=== PATIENT | female | born 2000 | race Caucasian/White ===

== ENCOUNTER 2022-04-19 13:39 | Inpatient (IN) | payer MEDICAID ==
[~2022-04-19] VITALS: Ht 132.1 cm; Wt 35.0 kg
[~2022-04-19 13:39] MED LIST: ACHD5005 PO; ADAL80PE2 SQ; ASCO100024 PO; BACL10TA PO; BISACODYL 10 MG SUPP (DULCOLAX) PR PRN; CALCIUM CARBONATE 500 MG (TUMS) TAB.CHEW PO PRN; CHOL200074 PO; CICL6.6S22 TP; DICY10CA12 PO; DOCUSATE SODIUM 100 MG (COLACE) CAP PO PRN; FLEET ENEMA ADULT 1 EA BTL PR PRN; FLUT9.9S NS; FURO20TA4 PO; LACT1CAP40 PO; LACTULOSE SYRUP 10GM/15ML (ENULOSE) 30ML UDC PO PRN; LNZ600T PO; LOPERAMIDE 2 MG (IMODIUM) TABLET PO PRN; LORA10TA7 PO; METR-145 PO; MULT-1136 PO; ONDANSETRON 4 MG (ZOFRAN) ORAL DISSOLVE TAB PO PRN; PANT40TA52 PO; [UNRECOGNIZED DRUG - OTHER] PO; diphenhydrAMINE 25 MG TAB (BENADRYL) PO PRN; guaiFENesin/CODEINE (ROBITUSSIN AC) 10ML UDC PO PRN
[2022-04-19 14:51] VITALS: BP 91/60
--- NOTE | 2022-04-19 15:14 | Physical Therapy Evaluation ---
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 6-Nshvcutwkr-cyynusc completes the activity by him/herself with no assistance from a helper. 5-Set-up or Clean-up Assistance-helper sets up or cleans up; patient completes activity. [place] assists only prior to or following the activity. 4-Supervision or Touching Assistance-helper provides verbal cues and/or touching/steadying and/or contact guard assistance as patient completes activity. Assistance may be provided throughout the activity or intermittently. 3-Partial/Moderate Assistance-helper does LESS THAN HALF the effort. [place] lifts, holds or supports trunk or limbs, but provides less than half the effort. 2-Substantial/Maximal Assistance-helper does MORE THAN HALF the effort. [place] lifts or holds trunk or limbs and provides more than half the effort. 4-Gozhippqi-ywkcrv does ALL the effort. Patient does none of the effort to complete the activity. Or, the assistance of 2 or more helpers is required for the patient to complete the activity. If activity was not attempted, code reason: 7-Patient Refused. 9-Not Applicable-not attempted and the patient did not perform the activity before the current illness, exacerbation or injury. 10-Not Attempted due to Environmental Limitations-(lack of equipment, weather restraints, etc.). 88-Not Attempted due to Medical Conditions or Safety Concerns. Bed Mobility: 6 Transfers (B,C,W/C): 6 Gait: 6 Indoor Mobility (Ambulation): Independent Prior Devices Use: None PT Evaluation-Current Subjective Patient comes to hospital via family transport, has 1/10 abdominal pain. Will be co-treating with OT due to poor patient mobility, strength, endurance, severe debility, coordinate UE and LE during activity, safety and reduce risk of falls. Pain Section J - Health Conditions 1. Rarely or not at all 2. Occasionally 3. Frequently 4. Almost constantly 8. Unable to answer Pain Effect on Sleep: 2 Pain Interference with Therapy: 2 Pain Interference w/Day-to-Day: 2 Pt/Family Goals to be independent at home Objective Patient Orientation: Person, Place, Situation Attachments: Colostomy/Ileostomy ROM/Strength ROM Lower Extremities PROM BLE WNL Strength Lower Extremities LLE (hip flexion 2/5, knee flexion 3/5, knee extension 3+/5, dorsiflexion 3/5), RLE (hip flexion 2/5, knee flexion 3/5, knee extension 3+/5, dorsiflexion 3/5) Neuromuscular (Tone, Coordination, Reflexes) decreased muscle tone BLE Sensory Vision: Functional Hearing: Functional Sensation Right Lower Extremit: Intact Sensation Left Lower Extremity: Intact Transfers Roll Left & Right (QC): 3 Sit to Lying (QC): 3 Lying to Sitting/Side of Bed(Q: 3 Sit to Stand (QC): 4 Chair/Nsv-il-Xayvy Xfer(QC): 4 Toilet Transfer (QC): 4 Car Transfer (QC): 3 Patient performs rolling with min assist, supine to sit min assist, sit to supine mod assist, sit <-> stand and transfers CGA, car transfer min assist. Occasional cues for safety and positioning. Patient also showered and dressed. PT performed standing and positioning and safety during bathing and dressing. Gait Does the Patient Walk?: Yes Mode of Locomotion: Walk Anticipated Mode of Locomotion: Walk Walk 10 feet (QC): 4 Walk 50 ft with 2 Turns(QC): 4 Walk 150 ft (QC): 88 Walking 10ft/uneven surface-QC: 3 Distance: 75', 60' Gait Assistive Device: FWW Comments/Gait Description Patient can ambulate 75' with a rolling walker with CGA (including 50' with at least 2 turns of 90 degrees but needs min assist for 10' over an uneven surface), patient ambulates with bilateral dropfoot (has AFO's but feet are too swollen to put them on) flexed knees and hip, poor strength with step through. Wheelchair Training Wheel 50 ft with 2 turns (QC): 9 Wheel 150 ft (QC): 9 Stairs 1 Step (curb) (QC): 88 4 Steps (QC): 88 12 Steps (QC): 88 Patient's legs are too weak to attempt stairs in a safe manner at this time. Balance Sitting Static: Normal Sitting Dynamic: Normal Standing Static: Fair Standing Dynamic: Fair Picking up an Object (QC): 4 (CGA with client services coordinator) Treatment PT performed standing and positioning and safety during bathing and dressing, bed mobility and transfers, ambulation. OT performed bathing, dressing, UE positioning and safety during activity. Assessment/Needs Patient in recliner post tx with nurse call, phone, tray, all needs met. Patient has impaired mobility, strength, endurance. Has abnormal CP gait pattern. Rehab Potential: Fair PT Short Term Goals Short Term Goals Time Frame: Apr 26, 2022 Roll Left & Right: 6 Sit to lyin Lying to sitting on side of be: 4 Sit to stand: 4 (SBA) Chair/vhz-kl-yukmp transfer: 4 (SBA) Walk 10 feet: 4 (SBA) Walk 50 feet with two turns: 4 (SBA) Walk 150 feet: 4 (SBA) PT [place] Orientator Goals Shelter Goals PT Shelter Goals Time Frame: May 10, 2022 Scoring Section J - Health Conditions 1. Rarely or not at all 2. Occasionally 3. Frequently 4. Almost constantly 8. Unable to answer Roll Left to Right (QC): 6 Sit to Lying (QC): 6 Lying-Sitting on Side/Bed(QC): 6 Sit to Stand (QC): 5 Chair/Cph-to-Oqwac Xfer(QC): 5 Car Transfer (QC): 5 Does the Patient Walk: Yes Walk 10 feet (QC): 5 Walk 10ft-Uneven Surface(QC): 5 Walk 50ft with 2 Turns (QC): 5 Walk 150 ft (QC): 5 Wheel 50 feet with 2 turns (QC: 9 1 Step (curb) (QC): 3 4 Steps (QC): 88 12 Steps (QC): 88 Picking up an Object (QC): 5 Patient will also perform a toilet transfer with setup, Wc 150' QC9, PT Plan Problem List Problem List: Activity Tolerance, Functional Strength, Safety, Balance, Gait, Transfer, Bed Mobility, ROM Treatment/Plan Treatment Plan: Continue Plan of Care Treatment Plan: Bed Mobility, Education, Functional Activity Tim, Functional Strength, Group Therapy, Gait, Safety, Therapeutic Exercise, Transfers Treatment Duration: May 10, 2022 Frequency: At least 5 of 7 days/Wk (IRF) Estimated Hrs Per Day: 1.5 hours per day Patient and/or Family Agrees t: Yes Safety Risks/Education Patient Education: Gait Training, Transfer Techniques, Correct Positioning, Safety Issues Teaching Recipient: Patient Teaching Methods: Demonstration, Discussion Response to Teaching: Reinforcement Needed Discharge Recommendations Plan Patient will perform bed mobility and transfer training, balance and endurance training, functional strengthening, stair training, gait training, and education, to improve functional mobility and independence at home. Therapy Discharge Recommendati: Home & Family, Post Acute PT Time/GCodes Time In: 1425 Time Out: 1605 Total Billed Treatment Time: 90 Total Billed Treatment 1 visit EVM 10' FA 80' PT eval from [id number], OT eval from [id number], co-treat from [id number] PA ROGERS PT Apr 19, 2022 15:14
--- NOTE | 2022-04-19 15:49 | Occupational Therapy Eval ---
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 s/p exp lap with ileostomy placement. Pt transferred to ARU 04/19/22 for continued medication management and skilled therapy. Social History Home: Single Level Current Living Status: mother Entry Into Home: Stairs Without Railing Steps Into Home: 1 ADL-Prior Level of Function SCALE: Activities may be completed with or without assistive devices. 3-Qrjqqrwtzq-dmotjia completes the activity by him/herself with no assistance from a helper. 5-Set-up or Clean-up Assistance-helper sets up or cleans up; patient completes activity. [place] assists only prior to or following the activity. 4-Supervision or Touching Assistance-helper provides verbal cues and/or touching/steadying and/or contact guard assistance as patient completes activity. Assistance may be provided throughout the activity or intermittently. 3-Partial/Moderate Assistance-helper does LESS THAN HALF the effort. [place] lifts, holds or supports trunk or limbs, but provides less than half the effort. 2-Substantial/Maximal Assistance-helper does MORE THAN HALF the effort. [place] lifts or holds trunk or limbs and provides more than half the effort. 0-Ifhteukqw-oiavsr does ALL the effort. Patient does none of the effort to complete the activity. Or, the assistance of 2 or more helpers is required for the patient to complete the activity. If activity was not attempted, code reason: 7-Patient Refused. 9-Not Applicable-not attempted and the patient did not perform the activity before the current illness, exacerbation or injury. 10-Not Attempted due to Environmental Limitations-(lack of equipment, weather restraints, etc.). 88-Not Attempted due to Medical Conditions or Safety Concerns. ADL PLOF Comments Pt reports IND with ADLs and functional mobility at PLOF, bilateral AFOs. At this time, pt and mother are staying at grandmothers house until rental is ready. Pt unsure about the layout of the rental property, as she has only been there one time. She also doesn't know a time frame on when the rental will be ready for her and her mother to move into. Pt's grandmothers house has a tub/shower with RI. Self Care: Independent Functional Cognition: Independent OT Current Status Subjective Pt agreeable to OT Tx. Mental Status/Objective Patient Orientation: Person, Place, Time, Situation Acute Mental Status Change: 0 Inattention: 0 Disorganized thinkin Altered level of consciousness: 0 Current Glasses/Contacts: No Hearing Aids: No Dentures/Partials: No Hand Dominance: Right Upper Extremity ROM WFL, BUE shoulder flexion to approx 150 degrees Upper Extremity Coordination slightly decreased. Pt has difficulty with opening containers, and squeezing containers (toothpaste, soap, etc) due to weakness Upper Extremity Sensation WFL Upper Extremity Strength grossly 3+/5 ADL-Treatment Eating (QC): 5 Oral Hygiene (QC): 4 (CGA per clinical judgement) Shower/Bathe Self (QC): 3 (Mod A overall. Pt required assistance with bilateral LEs and feet.) Upper Body Dressing (QC): 5 (set up with overhead shirt.) Lower Body Dressing (QC): 2 (Max A. assist with threading BLEs into pants, and slight assist with pant hike in back.) On/Off Footwear (QC): 1 (total assist doffing/donning gripper socks.) Toileting Hygiene (QC): 3 (Min A with pant hike in back.) frequent rest breaks required and increased time with ADLs. Other Treatments OT/PT cotreat due to skill of 2 clinicians required which a rehabilitation therapy technician could not perform in order to coordinate UE/LEs, decrease fall risk, and due to pt's limitations in strength, activity tolerance, and mobility. OT focused on UE placment, cues for sequencing and safety and ADLs, PT focused on LE placement, gross overall movement and transfers/mobility. Pt completed functional mobility and transfers around ARU common area including mobility with FWW, car transfer, bed mobility, etc. Pt transferred to [place] in her room, doffed clothes, completed shower, then donned clothes. [facility], positioned to comfort with pillows, as recliner is too large for pt's size. Post tx, pt in recliner, call light in reach and all needs met. min A car transfer, min-mod A with supine to/from sit, CGA sit to stand and ambulation Education OT Patient Education: Correct positioning, Energy conservation, Modified ADL techniques, Progress toward Goal/Update tx plan, Purpose of tx/functional activities, Rehab process Teaching Recipient: Patient Teaching Methods: Discussion Response to Teaching: Verbalize Understanding OT Short Term Goals Short Term Goals Time Frame: May 02, 2022 Toileting hygiene: 4 Shower/bathe self: 4 Lower body dressin Putting on/taking off footwear: 4 OT Mcfp Goals Nail Puller Goals Time Frame: May 11, 2022 Acute change in mental status: 0 Inattention: 0 Disorganized thinkin Altered level of consciousness: 0 Eating (QC): 5 Oral Hygiene (QC): 5 Toileting Hygiene (QC): 6 Shower/Bathe Self (QC): 5 Upper Body Dressing (QC): 6 Lower Body Dressing (QC): 6 On/Off Footwear (QC): 6 Additional Goals: 1-Demonstrate ADL Tasks, 2-Verbalize Understanding, 3- ImproveStrength/Tim 1=Demonstrate adherence to instructed precautions during ADL tasks. 2=Patient will verbalize/demonstrate understanding of assistive devices/modifications for ADL. 3=Patient will improve strength/tolerance for activity to enable patient to perform ADL's. OT Education/Plan Problem List/Assessment Assessment: Decreased Activ Tolerance, Decreased UE Strength, Impaired Funct Balance, Impaired I ADL's, Impaired Self-Care Skills Discharge Recommendations Plan/Recommendations: Continue POC Treatment Plan/Plan of Care Patient would benefit from OT for education, treatment and training to promote independence in ADL's, mobility, safety and/or upper extremity function for ADL's. Plan of Care: ADL Retraining, Functional Mobility, Group Exercise/Act as Ind, UE Funct Exercise/Act Treatment Duration: May 11, 2022 Frequency: At least 5 of 7 days/Wk (IRF) Estimated Hrs Per Day: 1.5 hours per day Agreement: Yes Rehab Potential: Fair Time/GCodes Start Time: 14:35 Stop Time: 16:05 Total Time Billed (hr/min): 90 Billed Treatment Time [id number] OT eval, [id number] [place] 1, EVM (10'), FA 2 (30'), ADL 3 (50') KARL PIERRE OT Apr 19, 2022 15:49
--- NOTE | 2022-04-19 15:50 | IRF PAI BIMS ---
BIMS BIMS Temporal Orientation/Year: Correct (3) Temporal Orientation-Month: Accurate Within 5 Days (2) Temporal Orientation-Day: Incorrect or No Answer (0) Brief Interview/Mental Status: Yes IRF VERONICA BIMS: IRF VERONICA BIMS Response (Comments) Value Expression of Ideas and Wants (Verbal/Non Verbal) Without Difficulty (4) 3 Understanding Verbal Content Understands (4) 3 Repitition of Three Words Three (3) 3 Recalls Socks Yes, No Cue Required (2) 2 Recalls Blue Yes, After Cueing (Color) (1) 1 Recalls Bed Yes, No Cue Required (2) 2 Total 14 Notes: Score KARL PIERRE OT Apr 19, 2022 15:50
--- NOTE | 2022-04-19 16:11 | Consultation - Surgery ---
LORI OROZCO 04/19/22 1611: History of Present Illness History of Present Illness Patient Consulted On(bertha/time) 04/19/22 15:59 Date Seen by Provider: Apr 19, 2022 Time Seen by Provider: 15:59 History of Present Illness We were consulted by Dr. Rivera on this 21 yo F s/p bowel resection after colononic perforation on 04/14 in [facility]. She has a pmh of Chron's disease, cerebral palsy, and hiatal hernia, anxiety, and muscle spasticity. She reports current 1/10 pain in her mid abdomen that can get up to 3/10 when she moves in the wrong position. She describes the pain as sore and achy. It radiates to both sides at times. She is currently tolerating a soft diet post surgery and denies any N/V. Ileostomy is draining green liquid stool. Pt reports no changes to her drainage visually. Pt says she is here "to work on getting stronger" after her surgery. She developed swelling up to her knees a few weeks ago. Her legs are not currently painful, but there is pitting edema bl. Allergies and Home Medications Allergies Coded Allergies: vancomycin (Verified Allergy, Intermediate, Rash, 04/19/22) Patient Home Medication List Home Medication List Reviewed: Yes Adalimumab (Humira(Cf) Pen) 80 Mg/0.8 Ml Pen.ij.kit, MG SQ UD, (Reported) Entered as Reported by: GUNNER GARCIA on 04/19/22 1220 Last Action: Held Ascorbic Acid (Vitamin C) 1,000 Mg Tablet, 1,000 MG PO DAILY, (Reported) Entered as Reported by: GUNNER GARCIA on 04/19/221213 Last Action: Converted Baclofen (Baclofen) 10 Mg Tablet, 10-20 MG PO TID PRN for MUSCLE SPASTICITY, (Reported) Entered as Reported by: GUNNER GARCIA on 04/19/221213 Last Action: Continued Cholecalciferol (Vitamin D3) (Vitamin D3) 50 Mcg (2000 Unit) Capsule, 50 MCG PO DAILY, (Reported) Entered as Reported by: GUNNER GARCIA on 04/19/224 Last Action: Converted Ciclopirox (Ciclopirox) 8 % Solution, 1 APPLIC TP DAILY, (Reported) Entered as Reported by: GUNNER GARCIA on 04/19/221213 Last Action: Converted Dicyclomine HCl (Dicyclomine HCl) 10 Mg Capsule, 10 MG PO TID PRN for GI PAIN, (Reported) Entered as Reported by: GUNNER GARCIA on 04/19/221213 Last Action: Continued Fluticasone Propionate (Flonase Allergy Relief) 50 Mcg/Actuation [place].susp, 2 SPRAY NS DAILY, (Reported) Entered as Reported by: GUNNER GARCIA on 04/19/221213 Last Action: Converted Furosemide (Furosemide) 20 Mg Tablet, 20 MG PO DAILY PRN for SWELLING, (Reported) Entered as Reported by: GUNNER GARCIA on 04/19/221213 Last Action: Continued Hydrocodone/Acetaminophen (Hydrocodone-Acetamin 5-325 mg) 5 Mg-325 Mg Tablet, 1 TAB PO Q8H PRN for PAIN-MODERATE (5-7), (Reported) Entered as Reported by: GUNNER GARCIA on 04/19/221213 Last Action: Continued L. Rhamnosus GG/Inulin (Culturelle Capsule) 10 Billion Cell-200 Mg Cap.sprink, 1 EACH PO BID, (Reported) Entered as Reported by: GUNNER GARCIA on 04/19/221213 Last Action: Converted Linezolid (Linezolid) 600 Mg Tablet, 600 MG PO BID, (Reported) Entered as Reported by: GUNNER GARCIA on 04/19/221213 Last Action: Continued Loratadine (Loratadine) 10 Mg Tablet, 10 MG PO DAILY, (Reported) Entered as Reported by: GUNNER GARCIA on 04/19/221213 Last Action: Continued Metronidazole (Metronidazole) 500 Mg Tablet, 500 MG PO TID, (Reported) Entered as Reported by: GUNNER GARCIA on 04/19/221213 Last Action: Continued Multivitamin (Multivitamin) 1 Each Tablet, 1 EACH PO DAILY, (Reported) Entered as Reported by: GUNNER GARCIA on 04/19/221213 Last Action: Converted Pantoprazole Sodium (Pantoprazole Sodium) 40 Mg Tablet.dr, 40 MG PO BID, (Reported) Entered as Reported by: GUNNER GARCIA on 04/19/221213 Last Action: Continued [Vit B Comp. Sust Rel] , 1 EA PO DAILY, (Reported) Entered as Reported by: GUNNER GARCIA on 04/19/22 1214 Last Action: Converted Past [id number] Hx Patient Social History Smoking Status: Never a Smoker Alcohol Use?: No Surgeries Surgeries: Abdominal (bowel resection secondary to perforation, ileostomy), Brain Shunt ([employer] shunt), Neurological (dorsal rhizotomy for spasticity) Respiratory History of Respiratory Disorde: No Cardiovascular History of Cardiac Disorders: No (No HTN, NM, or arrythmias) Neurological History of Neurological Disord: Yes Neurological Disorders: Cerebral Palsy Genitourinary History of Genitourinary Disor: No Gastrointestinal History of Gastrointestinal Di: Yes Gastrointestinal Disorders: Crohns Disease, Hiatal Hernia Musculoskeletal History of Musculoskeletal Dis: Yes (muscle spasticity) Endocrine History of Endocrine Disorders: No (No DM) HEENT History of HEENT Disorders: No Cancer History of Cancer: No Psychosocial History of Psychiatric Problem: Yes Behavioral Health Disorders: Anxiety Family Medical History Significant Family History: Cancer (lung cancer in grandfather, breast cancer in great grandmother.), Diabetes (multiple members of the family, great grandmother, uncles), GI Disease (gallbladder disease in multiple members) Review of Systems-General Constitutional: No chills, No fever EENTM: No hearing loss, No vision loss, No hoarseness Respiratory: No cough; dyspnea on exertion, orthopnea (pt has been sleeping with head elevated); No short of breath Cardiovascular: No chest pain, No palpitations Gastrointestinal: abdominal pain (mild abdominal pain at incision); No jaundice, No nausea, No vomiting Musculoskeletal: muscle pain (pt notes mild tenderness at left scapula when auscultating the lungs), other (hx of spasm) Skin: No change in color, No dryness, No rash Psychiatric/Neurological: Anxiety; Denies Headache Physical Exam-General Problems Physical Exam Vital Signs Vital Signs - First Documented 04/19/22 14:51 Temp 36.9 Pulse 100 Resp 14 B/P (MAP) 91/60 (70) Pulse Ox 99 O2 Delivery Room Air Capillary Refill : General Appearance: WD/WN, no apparent distress, thin, other (pt has draining ileostomy) HEENT: PERRL/EOMI; No scleral icterus (R), No scleral icterus (L) Neck: non-tender, supple Respiratory: chest non-tender, lungs clear, normal breath sounds, no respiratory distress, no accessory muscle use Cardiovascular: regular rate, rhythm, no murmur Peripheral Pulses: 2+ Radial Pulses (R), 2+ Radial Pulses (L) Gastrointestinal: soft; No distended; tenderness (LLQ and around incision) Rectal: deferred Extremities: no calf tenderness, pedal edema, swelling (edema up to knees bl) Neurologic/Psychiatric: alert, normal mood/affect, oriented x 3; No facial droop Skin: normal color, warm/dry Lymphatic: no adenopathy (cervical) Assessment/Plan Assessment/Plan Assessment/Plan S/P bowel resection after colon perforation on 04/14, draining ileostomy Chrons Disease Cerebral palsy Muscle spasticity Hiatal hernia Anxiety LE swelling- undetermined etiology Plan: Pt is admitted to work on recovering strength and ADLs after surgery on 04/14. Her ileostomy seems to be draining properly at this time, continue to monitor for changes in abdominal pain, signs of infection, Chron's flare, and changes in ileostomy fluid. Pts abdominal pain is under control at the moment, pt states she has required morphine at times since surgery. Pt will need monitoring of labs regularly. Her muscle spasticity seems to be under control post dorsal rhizotomy treated with baclofen, continue to monitor. The status of her hiatal hernia is unsure at this time, consider imaging. Anxiety controlled with zoloft. Her LE edema has been constant for a few weeks, consider echo and med review. KYUNGORLINFAYE Po DO 04/19/22 1855: History of Present Illness History of Present Illness Time Seen by Provider: 17:43 History of Present Illness Surgery asked to consult regarding ileostomy. Pt had surgery on 04/14, Ileo-cecectomy with ileal-colonic anastomosis and loop ileostomy. Pt seen sitting up in bed eating dinner. States really no abdominal pain, "minimal". Pt admitted to rehab to help get stronger. Allergies and Home Medications Allergies Coded Allergies: vancomycin (Verified Allergy, Intermediate, Rash, 04/19/22) Patient Home Medication List Home Medication List Reviewed: Yes Adalimumab (Humira(Cf) Pen) 80 Mg/0.8 Ml Pen.ij.kit, MG SQ UD, (Reported) Entered as Reported by: GUNNER GARCIA on 04/19/22 1220 Last Action: Held Ascorbic Acid (Vitamin C) 1,000 Mg Tablet, 1,000 MG PO DAILY, (Reported) Entered as Reported by: GUNNER GARCIA on 04/19/221213 Last Action: Converted Baclofen (Baclofen) 10 Mg Tablet, 10-20 MG PO TID PRN for MUSCLE SPASTICITY, (Reported) Entered as Reported by: GUNNER GARCIA on 04/19/221213 Last Action: Continued Cholecalciferol (Vitamin D3) (Vitamin D3) 50 Mcg (2000 Unit) Capsule, 50 MCG PO DAILY, (Reported) Entered as Reported by: GUNNER GARCIA on 04/19/221213 Last Action: Converted Ciclopirox (Ciclopirox) 8 % Solution, 1 APPLIC TP DAILY, (Reported) Entered as Reported by: GUNNER GARCIA on 04/19/221213 Last Action: Converted Dicyclomine HCl (Dicyclomine HCl) 10 Mg Capsule, 10 MG PO TID PRN for GI PAIN, (Reported) Entered as Reported by: GUNNER GARCIA on 04/19/221213 Last Action: Continued Fluticasone Propionate (Flonase Allergy Relief) 50 Mcg/Actuation [place].susp, 2 SPRAY NS DAILY, (Reported) Entered as Reported by: GUNNER GARCIA on 04/19/221213 Last Action: Converted Furosemide (Furosemide) 20 Mg Tablet, 20 MG PO DAILY PRN for SWELLING, (Reported) Entered as Reported by: GUNNER GARCIA on 04/19/221213 Last Action: Continued Hydrocodone/Acetaminophen (Hydrocodone-Acetamin 5-325 mg) 5 Mg-325 Mg Tablet, 1 TAB PO Q8H PRN for PAIN-MODERATE (5-7), (Reported) Entered as Reported by: GUNNER GARCIA on 04/19/221213 Last Action: Continued L. Rhamnosus GG/Inulin (Culturelle Capsule) 10 Billion Cell-200 Mg Cap.sprink, 1 EACH PO BID, (Reported) Entered as Reported by: GUNNER GARCIA on 04/19/221213 Last Action: Converted Linezolid (Linezolid) 600 Mg Tablet, 600 MG PO BID, (Reported) Entered as Reported by: GUNNER GARCIA on 04/19/221213 Last Action: Continued Loratadine (Loratadine) 10 Mg Tablet, 10 MG PO DAILY, (Reported) Entered as Reported by: GUNNER GARCIA on 04/19/221213 Last Action: Continued Metronidazole (Metronidazole) 500 Mg Tablet, 500 MG PO TID, (Reported) Entered as Reported by: GUNNER GARCIA on 04/19/221213 Last Action: Continued Multivitamin (Multivitamin) 1 Each Tablet, 1 EACH PO DAILY, (Reported) Entered as Reported by: GUNNER GARCIA on 04/19/221213 Last Action: Converted Pantoprazole Sodium (Pantoprazole Sodium) 40 Mg Tablet.dr, 40 MG PO BID, (Reported) Entered as Reported by: GUNNER GARCIA on 04/19/221213 Last Action: Continued [Vit B Comp. Sust Rel] , 1 EA PO DAILY, (Reported) Entered as Reported by: GUNNER GARCIA on 04/19/221213 Last Action: Converted Past [id number]-[id number] Hx Patient Social History Smoking Status: Never a Smoker Alcohol Use?: No Surgeries History of Surgeries: Yes Surgeries: Abdominal (bowel resection secondary to perforation, ileostomy), Brain Shunt ([employer] shunt), Neurological (dorsal rhizotomy for spasticity) Respiratory History of Respiratory Disorde: No Cardiovascular History of Cardiac Disorders: No (No HTN, NM, or arrythmias) Neurological History of Neurological Disord: Yes Neurological Disorders: Cerebral Palsy Genitourinary History of Genitourinary Disor: No Gastrointestinal History of Gastrointestinal Di: Yes Gastrointestinal Disorders: Crohns Disease, Hiatal Hernia Musculoskeletal History of Musculoskeletal Dis: Yes (muscle spasticity) Endocrine History of Endocrine Disorders: No (No DM) HEENT History of HEENT Disorders: No Cancer History of Cancer: No Psychosocial History of Psychiatric Problem: Yes Behavioral Health Disorders: Anxiety Family Medical History Significant Family History: Cancer (lung cancer in grandfather, breast cancer in great grandmother.), Diabetes (multiple members of the family, great grandmother, uncles), GI Disease (gallbladder disease in multiple members) Review of Systems-General Constitutional: No chills, No fever EENTM: No hearing loss, No vision loss, No hoarseness Respiratory: No cough; dyspnea on exertion, orthopnea (pt has been sleeping wit h head elevated); No short of breath Cardiovascular: No chest pain, No palpitations Gastrointestinal: abdominal pain (mild abdominal pain at incision); No jaundice, No nausea, No vomiting Musculoskeletal: muscle pain (pt notes mild tenderness at left scapula when auscultating the lungs), other (hx of spasm) Skin: No change in color, No dryness, No rash Psychiatric/Neurological: Anxiety; Denies Headache Physical Exam-General Problems Physical Exam General Appearance: no apparent distress, thin Eyes: Right Eye Abnormal EOM; Bilateral Eye PERRL, Bilateral Eye EOMI HEENT: No scleral icterus (R), No scleral icterus (L) Neck: non-tender, supple Respiratory: lungs clear, normal breath sounds, no respiratory distress, no accessory muscle use Cardiovascular: regular rate, rhythm, no murmur Gastrointestinal: soft; No distended; tenderness (LLQ and around incision), other (incision c/d/i, ostomy pink and functioning) Extremities: no calf tenderness, pedal edema, swelling (edema up to knees bl) Neurologic/Psychiatric: alert, oriented x 3 Skin: normal color, warm/dry Lymphatic: no adenopathy (cervical) Assessment/Plan Assessment/Plan Assessment/Plan S/P bowel resection after small bowel perforation on 04/14 with diverting ileostomy Chron's Disease Cerebral palsy Muscle spasticity Hiatal hernia Anxiety LE swelling- undetermined etiology Plan: Pt is admitted to work on recovering strength and ADLs after surgery on 04/14. Her ileostomy seems to be draining properly at this time, continue to monitor for changes in abdominal pain, signs of infection, Chron's flare, and changes in ileostomy fluid. Pts abdominal pain is under control at the moment, pt states she has required morphine at times since surgery. Pt will need monitoring of labs regularly. Her muscle spasticity seems to be under control post dorsal rhizotomy treated with baclofen, continue to monitor. The status of her hiatal hernia is unsure at this time, consider imaging. Anxiety controlled with zoloft. Supervisory-Addendum Brief Verification & Attestation Participated in pt care: history, MDM, physical Personally performed: exam, history, MDM, supervision of care Care discussed with: Medical Student Procedures: n/a Verification and Attestation of Medical Student E/M Service A medical student performed and documented this service. I then reviewed and verified all information documented by the medical student and made modifications to such information, when appropriate. I personally performed a physical exam, medical decision making and then discussed any differences between the notes and made revisions as necessary to create one note. Faye Chou 04/19/22 , 19:09 LORI OROZCO Apr 19, 2022 16:11 FAYE CHOU DO Apr 19, 2022 18:55
--- NOTE | 2022-04-19 16:19 | Progress Note ---
LEROY OLIVA 04/19/22 1619: Progress Note Anay Bills is a 21 y/o F with PMH of Cerebral palsy, Crohn's, W[employer] shunt, hiatal hernia, and anxiety who is admitted to acute rehab on 04/19/22 s/p ex lap, small bowel resection, and ileostomy s/p SBO and perforation on 04/14/22. CC: Generalized weakness s/p hospitalization for SBO and perforation, now s/p ex lap, small bowel resection, and ileostomy. HPI: Anay started to have abdominal pain with decreased appetite about 3 weeks ago. She eventually was able to go into [facility] for an EGD. Upon presenting for the EGD, she was found to be anemic to 7.0 and transfused with 2U of blood. She left with the understanding that she would eventually need some sort of surgical procedure to be completed but thought it would be at a later date. On the night of the 04/13, she started to have excruciating pain. She was later taken back to the hospital and found to have a small bowel obstruction wi th perforation. She had an ex lap with ileostomy on 04/14/2022. Since then, her pain has been well controlled. She did have an episode of nausea 2 days after her procedure but has not had any since. She states the drainage of her ileostomy has been consistently green and has not noticed any changes. She states she will occasionally have soreness along her midepigastric region with o ccasional radiation bilaterally in a band like pattern. She states this pain is well controlled when she takes her pain medications. Otherwise she has noticed an increase in swelling in her lower extremities over the last few weeks. At a hospital follow up visit after her first hospitalization on 04/06, she was started on a diuretic (Lasix 20mg) and has been taking that daily since that time, but notes a minor improvement in the swelling. She does state that she feels like she needs to sleep with her upper body propped up with pillows. She denies any shortness of breath at night or waking up feeling like she needs to catch her breath. She notes that she has felt more short of breath with exertion recently. Her grandmother notes that she used to be able to walk around the grocery store without issues, but more recently she has been feeling short of breath just from walking from the car to the front of the store, and is using a wheelchair in the store. She denies any cardiac history or ever having an ECHO. ROS: Pertinent positives: hiccups, burping, abdominal pain, lower extremity swelling, orthopnea Pertinent negatives: headache, dizziness, n/v, chest pain, shortness of breath, urinary changes, or other joint pains Otherwise negative unless stated in the HPI. PMH: Cerebral palsy, Crohn's, WAX MOLDER Shunt, hiatial hernia, and anxiety FHx: Diabetes, Gallbladder issues, breast cancer (maternal great grandmother), and lung cancer (maternal grandfather) Surg: WAX MOLDER shunt revisions, Selective dorsal rhizotomy Meds: Humira, Baclofen 10mg TID, Lasix 20mg PO QD, Zoloft (pt unsure of dosage) Allergies: Vancomycin and [employer] detergent Social history: Lives at home with her mother and grandmother. Denies alcohol use, tobacco use, or other recreational drug use. Objectively: Vitals: T 36.9 HR 100 BP: 91/60 RR 14 SpO2: 99% PE: General: Alert, cooperative, normocephalic, not in apparent distress HEENT: Right eye strabismus, EOMI CV: Tachycardic, normal S1, S2, no murmur or gallops noted Pulm: CTAB Abd: right sided ileostomy with pink mucosa and greenish output, normoactive bowel sounds, mild tenderness to palpation in the LLQ. Extremities: 4+ pitting edema bilateral lower extremities with extension to uppe r legs with 2+ pitting edema. Psych: Mood and affect normal Neuro: A&O x4, no gross focal motor deficits Labs: CBC and CMP pending Assessment: Anay Bills is a 21 y/o F with PMH of Cerebral palsy, Crohn's, WAX MOLDER shunt, hiatal hernia, and anxiety who is admitted to acute rehab s/p small bowel resection and ileostomy s/p SBO and perforation. Plan: 1. POD# 5 for a small bowel resection and ileostomy s/p SBO and perforation - Surgery following - Cont pain management with Percocet 5/325 PRN - PT/OT following 2. Crohn's Pt follows with Dr. Campbell at [facility] - Cont Humira 3. Bilaterally lower extremity swelling Pt reports orthopnea and SOB with exertion - Consider ECHO - Consider BNP - Cont Lasix 20mg PO daily, consider increasing to 40mg daily once able to establish baseline BNP - Elevate feet and consider compression socks. Dispo: Continue inpatient rehab to increase strength and stamina. Leroy Oliva MS4 KIMI SIDDIQI DO 04/19/222125: Supervisory-Addendum Brief Verification & Attestation Participated in pt care: history, MDM, physical Personally performed: exam, history, MDM, supervision of care Care discussed with: Medical Student Procedures: n/a Results interpretation: Verified all documentation Verification and Attestation of Medical Student E/M Service A medical student performed and documented this service in my presence. I reviewed and verified all information documented by the medical student and made modifications to such information, when appropriate. I personally performed the physical exam and medical decision making. Kimi Siddiqi, Apr 19, 2022,21:26 LEROY OLIVA Apr 19, 2022 16:19 KIMI SIDDIQI DO Apr 19, 2022 21:26
--- NOTE | 2022-04-19 16:24 | PM&R Post Admission Assessment ---
PM&R HP Date of Visit: Apr 19, 2022 Time of Visit: 16:30 History of Present Illness CC: Debility following intestinal surgery HPI: This is a 21yoWF clinic patient of Mya Aquino MD who has a h/o CP and Crohn's who presents to ARU following extensive abdominal surgery due to perforation with SBP. Currently her grandmother is at bedside and patient is eating a snack and tolerating diet well. PLOF was evaluated and it appears she needs strengthening in order to return back to current living status. Anay Bills is a 21 y/o F with PMH of Cerebral palsy, Crohn's, HOP WEIGHER shunt, hiatal hernia, and anxiety who is admitted to acute rehab on 04/19/22 s/p ex lap, small bowel resection, and ileostomy s/p SBO and perforation on 04/14/22. CC: Generalized weakness s/p hospitalization for SBO and perforation, now s/p ex lap, small bowel resection, and ileostomy. HPI: Anay started to have abdominal pain with decreased appetite about 3 weeks ago. She eventually was able to go into [facility] for an EGD. Upon presenting for the EGD, she was found to be anemic to 7.0 and transfused with 2U of blood. She left with the understanding that she would eventually need some sort of surgical procedure to be completed but thought it would be at a later date. On the night of the 04/13, she started to have excruciating pain. She was later taken back to the hospital and found to have a small bowel obstruction with perforation. She had an ex lap with ileostomy on 04/14/2022. Since then, her pain has been well controlled. She did have an episode of nausea 2 days after her procedure but has not had any since. She states the drainage of her ileostomy has been consistently green and has not noticed any changes. She states she will occasionally have soreness along her midepigastric region with occasional radiation bilaterally in a band like pattern. She states this pain is well controlled when she takes her pain medications. Otherwise she has noticed an increase in swelling in her lower extremities over the last few weeks. At a hospital follow up visit after her first hospitalization on 04/06, she was started on a diuretic (Lasix 20mg) and has been taking that daily since that time, but notes a minor improvement in the swelling. She does state that she feels like she needs to sleep with her upper body propped up with pillows. She denies any shortness of breath at night or waking up feeling like she needs to catch her breath. She notes that she has felt more short of breath with exertion recently. Her grandmother notes that she used to be able to walk around the grocery store without issues, but more recently she has been feeling short of breath just from walking from the car to the front of the store, and is using a wheelchair in the store. She denies any cardiac history or ever having an ECHO. ROS: Pertinent positives: hiccups, burping, abdominal pain, lower extremity swelling, orthopnea Pertinent negatives: headache, dizziness, n/v, chest pain, shortness of breath, urinary changes, or other joint pains Otherwise negative unless stated in the HPI. PMH: Cerebral palsy, Crohn's, HOP WEIGHER Shunt, hiatial hernia, and anxiety FHx: Diabetes, Gallbladder issues, breast cancer (maternal great grandmother), and lung cancer (maternal grandfather) Surg: HOP WEIGHER shunt revisions, Selective dorsal rhizotomy Meds: Humira, Baclofen 10mg TID, Lasix 20mg PO QD, Zoloft (pt unsure of dosage) Allergies: Vancomycin and Arm&Hammer detergent Social history: Lives at home with her mother and grandmother. Denies alcohol use, tobacco use, or other recreational drug use. Objectively: Vitals: T 36.9 HR 100 BP: 91/60 RR 14 SpO2: 99% PE: General: Alert, cooperative, normocephalic, not in apparent distress HEENT: Right eye strabismus, EOMI CV: Tachycardic, normal S1, S2, no murmur or gallops noted Pulm: CTAB Abd: right sided ileostomy with pink mucosa and greenish output, normoactive bowel sounds, mild tenderness to palpation in the LLQ. Extremities: 4+ pitting edema bilateral lower extremities with extension to upper legs with 2+ pitting edema. Psych: Mood and affect normal Neuro: A&O x4, no gross focal motor deficits Labs: CBC and CMP pending Assessment: Anay Bills is a 21 y/o F with PMH of Cerebral palsy, Crohn's, HOP WEIGHER shunt, hiatal hernia, and anxiety who is admitted to acute rehab s/p small bowel resection and ileostomy s/p SBO and perforation. Plan: 1. POD# 5 for a small bowel resection and ileostomy s/p SBO and perforation - Surgery following - Cont pain management with Percocet 5/325 PRN - PT/OT following 2. Crohn's Pt follows with Dr. Campbell at [facility] - Cont [facility] 3. Bilaterally lower extremity swelling Pt reports orthopnea and SOB with exertion - Consider ECHO - Consider BNP - Cont Lasix 20mg PO daily, consider increasing to 40mg daily once able to establish baseline BNP - Elevate feet and consider compression socks. Dispo: Continue inpatient rehab to increase strength and stamina. Darwin Grier MS4 Past Qdmxakc-Kqxvae-Aegdoz Hx Past Med/Social Hx: Reviewed Nursing Past Med/Soc Hx, Reviewed and Corrections made Patient Social History Marrital Status: single Employed/Student: unemployed Alcohol Use: Denies Use Smoking Status: Never a Smoker Past Medical History Surgeries: Abdominal Neurological: Cerebral Palsy Gastrointestinal: Abdominal Hernia, Crohns Disease Prior Level of Function Bed Mobility: 6 Transfers: 6 Gait: 6 Indoor Mobility (Ambulation): Independent Prior Devices Use: None Self Care: Independent Functional Cognition: Independent Current Level of Fuctioning Roll Left to Right: 3 Sit to Lyin Lying to Sitting/Side of Bed: 3 Sit to Stand: 4 Chair/Xwl-nn-Ickng Xfer: 4 Car Transfer: 3 Does the Patient Walk: Yes Mode of Locomotion: Walk Anticipated Mode of Locomotion: Walk Walk 10 feet: 4 Walk 50 ft with 2 Turns: 4 Walk 150 ft: 88 Walking 10ft on uneven surface: 3 Gait Assistive Device: FWW Wheel 50 ft with 2 turns: 9 Wheel 150 ft: 9 1 Step (curb): 88 4 Steps: 88 12 Steps: 88 Picking up an Object: 4 (CGA with oracle fusion developer) Eatin Oral Hygiene: 4 (CGA per clinical judgement) Shower/Bathe Self: 3 (Mod A overall. Pt required assistance with bilateral LEs and feet.) Upper Body Dressin (set up with overhead shirt.) Lower Body Dressin (Max A. assist with threading BLEs into pants, and slight assist with pant hike in back.) On/Off Footwear: 1 (total assist doffing/donning gripper socks.) Toileting Hygiene: 3 (Min A with pant hike in back.) PM&R Allergy/Meds/Data Review Allergies Coded Allergies: vancomycin (Verified Allergy, Intermediate, Rash, 04/19/22) Home Medications Scheduled Adalimumab (Humira(Cf) Pen), MG SQ UD, (Reported) Ascorbic Acid (Vitamin C), 1,000 MG PO DAILY, (Reported) Cholecalciferol (Vitamin D3) (Vitamin D3), 50 MCG PO DAILY, (Reported) Ciclopirox (Ciclopirox), 1 APPLIC TP DAILY, (Reported) Fluticasone Propionate (Flonase Allergy Relief), 2 SPRAY NS DAILY, (Reported) L. Rhamnosus GG/Inulin (Culturelle Capsule), 1 EACH PO BID, (Reported) Linezolid (Linezolid), 600 MG PO BID, (Reported) Loratadine (Loratadine), 10 MG PO DAILY, (Reported) Metronidazole (Metronidazole), 500 MG PO TID, (Reported) Multivitamin (Multivitamin), 1 EACH PO DAILY, (Reported) Pantoprazole Sodium (Pantoprazole Sodium), 40 MG PO BID, (Reported) [Vit B Comp. Sust Rel], 1 EA PO DAILY, (Reported) Scheduled PRN Baclofen (Baclofen), 10-20 MG PO TID PRN for MUSCLE SPASTICITY, (Reported) Dicyclomine HCl (Dicyclomine HCl), 10 MG PO TID PRN for GI PAIN, (Reported) Furosemide (Furosemide), 20 MG PO DAILY PRN for SWELLING, (Reported) Hydrocodone/Acetaminophen (Hydrocodone-Acetamin 5-325 mg), 1 TAB PO Q8H PRN for PAIN-MODERATE (5-7), (Reported) Current Medications Current Medications Reviewed Review of Systems Constitutional: see HPI, malaise, weakness EENTM: no symptoms reported Respiratory: no symptoms reported Cardiovascular: no symptoms reported Gastrointestinal: abdominal pain, loss of appetite Genitourinary: no symptoms reported Musculoskeletal: no symptoms reported Skin: no symptoms reported Psychiatric/Neurological: Depressed All Other Systems Reviewed Negative Unless Noted: Yes Physical Exam Physical Exam Vital Signs Vital Signs - First Documented 04/19/22 14:51 Temp 36.9 Pulse 100 Resp 14 B/P (MAP) 91/60 (70) Pulse Ox 99 O2 Delivery Room Air Capillary Refill : Height, Weight, BMI Height: '" Weight: lbs. oz. kg; BMI Method: General Appearance: No Apparent Distress, WD/WN, Anxious, Chronically ill, Thin Eyes: Bilateral Eye Normal Inspection, Bilateral Eye PERRL HEENT: PERRL/EOMI, Normal ENT Inspection, Pharynx Normal Neck: Full Range of Motion, Normal Inspection, Non Tender, Supple, Carotid Bruit Respiratory: Chest Non Tender, Lungs Clear, Normal Breath Sounds, No Accessory Muscle Use, No Respiratory Distress Cardiovascular: Regular Rate, Rhythm, No Gallop, No JVD, No Murmur, Normal Peripheral Pulses Gastrointestinal: Normal Bowel Sounds, No Organomegaly, No Pulsatile Mass, Non Tender, Soft Back: Normal Inspection, No CVA Tenderness, No Vertebral Tenderness Extremity: Normal Capillary Refill, Normal Inspection, Normal Range of Motion, Non Tender, No Calf Tenderness, Pedal Edema Neurologic/Psychiatric: Alert, Oriented x3, Normal Mood/Affect, maintenance of way supervisor II-XII Norm as Tested, Motor Weakness (chronic CP deficits, limited ROM lower extremities) Skin: Normal Color, Warm/Dry Lymphatic: No Adenopathy PM&R Medical Assessment & Plan REHAB/MEDICAL ASSESSMENT AND PLAN: REHAB IMPAIRMENT GROUP: Debility ETIOLOGIC DIAGNOSIS: Debility with CP The comorbidities that impact the patients function and/or functional outcome by: chronic deficits with CP, recent intestinal surgery, Crohn's REHAB PLAN: The patient is being admitted to our comprehensive inpatient rehabilitation facility and can tolerate the intensity of service consisting of at least: 180 minutes of therapy a day, 5 out of 7 days a week Rehab treatment will consist of: PT OT will evaluate her baseline function and try to increase extremity ROM with use of AD and help increase independence with ADL's The patient/family has a good understanding of our discharge process and will benefit from an interdisciplinary inpatient rehabilitation program. The patient has potential to make improvement and is in need of at least two of the following multidisciplinary therapies including but not limited to physical, occupational, speech, and prosthetics and orthotics. Additionally the patient will need services from respiratory, nutritional services, wound care, psychology, etc. (Customize this to each patient). Given the patients complex condition and risk of further medical complications, rehabilitation services cannot be safely or effectively provided at a lower level of care such as a nursing home facility. BARRIERS TO DISCHARGE: CP ESTIMATED LOS: 10 days DISPOSITION: Home with family RELEVANT CHANGES SINCE PREADMISSION SCREENING: I have compared the patients medical and functional status at the time of the preadmission screening and there are: no changes PROGNOSIS: Fair REHABILITATION GOALS: 1. PT OT will evaluate her baseline function and try to increase extremity ROM with use of AD and help increase independence with ADL's All the above goals were reviewed with the patient and he/she is in agreement. By signing this document, I acknowledge that I have personally performed a full physical examination on this patient within 24 hours of admission to this inpatient rehabilitation facility and have determined the patient to be able to tolerate the above course of treatment at an intensive level for a reasonable period of time. I will be completing a detailed individualized Plan of Care for this patient by day #4 of the patients stay based upon the Preadmission Screen, the Post-Admission Evaluation, and the therapy evaluations. Admission Dx/Comorbidities: (1) Cerebral palsy ICD Codes: G80.9 - Cerebral palsy, unspecified Assessment/Plan Assessment and Plan Assess & Plan/Chief Complaint Assessment: Debility with chronic cerebral palsy deficits Intestinal surgery following SBO and perforation Edema Anemia Plan: Home meds Monitor labs Surgery consult PT OT NKECHI SIDDIQI DO Apr 19, 2022 16:24
[2022-04-19] MEDS ORDERED: DICYCLOMINE 10 MG (BENTYL) CAP PO PRN (17:15)
[2022-04-19] MEDS ORDERED: FUROSEMIDE 20 MG (LASIX) TAB PO PRN (17:15)
[2022-04-19 20:00] VITALS: BP 102/55
[2022-04-19] MEDS ORDERED: INULIN PO SCH (21:00)
[2022-04-19] MEDS ORDERED: RHAMNOSUS GG PO SCH (21:00)
[2022-04-19] MEDS: DOCUSATE SODIUM 100 MG (COLACE) CAP PO SCH ×3 (21:00→22:00)
[2022-04-19] MEDS: SENNA W/DOCUSATE (SENOKOT S) TABLET PO SCH ×3 (21:00→22:00)
[2022-04-19] MEDS: HYDROcodone/APAP 5 MG/325 MG (LORTAB) TAB PO PRN (21:01)
[2022-04-19] MEDS: PANTOPRAZOLE 40 MG (PROTONIX) TAB PO SCH (21:01)
[2022-04-19] MEDS: LINEZOLID (ZYVOX) 600 MG TAB PO SCH (21:01)
[2022-04-19] MEDS: metroNIDAZOLE 500 MG (FLAGYL) TAB PO SCH (21:01)
[2022-04-19] MEDS: LACTOBACILLUS ACIDOPHILUS (PROBIOTIC) CAPSULE PO SCH (21:02)
[2022-04-19] MEDS: polyethylene glycoL POWDER 17 GM (MIRALAX) PACK PO SCH ×3 (21:04→22:00)
[2022-04-20 05:35] LABS: BASOPHILS % (AUTO) 0 % (0-10); EOSINOPHILS % (AUTO) 0 % (0-10); HEMATOCRIT 23 % (35-52); HEMOGLOBIN 7.3 g/dL (11.5-16.0); LYMPHOCYTES # (AUTO) 2.5 10^3/uL (1.0-4.0); LYMPHOCYTES % (AUTO) 28 % (12-44); MEAN CORPUSCULAR HEMOGLOBIN 31 pg (25-34); MEAN CORPUSCULAR HGB CONC 32 g/dL (32-36); MEAN CORPUSCULAR VOLUME 97 fL (80-99); MEAN PLATELET VOLUME 8.4 fL (9.0-12.2); MONOCYTES # (AUTO) 0.6 10^3/uL (0.0-1.0); MONOCYTES % (AUTO) 6 % (0-12); NEUTROPHILS # (AUTO) 5.8 10^3/uL (1.8-7.8); NEUTROPHILS % (AUTO) 65 % (42-75); PLATELET COUNT 352 10^3/uL (130-400)
--- NOTE | 2022-04-20 05:42 | Individualized Plan of Care ---
Individualized Plan of Care Rehab Nursing IPOC Order Admission Date Apr 19, 2022 at 14:25 Current Orders Orders Admission Order(Inpt,Obs,Sdc) (04/18/22 15:44) Vital Signs: Per Unit Policy ( 08,16,00 (04/18/22 15:44) Geovani Landis , (04/18/22 15:44) Sequential Compression Device (04/18/22 15:44) Community Development Specialist-Inpt Rehab Con (04/18/22 15:44) Rehab Nursing Orders-Ipoc (04/18/22 15:44) Physical Therapy Rehab Orders (04/18/22 15:44) Occupational Therapy Rehab Ord (04/18/22 15:44) Speech Therapy Rehab Orders (04/18/22 15:44) Cbc With Automated Diff (04/20/22 06:00) Comprehensive Metabolic Panel (04/20/22 06:00) Precautions (Aru) (04/18/22 15:44) Weekly Weight WEEK (04/18/22 15:44) Rehab-Intensity Of Therapy (04/18/22 15:44) Initiate Admission Nursing Pro .admission (04/18/22 15:44) Alprazolam Tablet (Xanax Tablet) (04/18/22 15:45) Calcium Carbonate Chew Tablet (Antacid C (04/18/22 15:45) Diphenhydramine Tablet (Benadryl Tablet) (04/18/22 15:45) Docusate Sodium Capsule (Colace Capsule) (04/18/22 21:00) Docusate Sodium Capsule (Colace Capsule) (04/18/22 15:45) Bisacodyl Suppository (Dulcolax Supposit (04/18/22 15:45) Lactulose Oral Solution (Enulose Oral So (04/18/22 15:45) Na Phos/Na Biphos Enema (Fleet Enema Grabiel (04/18/22 15:45) Guaifenesin/Codeine Syrup (Robitussin Ac (04/18/22 15:45) Loperamide Tablet (Imodium Tablet) (04/18/22 15:45) Melatonin Tablet (Melatonin Tablet) (04/18/22 15:45) Polyethylene Glycol Powder Pkt (Miralax (10/5/22 21:00) Ondansetron Oral Dissolve Tab (Zofran (04/18/22 15:45) Senna S Tablet (Senokot S Tablet) (04/18/22 21:00) Acetaminophen Tablet/Caplet (Tylenol T (04/18/22 15:45) Code/Resuscitation (04/18/22 15:44) Initiate Admission Nursing Pro .admission (04/18/22 15:44) Admission Arrival Bed Request (04/19/22 14:32) General/Regular (04/19/22 Lunch) Baclofen Tablet (Lioresal Tablet) (04/19/22 17:15) Dicyclomine Capsule (Bentyl Capsule) (04/19/22 17:15) Furosemide Tablet (Lasix Tablet) (04/19/22 17:15) Hydrocodone/Apap 5/325 Tablet (Lortab 5 (04/19/22 17:15) Linezolid Tablet (Zyvox Tablet) (04/19/22 21:00) Loratadine Tablet (Claritin Tablet) (04/20/22 09:00) Metronidazole Tablet (Flagyl Tablet) (04/19/22 21:00) Pantoprazole Tablet (Protonix Tablet) (04/19/22 21:00) (Nf) Ascorbic Acid (Vitamin C) (04/20/22 09:00) (Nf) Cholecalciferol (Vitamin D3) (Vitam (04/20/22 09:00) (Nf) Ciclopirox (04/20/22 09:00) (Nf) Fluticasone Propionate (Flonase All (04/20/22 09:00) (Nf) L. Rhamnosus Gg/Inulin (Culturelle (04/19/22 21:00) (Nf) Multivitamin (04/20/22 09:00) (Nf) [Vit B Comp. Sust Rel] (04/20/22 09:00) Lactobacillus Acidophilus Cap (Acidophil (04/19/22 21:00) Therapeutic Multivitamin Tab (Vitamins, (04/20/22 07:00) Ascorbic Acid Tablet (Vitamin C Tablet) (04/20/22 08:00) Cholecalciferol Capsule/Tablet (Vitamin (04/20/22 09:00) Fluticasone Nasal [place] (Flonase Nasal S (04/20/22 09:00) Potassium Chloride (Tablet) (Klor Con Ta (04/20/22 08:00) Magnesium Oxide Tablet (Mag Ox Tablet) (04/20/22 08:00) Magnesium (04/20/22 06:09) Iron Tibc %Sat & Ferritin (04/20/22 06:09) Vitamin B 12 (04/20/22 06:09) Folic Acid (04/20/22 06:09) Patient Visit (04/20/22 ) Speech Sound Lang Comp (04/20/22 ) Treat. Speech/Lang/Voice (04/20/22 ) Patient Visit (04/19/22 ) Pt Eval Moderate Complexity (04/19/22 ) Functional Activities, Ea 15 (04/19/22 ) Patient Visit (04/20/22 ) Gait Training, Ea 15 Min (04/20/22 ) Functional Activities, Ea 15 (04/20/22 ) Exercise Therap, Ea 15 Min (04/20/22 ) Ensure Plus Variety BID (04/20/22 14:54) Nursing Communication (Order) (04/20/22 17:22) Benzocaine 20% Oral Gel (Orajel 20% Max (04/20/22 17:30) Rehab Nursing Orders: Ongoing Assess. of Function Status, Bladder Management, Bladder Scan, Bladder Training, Bowel Management, Bowel Training, Disease Management & Educaiton, DVT Prophylaxis, Fall Prevention, Fluid/Electrolyte/Nutrition Mgmt, Infection Prevention, Medication Management & Education, Management of Risks & Complications, Nutrition Management, Pain M anagement, Patient/Family Support, Safety Management Intensity of Therapy to be met Patient to be seen: Min.3h per day/5 of 7d PT IPOC Problem List: Activity Tolerance, Functional Strength, Safety, Balance, Gait, Transfer, Bed Mobility, ROM Treatment Plan: Continue Plan of Care Bed Mobility, Education, Functional Activity Tim, Functional Strength, Group Therapy, Gait, Safety, Therapeutic Exercise, Transfers Treatment Duration: May 10, 2022 Frequency: At least 5 of 7 days/Wk (IRF) Estimated Hrs Per Day: 1.5 hours per day OT IPOC Problems: Decreased Activ Tolerance, Decreased UE Strength, Impaired Funct Balance, Impaired I ADL's, Impaired Self-Care Skills OT Treatment, Training and Edu: Yes Plan of Care: ADL Retraining, Functional Mobility, Group Exercise/Act as Ind, UE Funct Exercise/Act Treatment Duration: May 11, 2022 Frequency: At least 5 of 7 days/Wk (IRF) Estimated Hrs Per Day: 1.[address] IPOC Speech Therapy Treatment Plan: Discontinue ST Treatment Duration: Apr 20, 2022 Frequency: Modified Program (IRF) Estimated Hrs Per Day: Other Community Development Specialist/Case Mgmt Community Development Specialist/Case Managemen: Discharge Planning Dietitian/Heavy Forger Helper Dietitian/Heavy Forger Helper to monitor nutritional status and make changes and/or recommendations as needed and work with speech pathology on dietary upgrades as the occur. Physician IPOC Medical Issues being managed closely and that require the 24 hour availability of a physician: Recent bowel surgery with ileostomy and h/o Crohn's and third-spacing leg edema with anemia w/u will require close monitoring along with baseline deficits of CP at high risk for decompensation Medical Issues: Bowel/Bladder Function, DVT Prophylaxis, Falls Precautions, Fluid/Electrolyte/Nutrition Balance, Infection Protection, Pain Management, Wound Care Brief Synthesis of Preadmission Screen, Post-Admission Evaluation, and Therapy Evaluations: PT OT will focus on regaining function with AD and help build stamina and increase independence in order to return home to independent living Medical Prognosis: Good Anticipated Length of Stay: 7 days NKECHI SIDDIQI DO Apr 20, 2022 05:42
--- NOTE | 2022-04-20 05:42 | PM&R Progress Note ---
Subjective HPI/CC On Admission Date Seen by Provider: Apr 20, 2022 Time Seen by Provider: 17:30 Subjective/Events-last exam 04/20/2022: Doing well today Mother at the bedside Eating better Anemia w/u in process Ileostomy education going well Wrapping legs with ARLETTE wraps over NAJMA's to help edema Third-spacing with ARLETTE wraps Review of Systems General: Fatigue, Malaise Cardiovascular: Edema Objective Exam Vital Signs Vital Signs Date Time Temp Pulse Resp B/P (MAP) Pulse Ox O2 Delivery O2 Flow Rate FiO2 04/20/22 20:42 37.3 109 24 95/64 (74) 94 Room Air Capillary Refill : General Appearance: No Apparent Distress, WD/WN, Anxious, Chronically ill, Thin HEENT: PERRL/EOMI, Normal ENT Inspection, Pharynx Normal Neck: Full Range of Motion, Normal Inspection, Non Tender, Supple, Carotid Bruit Respiratory: Chest Non Tender, Lungs Clear, Normal Breath Sounds, No Accessory Muscle Use, No Respiratory Distress Cardiovascular: Regular Rate, Rhythm, No Gallop, No JVD, No Murmur, Normal Peripheral Pulses Gastrointestinal: Normal Bowel Sounds, No Organomegaly, No Pulsatile Mass, Non Tender, Soft Back: Normal Inspection, No CVA Tenderness, No Vertebral Tenderness Extremity: Normal Capillary Refill, Normal Inspection, Normal Range of Motion, Non Tender, No Calf Tenderness, Pedal Edema Neurologic/Psychiatric: Alert, Oriented x3, Normal Mood/Affect, electric knife operator II-XII Norm as Tested, Motor Weakness (chronic CP deficits, limited ROM lower extremities) Skin: Normal Color, Warm/Dry Lymphatic: No Adenopathy Results/Procedures Lab Laboratory Tests 04/20/22 05:24 Patient resulted labs reviewed. FIM Transfers Therapy Code Descriptions/Definitions Functional [place] Measure: 0=Not Assessed/NA 4=Minimal Assistance 1=Total Assistance 5=Supervision or Setup 2=Maximal Assistance 6=Modified [place] 3=Moderate Assistance 7=Complete IndependenceSCALE: Activities may be completed with or without assistive devices. 2-Otwiqdctxk-qmooxdz completes the activity by him/herself with no assistance from a helper. 5-Set-up or Clean-up Assistance-helper sets up or cleans up; patient completes activity. [place] assists only prior to or following the activity. 4-Supervision or Touching Assistance-helper provides verbal cues and/or touching/steadying and/or contact guard assistance as patient completes activity. Assistance may be provided throughout the activity or intermittently. 3-Partial/Moderate Assistance-helper does LESS THAN HALF the effort. [place] lifts, holds or supports trunk or limbs, but provides less than half the effort. 2-Substantial/Maximal Assistance-helper does MORE THAN HALF the effort. [place] lifts or holds trunk or limbs and provides more than half the effort. 3-Nqmeqncym-obzrvn does ALL the effort. Patient does none of the effort to complete the activity. Or, the assistance of 2 or more helpers is required for the patient to complete the activity. If activity was not attempted, code reason: 7-Patient Refused. 9-Not Applicable-not attempted and the patient did not perform the activity before the current illness, exacerbation or injury. 10-Not Attempted due to Environmental Limitations-(lack of equipment, weather restraints, etc.). 88-Not Attempted due to Medical Conditions or Safety Concerns. Roll Left to Right (QC): 3 Sit to Lying (QC): 3 Sit to Stand (QC): 4 Chair/Bay-gn-Krfdc Xfer(QC): 4 Car Transfer (QC): 3 Gait Training Does the Patient Walk?: Yes Walk 10 feet (QC): 4 Walk 50 ft with 2 Turns(QC): 4 Walk 150 ft (QC): 88 Walking 10ft/uneven surface-QC: 3 Gait Assistive Device: FWW Wheelchair Training Wheel 50 ft with 2 turns (QC): 9 Wheel 150 ft (QC): 9 Stair Training 1 Step (curb) (QC): 88 4 Steps (QC): 88 12 Steps (QC): 88 Balance Picking up an Object (QC): 4 (CGA with brick machine operator) ADL-Treatment Eating (QC): 5 Oral Hygiene (QC): 4 (CGA per clinical judgement) Shower/Bathe Self (QC): 3 (Mod A overall. Pt required assistance with bilateral LEs and feet.) Upper Body Dressing (QC): 5 (set up with overhead shirt.) Lower Body Dressing (QC): 2 (Max A. assist with threading BLEs into pants, and slight assist with pant hike in back.) On/Off Footwear (QC): 1 (total assist doffing/donning gripper socks.) Toileting Hygiene (QC): 3 (Min A with pant hike in back.) Assessment/Plan Assessment and Plan Assess & Plan/Chief Complaint Assessment: Debility with chronic cerebral palsy deficits Intestinal surgery following SBO and perforation Edema Anemia Plan: Home meds Monitor labs Surgery consult PT OT 04/20/2022: Anemia w/u Edema legs management (1) Cerebral palsy NKECHI SIDDIQI DO Apr 20, 2022 05:42
[2022-04-20 05:50] LABS: CHLORIDE 101 MMOL/L (98-107); POTASSIUM 2.8 MMOL/L (3.6-5.0); SODIUM 136 MMOL/L (135-145)
[2022-04-20 05:51] LABS: CALCIUM 7.5 MG/DL (8.5-10.1)
[2022-04-20 05:52] LABS: GLUCOSE 85 MG/DL (70-105); TOTAL PROTEIN 4.3 GM/DL (6.4-8.2)
[2022-04-20 05:53] LABS: CARBON DIOXIDE 27 MMOL/L (21-32)
[2022-04-20 05:54] LABS: BILIRUBIN,TOTAL 0.3 MG/DL (0.1-1.0)
[2022-04-20 05:55] LABS: ALKALINE PHOSPHATASE 135 U/L (40-136)
[2022-04-20 05:56] LABS: CREATININE SERUM 0.41 MG/DL (0.60-1.30); GFR ESTIMATED 143
[2022-04-20 05:57] LABS: BUN/CREATININE RATIO 5
[2022-04-20 05:59] LABS: ALANINE AMINOTRANSFERASE 18 U/L (0-55)
[2022-04-20] MEDS: MULTIVIT W/MINERALS TAB (THERAGRAN M) PO SCH (06:37)
[2022-04-20 07:28] VITALS: BP 101/58
[2022-04-20] MEDS: metroNIDAZOLE 500 MG (FLAGYL) TAB PO SCH ×3 (08:24→20:37)
[2022-04-20] MEDS: KCL 10 MEQ TAB (MICRO K) PO SCH ×3 (08:24→18:03)
[2022-04-20] MEDS: VITAMIN D3 25 MCG (1,000 UNITS) TABLET PO SCH (08:24)
[2022-04-20] MEDS: LORATADINE (CLARITIN) 10 MG TAB PO SCH (08:24)
[2022-04-20] MEDS: ASCORBIC ACID (VIT C) 500 MG TABLET PO SCH (08:24)
[2022-04-20] MEDS: LINEZOLID (ZYVOX) 600 MG TAB PO SCH ×2 (08:24→20:37)
[2022-04-20] MEDS: PANTOPRAZOLE 40 MG (PROTONIX) TAB PO SCH ×2 (08:24→20:38)
[2022-04-20] MEDS: MAGNESIUM OXIDE (MAG-OX)400 MG TAB PO SCH (08:24)
[2022-04-20] MEDS: LACTOBACILLUS ACIDOPHILUS (PROBIOTIC) CAPSULE PO SCH ×2 (08:24→20:37)
[2022-04-20] MEDS: DOCUSATE SODIUM 100 MG (COLACE) CAP PO SCH ×2 (08:25→20:39)
[2022-04-20] MEDS: polyethylene glycoL POWDER 17 GM (MIRALAX) PACK PO SCH ×2 (08:26→20:38)
[2022-04-20] MEDS: SENNA W/DOCUSATE (SENOKOT S) TABLET PO SCH ×2 (08:26→20:37)
[2022-04-20] MEDS: HYDROcodone/APAP 5 MG/325 MG (LORTAB) TAB PO PRN ×2 (08:32→20:36)
--- NOTE | 2022-04-20 08:59 | ST Cognitive Linguistic Eval ---
Speech Evaluation-General Medical Diagnosis SBO s/p Exp Lap, Ileostomy Onset Date: Apr 14, 2022 Therapy Diagnosis Therapy Diagnosis: Intact Cognition Precautions Precautions: Fall, Pressure Ulcer Precautions/Isolations: Fall Prevention, Contact/Enteric Isolation, Pressure Ulcer Referral Referring Physician: Dr. 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 Reviewed History: Yes Social History Current Living Status: mother Speech PLF-Current Status Prior Level of Function The patient denied prior challenges with her speech, language, or cognition. Subjective The patient was seated upright in her bed, awake and alert upon entrance to her room by the clinician. The patient greeted the clinician appropriately and was agreeable to participation in the cognitive linguistic assessment. Language Eval: Auditory Comprehends Simple Yes/No Ques: Functional Indent/Objects Multiple [place]: Functional Ident/Pics in Multiple Flores: Functional Follows 1-Step Commands: Functional Follows Complex Directions: Functional Follows General Conversations: Functional Language Eval: Verbal Language Completes Spontaneous Greeting: Functional Produces Auto, Serial Info: Functional Imitates Simple Words/Phrases: Functional Word Finding: Functional Requests Basic Needs: Functional States Basic Personal Info: Functional Expresses Complex Ideas: Functional Language Evaluation: Reading Follows Simple Written Direct: Functional Language Evaluation: Writing Writes to Simple Dictation: Functional Cognitive Patient Orientation The patient was independently oriented to self, location, month, day of the week, date, and year. Objective Cognitive Domain Attention: WNL Memory: WNL Problem Solving: Functional Executive Functions: WNL Visuospatial Skills: WNL Composite Severity Rating: WNL Clock Drawing Severity Rating: WNL Objective Formal/Standardized Tests [facility] Mental Status Exam (UMS) Results The patient demonstrated a result o f +28/30 on the UMS correlating to score of cognitive linguistic skills within normal limits. Oral Motor/Speech Production The patient does not demonstrate dysarthria or apraxia of speech. The patient is 100% intelligible in known and unknown contexts. Impression The patient demonstrated cognitive linguistic skills within normal limits. Speech Patient Assess Expression of Ideas/Wants: Expression (4) Understanding Verbal Content: Understands (4) Brief Interview-Mental Status: Yes Repetition of Three Words: Three (3) Temporal Orientation: Year: Correct (3) Temporal Orientation: Month: Accurate within 5 days(2) Temporal Orientation: Day: Correct (1) Recall : Wear to say "Sock": Yes, no cue required (2) Recall : Color: Yes, no cue required (2) Recall : Bed: Yes, no cue required (2) Memory/Recall Ability: Current season, Location of own room, Staff names and faces, That he or she is in a hsp/hsp unit Speech-Plan Treatment Plan Speech Therapy Treatment Plan: Discontinue ST Treatment Duration: Apr 20, 2022 Frequency: 1 time per week Estimated Hrs Per Day: .5 hour per day Rehab Potential: Good Pt/Family Agrees to Plan: Yes Safety Risks/Education Teaching Recipient: Patient Teaching Methods: Discussion Response to Teaching: Verbalize Understanding Education Topics Provided: Results, Recommendations, Plan of Care Time Speech Therapy Time In: 08:30 Speech Therapy Time Out: 09:00 Total Billed Time: 30 Billed Treatment Time 1, NATY KELLER ELIZABETH ST Apr 20, 2022 08:59
[2022-04-20] MEDS ORDERED: [UNRECOGNIZED DRUG - OTHER] PO SCH (09:00)
[2022-04-20] MEDS ORDERED: NON-FORMULARY MEDICATION 1 EA EA (Cholecalciferol (Vitamin D3) (Vitamin D3) 50 MCG) PO SCH (09:00)
[2022-04-20] MEDS ORDERED: NON-FORMULARY MEDICATION 1 EA EA (Multivitamin 1 EACH) PO SCH (09:00)
[2022-04-20] MEDS ORDERED: NON-FORMULARY MEDICATION 1 EA EA (Ascorbic Acid (Vitamin C) 1,000 MG) PO SCH (09:00)
[2022-04-20] MEDS ORDERED: NON-FORMULARY MEDICATION 1 EA EA (Fluticasone Propionate (Flonase Allergy Relief) 2 SPRAY) NS SCH (09:00)
[2022-04-20] MEDS ORDERED: CICLOPIROX TP SCH (09:00)
[2022-04-20] MEDS: FLUTICASONE NASAL SPRAY (FLONASE) 16 GM BTL NS SCH (09:18)
[2022-04-20] MEDS: BACLOFEN 10 MG (LIORESAL) TAB PO PRN ×2 (09:18→15:00)
--- NOTE | 2022-04-20 11:03 | Occupational Ther Daily Note ---
OT Current Status-Daily Note Subjective Pt alert in bed. Pt agrees to therapy. Pt states pain 6/10. Nrsg notified, meds given. Mental Status/Objective Patient Orientation: Person, Place, Time, Situation Attachments: Colostomy/Ileostomy Acute change in mental status: 0 Inattention: 0 Disorganized thinkin Altered level of consciousness: 0 ADL-Treatment 1st session: ([id number]) Pt supine to EOB min A to assist with legs. Pt donned/doffed UB clothing by self after set up. Pt min A, to thread feet into pants then hiked over hips, CGA. Pt dependent in footwear due to swelling of LE. Pt ambulated with FWW to sink, CGA. After set up pt completed oral care/ personal hygiene in sitting by self. Pt ambulated from bathroom to therapy gym with FWW, CGA. Pt completed fine/gross motor task in standing to increase stamina for daily functional tasks. Frequent sitting breaks during task due to pain. Pt ambulated with FWW to room, CGA. Pt left in recliner call light/phone in reach. All needs met. 2nd session: ([id number]) Pt completed fine/gross motor task by manipulating red theraputty to increased finger/hand dexterity and strength. Pt required skill instruction and verbal cues. Pt left in recliner call light/phone in reach. All needs met in room. Therapy Code Descriptions/Definitions Functional [place] Measure: 0=Not Assessed/NA 4=Minimal Assistance 1=Total Assistance 5=Supervision or Setup 2=Maximal Assistance 6=Modified [place] 3=Moderate Assistance 7=Complete IndependenceSCALE: Activities may be completed with or without assistive devices. 1-Ayvdduzxif-snggazl completes the activity by him/herself with no assistance from a helper. 5-Set-up or Clean-up Assistance-helper sets up or cleans up; patient completes activity. [place] assists only prior to or following the activity. 4-Supervision or Touching Assistance-helper provides verbal cues and/or touching/steadying and/or contact guard assistance as patient completes activity. Assistance may be provided throughout the activity or intermittently. 3-Partial/Moderate Assistance-helper does LESS THAN HALF the effort. [place] lifts, holds or supports trunk or limbs, but provides less than half the effort. 2-Substantial/Maximal Assistance-helper does MORE THAN HALF the effort. [place] lifts or holds trunk or limbs and provides more than half the effort. 6-Hxyvjftfu-iptsjb does ALL the effort. Patient does none of the effort to complete the activity. Or, the assistance of 2 or more helpers is required for the patient to complete the activity. If activity was not attempted, code reason: 7-Patient Refused. 9-Not Applicable-not attempted and the patient did not perform the activity before the current illness, exacerbation or injury. 10-Not Attempted due to Environmental Limitations-(lack of equipment, weather restraints, etc.). 88-Not Attempted due to Medical Conditions or Safety Concerns. Oral Hygiene (QC): 5 Upper Body Dressing (QC): 5 Lower Body Dressing (QC): 3 (min A) On/Off Footwear: 1 OT Short Term Goals Short Term Goals Time Frame: May 02, 2022 Toileting hygiene: 4 Shower/bathe self: 4 Lower body dressin Putting on/taking off footwear: 4 OT Incident Analyst Goals Incident Analyst Goals Time Frame: May 11, 2022 Acute change in mental status: 0 Inattention: 0 Disorganized thinkin Altered level of consciousness: 0 Eating (QC): 5 Oral Hygiene (QC): 5 Toileting Hygiene (QC): 6 Shower/Bathe Self (QC): 5 Upper Body Dressing (QC): 6 Lower Body Dressing (QC): 6 On/Off Footwear (QC): 6 Additional Goals: 1-Demonstrate ADL Tasks, 2-Verbalize Understanding, 3- ImproveStrength/Tim 1=Demonstrate adherence to instructed precautions during ADL tasks. 2=Patient will verbalize/demonstrate understanding of assistive devices/modifications for ADL. 3=Patient will improve strength/tolerance for activity to enable patient to perform ADL's. OT Education/Plan Problem List/Assessment Assessment: Decreased Activ Tolerance, Decreased UE Strength, Impaired Bed Mobility, Impaired Coordination, Impaired Funct Balance, Impaired Self-Care Skills Discharge Recommendations Plan/Recommendations: Continue POC Treatment Plan/Plan of Care Patient would benefit from OT for education, treatment and training to promote independence in ADL's, mobility, safety and/or upper extremity function for ADL's. Plan of Care: ADL Retraining, Functional Mobility, Group Exercise/Act as Ind, UE Funct Exercise/Act Treatment Duration: May 11, 2022 Frequency: At least 5 of 7 days/Wk (IRF) Estimated Hrs Per Day: 1.5 hours per day Agreement: Yes Rehab Potential: Good Time/GCodes Start Time: 09:00 (1300) Stop Time: 10:00 (1315) Total Time Billed (hr/min): 75 Billed Treatment Time 1st session [id number]: 1 visit ADL 1 (20 min) EX 3 (40 min) 2nd session [id number]: 1 visit Ex 1 (15min) VALENTINA CASTRO Apr 20, 2022 11:03
--- NOTE | 2022-04-20 13:09 | Physical Therapy Daily Note ---
PT Daily Note-Current Subjective Pt is sitting in recliner upon arrival. Pt agrees to PT. Pain Location: No Pain Reported Section J - Health Conditions 1. Rarely or not at all 2. Occasionally 3. Frequently 4. Almost constantly 8. Unable to answer Pain Effect on Sleep: 2 Pain Interference with Therapy: 2 Pain Interference w/Day-to-Day: 2 Mental Status Patient Orientation: Person, Place, Time, Situation Transfers SCALE: Activities may be completed with or without assistive devices. 3-Umfiwxxoae-xwdsuyc completes the activity by him/herself with no assistance from a helper. 5-Set-up or Clean-up Assistance-helper sets up or cleans up; patient completes activity. [place] assists only prior to or following the activity. 4-Supervision or Touching Assistance-helper provides verbal cues and/or touchin g/steadying and/or contact guard assistance as patient completes activity. Assistance may be provided throughout the activity or intermittently. 3-Partial/Moderate Assistance-helper does LESS THAN HALF the effort. [place] lifts, holds or supports trunk or limbs, but provides less than half the effort. 2-Substantial/Maximal Assistance-helper does MORE THAN HALF the effort. [place] lifts or holds trunk or limbs and provides more than half the effort. 0-Vbghqhcjm-avqrgc does ALL the effort. Patient does none of the effort to complete the activity. Or, the assistance of 2 or more helpers is required for the patient to complete the activity. If activity was not attempted, code reason: 7-Patient Refused. 9-Not Applicable-not attempted and the patient did not perform the activity before the current illness, exacerbation or injury. 10-Not Attempted due to Environmental Limitations-(lack of equipment, weather restraints, etc.). 88-Not Attempted due to Medical Conditions or Safety Concerns. Sit to Stand (QC): 4 Weight Bearing Full Weight Bearing Full Weight Bearing Gait Training Does the Patient Walk?: Yes Distance: 125' x2 Walk 10 feet (QC): 5 Walk 50 ft with 2 Turns(QC): 5 Walk 150 ft (QC): 4 Gait Assistive Device: FWW Stair Training Stair Training: Handrails/: uses walker #of Steps: 1 1 Step (curb) (QC): 4 Balance Picking up an Object (QC): 3 Special Test Comments Pt cannot complete w/o payable processor but can w/payable processor. Exercises Seated Therapy Exercises: Ankle pumps, Long arc quads, Hip flexion, Glut set Seated Reps: 15 NuStep Minutes: 15 NuStep Workload: 3 Treatments TF to standing, declines need for BR. Pt amb. in hallway then uses NuStep. Pt completes Seated Ex. Pt able to complete 1 step using FWW and attempts picking up object from floor. This cannot be done w/o payable processor. Pt amb. in hallway then return to room to rest in recliner for lunch. All needs met, call light in hand. Assessment Current Status: Good Progress Pt takes RB as needed. PT Short Term Goals Short Term Goals Time Frame: Apr 26, 2022 Roll Left & Right: 6 Sit to lyin Lying to sitting on side of be: 4 Sit to stand: 4 (SBA) Chair/lga-ck-vldhi transfer: 4 (SBA) Walk 10 feet: 4 (SBA) Walk 50 feet with two turns: 4 (SBA) Walk 150 feet: 4 (SBA) PT Correction Goals Correction Goals PT Stripper And Taper Goals Time Frame: May 10, 2022 Roll Left & Right (QC): 6 Sit to Lying (QC): 6 Lying-Sitting on Side/Bed(QC): 6 Sit to Stand (QC): 5 Chair/Yxm-hs-Cmsqy Xfer(QC): 5 Toilet Transfer (QC): 5 Car Transfer (QC): 5 Does the Patient Walk: Yes Walk 10 feet (QC): 5 Walk 50ft with 2 Turns (QC): 5 Walk 150 ft (QC): 5 Walking 10ft on Uneven Surface: 5 1 Step (curb) (QC): 3 4 Steps (QC): 88 12 Steps (QC): 88 Picking up an Object (QC): 5 Wheel 50 feet with 2 turns (QC: 9 Wheel 150 feet: 9 PT Plan Problem List Problem List: Activity Tolerance, Balance Treatment/Plan Treatment Plan: Continue Plan of Care Treatment Plan: Bed Mobility, Education, Functional Activity Tim, Functional Strength, Group Therapy, Gait, Safety, Therapeutic Exercise, Transfers Treatment Duration: May 10, 2022 Frequency: At least 5 of 7 days/Wk (IRF) Estimated Hrs Per Day: 1.5 hours per day Patient and/or Family Agrees t: Yes Safety Risks/Education Patient Education: Gait Training, Transfer Techniques, Steps, Correct Positioning, Safety Issues Teaching Recipient: Patient Teaching Methods: Discussion Response to Teaching: Verbalize Understanding Time/GCodes Time In: 1100 Time Out: 1215 Total Billed Treatment Time: 75 Total Billed Treatment 1, GT x2 (25m), FA (20m) & EX x2 (30m) GISELLE BYRD SNACK FOODS MIXER OPERATOR Apr 20, 2022 13:08
[2022-04-20] MEDS ORDERED: BENZOCAINE 20% ORAL GEL (ORALJEL MAX ST) MM PRN (17:30)
[2022-04-20 20:42] VITALS: BP 95/64
--- NOTE | 2022-04-21 06:21 | PM&R Progress Note ---
Subjective HPI/CC On Admission Date Seen by Provider: Apr 21, 2022 Time Seen by Provider: 10:30 Subjective/Events-last exam 04/21/2022: No major issues Venofer will start after midline placed Vit B12 ordered and folic acid supplements ARLETTE wraps on legs 04/20/2022: Doing well today Mother at the bedside Eating better Anemia w/u in process Ileostomy education going well Wrapping legs with ARLETTE wraps over NAJMA's to help edema Third-spacing with ARLETTE wraps Review of Systems General: Fatigue, Malaise Objective Exam Vital Signs Vital Signs Date Time Temp Pulse Resp B/P (MAP) Pulse Ox O2 Delivery O2 Flow Rate FiO2 04/21/22 10:45 37.4 104 18 95/66 (76) 98 Room Air Capillary Refill : General Appearance: No Apparent Distress, WD/WN, Anxious, Chronically ill, Thin HEENT: PERRL/EOMI, Normal ENT Inspection, Pharynx Normal Neck: Full Range of Motion, Normal Inspection, Non Tender, Supple, Carotid Bruit Respiratory: Chest Non Tender, Lungs Clear, Normal Breath Sounds, No Accessory Muscle Use, No Respiratory Distress Cardiovascular: Regular Rate, Rhythm, No Gallop, No JVD, No Murmur, Normal Peripheral Pulses Gastrointestinal: Normal Bowel Sounds, No Organomegaly, No Pulsatile Mass, Non Tender, Soft Back: Normal Inspection, No CVA Tenderness, No Vertebral Tenderness Extremity: Normal Capillary Refill, Normal Inspection, Normal Range of Motion, Non Tender, No Calf Tenderness, Pedal Edema Neurologic/Psychiatric: Alert, Oriented x3, Normal Mood/Affect, help desk intern II-XII Norm as Tested, Motor Weakness (chronic CP deficits, limited ROM lower extremities) Skin: Normal Color, Warm/Dry Lymphatic: No Adenopathy Results/Procedures Lab Patient resulted labs reviewed. FIM Transfers Therapy Code Descriptions/Definitions Functional [place] Measure: 0=Not Assessed/NA 4=Minimal Assistance 1=Total Assistance 5=Supervision or Setup 2=Maximal Assistance 6=Modified [place] 3=Moderate Assistance 7=Complete IndependenceSCALE: Activities may be completed with or without assistive devices. 5-Fahgftqzld-pkqvset completes the activity by him/herself with no assistance from a helper. 5-Set-up or Clean-up Assistance-helper sets up or cleans up; patient completes activity. [place] assists only prior to or following the activity. 4-Supervision or Touching Assistance-helper provides verbal cues and/or touching/steadying and/or contact guard assistance as patient completes activity. Assistance may be provided throughout the activity or intermittently. 3-Partial/Moderate Assistance-helper does LESS THAN HALF the effort. [place] lifts, holds or supports trunk or limbs, but provides less than half the effort. 2-Substantial/Maximal Assistance-helper does MORE THAN HALF the effort. [place] lifts or holds trunk or limbs and provides more than half the effort. 1-Rhtwbadhy-vgvugj does ALL the effort. Patient does none of the effort to complete the activity. Or, the assistance of 2 or more helpers is required for the patient to complete the activity. If activity was not attempted, code reason: 7-Patient Refused. 9-Not Applicable-not attempted and the patient did not perform the activity before the current illness, exacerbation or injury. 10-Not Attempted due to Environmental Limitations-(lack of equipment, weather restraints, etc.). 88-Not Attempted due to Medical Conditions or Safety Concerns. Roll Left to Right (QC): 3 Sit to Lying (QC): 3 Sit to Stand (QC): 4 Chair/Piz-hz-Hlouw Xfer(QC): 4 Car Transfer (QC): 3 Gait Training Does the Patient Walk?: Yes Distance: 125' x2 Walk 10 feet (QC): 5 Walk 50 ft with 2 Turns(QC): 5 Walk 150 ft (QC): 4 Walking 10ft/uneven surface-QC: 3 Gait Assistive Device: FWW Wheelchair Training Wheel 50 ft with 2 turns (QC): 9 Wheel 150 ft (QC): 9 Stair Training Stair Training: Handrails/: uses walker #of Steps: 1 1 Step (curb) (QC): 4 4 Steps (QC): 88 12 Steps (QC): 88 Balance Picking up an Object (QC): 3 ADL-Treatment Eating (QC): 5 Oral Hygiene (QC): 5 Shower/Bathe Self (QC): 3 (Mod A overall. Pt required assistance with bilateral LEs and feet.) Upper Body Dressing (QC): 5 Lower Body Dressing (QC): 3 (min A) On/Off Footwear (QC): 1 Toileting Hygiene (QC): 3 (Min A with pant hike in back.) Assessment/Plan Assessment and Plan Assess & Plan/Chief Complaint Assessment: Debility with chronic cerebral palsy deficits Intestinal surgery following SBO and perforation Edema from third-spacing poor albumin Poor nutrition Anemia iron def B12 def Folic acid def Plan: Home meds Monitor labs Surgery consult PT OT 04/20/2022: Anemia w/u Edema legs management 04/21/2022: Venofer B12 and folate (1) Cerebral palsy NKECHI SIDDIQI DO Apr 21, 2022 06:21
[2022-04-21] MEDS: MULTIVIT W/MINERALS TAB (THERAGRAN M) PO SCH (06:29)
[2022-04-21] MEDS ORDERED: CYANOCOBALAMIN INJ 1000 MCG/ML IM ONE (06:30)
[2022-04-21 07:00] VITALS: BP 100/68
[2022-04-21] MEDS: LACTOBACILLUS ACIDOPHILUS (PROBIOTIC) CAPSULE PO SCH ×2 (08:11→22:24)
[2022-04-21] MEDS: KCL 10 MEQ TAB (MICRO K) PO SCH ×3 (08:11→17:24)
[2022-04-21] MEDS: ASCORBIC ACID (VIT C) 500 MG TABLET PO SCH (08:11)
[2022-04-21] MEDS: MAGNESIUM OXIDE (MAG-OX)400 MG TAB PO SCH (08:12)
[2022-04-21] MEDS: HYDROcodone/APAP 5 MG/325 MG (LORTAB) TAB PO PRN (08:13)
[2022-04-21 09:00] VITALS: BP 99/65
[2022-04-21] MEDS ORDERED: IRON SUCROSE 200 MG/10 ML (VENOFER) VIAL IV SCH (09:00)
[2022-04-21] MEDS: VITAMIN D3 25 MCG (1,000 UNITS) TABLET PO SCH (09:25)
[2022-04-21] MEDS: LINEZOLID (ZYVOX) 600 MG TAB PO SCH ×2 (09:25→22:23)
[2022-04-21] MEDS: metroNIDAZOLE 500 MG (FLAGYL) TAB PO SCH ×3 (09:25→22:24)
[2022-04-21] MEDS: FLUTICASONE NASAL SPRAY (FLONASE) 16 GM BTL NS SCH (09:25)
[2022-04-21] MEDS: PANTOPRAZOLE 40 MG (PROTONIX) TAB PO SCH ×2 (09:25→22:24)
[2022-04-21] MEDS: FOLIC ACID 1 MG TAB PO SCH (09:25)
[2022-04-21] MEDS: polyethylene glycoL POWDER 17 GM (MIRALAX) PACK PO SCH ×2 (09:27→21:00)
[2022-04-21] MEDS: SENNA W/DOCUSATE (SENOKOT S) TABLET PO SCH ×2 (09:28→22:24)
[2022-04-21] MEDS: DOCUSATE SODIUM 100 MG (COLACE) CAP PO SCH ×2 (09:29→22:23)
[2022-04-21] MEDS ORDERED: CYANOCOBALAMIN INJ 1000 MCG/ML IM NR (09:30)
[2022-04-21] MEDS: LORATADINE (CLARITIN) 10 MG TAB PO SCH (09:30)
[2022-04-21 10:45] VITALS: BP 95/66
--- NOTE | 2022-04-21 11:08 | Physical Therapy Daily Note ---
PT Daily Note-Current Subjective Pt up in chair, agreeable. Reports she is eager to continue to improve. Pain Numeric Pain Scale: 0-No Pain Section J - Health Conditions 1. Rarely or not at all 2. Occasionally 3. Frequently 4. Almost constantly 8. Unable to answer Pain Effect on Sleep: 2 Pain Interference with Therapy: 2 Pain Interference w/Day-to-Day: 2 Mental Status Patient Orientation: Person, Place, Time, Situation Attachments: Colostomy/Ileostomy Transfers SCALE: Activities may be completed with or without assistive devices. 1-Zjkcgrvbir-pwglund completes the activity by him/herself with no assistance from a helper. 5-Set-up or Clean-up Assistance-helper sets up or cleans up; patient completes activity. [place] assists only prior to or following the activity. 4-Supervision or Touching Assistance-helper provides verbal cues and/or touching/steadying and/or contact guard assistance as patient completes activity. Assistance may be provided throughout the activity or intermittently. 3-Partial/Moderate Assistance-helper does LESS THAN HALF the effort. [place] lifts, holds or supports trunk or limbs, but provides less than half the effort. 2-Substantial/Maximal Assistance-helper does MORE THAN HALF the effort. [place] lifts or holds trunk or limbs and provides more than half the effort. 9-Nadmreaqe-gxreky does ALL the effort. Patient does none of the effort to complete the activity. Or, the assistance of 2 or more helpers is required for the patient to complete the activity. If activity was not attempted, code reason: 7-Patient Refused. 9-Not Applicable-not attempted and the patient did not perform the activity before the current illness, exacerbation or injury. 10-Not Attempted due to Environmental Limitations-(lack of equipment, weather restraints, etc.). 88-Not Attempted due to Medical Conditions or Safety Concerns. Sit to Lying (QC): 3 Sit to Stand (QC): 4 Weight Bearing Right Lower Extremity: Right Full Weight Bearing Left Lower Extremity: Left Full Weight Bearing Gait Training Does the Patient Walk?: Yes Distance: 125 Walk 10 feet (QC): 4 Walk 50 ft with 2 Turns(QC): 4 Walk 150 ft (QC): 4 Gait Persons Needed: 1 Gait Assistive Device: FWW Pt ambulated 125' x 4 with FWW, CGA Exercises NuStep Minutes: 18 NuStep Workload: 3 Treatments Gait with FWW, NuStep for general functional activity tolerance. Returned to bed with needs met, nursing present to start IV. Assessment Current Status: Good Progress Pt tolerated well. PT Short Term Goals Short Term Goals Time Frame: Apr 26, 2022 Roll Left & Right: 6 Sit to lyin Lying to sitting on side of be: 4 Sit to stand: 4 (SBA) Chair/sdo-ki-cghfx transfer: 4 (SBA) Walk 10 feet: 4 (SBA) Walk 50 feet with two turns: 4 (SBA) Walk 150 feet: 4 (SBA) PT Fpc Goals Warp Knitting Machine Operator Goals PT Warp Knitting Machine Operator Goals Time Frame: May 10, 2022 Roll Left & Right (QC): 6 Sit to Lying (QC): 6 Lying-Sitting on Side/Bed(QC): 6 Sit to Stand (QC): 5 Chair/Sho-ls-Vpddw Xfer(QC): 5 Toilet Transfer (QC): 5 Car Transfer (QC): 5 Does the Patient Walk: Yes Walk 10 feet (QC): 5 Walk 50ft with 2 Turns (QC): 5 Walk 150 ft (QC): 5 Walking 10ft on Uneven Surface: 5 1 Step (curb) (QC): 3 4 Steps (QC): 88 12 Steps (QC): 88 Picking up an Object (QC): 5 Wheel 50 feet with 2 turns (QC: 9 Wheel 150 feet: 9 PT Plan Problem List Problem List: Activity Tolerance, Functional Strength, Safety, Balance, Gait, Transfer, Bed Mobility Treatment/Plan Treatment Plan: Continue Plan of Care Treatment Plan: Bed Mobility, Education, Functional Activity Tim, Functional Strength, Group Therapy, Gait, Safety, Therapeutic Exercise, Transfers Treatment Duration: May 10, 2022 Frequency: At least 5 of 7 days/Wk (IRF) Estimated Hrs Per Day: 1.5 hours per day Patient and/or Family Agrees t: Yes Time/GCodes Time In: 0951 Time Out: 1039 Total Billed Treatment Time: 48 Total Billed Treatment 1, FA x 30', Ex x 18' PETTY BRADEN DPT Apr 21, 2022 11:08
[2022-04-21] MEDS ORDERED: PATIENT MAY USE OWN MED,SINGLE MED PO SCH (15:00)
[2022-04-21 19:56] VITALS: BP 105/72
[2022-04-22] MEDS: HYDROcodone/APAP 5 MG/325 MG (LORTAB) TAB PO PRN ×3 (00:48→22:52)
[2022-04-22] MEDS: MULTIVIT W/MINERALS TAB (THERAGRAN M) PO SCH (06:48)
[2022-04-22] MEDS: CYANOCOBALAMIN 1,000 MCG (VITAMIN B-12) TABLET PO SCH (06:48)
[2022-04-22] MEDS: VITAMIN D3 25 MCG (1,000 UNITS) TABLET PO SCH (07:50)
[2022-04-22] MEDS: LACTOBACILLUS ACIDOPHILUS (PROBIOTIC) CAPSULE PO SCH ×2 (07:50→20:37)
[2022-04-22] MEDS: FOLIC ACID 1 MG TAB PO SCH (07:51)
[2022-04-22] MEDS: metroNIDAZOLE 500 MG (FLAGYL) TAB PO SCH ×2 (07:51→12:42)
[2022-04-22] MEDS: KCL 10 MEQ TAB (MICRO K) PO SCH ×3 (07:52→17:06)
[2022-04-22] MEDS: LORATADINE (CLARITIN) 10 MG TAB PO SCH (07:52)
[2022-04-22] MEDS: ASCORBIC ACID (VIT C) 500 MG TABLET PO SCH (07:52)
[2022-04-22] MEDS: PANTOPRAZOLE 40 MG (PROTONIX) TAB PO SCH ×2 (07:52→20:37)
[2022-04-22] MEDS: DOCUSATE SODIUM 100 MG (COLACE) CAP PO SCH ×2 (07:52→20:37)
[2022-04-22] MEDS: LINEZOLID (ZYVOX) 600 MG TAB PO SCH ×2 (07:52→20:37)
[2022-04-22] MEDS: MAGNESIUM OXIDE (MAG-OX)400 MG TAB PO SCH (07:52)
[2022-04-22] MEDS: SENNA W/DOCUSATE (SENOKOT S) TABLET PO SCH ×2 (07:53→21:00)
[2022-04-22] MEDS: polyethylene glycoL POWDER 17 GM (MIRALAX) PACK PO SCH ×2 (07:53→20:42)
[2022-04-22] MEDS: CICLOPIROX EXT SCH (07:54)
[2022-04-22] MEDS: FLUTICASONE NASAL SPRAY (FLONASE) 16 GM BTL NS SCH (07:54)
[2022-04-22 08:00] VITALS: BP 94/52
--- NOTE | 2022-04-22 15:31 | PM&R Progress Note ---
Subjective HPI/CC On Admission Date Seen by Provider: Apr 22, 2022 Time Seen by Provider: 15:00 Subjective/Events-last exam 04/22/2022: Patient doing well Good output from ileostomy Pain is controlled Midline cannot be placed IV Flagyl will replace the p.o. form because of nausea 04/21/2022: No major issues Venofer will start after midline placed Vit B12 ordered and folic acid supplements ARLETTE wraps on legs 04/20/2022: Doing well today Mother at the bedside Eating better Anemia w/u in process Ileostomy education going well Wrapping legs with ARLETTE wraps over NAJMA's to help edema Third-spacing with ARLETTE wraps Review of Systems General: Fatigue, Malaise Objective Exam Vital Signs Vital Signs Date Time Temp Pulse Resp B/P (MAP) Pulse Ox O2 Delivery O2 Flow Rate FiO2 04/22/22 20:39 100 Room Air 04/22/22 20:30 37.1 102 20 94/59 (71) Capillary Refill : General Appearance: No Apparent Distress, WD/WN, Anxious, Chronically ill, Thin HEENT: PERRL/EOMI, Normal ENT Inspection, Pharynx Normal Neck: Full Range of Motion, Normal Inspection, Non Tender, Supple, Carotid Bruit Respiratory: Chest Non Tender, Lungs Clear, Normal Breath Sounds, No Accessory Muscle Use, No Respiratory Distress Cardiovascular: Regular Rate, Rhythm, No Gallop, No JVD, No Murmur, Normal Peripheral Pulses Gastrointestinal: Normal Bowel Sounds, No Organomegaly, No Pulsatile Mass, Non Tender, Soft Back: Normal Inspection, No CVA Tenderness, No Vertebral Tenderness Extremity: Normal Capillary Refill, Normal Inspection, Normal Range of Motion, Non Tender, No Calf Tenderness, Pedal Edema Neurologic/Psychiatric: Alert, Oriented x3, Normal Mood/Affect, line out worker II-XII Norm as Tested, Motor Weakness (chronic CP deficits, limited ROM lower extremities) Skin: Normal Color, Warm/Dry Lymphatic: No Adenopathy Results/Procedures Lab Patient resulted labs reviewed. FIM Transfers Therapy Code Descriptions/Definitions Functional [place] Measure: 0=Not Assessed/NA 4=Minimal Assistance 1=Total Assistance 5=Supervision or Setup 2=Maximal Assistance 6=Modified [place] 3=Moderate Assistance 7=Complete IndependenceSCALE: Activities may be completed with or without assistive devices. 4-Psmiabmrxj-fpqehsl completes the activity by him/herself with no assistance from a helper. 5-Set-up or Clean-up Assistance-helper sets up or cleans up; patient completes activity. [place] assists only prior to or following the activity. 4-Supervision or Touching Assistance-helper provides verbal cues and/or touching/steadying and/or contact guard assistance as patient completes activity. Assistance may be provided throughout the activity or intermittently. 3-Partial/Moderate Assistance-helper does LESS THAN HALF the effort. [place] lifts, holds or supports trunk or limbs, but provides less than half the effort. 2-Substantial/Maximal Assistance-helper does MORE THAN HALF the effort. [place] lifts or holds trunk or limbs and provides more than half the effort. 8-Dcjpdslut-xnnzsf does ALL the effort. Patient does none of the effort to complete the activity. Or, the assistance of 2 or more helpers is required for the patient to complete the activity. If activity was not attempted, code reason: 7-Patient Refused. 9-Not Applicable-not attempted and the patient did not perform the activity before the current illness, exacerbation or injury. 10-Not Attempted due to Environmental Limitations-(lack of equipment, weather restraints, etc.). 88-Not Attempted due to Medical Conditions or Safety Concerns. Roll Left to Right (QC): 3 Sit to Lying (QC): 3 Sit to Stand (QC): 4 Chair/Vbw-jw-Ifqnq Xfer(QC): 4 Car Transfer (QC): 3 Gait Training Does the Patient Walk?: Yes Distance: 125 Walk 10 feet (QC): 4 Walk 50 ft with 2 Turns(QC): 4 Walk 150 ft (QC): 4 Walking 10ft/uneven surface-QC: 3 Gait Persons Needed: 1 Gait Assistive Device: FWW Wheelchair Training Wheel 50 ft with 2 turns (QC): 9 Wheel 150 ft (QC): 9 Stair Training Stair Training: Handrails/: uses walker #of Steps: 1 1 Step (curb) (QC): 4 4 Steps (QC): 88 12 Steps (QC): 88 Balance Picking up an Object (QC): 3 ADL-Treatment Eating (QC): 5 Oral Hygiene (QC): 5 Shower/Bathe Self (QC): 3 (Mod A overall. Pt required assistance with bilateral LEs and feet.) Upper Body Dressing (QC): 5 Lower Body Dressing (QC): 3 (min A) On/Off Footwear (QC): 1 Toileting Hygiene (QC): 3 (Min A with pant hike in back.) Assessment/Plan Assessment and Plan Assess & Plan/Chief Complaint Assessment: Debility with chronic cerebral palsy deficits Intestinal surgery following SBO and perforation Edema from third-spacing poor albumin Poor nutrition Anemia iron def B12 def Folic acid def Plan: Home meds Monitor labs Surgery consult PT OT 04/20/2022: Anemia w/u Edema legs management 04/21/2022: Venofer B12 and folate 04/22/2022: Supportive care (1) Cerebral palsy NKECHI SIDDIQI DO Apr 22, 2022 15:30
[2022-04-22 20:30] VITALS: BP 94/59
[2022-04-22] MEDS: metroNIDAZOLE 500MG/100ML IVPB 100 ML IV SCH (22:00)
[2022-04-23] MEDS: metroNIDAZOLE 500MG/100ML IVPB 100 ML IV SCH ×3 (05:26→21:20)
--- NOTE | 2022-04-23 06:04 | PM&R Progress Note ---
Subjective HPI/CC On Admission Date Seen by Provider: Apr 23, 2022 Time Seen by Provider: 08:30 Subjective/Events-last exam 04/23/2022: Patient doing well PICC/Midline will be placed today Venofer and Flagyl are both IV No issues 04/22/2022: Patient doing well Good output from ileostomy Pain is controlled Midline cannot be placed IV Flagyl will replace the p.o. form because of nausea 04/21/2022: No major issues Venofer will start after midline placed Vit B12 ordered and folic acid supplements ARLETTE wraps on legs 04/20/2022: Doing well today Mother at the bedside Eating better Anemia w/u in process Ileostomy education going well Wrapping legs with ARLETTE wraps over NAJMA's to help edema Third-spacing with ARLETTE wraps Review of Systems General: Fatigue, Malaise Neurological: Weakness, Incoordination Objective Exam Vital Signs Vital Signs Date Time Temp Pulse Resp B/P (MAP) Pulse Ox O2 Delivery O2 Flow Rate FiO2 04/23/22 20:43 Room Air 04/23/22 19:25 37.3 96 24 89/57 (68) 99 Capillary Refill : General Appearance: No Apparent Distress, WD/WN, Anxious, Chronically ill, Thin HEENT: PERRL/EOMI, Normal ENT Inspection, Pharynx Normal Neck: Full Range of Motion, Normal Inspection, Non Tender, Supple, Carotid Bruit Respiratory: Chest Non Tender, Lungs Clear, Normal Breath Sounds, No Accessory Muscle Use, No Respiratory Distress Cardiovascular: Regular Rate, Rhythm, No Gallop, No JVD, No Murmur, Normal Peripheral Pulses Gastrointestinal: Normal Bowel Sounds, No Organomegaly, No Pulsatile Mass, Non Tender, Soft Back: Normal Inspection, No CVA Tenderness, No Vertebral Tenderness Extremity: Normal Capillary Refill, Normal Inspection, Normal Range of Motion, Non Tender, No Calf Tenderness, Pedal Edema Neurologic/Psychiatric: Alert, Oriented x3, Normal Mood/Affect, steel 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 FIM Transfers Therapy Code Descriptions/Definitions Functional [place] Measure: 0=Not Assessed/NA 4=Minimal Assistance 1=Total Assistance 5=Supervision or Setup 2=Maximal Assistance 6=Modified [place] 3=Moderate Assistance 7=Complete IndependenceSCALE: Activities may be completed with or without assistive devices. 8-Uenlyppwod-ywgmgtf completes the activity by him/herself with no assistance from a helper. 5-Set-up or Clean-up Assistance-helper sets up or cleans up; patient completes activity. [place] assists only prior to or following the activity. 4-Supervision or Touching Assistance-helper provides verbal cues and/or touching/steadying and/or contact guard assistance as patient completes activity. Assistance may be provided throughout the activity or intermittently. 3-Partial/Moderate Assistance-helper does LESS THAN HALF the effort. [place] lifts, holds or supports trunk or limbs, but provides less than half the effort. 2-Substantial/Maximal Assistance-helper does MORE THAN HALF the effort. [place] lifts or holds trunk or limbs and provides more than half the effort. 8-Uryubmwkc-dcgmje does ALL the effort. Patient does none of the effort to complete the activity. Or, the assistance of 2 or more helpers is required for the patient to complete the activity. If activity was not attempted, code reason: 7-Patient Refused. 9-Not Applicable-not attempted and the patient did not perform the activity before the current illness, exacerbation or injury. 10-Not Attempted due to Environmental Limitations-(lack of equipment, weather restraints, etc.). 88-Not Attempted due to Medical Conditions or Safety Concerns. Roll Left to Right (QC): 3 Sit to Lying (QC): 3 Sit to Stand (QC): 4 Chair/Aoh-sd-Rcyof Xfer(QC): 4 Car Transfer (QC): 3 Gait Training Does the Patient Walk?: Yes Distance: 125 Walk 10 feet (QC): 4 Walk 50 ft with 2 Turns(QC): 4 Walk 150 ft (QC): 4 Walking 10ft/uneven surface-QC: 3 Gait Persons Needed: 1 Gait Assistive Device: FWW Wheelchair Training Wheel 50 ft with 2 turns (QC): 9 Wheel 150 ft (QC): 9 Stair Training Stair Training: Handrails/: uses walker #of Steps: 1 1 Step (curb) (QC): 4 4 Steps (QC): 88 12 Steps (QC): 88 Balance Picking up an Object (QC): 3 ADL-Treatment Eating (QC): 5 Oral Hygiene (QC): 5 Shower/Bathe Self (QC): 3 (Mod A overall. Pt required assistance with bilateral LEs and feet.) Upper Body Dressing (QC): 5 Lower Body Dressing (QC): 3 (min A) On/Off Footwear (QC): 1 Toileting Hygiene (QC): 3 (Min A with pant hike in back.) Assessment/Plan Assessment and Plan Assess & Plan/Chief Complaint Assessment: Debility with chronic cerebral palsy deficits Intestinal surgery following SBO and perforation Edema from third-spacing poor albumin Poor nutrition Anemia iron def B12 def Folic acid def Plan: Home meds Monitor labs Surgery consult PT OT 04/20/2022: Anemia w/u Edema legs management 04/21/2022: Venofer B12 and folate 04/22/2022: Supportive care 04/23/2022: PICC (1) Cerebral palsy NKECHI SIDDIQI DO Apr 23, 2022 06:04
[2022-04-23] MEDS: MULTIVIT W/MINERALS TAB (THERAGRAN M) PO SCH (06:13)
[2022-04-23] MEDS: CYANOCOBALAMIN 1,000 MCG (VITAMIN B-12) TABLET PO SCH (06:13)
[2022-04-23 06:41] LABS: BASOPHILS % (AUTO) 0 % (0-10); EOSINOPHILS # (AUTO) 0.1 10^3/uL (0.0-0.3); EOSINOPHILS % (AUTO) 1 % (0-10); HEMATOCRIT 25 % (35-52); HEMOGLOBIN 7.8 g/dL (11.5-16.0); LYMPHOCYTES # (AUTO) 2.5 10^3/uL (1.0-4.0); LYMPHOCYTES % (AUTO) 30 % (12-44); MEAN CORPUSCULAR HEMOGLOBIN 31 pg (25-34); MEAN CORPUSCULAR HGB CONC 31 g/dL (32-36); MEAN CORPUSCULAR VOLUME 100 fL (80-99); MEAN PLATELET VOLUME 8.8 fL (9.0-12.2); MONOCYTES # (AUTO) 0.6 10^3/uL (0.0-1.0); MONOCYTES % (AUTO) 7 % (0-12); NEUTROPHILS % (AUTO) 60 % (42-75); PLATELET COUNT 514 10^3/uL (130-400); WHITE BLOOD COUNT 8.3 10^3/uL (4.3-11.0)
[2022-04-23 07:06] LABS: ALBUMIN 2.2 GM/DL (3.2-4.5)
[2022-04-23 07:08] LABS: CALCIUM 7.8 MG/DL (8.5-10.1)
[2022-04-23 07:09] LABS: TOTAL PROTEIN 4.7 GM/DL (6.4-8.2)
[2022-04-23 07:11] LABS: BILIRUBIN,TOTAL 0.2 MG/DL (0.1-1.0)
[2022-04-23 07:13] LABS: CREATININE SERUM 0.41 MG/DL (0.60-1.30)
[2022-04-23] MEDS: polyethylene glycoL POWDER 17 GM (MIRALAX) PACK PO SCH ×2 (07:56→19:28)
[2022-04-23 08:00] VITALS: BP 99/61
[2022-04-23] MEDS: SENNA W/DOCUSATE (SENOKOT S) TABLET PO SCH ×2 (08:07→20:30)
[2022-04-23] MEDS: DOCUSATE SODIUM 100 MG (COLACE) CAP PO SCH ×2 (08:08→20:39)
[2022-04-23] MEDS: FOLIC ACID 1 MG TAB PO SCH (08:12)
[2022-04-23] MEDS: VITAMIN D3 25 MCG (1,000 UNITS) TABLET PO SCH (08:12)
[2022-04-23] MEDS: KCL 10 MEQ TAB (MICRO K) PO SCH ×3 (08:13→17:14)
[2022-04-23] MEDS: LACTOBACILLUS ACIDOPHILUS (PROBIOTIC) CAPSULE PO SCH ×2 (08:13→20:30)
[2022-04-23] MEDS: LORATADINE (CLARITIN) 10 MG TAB PO SCH (08:13)
[2022-04-23] MEDS: PANTOPRAZOLE 40 MG (PROTONIX) TAB PO SCH ×2 (08:13→20:30)
[2022-04-23] MEDS: LINEZOLID (ZYVOX) 600 MG TAB PO SCH ×2 (08:13→20:30)
[2022-04-23] MEDS: MAGNESIUM OXIDE (MAG-OX)400 MG TAB PO SCH (08:13)
[2022-04-23] MEDS: ASCORBIC ACID (VIT C) 500 MG TABLET PO SCH (08:13)
[2022-04-23] MEDS: FLUTICASONE NASAL SPRAY (FLONASE) 16 GM BTL NS SCH (08:14)
[2022-04-23] MEDS: CICLOPIROX EXT SCH (08:30)
[2022-04-23] MEDS ORDERED: IRON SUCROSE 200 MG/10 ML (VENOFER) VIAL IV SCH (09:00)
--- NOTE | 2022-04-23 09:08 | Physical Therapy Daily Note ---
PT Daily Note-Current Subjective Pt laying Supine in bed upon arrival. Pt agrees to PT but reports feeling a little stiff/sore. Pain Numeric Pain Scale: 3 Location Body Site: Abdomen Pain Description: Ache, Dull Section J - Health Conditions 1. Rarely or not at all 2. Occasionally 3. Frequently 4. Almost constantly 8. Unable to answer Pain Effect on Sleep: 2 Pain Interference with Therapy: 2 Pain Interference w/Day-to-Day: 2 Mental Status Patient Orientation: Person, Place, Time, Situation Attachments: Colostomy/Ileostomy Transfers SCALE: Activities may be completed with or without assistive devices. 1-Fwxpbxpehu-wfygxvb completes the activity by him/herself with no assistance from a helper. 5-Set-up or Clean-up Assistance-helper sets up or cleans up; patient completes activity. [place] assists only prior to or following the activity. 4-Supervision or Touching Assistance-helper provides verbal cues and/or touching/steadying and/or contact guard assistance as patient completes activity. Assistance may be provided throughout the activity or intermittently. 3-Partial/Moderate Assistance-helper does LESS THAN HALF the effort. [place] lifts, holds or supports trunk or limbs, but provides less than half the effort. 2-Substantial/Maximal Assistance-helper does MORE THAN HALF the effort. [place] lifts or holds trunk or limbs and provides more than half the effort. 3-Vqbnnxeez-iwkuse does ALL the effort. Patient does none of the effort to complete the activity. Or, the assistance of 2 or more helpers is required for the patient to complete the activity. If activity was not attempted, code reason: 7-Patient Refused. 9-Not Applicable-not attempted and the patient did not perform the activity before the current illness, exacerbation or injury. 10-Not Attempted due to Environmental Limitations-(lack of equipment, weather restraints, etc.). 88-Not Attempted due to Medical Conditions or Safety Concerns. Sit to Lying (QC): 5 Sit to Stand (QC): 5 Weight Bearing Right Lower Extremity: Right Full Weight Bearing Left Lower Extremity: Left Full Weight Bearing Exercises Supine Ex: Ankle pumps, Heel Slides Supine Reps: 20 Seated Therapy Exercises: Sit to stand (10), Long arc quads, Hip flexion, Glut set Seated Reps: 20 Treatments Pt receives morning meds at beginning of tx and it takes extended times. Pt completes Supine & Seated EX with RB as needed. Pt focused on strengthening and mobility. Ostomy bag needed dumped and Nurse completed at end of tx. Pt TF to recliner and resting with all needs met at end of tx. Assessment Current Status: Good Progress Pt at times needs additional time to complete task but has been able to complete tasks with decreased assistance needed. PT Short Term Goals Short Term Goals Time Frame: Apr 26, 2022 Roll Left & Right: 6 Sit to lyin Lying to sitting on side of be: 4 Sit to stand: 4 (SBA) Chair/fpe-jy-uninp transfer: 4 (SBA) Walk 10 feet: 4 (SBA) Walk 50 feet with two turns: 4 (SBA) Walk 150 feet: 4 (SBA) PT Prison Goals Edi Coordinator Goals PT Prison Goals Time Frame: May 10, 2022 Roll Left & Right (QC): 6 Sit to Lying (QC): 6 Lying-Sitting on Side/Bed(QC): 6 Sit to Stand (QC): 5 Chair/Ddp-or-Lpqla Xfer(QC): 5 Toilet Transfer (QC): 5 Car Transfer (QC): 5 Does the Patient Walk: Yes Walk 10 feet (QC): 5 Walk 50ft with 2 Turns (QC): 5 Walk 150 ft (QC): 5 Walking 10ft on Uneven Surface: 5 1 Step (curb) (QC): 3 4 Steps (QC): 88 12 Steps (QC): 88 Picking up an Object (QC): 5 Wheel 50 feet with 2 turns (QC: 9 Wheel 150 feet: 9 PT Plan Problem List Problem List: Activity Tolerance, Functional Strength Treatment/Plan Treatment Plan: Continue Plan of Care Treatment Plan: Bed Mobility, Education, Functional Activity Tim, Functional Strength, Group Therapy, Gait, Safety, Therapeutic Exercise, Transfers Treatment Duration: May 10, 2022 Frequency: At least 5 of 7 days/Wk (IRF) Estimated Hrs Per Day: 1.5 hours per day Patient and/or Family Agrees t: Yes Safety Risks/Education Patient Education: Transfer Techniques, Correct Positioning, Safety Issues Teaching Recipient: Patient Teaching Methods: Discussion Response to Teaching: Verbalize Understanding Time/GCodes Time In: 800 Time Out: 900 Total Billed Treatment Time: 60 Total Billed Treatment 1, EX x2 (30m) & FA x2 (30m) GISELLE BYRD SENIOR QUALITY CONTROL INSPECTOR Apr 23, 2022 09:08
[2022-04-23] MEDS: HYDROcodone/APAP 5 MG/325 MG (LORTAB) TAB PO PRN ×2 (09:33→17:14)
--- NOTE | 2022-04-23 10:25 | Occupational Ther Daily Note ---
OT Current Status-Daily Note Subjective Pt alert, sitting in recliner. Pt c/o pain, nrsg brought pain meds. Pt c/o fatigue and required min encouragement to participate in OT session. Mental Status/Objective Patient Orientation: Person, Place, Time, Situation Attachments: Colostomy/Ileostomy Acute change in mental status: 0 Inattention: 0 Disorganized thinkin Altered level of consciousness: 0 ADL-Treatment Pt agrees to shower. Pt requires assist to complete ileostomy care, able to complete hygiene after voiding and clothing manipulation by self. Sitting on SC, pt able to complete upper body, rylee area/ buttocks by self then assist for lower legs. Set up assist due to not being able to reach hand held shower head and adjusting water temp. Set up for upper body dressing. Assist to thread pants over feet then is able to hike over hips. Assist to don/doff compression stockings. Attempted to educate pt on use of AE for lower body dressing. Pt stated she liked her mother to assist with dressing then other times she states that she completes most of it herself. Will continue to work on AE for dressing. After therapy, pt lying in bed with call light/phone in reach. All needs met in room. Therapy Code Descriptions/Definitions Functional [place] Measure: 0=Not Assessed/NA 4=Minimal Assistance 1=Total Assistance 5=Supervision or Setup 2=Maximal Assistance 6=Modified [place] 3=Moderate Assistance 7=Complete IndependenceSCALE: Activities may be completed with or without assistive devices. 5-Kwwlsvsohe-rksfebd completes the activity by him/herself with no assistance from a helper. 5-Set-up or Clean-up Assistance-helper sets up or cleans up; patient completes activity. [place] assists only prior to or following the activity. 4-Supervision or Touching Assistance-helper provides verbal cues and/or touching/steadying and/or contact guard assistance as patient completes activity. Assistance may be provided throughout the activity or intermittently. 3-Partial/Moderate Assistance-helper does LESS THAN HALF the effort. [place] lifts, holds or supports trunk or limbs, but provides less than half the effort. 2-Substantial/Maximal Assistance-helper does MORE THAN HALF the effort. [place] lifts or holds trunk or limbs and provides more than half the effort. 1-Xfzptfgjd-mdetfz does ALL the effort. Patient does none of the effort to complete the activity. Or, the assistance of 2 or more helpers is required for the patient to complete the activity. If activity was not attempted, code reason: 7-Patient Refused. 9-Not Applicable-not attempted and the patient did not perform the activity before the current illness, exacerbation or injury. 10-Not Attempted due to Environmental Limitations-(lack of equipment, weather restraints, etc.). 88-Not Attempted due to Medical Conditions or Safety Concerns. Shower/Bathe Self (QC): 3 (min A) Upper Body Dressing (QC): 5 Lower Body Dressing (QC): 3 (mod A) On/Off Footwear: 2 OT Short Term Goals Short Term Goals Time Frame: May 02, 2022 Toileting hygiene: 4 Shower/bathe self: 4 Lower body dressin Putting on/taking off footwear: 4 OT Retirement Goals Manager Online Goals Time Frame: May 11, 2022 Acute change in mental status: 0 Inattention: 0 Disorganized thinkin Altered level of consciousness: 0 Eating (QC): 5 Oral Hygiene (QC): 5 Toileting Hygiene (QC): 6 Shower/Bathe Self (QC): 5 Upper Body Dressing (QC): 6 Lower Body Dressing (QC): 6 On/Off Footwear (QC): 6 Additional Goals: 1-Demonstrate ADL Tasks, 2-Verbalize Understanding, 3- ImproveStrength/Tim 1=Demonstrate adherence to instructed precautions during ADL tasks. 2=Patient will verbalize/demonstrate understanding of assistive devices/modifications for ADL. 3=Patient will improve strength/tolerance for activity to enable patient to perform ADL's. OT Education/Plan Problem List/Assessment Assessment: Decreased Activ Tolerance, Decreased UE Strength Discharge Recommendations Plan/Recommendations: Continue POC Treatment Plan/Plan of Care Patient would benefit from OT for education, treatment and training to promote independence in ADL's, mobility, safety and/or upper extremity function for ADL's. Plan of Care: ADL Retraining, Functional Mobility, Group Exercise/Act as Ind, UE Funct Exercise/Act Treatment Duration: May 11, 2022 Frequency: At least 5 of 7 days/Wk (IRF) Estimated Hrs Per Day: 1.5 hours per day Agreement: Yes Rehab Potential: Good Time/GCodes Start Time: 09:00 Stop Time: 10:30 Total Time Billed (hr/min): 90 Billed Treatment Time 1 visit-ADL 6 (90 min) VALENTINA CASTRO Apr 23, 2022 10:25
--- NOTE | 2022-04-23 14:39 | Physical Therapy Daily Note ---
PT Daily Note-Current Subjective Pt sitting in chair in room visiting with Mom after finishing lunch. Pt agrees to PT. Pain Location: No Pain Reported Section J - Health Conditions 1. Rarely or not at all 2. Occasionally 3. Frequently 4. Almost constantly 8. Unable to answer Pain Effect on Sleep: 2 Pain Interference with Therapy: 2 Pain Interference w/Day-to-Day: 2 Mental Status Patient Orientation: Person, Place, Time, Situation Attachments: Colostomy/Ileostomy Transfers SCALE: Activities may be completed with or without assistive devices. 3-Ebywylpicc-vrfoxau completes the activity by him/herself with no assistance from a helper. 5-Set-up or Clean-up Assistance-helper sets up or cleans up; patient completes activity. [place] assists only prior to or following the activity. 4-Supervision or Touching Assistance-helper provides verbal cues and/or touching/steadying and/or contact guard assistance as patient completes activity. Assistance may be provided throughout the activity or intermittently. 3-Partial/Moderate Assistance-helper does LESS THAN HALF the effort. [place] lifts, holds or supports trunk or limbs, but provides less than half the effort. 2-Substantial/Maximal Assistance-helper does MORE THAN HALF the effort. [place] lifts or holds trunk or limbs and provides more than half the effort. 3-Xibjpmecy-nmsjhn does ALL the effort. Patient does none of the effort to complete the activity. Or, the assistance of 2 or more helpers is required for the patient to complete the activity. If activity was not attempted, code reason: 7-Patient Refused. 9-Not Applicable-not attempted and the patient did not perform the activity before the current illness, exacerbation or injury. 10-Not Attempted due to Environmental Limitations-(lack of equipment, weather restraints, etc.). 88-Not Attempted due to Medical Conditions or Safety Concerns. Sit to Lying (QC): 3 Sit to Stand (QC): 5 Weight Bearing Right Lower Extremity: Right Full Weight Bearing Left Lower Extremity: Left Full Weight Bearing Gait Training Does the Patient Walk?: Yes Distance: 150' x2 Walk 10 feet (QC): 5 Walk 50 ft with 2 Turns(QC): 5 Walk 150 ft (QC): 5 Gait Assistive Device: FWW Wheelchair Training Does the Pt Use a Wheelchair?: No Exercises NuStep Minutes: 15 (12m at WL 4 & 3m at WL 5) NuStep Workload: 4 Treatments TF to standing and amb. in hallway. Pt uses NuStep then takes RB. LOT ATTENDANT issues written HEP for Supine & Seated EX and reviews them. Pt amb. back to room and asks to return to bed as pt is fatigued. LOT ATTENDANT assists w/lifting B LE into bed. All needs met, call light in hand. Assessment Current Status: Good Progress Pt is fatigued by end of tx and needs assistance to lift B LE into bed to rest. RB taken during tx for fatigue. PT Short Term Goals Short Term Goals Time Frame: Apr 26, 2022 Roll Left & Right: 6 Sit to lyin Lying to sitting on side of be: 4 Sit to stand: 4 (SBA) Chair/pup-rk-czair transfer: 4 (SBA) Walk 10 feet: 4 (SBA) Walk 50 feet with two turns: 4 (SBA) Walk 150 feet: 4 (SBA) PT Mcc Goals Mcc Goals PT Mcc Goals Time Frame: May 10, 2022 Roll Left & Right (QC): 6 Sit to Lying (QC): 6 Lying-Sitting on Side/Bed(QC): 6 Sit to Stand (QC): 5 Chair/Xeb-cm-[place] Xfer(QC): 5 Toilet Transfer (QC): 5 Car Transfer (QC): 5 Does the Patient Walk: Yes Walk 10 feet (QC): 5 Walk 50ft with 2 Turns (QC): 5 Walk 150 ft (QC): 5 Walking 10ft on Uneven Surface: 5 1 Step (curb) (QC): 3 4 Steps (QC): 88 12 Steps (QC): 88 Picking up an Object (QC): 5 Wheel 50 feet with 2 turns (QC: 9 Wheel 150 feet: 9 PT Plan Problem List Problem List: Activity Tolerance, Functional Strength Treatment/Plan Treatment Plan: Continue Plan of Care Treatment Plan: Bed Mobility, Education, Functional Activity Tim, Functional Strength, Group Therapy, Gait, Safety, Therapeutic Exercise, Transfers Treatment Duration: May 10, 2022 Frequency: At least 5 of 7 days/Wk (IRF) Estimated Hrs Per Day: 1.5 hours per day Patient and/or Family Agrees t: Yes Safety Risks/Education Patient Education: Transfer Techniques, Correct Positioning Teaching Recipient: Patient Teaching Methods: Discussion Response to Teaching: Verbalize Understanding Time/GCodes Time In: 1340 Time Out: 1410 Total Billed Treatment Time: 30 Total Billed Treatment 1, GT (15m) & EX (15m) GISELLE BYRD LOT ATTENDANT Apr 23, 2022 14:39
[2022-04-23] MEDS: ACETAMINOPHEN 325 MG TABLET PO PRN (15:43)
[2022-04-23] MEDS: ALPRAZolam 0.25 MG (XANAX) TAB PO PRN (18:08)
[2022-04-23 19:25] VITALS: BP 89/57
[2022-04-23] MEDS: BACLOFEN 10 MG (LIORESAL) TAB PO PRN (20:30)
[2022-04-23] MEDS: MELATONIN 3 MG TABLET PO PRN (21:20)
[2022-04-24] MEDS: HYDROcodone/APAP 5 MG/325 MG (LORTAB) TAB PO PRN ×5 (01:07→21:14)
[2022-04-24] MEDS: metroNIDAZOLE 500MG/100ML IVPB 100 ML IV SCH ×2 (05:26→13:24)
--- NOTE | 2022-04-24 06:02 | PM&R Progress Note ---
Subjective HPI/CC On Admission Date Seen by Provider: Apr 24, 2022 Time Seen by Provider: 08:30 Subjective/Events-last exam 04/24/2022: Left rib pain issues Having a lot of difficulty Left rib xrays ordered but appears to be muscle strain Eating well 04/23/2022: Patient doing well PICC/Midline will be placed today Venofer and Flagyl are both IV No issues 04/22/2022: Patient doing well Good output from ileostomy Pain is controlled Midline cannot be placed IV Flagyl will replace the p.o. form because of nausea 04/21/2022: No major issues Venofer will start after midline placed Vit B12 ordered and folic acid supplements ARLETTE wraps on legs 04/20/2022: Doing well today Mother at the bedside Eating better Anemia w/u in process Ileostomy education going well Wrapping legs with ARLETTE wraps over NAJMA's to help edema Third-spacing with ARLETTE wraps Review of Systems General: Fatigue, Malaise Neurological: Weakness Objective Exam Vital Signs Vital Signs Date Time Temp Pulse Resp B/P (MAP) Pulse Ox O2 Delivery O2 Flow Rate FiO2 04/24/22 20:20 Room Air 04/24/22 19:53 36.8 100 20 90/56 (67) 99 Capillary Refill : General Appearance: No Apparent Distress, WD/WN, Anxious, Chronically ill, Thin HEENT: PERRL/EOMI, Normal ENT Inspection, Pharynx Normal Neck: Full Range of Motion, Normal Inspection, Non Tender, Supple, Carotid Bruit Respiratory: Chest Non Tender, Lungs Clear, Normal Breath Sounds, No Accessory Muscle Use, No Respiratory Distress Cardiovascular: Regular Rate, Rhythm, No Gallop, No JVD, No Murmur, Normal Peripheral Pulses Gastrointestinal: Normal Bowel Sounds, No Organomegaly, No Pulsatile Mass, Non Tender, Soft Back: Normal Inspection, No CVA Tenderness, No Vertebral Tenderness Extremity: Normal Capillary Refill, Normal Inspection, Normal Range of Motion, Non Tender, No Calf Tenderness, Pedal Edema Neurologic/Psychiatric: Alert, Oriented x3, Normal Mood/Affect, sports equipment repairer II-XII Norm as Tested, Motor Weakness (chronic CP deficits, limited ROM lower extremities) Skin: Normal Color, Warm/Dry Lymphatic: No Adenopathy Results/Procedures Lab Patient resulted labs reviewed. FIM Transfers Therapy Code Descriptions/Definitions Functional [place] Measure: 0=Not Assessed/NA 4=Minimal Assistance 1=Total Assistance 5=Supervision or Setup 2=Maximal Assistance 6=Modified [place] 3=Moderate Assistance 7=Complete IndependenceSCALE: Activities may be completed with or without assistive devices. 9-Wfhbiovspy-vcqfciz completes the activity by him/herself with no assistance from a helper. 5-Set-up or Clean-up Assistance-helper sets up or cleans up; patient completes activity. [place] assists only prior to or following the activity. 4-Supervision or Touching Assistance-helper provides verbal cues and/or touching/steadying and/or contact guard assistance as patient completes activity. Assistance may be provided throughout the activity or intermittently. 3-Partial/Moderate Assistance-helper does LESS THAN HALF the effort. [place] lifts, holds or supports trunk or limbs, but provides less than half the effort. 2-Substantial/Maximal Assistance-helper does MORE THAN HALF the effort. [place] lifts or holds trunk or limbs and provides more than half the effort. 5-Xgjaqweyr-dcjkfq does ALL the effort. Patient does none of the effort to complete the activity. Or, the assistance of 2 or more helpers is required for the patient to complete the activity. If activity was not attempted, code reason: 7-Patient Refused. 9-Not Applicable-not attempted and the patient did not perform the activity before the current illness, exacerbation or injury. 10-Not Attempted due to Environmental Limitations-(lack of equipment, weather restraints, etc.). 88-Not Attempted due to Medical Conditions or Safety Concerns. Roll Left to Right (QC): 3 Sit to Lying (QC): 3 Sit to Stand (QC): 5 Chair/Wug-ex-Auoxz Xfer(QC): 4 Car Transfer (QC): 3 Gait Training Does the Patient Walk?: Yes Distance: 150' x2 Walk 10 feet (QC): 5 Walk 50 ft with 2 Turns(QC): 5 Walk 150 ft (QC): 5 Walking 10ft/uneven surface-QC: 3 Gait Persons Needed: 1 Gait Assistive Device: FWW Wheelchair Training Does the Pt Use a Wheelchair?: No Wheel 50 ft with 2 turns (QC): 9 Wheel 150 ft (QC): 9 Stair Training Stair Training: Handrails/: uses walker #of Steps: 1 1 Step (curb) (QC): 4 4 Steps (QC): 88 12 Steps (QC): 88 Balance Picking up an Object (QC): 3 ADL-Treatment Eating (QC): 5 Oral Hygiene (QC): 5 Shower/Bathe Self (QC): 3 (min A) Upper Body Dressing (QC): 5 Lower Body Dressing (QC): 3 (mod A) On/Off Footwear (QC): 2 Toileting Hygiene (QC): 3 (Min A with pant hike in back.) Assessment/Plan Assessment and Plan Assess & Plan/Chief Complaint Assessment: Debility with chronic cerebral palsy deficits Intestinal surgery following SBO and perforation Edema from third-spacing poor albumin Poor nutrition Anemia iron def B12 def Folic acid def Plan: Home meds Monitor labs Surgery consult PT OT 04/20/2022: Anemia w/u Edema legs management 04/21/2022: Venofer B12 and folate 04/22/2022: Supportive care 04/23/2022: PICC 04/24/2022: Rib xray Lidocaine patch (1) Cerebral palsy NKECHI SIDDIQI DO Apr 24, 2022 06:02
[2022-04-24] MEDS: CYANOCOBALAMIN 1,000 MCG (VITAMIN B-12) TABLET PO SCH (06:04)
[2022-04-24] MEDS: MULTIVIT W/MINERALS TAB (THERAGRAN M) PO SCH (06:04)
[2022-04-24 08:00] VITALS: BP 93/56
[2022-04-24 08:30] VITALS: BP 102/59
[2022-04-24] MEDS: ASCORBIC ACID (VIT C) 500 MG TABLET PO SCH (08:37)
[2022-04-24] MEDS: MAGNESIUM OXIDE (MAG-OX)400 MG TAB PO SCH (08:37)
[2022-04-24] MEDS: KCL 10 MEQ TAB (MICRO K) PO SCH ×3 (08:37→17:40)
[2022-04-24] MEDS: BACLOFEN 10 MG (LIORESAL) TAB PO PRN ×3 (08:37→19:49)
[2022-04-24] MEDS: PANTOPRAZOLE 40 MG (PROTONIX) TAB PO SCH ×2 (09:00→19:48)
[2022-04-24] MEDS: LORATADINE (CLARITIN) 10 MG TAB PO SCH (09:00)
[2022-04-24] MEDS: DOCUSATE SODIUM 100 MG (COLACE) CAP PO SCH ×2 (09:00→19:48)
[2022-04-24] MEDS: VITAMIN D3 25 MCG (1,000 UNITS) TABLET PO SCH (09:00)
[2022-04-24] MEDS: FOLIC ACID 1 MG TAB PO SCH (09:00)
[2022-04-24] MEDS: polyethylene glycoL POWDER 17 GM (MIRALAX) PACK PO SCH ×2 (09:00→19:35)
[2022-04-24] MEDS: CICLOPIROX EXT SCH (09:00)
[2022-04-24] MEDS: LACTOBACILLUS ACIDOPHILUS (PROBIOTIC) CAPSULE PO SCH ×2 (09:00→19:49)
--- NOTE | 2022-04-24 10:02 | Occupational Ther Daily Note ---
OT Current Status-Daily Note Subjective Pt alert, sitting in chair with B LE's elevated. Pt making crying noises when BANGURA entered room. Pt stated that she feel like she has strained muscle in L side and that she is in too much pain to work with therapy. Max encouragement to participate in OT session. BANGURA placed warm compress to area, pt states that it does decrease pain though is just too tired to continue with therapy. BANGURA continued to encourage pt to participate in OT session. Pt reluctantly agrees to attempt to participate. Therapy supervisor microwave and nrsg made aware of pt's reluctance to participate in skilled therapy due to pain and fatigue. Pt requested a melatonin to allow her to rest, reported this to nrsg. Mental Status/Objective Patient Orientation: Person, Place, Time, Situation Attachments: Colostomy/Ileostomy, IV ADL-Treatment Therapy Code Descriptions/Definitions Functional [place] Measure: 0=Not Assessed/NA 4=Minimal Assistance 1=Total Assistance 5=Supervision or Setup 2=Maximal Assistance 6=Modified [place] 3=Moderate Assistance 7=Complete IndependenceSCALE: Activities may be completed with or without assistive devices. 8-Oxowhgyzwi-cepincu completes the activity by him/herself with no assistance from a helper. 5-Set-up or Clean-up Assistance-helper sets up or cleans up; patient completes activity. [place] assists only prior to or following the activity. 4-Supervision or Touching Assistance-helper provides verbal cues and/or touching/steadying and/or contact guard assistance as patient completes activity. Assistance may be provided throughout the activity or intermittently. 3-Partial/Moderate Assistance-helper does LESS THAN HALF the effort. [place] lifts, holds or supports trunk or limbs, but provides less than half the effort. 2-Substantial/Maximal Assistance-helper does MORE THAN HALF the effort. [place] lifts or holds trunk or limbs and provides more than half the effort. 6-Dagsbnmvs-zwdyxi does ALL the effort. Patient does none of the effort to complete the activity. Or, the assistance of 2 or more helpers is required for the patient to complete the activity. If activity was not attempted, code reason: 7-Patient Refused. 9-Not Applicable-not attempted and the patient did not perform the activity before the current illness, exacerbation or injury. 10-Not Attempted due to Environmental Limitations-(lack of equipment, weather restraints, etc.). 88-Not Attempted due to Medical Conditions or Safety Concerns. Toileting Hygiene (QC): 3 (mod A for urination) Other Treatment Limited participation during fine motor session. Pt did demonstrate good strength and dexterity during fine motor task. Pt then requested to use BSC to void. Pt stated that her legs felt like rubber. Increased assistance given for safety with SPT. Pt requested assistance to manipulate clothing due to being to tired and B LE's too weak. Pt cleansed self after voiding while in sitting. Pt then ambulated to bed and required mod A to lift feet in bed and scoot self up in bed. Pt made comfortable to in bed with call light/phone in reach. All needs met. OT Short Term Goals Short Term Goals Time Frame: May 02, 2022 Toileting hygiene: 4 Shower/bathe self: 4 Lower body dressin Putting on/taking off footwear: 4 OT Ultrasonic Cleaner Goals Ultrasonic Cleaner Goals Time Frame: May 11, 2022 Acute change in mental status: 0 Inattention: 0 Disorganized thinkin Altered level of consciousness: 0 Eating (QC): 5 Oral Hygiene (QC): 5 Toileting Hygiene (QC): 6 Shower/Bathe Self (QC): 5 Upper Body Dressing (QC): 6 Lower Body Dressing (QC): 6 On/Off Footwear (QC): 6 Additional Goals: 1-Demonstrate ADL Tasks, 2-Verbalize Understanding, 3- ImproveStrength/Tim 1=Demonstrate adherence to instructed precautions during ADL tasks. 2=Patient will verbalize/demonstrate understanding of assistive devices/modifications for ADL. 3=Patient will improve strength/tolerance for activity to enable patient to perform ADL's. OT Education/Plan Problem List/Assessment Assessment: Decreased Activ Tolerance, Decreased UE Strength, Impaired Bed Mobility, Impaired Self-Care Skills Discharge Recommendations Plan/Recommendations: Continue POC Treatment Plan/Plan of Care Patient would benefit from OT for education, treatment and training to promote independence in ADL's, mobility, safety and/or upper extremity function for ADL's. Plan of Care: ADL Retraining, Functional Mobility, Group Exercise/Act as Ind, UE Funct Exercise/Act Treatment Duration: May 11, 2022 Frequency: At least 5 of 7 days/Wk (IRF) Estimated Hrs Per Day: 1.5 hours per day Agreement: Yes Rehab Potential: Good Time/GCodes Start Time: 09:00 Stop Time: 10:00 Total Time Billed (hr/min): 60 Billed Treatment Time 1 visit-FA 3 (50 min) ADL 1 (10 min) VALENTINA CASTRO Apr 24, 2022 10:02
--- NOTE | 2022-04-24 10:03 | Physical Therapy Daily Note ---
PT Daily Note-Current Subjective Pt R sidelying in bed upon arrival. Pt is weepy upon arrival and reports feeling L Upper Quadrant muscle pain since waking up from nap yesterday afternoon. This affected pt's sleep last night. Pain Numeric Pain Scale: 5-Moderate Pain Location: Left Location Body Site: Abdomen Pain Description: Ache, Dull Section J - Health Conditions 1. Rarely or not at all 2. Occasionally 3. Frequently 4. Almost constantly 8. Unable to answer Pain Effect on Sleep: 2 Pain Interference with Therapy: 2 Pain Interference w/Day-to-Day: 2 Mental Status Patient Orientation: Person, Place, Time, Situation Transfers SCALE: Activities may be completed with or without assistive devices. 0-Mraqfiapbf-yofcasz completes the activity by him/herself with no assistance from a helper. 5-Set-up or Clean-up Assistance-helper sets up or cleans up; patient completes activity. [place] assists only prior to or following the activity. 4-Supervision or Touching Assistance-helper provides verbal cues and/or touching/steadying and/or contact guard assistance as patient completes activity. Assistance may be provided throughout the activity or intermittently. 3-Partial/Moderate Assistance-helper does LESS THAN HALF the effort. [place] lifts, holds or supports trunk or limbs, but provides less than half the effort. 2-Substantial/Maximal Assistance-helper does MORE THAN HALF the effort. [place] lifts or holds trunk or limbs and provides more than half the effort. 1-Euccevknq-wtmgok does ALL the effort. Patient does none of the effort to complete the activity. Or, the assistance of 2 or more helpers is required for the patient to complete the activity. If activity was not attempted, code reason: 7-Patient Refused. 9-Not Applicable-not attempted and the patient did not perform the activity before the current illness, exacerbation or injury. 10-Not Attempted due to Environmental Limitations-(lack of equipment, weather restraints, etc.). 88-Not Attempted due to Medical Conditions or Safety Concerns. Lying to Sitting/Side of Bed(Q: 5 Sit to Stand (QC): 5 Chair/Dru-go-Qkjch Xfer(QC): 5 Weight Bearing Right Lower Extremity: Right Full Weight Bearing Left Lower Extremity: Left Full Weight Bearing Exercises Supine Ex: Ankle pumps, Quad Set, Hip abd/add Supine Reps: 20 Seated Therapy Exercises: Long arc quads, Hip flexion, Glut set Seated Reps: 15 Treatments 800-900: Pt receives morning meds and Nurse advised of pain in L Upper Quadrant and that pt is asking for pain med & muscle relaxer. DIRECTOR COUNCIL ON AGING encourages pt to try sitting up or standing to change position to see if positional change helps. Pt able to TF to EOB and complete Seated Ex then Standing which is reported as improved position although pt cannot stand long due to fatigue. Pt finally agrees to sitting up in arm chair w/feet propped up in pillow. All needs met, call light in hand. [id number]: Pt declines afternoon tx and after increased encouragement, pt finally agrees to ambulate in hallway. TF to EOB with reported increase in pain. Pt stands and slowly amb. in hallway, taking RB before amb. back to room. Pt L sidelying repositioned to comfort. All needs met, call light in hand. Assessment Current Status: Poor Progress Pt was told by Nurse that it was too early for Loratab but could have it in a bit. Pt only willing to complete minimal EX due to pain at this time. PT Short Term Goals Short Term Goals Time Frame: Apr 26, 2022 Roll Left & Right: 6 Sit to lyin Lying to sitting on side of be: 4 Sit to stand: 4 (SBA) Chair/anp-xr-jamlb transfer: 4 (SBA) Walk 10 feet: 4 (SBA) Walk 50 feet with two turns: 4 (SBA) Walk 150 feet: 4 (SBA) PT Librarian Goals Librarian Goals PT Residential Goals Time Frame: May 10, 2022 Roll Left & Right (QC): 6 Sit to Lying (QC): 6 Lying-Sitting on Side/Bed(QC): 6 Sit to Stand (QC): 5 Chair/Boo-pz-Gormd Xfer(QC): 5 Toilet Transfer (QC): 5 Car Transfer (QC): 5 Does the Patient Walk: Yes Walk 10 feet (QC): 5 Walk 50ft with 2 Turns (QC): 5 Walk 150 ft (QC): 5 Walking 10ft on Uneven Surface: 5 1 Step (curb) (QC): 3 4 Steps (QC): 88 12 Steps (QC): 88 Picking up an Object (QC): 5 Wheel 50 feet with 2 turns (QC: 9 Wheel 150 feet: 9 PT Plan Problem List Problem List: Activity Tolerance, Functional Strength Treatment/Plan Treatment Plan: Continue Plan of Care Treatment Plan: Bed Mobility, Education, Functional Activity Tim, Functional Strength, Group Therapy, Gait, Safety, Therapeutic Exercise, Transfers Treatment Duration: May 10, 2022 Frequency: At least 5 of 7 days/Wk (IRF) Estimated Hrs Per Day: 1.5 hours per day Patient and/or Family Agrees t: Yes Safety Risks/Education Patient Education: Gait Training, Correct Positioning, Safety Issues Teaching Recipient: Patient Teaching Methods: Discussion Response to Teaching: Verbalize Understanding Time/GCodes Time In: 800 Time Out: 900 Total Billed Treatment Time: 60 Total Billed Treatment 800-900: 1, EX (20m) & FA x3 (40m) [id number]: 1, FA (15m) & GT (15m) GISELLE BYRD DIRECTOR COUNCIL ON [employer]ING Apr 24, 2022 10:03
[2022-04-24] MEDS ORDERED: LIDOCAINE 4% (SALONPAS) PATCH TOP SCH (10:30)
[2022-04-24] MEDS: SENNA W/DOCUSATE (SENOKOT S) TABLET PO SCH ×2 (11:10→20:00)
[2022-04-24] MEDS: FLUTICASONE NASAL SPRAY (FLONASE) 16 GM BTL NS SCH (11:11)
--- NOTE | 2022-04-24 12:43 | Occupational Ther Daily Note ---
OT Current Status-Daily Note Subjective Pt alert, lying in bed. Mother present in room. Wound care nrsg in room. Pt continues to be weepy and c/o tiredness, side and back pain. Nrsg aware of all complaints. Pt states that she just wants to be snuggled by her mother and sleep. Mental Status/Objective Patient Orientation: Person, Place, Time, Situation Attachments: Colostomy/Ileostomy, IV ADL-Treatment Therapy Code Descriptions/Definitions Functional [place] Measure: 0=Not Assessed/NA 4=Minimal Assistance 1=Total Assistance 5=Supervision or Setup 2=Maximal Assistance 6=Modified [place] 3=Moderate Assistance 7=Complete IndependenceSCALE: Activities may be completed with or without assistive devices. 9-Slmnnauqtx-heymjrn completes the activity by him/herself with no assistance from a helper. 5-Set-up or Clean-up Assistance-helper sets up or cleans up; patient completes activity. [place] assists only prior to or following the activity. 4-Supervision or Touching Assistance-helper provides verbal cues and/or touching/steadying and/or contact guard assistance as patient completes activity. Assistance may be provided throughout the activity or intermittently. 3-Partial/Moderate Assistance-helper does LESS THAN HALF the effort. [place] lifts, holds or supports trunk or limbs, but provides less than half the effort. 2-Substantial/Maximal Assistance-helper does MORE THAN HALF the effort. [place] lifts or holds trunk or limbs and provides more than half the effort. 7-Erwdlhrxx-kaqkfs does ALL the effort. Patient does none of the effort to complete the activity. Or, the assistance of 2 or more helpers is required for the patient to complete the activity. If activity was not attempted, code reason: 7-Patient Refused. 9-Not Applicable-not attempted and the patient did not perform the activity before the current illness, exacerbation or injury. 10-Not Attempted due to Environmental Limitations-(lack of equipment, weather restraints, etc.). 88-Not Attempted due to Medical Conditions or Safety Concerns. Other Treatment Due to c/o increased pain and fatigue, pt is requiring more assistance to complete bed mobility. Pt is able to go from supine to sitting up in bed without support. BANGURA assisting with all bed mobility while nrsg completes ileostomy care. After session, pt lying in bed with her mother. Call light/phone in reach. All needs met in room. OT Short Term Goals Short Term Goals Time Frame: May 02, 2022 Toileting hygiene: 4 Shower/bathe self: 4 Lower body dressin Putting on/taking off footwear: 4 OT Retirement Goals Retirement Goals Time Frame: May 11, 2022 Acute change in mental status: 0 Inattention: 0 Disorganized thinkin Altered level of consciousness: 0 Eating (QC): 5 Oral Hygiene (QC): 5 Toileting Hygiene (QC): 6 Shower/Bathe Self (QC): 5 Upper Body Dressing (QC): 6 Lower Body Dressing (QC): 6 On/Off Footwear (QC): 6 Additional Goals: 1-Demonstrate ADL Tasks, 2-Verbalize Understanding, 3- ImproveStrength/Tim 1=Demonstrate adherence to instructed precautions during ADL tasks. 2=Patient will verbalize/demonstrate understanding of assistive devices/modifications for ADL. 3=Patient will improve strength/tolerance for activity to enable patient to perform ADL's. OT Education/Plan Problem List/Assessment Assessment: Decreased Activ Tolerance, Impaired Bed Mobility, Impaired Self- Care Skills Discharge Recommendations Plan/Recommendations: Continue POC Treatment Plan/Plan of Care Patient would benefit from OT for education, treatment and training to promote independence in ADL's, mobility, safety and/or upper extremity function for ADL's. Plan of Care: ADL Retraining, Functional Mobility, Group Exercise/Act as Ind, UE Funct Exercise/Act Treatment Duration: May 11, 2022 Frequency: At least 5 of 7 days/Wk (IRF) Estimated Hrs Per Day: 1.5 hours per day Agreement: Yes Rehab Potential: Good Time/GCodes Start Time: 11:30 Stop Time: 12:00 Total Time Billed (hr/min): 30 Billed Treatment Time 1 visit-FA 2 (30 min) VALENTINA CASTRO Apr 24, 2022 12:43
[2022-04-24] MEDS: LINEZOLID (ZYVOX) 600 MG TAB PO SCH ×2 (12:56→19:49)
--- NOTE | 2022-04-24 13:58 | Diagnostic Imaging Report ---
INDICATION: Rib pain. COMPARISON: None available. TECHNIQUE: Two radiographs of the left-sided ribs dated 04/24/2022. FINDINGS: Catheter tubing is noted overlying the right neck extending into the chest and abdomen, which extends inferior to the xmedx-im-ognp. An additional catheter is seen overlying the right chest, possibly related to a right-sided PICC line. If this is a PICC line, the distal tip likely overlies the right atrium. Surgical clips are seen overlying the upper abdomen as well as chain suture. No large-volume pleural effusion or pneumothorax. No displaced or healing left-sided rib fracture. IMPRESSION: No displaced or healing left-sided rib fracture. No large volume pleural effusion or pneumothorax. Possible right-sided PICC line. If this is a PICC line, this is slightly low lying overlying the right atrium, and retraction could be performed by approximately 2 cm. Dictated by: Dictated on workstation # [id number]
[2022-04-24] MEDS: ALPRAZolam 0.25 MG (XANAX) TAB PO PRN (15:07)
[2022-04-24] MEDS: ACETAMINOPHEN 325 MG TABLET PO PRN (19:48)
[2022-04-24 19:53] VITALS: BP 90/56
[2022-04-24] MEDS ORDERED: LIDOCAINE PATCH REMOVAL TP SCH (21:00)
[2022-04-24] MEDS: MELATONIN 3 MG TABLET PO PRN (21:14)
[2022-04-25] MEDS: ALPRAZolam 0.25 MG (XANAX) TAB PO PRN (01:06)
[2022-04-25] MEDS: BACLOFEN 10 MG (LIORESAL) TAB PO PRN (02:00)
--- NOTE | 2022-04-25 05:45 | PM&R Progress Note ---
Subjective HPI/CC On Admission Date Seen by Provider: Apr 25, 2022 Time Seen by Provider: 08:00 Subjective/Events-last exam 04/25/2022: Called by nurse at 0600 regarding an abrupt onset of change of clinical status Moaning and could not converse Sepsis w/u initiated and dx with severe sepsis and moved to ICU for PNA 04/24/2022: Left rib pain issues Having a lot of difficulty Left rib xrays ordered but appears to be muscle strain Eating well 04/23/2022: Patient doing well PICC/Midline will be placed today Venofer and Flagyl are both IV No issues 04/22/2022: Patient doing well Good output from ileostomy Pain is controlled Midline cannot be placed IV Flagyl will replace the p.o. form because of nausea 04/21/2022: No major issues Venofer will start after midline placed Vit B12 ordered and folic acid supplements ARLETTE wraps on legs 04/20/2022: Doing well today Mother at the bedside Eating better Anemia w/u in process Ileostomy education going well Wrapping legs with ARLETTE wraps over NAJMA's to help edema Third-spacing with ARLETTE wraps Review of Systems General: Fatigue, Malaise Cardiovascular: Edema Focused Exam Lactate Level 04/25/22 06:49: Lactic Acid Level 5.84*H 04/25/22 08:50: Lactic Acid Level 6.87*H 04/25/22 11:10: Lactic Acid Level 0.61 Objective Exam Vital Signs Vital Signs Date Time Temp Pulse Resp B/P (MAP) Pulse Ox O2 Delivery O2 Flow Rate FiO2 04/25/22 08:00 35.0 113/64 (80) Room Air 04/25/22 08:00 136 04/24/22 19:53 20 99 Capillary Refill : General Appearance: WD/WN, Chronically ill, Severe Distress, Thin HEENT: PERRL/EOMI, Normal ENT Inspection, Pharynx Normal Neck: Full Range of Motion, Normal Inspection, Non Tender, Supple, Carotid Bruit Respiratory: Chest Non Tender, Lungs Clear, Normal Breath Sounds, No Accessory Muscle Use, No Respiratory Distress Cardiovascular: Regular Rate, Rhythm, No Gallop, No JVD, No Murmur, Normal Peripheral Pulses Gastrointestinal: Normal Bowel Sounds, No Organomegaly, No Pulsatile Mass, Non Tender, Soft Back: Normal Inspection, No CVA Tenderness, No Vertebral Tenderness Extremity: Normal Capillary Refill, Normal Inspection, Normal Range of Motion, Non Tender, No Calf Tenderness, Pedal Edema Neurologic/Psychiatric: Normal Mood/Affect, lap hand tool II-XII Norm as Tested, Disoriented, Motor Weakness (chronic CP deficits, limited ROM lower extremities) Skin: Normal Color, Warm/Dry Lymphatic: No Adenopathy Results/Procedures Lab Laboratory Tests 04/25/22 06:49 Patient resulted labs reviewed. FIM Transfers Therapy Code Descriptions/Definitions Functional [place] Measure: 0=Not Assessed/NA 4=Minimal Assistance 1=Total Assistance 5=Supervision or Setup 2=Maximal Assistance 6=Modified [place] 3=Moderate Assistance 7=Complete IndependenceSCALE: Activities may be completed with or without assistive devices. 7-Pswewuuxgr-nnazhun completes the activity by him/herself with no assistance from a helper. 5-Set-up or Clean-up Assistance-helper sets up or cleans up; patient completes activity. [place] assists only prior to or following the activity. 4-Supervision or Touching Assistance-helper provides verbal cues and/or touching/steadying and/or contact guard assistance as patient completes activity. Assistance may be provided throughout the activity or intermittently. 3-Partial/Moderate Assistance-helper does LESS THAN HALF the effort. [place] lifts, holds or supports trunk or limbs, but provides less than half the effort. 2-Substantial/Maximal Assistance-helper does MORE THAN HALF the effort. [place] lifts or holds trunk or limbs and provides more than half the effort. 1-Gxwsryyft-hbtkbr does ALL the effort. Patient does none of the effort to complete the activity. Or, the assistance of 2 or more helpers is required for the patient to complete the activity. If activity was not attempted, code reason: 7-Patient Refused. 9-Not Applicable-not attempted and the patient did not perform the activity before the current illness, exacerbation or injury. 10-Not Attempted due to Environmental Limitations-(lack of equipment, weather restraints, etc.). 88-Not Attempted due to Medical Conditions or Safety Concerns. Roll Left to Right (QC): 3 Sit to Lying (QC): 3 Sit to Stand (QC): 5 Chair/Myk-ng-Zhoke Xfer(QC): 5 Car Transfer (QC): 3 Gait Training Does the Patient Walk?: Yes Distance: 150' x2 Walk 10 feet (QC): 5 Walk 50 ft with 2 Turns(QC): 5 Walk 150 ft (QC): 5 Walking 10ft/uneven surface-QC: 3 Gait Persons Needed: 1 Gait Assistive Device: FWW Wheelchair Training Does the Pt Use a Wheelchair?: No Wheel 50 ft with 2 turns (QC): 9 Wheel 150 ft (QC): 9 Stair Training Stair Training: Handrails/: uses walker #of Steps: 1 1 Step (curb) (QC): 4 4 Steps (QC): 88 12 Steps (QC): 88 Balance Picking up an Object (QC): 3 ADL-Treatment Eating (QC): 5 Oral Hygiene (QC): 5 Shower/Bathe Self (QC): 3 (min A) Upper Body Dressing (QC): 5 Lower Body Dressing (QC): 3 (mod A) On/Off Footwear (QC): 2 Toileting Hygiene (QC): 3 (mod A for urination) Assessment/Plan Assessment and Plan Assess & Plan/Chief Complaint Assessment: Acute onset of AMS with severe sepsis dx from PNA 04/25/22 Debility with chronic cerebral palsy deficits Intestinal surgery following SBO and perforation Edema from third-spacing poor albumin Poor nutrition Anemia iron def B12 def Folic acid def Plan: Home meds Monitor labs Surgery consult PT OT 04/20/2022: Anemia w/u Edema legs management 04/21/2022: Venofer B12 and folate 04/22/2022: Supportive care 04/23/2022: PICC 04/24/2022: Rib xray Lidocaine patch 04/25/2022: Move to ICU (1) Cerebral palsy NKECHI SIDDIQI DO Apr 25, 2022 05:45
[2022-04-25] MEDS ORDERED: NS IV 1000 ML 1,000 ML IV SCH (06:30)
[2022-04-25 06:54] LABS: BASOPHILS # (AUTO) 0.1 10^3/uL (0.0-0.1); BASOPHILS % (AUTO) 0 % (0-10); EOSINOPHILS % (AUTO) 0 % (0-10); HEMATOCRIT 30 % (35-52); HEMOGLOBIN 9.2 g/dL (11.5-16.0); LYMPHOCYTES # (AUTO) 3.8 10^3/uL (1.0-4.0); LYMPHOCYTES % (AUTO) 32 % (12-44); MEAN CORPUSCULAR HEMOGLOBIN 30 pg (25-34); MEAN CORPUSCULAR HGB CONC 31 g/dL (32-36); MEAN CORPUSCULAR VOLUME 97 fL (80-99); MEAN PLATELET VOLUME 8.2 fL (9.0-12.2); MONOCYTES # (AUTO) 0.7 10^3/uL (0.0-1.0); MONOCYTES % (AUTO) 6 % (0-12); NEUTROPHILS # (AUTO) 7.1 10^3/uL (1.8-7.8); NEUTROPHILS % (AUTO) 60 % (42-75); PLATELET COUNT 681 10^3/uL (130-400); WHITE BLOOD COUNT 11.8 10^3/uL (4.3-11.0)
[2022-04-25] MEDS: CYANOCOBALAMIN 1,000 MCG (VITAMIN B-12) TABLET PO SCH (07:05)
[2022-04-25] MEDS: MULTIVIT W/MINERALS TAB (THERAGRAN M) PO SCH (07:05)
[2022-04-25 07:17] LABS: BILIRUBIN,URINE NEGATIVE (NEGATIVE); CLARITY,URINE CLEAR; COLOR,URINE YELLOW; GLUCOSE, URINE (UA) NEGATIVE (NEGATIVE); KETONES,URINE 1+ (NEGATIVE); LEUKOCYTE ESTERASE ,URINE NEGATIVE (NEGATIVE); NITRITE,URINE NEGATIVE (NEGATIVE); PROTEIN,URINE NEGATIVE (NEGATIVE)
--- NOTE | 2022-04-25 07:23 | Diagnostic Imaging Report ---
INDICATION: Chest pain. FINDINGS: Portable chest show mild increased density along the lateral right lung base. The lungs are well-aerated. The heart is not enlarged. PICC line on the right tip extends into the right atrium. CLERK GUIDE shunt appears intact. Heart is not enlarged. No pneumothorax or pleural effusion. IMPRESSION: Concern of developing pneumonia laterally right lung base. Dictated by: Dictated on workstation # [id number]
[2022-04-25 07:27] LABS: ALBUMIN 2.5 GM/DL (3.2-4.5); BILIRUBIN,TOTAL 0.4 MG/DL (0.1-1.0); CALCIUM 8.5 MG/DL (8.5-10.1); CREATININE SERUM 0.53 MG/DL (0.60-1.30); POTASSIUM 3.6 MMOL/L (3.6-5.0); TOTAL PROTEIN 5.6 GM/DL (6.4-8.2)
[2022-04-25 07:33] LABS: AMORPHOUS SEDIMENT,UR FEW AMOR URATES /LPF; BACTERIA,URINE NEGATIVE /HPF; SQUAMOUS EPITHELIAL CELL,UR 0-2 /HPF; WBC,URINE 0-2 /HPF
[2022-04-25 07:34] LABS: HYALINE CASTS, URINE 0-2 /LPF; RENAL EPITHELIAL CELLS,URINE 0-2 /HPF
[2022-04-25] MEDS ORDERED: LORazepam INJ 2 MG/ML (ATIVAN) VIAL IVP STA (07:40)
[2022-04-25 08:00] VITALS: BP 113/64
--- NOTE | 2022-04-25 08:21 | Diagnostic Imaging Report ---
Indication: Abdominal pain Abdominal film obtained at 0648 a.m. Presumed shunt catheter seen over the right side of the abdomen with tip over the right hemipelvis. Relatively gasless abdomen with no definitive obstruction or ileus. Postop changes in right lower quadrant with ostomy. Surgical carmenza in right lower quadrant. IMPRESSION: Unremarkable bowel gas pattern with generalized paucity of bowel gas. Postop changes as above. Dictated by: Dictated on workstation # [id number]
--- NOTE | 2022-04-25 08:48 | Occ Therapy Progress Note ---
Therapy Progress Note Due to medical issues pt on hold. Pt transferred to ICU then will be expected to return within 3 day to ARU. Will resume treatments at that time. VALENTINA CASTRO Apr 25, 2022 08:48
--- NOTE | 2022-04-25 14:38 | Progress Note - Surgery ---
MARY VO Salud 04/25/22 1438: Subjective Date Seen by a Provider: Apr 25, 2022 Time Seen by a Provider: 14:20 Subjective/Events-last exam 21 yo female with hx of cerebral palsy, Crohn's, hiatal hernia admitted to ICU on 04/25/22, for sepsis and tachycardia. She is unable to provide hx, history o btained from records. Admitted 04/19 to rehab floor for rehabilitation s/p ileostomy and small bowel resection on 04/14. Pt became less responsive and lucid this morning with no remarkable change in responsiveness. Her ileostomy continues to have good output. Seems to be draining properly at this time, continue to monitor for changes in abdominal pain, signs of infection, Crohns flare, and changes in ileostomy fluid. Urine output this morning was 450ml and Lactic acid has decreased from 6.87 to .61. 1012 -CT abd/pelvis unremarkable. Mild pelvic free fluid may be related to recent surgery or physiologic in nature. No organized fluid collection is seen to indicate abscess 04/25- CT chest - Right basilar infilatrate may be due to pneumonia. 04/25 -CT of head - No acute intracranial abnormality is seen 04/25 - Venous Doppler Study- no evidence of venous thrombosis 04/25 - CT of head - No acute intracranial abnormality is seen Focused Exam Sepsis Stage: Sepsis Lactate Level 04/25/22 06:49: Lactic Acid Level 5.84*H 04/25/22 08:50: Lactic Acid Level 6.87*H 04/25/22 11:10: Lactic Acid Level 0.61 Lactic Acid Level Laboratory Tests Test 04/25/22 11:10 Lactic Acid Level 0.61 MMOL/L (0.50-2.00) Objective Exam Vital Signs Date Time Temp Pulse Resp B/P (MAP) Pulse Ox O2 Delivery O2 Flow Rate FiO2 04/25/22 08:00 35.0 113/64 (80) Room Air 04/25/22 08:00 136 04/24/22 20:20 Room Air 04/24/22 19:53 36.8 100 20 90/56 (67) 99 Room Air I & O 04/25/22 07:00 Intake Total 340 ml Output Total 125 ml Balance 215 ml Capillary Refill : General Appearance: No Apparent Distress, WD/WN, Anxious, Chronically ill, Thin HEENT: PERRL/EOMI, Normal ENT Inspection, Pharynx Normal Neck: Full Range of Motion, Normal Inspection, Non Tender, Supple, Carotid Bruit Respiratory: Chest Non Tender, Lungs Clear, Normal Breath Sounds, No Accessory Muscle Use, No Respiratory Distress Cardiovascular: Regular Rate, Rhythm, No Gallop, No JVD, No Murmur, Normal Peripheral Pulses Peripheral Pulses: 2+ Radial Pulses (R), 2+ Radial Pulses (L) Gastrointestinal: soft; No distended; tenderness (LLQ and around incision), other (incision c/d/i, ostomy pink and functioning) Extremity: Normal Capillary Refill, Normal Inspection, Normal Range of Motion, Non Tender, No Calf Tenderness, Pedal Edema Neurologic/Psychiatric: Alert, Oriented x3, Normal Mood/Affect, 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 Norm as Tested, Motor Weakness (chronic CP deficits, limited ROM lower extremities) Skin: Normal Color, Warm/Dry Lymphatic: No Adenopathy Results Lab Laboratory Tests 04/25/22 06:49: White Blood Count 11.8H, Red Blood Count 3.04L, Hemoglobin 9.2L, Hematocrit 30L, Mean Corpuscular Volume 97, Mean Corpuscular Hemoglobin 30, Mean Corpuscular Hemoglobin Concent 31L, Red Cell Distribution Width 18.5H, Platelet Count 681H, Mean Platelet Volume 8.2L, Immature Granulocyte % (Auto) 1, Neutrophils (%) (Auto) 60, Lymphocytes (%) (Auto) 32, Monocytes (%) (Auto) 6, Eosinophils (%) (Auto) 0, Basophils (%) (Auto) 0, Neutrophils # (Auto) 7.1, Lymphocytes # (Auto) 3.8, Monocytes # (Auto) 0.7, Eosinophils # (Auto) 0.0, Basophils # (Auto) 0.1, Immature Granulocyte # (Auto) 0.1, D-Dimer 6.34H, Sodium Level 142, Potassium Level 3.6, Chloride Level 107, Carbon Dioxide Level 16L, Anion Gap 19H, Blood Urea Nitrogen 3L, Creatinine 0.53L, Estimat Glomerular Filtration Rate 135, B UN/Creatinine Ratio 6, Glucose Level 101, Lactic Acid Level 5.84*H, Calcium Level 8.5, Corrected Calcium 9.7, Total Bilirubin 0.4, Aspartate Amino Transf (AST/SGOT) 23, Alanine Aminotransferase (ALT/SGPT) 19, Alkaline Phosphatase 196H , Total Protein 5.6L, Albumin 2.5L, Procalcitonin 30.47H 04/25/22 07:00: Urine Color YELLOW, Urine Clarity CLEAR, Urine pH 6.0, Urine Specific [place] 1.015L, Urine Protein NEGATIVE, Urine Glucose (UA) NEGATIVE, Urine Ketones 1+H, Urine Nitrite NEGATIVE, Urine Bilirubin NEGATIVE, Urine Urobilinogen 0.2, Urine Leukocyte Esterase NEGATIVE, Urine RBC (Auto) NEGATIVE, Urine RBC NONE, Urine WBC 0-2, Urine Squamous Epithelial Cells 0-2, Urine Renal Epithelial Cells 0-2, Urine Crystals PRESENTH, Urine Amorphous Sediment FEW JERRY URATESH, Urine Bacteria NEGATIVE, Urine Casts PRESENT, Urine Hyaline Casts 0-2H, Urine Mucus SMALLH, Urine Culture Indicated NO 04/25/22 08:50: Lactic Acid Level 6.87*H 04/25/22 11:10: Lactic Acid Level 0.61 Assessment/Plan Assessment/Plan Assessment/Plan S/P bowel resection after small bowel perforation on 04/14 with diverting ileostomy Chron's Disease Cerebral palsy Muscle spasticity Hiatal hernia Anxiety LE swelling- undetermined etiology Plan: Pt is admitted to work on recovering strength and ADLs after surgery on 04/14. Her ileostomy seems to be draining properly at this time, continue to monitor for changes in abdominal pain, signs of infection, Chron's flare, and changes in ileostomy fluid. Pts abdominal pain is under control at the moment, pt states she has required morphine at times since surgery. Pt will need monitoring of labs regularly. Her muscle spasticity seems to be under control post dorsal rhizotomy treated with baclofen, continue to monitor. The status of her hiatal hernia is unsure at this time, consider imaging. Anxiety controlled with zoloft. FAYE CHOU DO 04/26/22 1032: Supervisory-Addendum Brief Verification & Attestation Participated in pt care: other (Pt not seen yesterday, seen today.) Personally performed: other (Pt not seen yesterday, seen today.) Care discussed with: Medical Student Procedures: n/a Pt not seen yesterday, seen today. I did review the CT myself and spoke with nurse. MARY VO Apr 25, 2022 14:38 FAYE CHOU DO Apr 26, 2022 10:32
--- NOTE | 2022-04-27 06:12 | Discharge Summary ---
Diagnosis/Chief Complaint Date of Admission Apr 19, 2022 at 14:25 Date of Discharge Discharge Diagnosis Assessment: Acute onset of AMS with severe sepsis dx from PNA 04/25/22 Debility with chronic cerebral palsy deficits Intestinal surgery following SBO and perforation Edema from third-spacing poor albumin Poor nutrition Anemia iron def B12 def Folic acid def Plan: Home meds Monitor labs Surgery consult PT OT 04/20/2022: Anemia w/u Edema legs management 04/21/2022: Venofer B12 and folate 04/22/2022: Supportive care 04/23/2022: PICC 04/24/2022: Rib xray Lidocaine patch 04/25/2022: Move to ICU (1) Cerebral palsy Discharge Summary Discharge Physical Examination Allergies: Coded Allergies: vancomycin (Verified Allergy, Intermediate, Rash, 04/19/22) Vitals & I&Os Vital Signs Date Time Temp Pulse Resp B/P (MAP) Pulse Ox O2 Delivery O2 Flow Rate FiO2 04/25/22 08:00 35.0 113/64 (80) Room Air 04/25/22 08:00 136 04/24/22 19:53 20 99 Psych/Mental Status: Mental Status NL Hospital Course Was the Problem List Reviewed?: Yes Uneventful course after she was admitted following a critical illness and depletion of reserve with chronic debility due to cerebral palsy at baseline. Patient was participating with therapy and did very well until she abruptly had a change of status and was diagnosed with PNA and severe sepsis and required moving to ICU for treatment. Labs (last 24 hrs) Laboratory Tests 04/20/22 05:24: White Blood Count 9.0, Red Blood Count 2.38L, Hemoglobin 7.3L, Hematocrit 23L, Mean Corpuscular Volume 97, Mean Corpuscular Hemoglobin 31, Mean Corpuscular Hemoglobin Concent 32, Red Cell Distribution Width 18.0H, Platelet Count 352, Mean Platelet Volume 8.4L, Immature Granulocyte % (Auto) 1, Neutrophils (%) (Auto) 65, Lymphocytes (%) (Auto) 28, Monocytes (%) (Auto) 6, Eosinophils (%) (Auto) 0, Basophils (%) (Auto) 0, Neutrophils # (Auto) 5.8, Lymphocytes # (Auto) 2.5, Monocytes # (Auto) 0.6, Eosinophils # (Auto) 0.0, Basophils # (Auto) 0.0, Immature Granulocyte # (Auto) 0.1, Sodium Level 136, Potassium Level 2.8L, Chloride Level 101, Carbon Dioxide Level 27, Anion Gap 8, Blood Urea Nitrogen < 2L, Creatinine 0.41L, Estimat Glomerular Filtration Rate 143, BUN/Creatinine Ratio 5, Glucose Level 85, Calcium Level 7.5L, Corrected Calcium 9.1, Magnesium Level 1.8, Iron Level 11L, Total Iron Binding Capacity 67L, Unsaturated Iron Binding Capacity 56, Transferrin % Saturation 16L, Ferritin 431.2H, Total Bilirubin 0.3, Aspartate Amino Transf (AST/SGOT) 10, Alanine Aminotransferase (ALT/SGPT) 18, Alkaline Phosphatase 135, Total Protein 4.3L, Albumin 2.0L, Vitamin B12 Level 543, Folate 7.3 04/23/22 06:17: White Blood Count 8.3, Red Blood Count 2.52L, Hemoglobin 7.8L, Hematocrit 25L, Mean Corpuscular Volume 100H, Mean Corpuscular Hemoglobin 31, Mean Corpuscular Hemoglobin Concent 31L, Red Cell Distribution Width 18.0H, Platelet Count 514H, Mean Platelet Volume 8.8L, Immature Granulocyte % (Auto) 2, Neutrophils (%) (Auto) 60, Lymphocytes (%) (Auto) 30, Monocytes (%) (Auto) 7, Eosinophils (%) (Auto) 1, Basophils (%) (Auto) 0, Neutrophils # (Auto) 5.0, Lymphocytes # (Auto) 2.5, Monocytes # (Auto) 0.6, Eosinophils # (Auto) 0.1, Basophils # (Auto) 0.0, Immature Granulocyte # (Auto) 0.2H, Sodium Level 136, Potassium Level 4.0, Chloride Level 106, Carbon Dioxide Level 22, Anion Gap 8, Blood Urea Nitrogen 5L , Creatinine 0.41L, Estimat Glomerular Filtration Rate 143, BUN/Creatinine Ratio 12, Glucose Level 72, Calcium Level 7.8L, Corrected Calcium 9.2, Total Bilirubin 0.2, Aspartate Amino Transf (AST/SGOT) 20, Alanine Aminotransferase (ALT/SGPT) 12, Alkaline Phosphatase 141H, Total Protein 4.7L, Albumin 2.2L 04/25/22 06:49: White Blood Count 11.8H, Red Blood Count 3.04L, Hemoglobin 9.2L, Hematocrit 30L, Mean Corpuscular Volume 97, Mean Corpuscular Hemoglobin 30, Mean Corpuscular Hemoglobin Concent 31L, Red Cell Distribution Width 18.5H, Platelet Count 681H, Mean Platelet Volume 8.2L, Immature Granulocyte % (Auto) 1, Neutrophils (%) (Auto) 60, Lymphocytes (%) (Auto) 32, Monocytes (%) (Auto) 6, Eosinophils (%) (Auto) 0, Basophils (%) (Auto) 0, Neutrophils # (Auto) 7.1, Lymphocytes # (Auto) 3.8, Monocytes # (Auto) 0.7, Eosinophils # (Auto) 0.0, Basophils # (Auto) 0.1, Immature Granulocyte # (Auto) 0.1, Sodium Level 142, Potassium Level 3.6, Chloride Level 107, Carbon Dioxide Level 16L, Anion Gap 19H, Blood Urea Nitrogen 3L, Creatinine 0.53L, Estimat Glomerular Filtration Rate 135, BUN/Creatinine Ratio 6, Glucose Level 101, Calcium Level 8.5, Corrected Calcium 9.7, Total Bilirubin 0.4, Aspartate Amino Transf (AST/SGOT) 23, Alanine Aminotransferase (ALT/SGPT) 19, Alkaline Phosphatase 196H, Total Protein 5.6L, Albumin 2.5L, D- Dimer 6.34H, Lactic Acid Level 5.84*H, Procalcitonin 30.47H 04/25/22 07:00: Urine Color YELLOW, Urine Clarity CLEAR, Urine pH 6.0, Urine Specific [place] 1.015L, Urine Protein NEGATIVE, Urine Glucose (UA) NEGATIVE, Urine Ketones 1+H, Urine Nitrite NEGATIVE, Urine Bilirubin NEGATIVE, Urine Urobilinogen 0.2, Urine Leukocyte Esterase NEGATIVE, Urine RBC (Auto) NEGATIVE, Urine RBC NONE, Urine WBC 0-2, Urine Squamous Epithelial Cells 0-2, Urine Renal Epithelial Cells 0-2, Urine Crystals PRESENTH, Urine Amorphous Sediment FEW JERRY URATESH, Urine Bacteria NEGATIVE, Urine Casts PRESENT, Urine Hyaline Casts 0-2H, Urine Mucus SMALLH, Urine Culture Indicated NO 04/25/22 08:50: Lactic Acid Level 6.87*H 04/25/22 11:10: Lactic Acid Level 0.61 Microbiology 04/25/22 Blood Culture - Preliminary, Resulted No growth Pending Labs Microbiology Date/Time Source Procedure Growth Status 04/25/22 06:49 [place] Blood Culture - Preliminary No growth Resulted 04/25/22 06:19 [place] Blood Culture - Preliminary No growth Resulted Laboratory Tests 04/20/22 05:24: White Blood Count 9.0, Red Blood Count 2.38, Hemoglobin 7.3, Hematocrit 23, Mean Corpuscular Volume 97, Mean Corpuscular Hemoglobin 31, Mean Corpuscular Hemoglobin Concent 32, Red Cell Distribution Width 18.0, Platelet Count 352, Mean Platelet Volume 8.4, Immature Granulocyte % (Auto) 1, Neutrophils (%) (Auto) 65, Lymphocytes (%) (Auto) 28, Monocytes (%) (Auto) 6, Eosinophils (%) (Auto) 0, Basophils (%) (Auto) 0, Neutrophils # (Auto) 5.8, Lymphocytes # (Auto) 2.5, Monocytes # (Auto) 0.6, Eosinophils # (Auto) 0.0, Basophils # (Auto) 0.0, Immature Granulocyte # (Auto) 0.1, Sodium Level 136, Potassium Level 2.8, Chloride Level 101, Carbon Dioxide Level 27, Anion Gap 8, Blood Urea Nitrogen < 2, Creatinine 0.41, Estimat Glomerular Filtration Rate 143, BUN/Creatinine Ratio 5, Glucose Level 85, Calcium Level 7.5, Corrected Calcium 9.1, Magnesium Level 1.8, Iron Level 11, Total Iron Binding Capacity 67, Unsaturated Iron Binding Capacity 56, Transferrin % Saturation 16, Ferritin 431.2, Total Bilirubin 0.3, Aspartate Amino Transf (AST/SGOT) 10, Alanine Aminotransferase (ALT/SGPT) 18, Alkaline Phosphatase 135, Total Protein 4.3, Albumin 2.0, Vitamin B12 Level 543, Folate 7.3 04/23/22 06:17: White Blood Count 8.3, Red Blood Count 2.52, Hemoglobin 7.8, Hematocrit 25, Mean Corpuscular Volume 100, Mean Corpuscular Hemoglobin 31, Mean Corpuscular Hemoglobin Concent 31, Red Cell Distribution Width 18.0, Platelet Count 514, Mean Platelet Volume 8.8, Immature Granulocyte % (Auto) 2, Neutrophils (%) (A uto) 60, Lymphocytes (%) (Auto) 30, Monocytes (%) (Auto) 7, Eosinophils (%) (Auto) 1, Basophils (%) (Auto) 0, Neutrophils # (Auto) 5.0, Lymphocytes # (Auto) 2.5, Monocytes # (Auto) 0.6, Eosinophils # (Auto) 0.1, Basophils # (Auto) 0.0, Immature Granulocyte # (Auto) 0.2, Sodium Level 136, Potassium Level 4.0, Chloride Level 106, Carbon Dioxide Level 22, Anion Gap 8, Blood Urea Nitrogen 5, Creatinine 0.41, Estimat Glomerular Filtration Rate 143, BUN/Creatinine Ratio 12, Glucose Level 72, Calcium Level 7.8, Corrected Calcium 9.2, Total Bilirubin 0.2, Aspartate Amino Transf (AST/SGOT) 20, Alanine Aminotransferase (ALT/SGPT) 12, Alkaline Phosphatase 141, Total Protein 4.7, Albumin 2.2 04/25/22 06:49: White Blood Count 11.8, Red Blood Count 3.04, Hemoglobin 9.2, Hematocrit 30, Mean Corpuscular Volume 97, Mean Corpuscular Hemoglobin 30, Mean Corpuscular Hemoglobin Concent 31, Red Cell Distribution Width 18.5, Platelet Count 681, Mean Platelet Volume 8.2, Immature Granulocyte % (Auto) 1, Neutrophils (%) (Auto) 60, Lymphocytes (%) (Auto) 32, Monocytes (%) (Auto) 6, Eosinophils (%) (Auto) 0, Basophils (%) (Auto) 0, Neutrophils # (Auto) 7.1, Lymphocytes # (Auto) 3.8, Monocytes # (Auto) 0.7, Eosinophils # (Auto) 0.0, Basophils # (Auto) 0.1, Immature Granulocyte # (Auto) 0.1, Sodium Level 142, Potassium Level 3.6, Chloride Level 107, Carbon Dioxide Level 16, Anion Gap 19, Blood Urea Nitrogen 3, Creatinine 0.53, Estimat Glomerular Filtration Rate 135, BUN/Creatinine Ratio 6, Glucose Level 101, Calcium Level 8.5, Corrected Calcium 9.7, Total Bilirubin 0.4, Aspartate Amino Transf (AST/SGOT) 23, Alanine Aminotransferase (ALT/SGPT) 19, Alkaline Phosphatase 196, Total Protein 5.6, Albumin 2.5, D-Dimer 6.34, Lactic Acid Level 5.84, Procalcitonin 30.47 04/25/22 07:00: Urine Color YELLOW, Urine Clarity CLEAR, Urine pH 6.0, Urine Specific [place] 1.015, Urine Protein NEGATIVE, Urine Glucose (UA) NEGATIVE, Urine Ketones 1+, Urine Nitrite NEGATIVE, Urine Bilirubin NEGATIVE, Urine Urobilinogen 0.2, Urine Leukocyte Esterase NEGATIVE, Urine RBC (Auto) NEGATIVE, Urine RBC NONE, Urine WBC 0-2, Urine Squamous Epithelial Cells 0-2, Urine Renal Epithelial Cells 0-2, Urine Crystals PRESENT, Urine Amorphous Sediment FEW JERRY URATES, Urine Bacteria NEGATIVE, Urine Casts PRESENT, Urine Hyaline Casts 0-2, Urine Mucus SMALL, Urine Culture Indicated NO 04/25/22 08:50: Lactic Acid Level 6.87 04/25/22 11:10: Lactic Acid Level 0.61 Discharge Home Medications: Active Scripts Active Reported Humira(Cf) Pen (Adalimumab) 80 Mg/0.8 Ml Pen.ij.kit Mg SQ UD INJECT 160MG ON DAY 1 AND THEN 80MG ON DAY 15- THIS MED NEEDS A [facility] IN [place] ([phone] SPOKE WITH [facility]) IS WORKING ON THE PA Vitamin D3 (Cholecalciferol (Vitamin D3)) 50 Mcg (2000 Unit) Capsule 50 Mcg PO DAILY [Vit B Comp. Sust Rel] 1 Ea PO DAILY Pantoprazole Sodium 40 Mg Tablet.dr 40 Mg PO BID Multivitamin 1 Each Tablet 1 Each PO DAILY Loratadine 10 Mg Tablet 10 Mg PO DAILY Furosemide 20 Mg Tablet 20 Mg PO DAILY PRN Flonase Allergy Relief (Fluticasone Propionate) 50 Mcg/Actuation [place].susp 2 [place] NS DAILY Dicyclomine HCl 10 Mg Capsule 10 Mg PO TID PRN Ciclopirox 8 % Solution 1 Applic TP DAILY APPLICATION AREA NOT LISTED ON DISCHARGE ORDERS Vitamin C (Ascorbic Acid) 1,000 Mg Tablet 1,000 Mg PO DAILY Baclofen 10 Mg Tablet 10-20 Mg PO TID PRN Metronidazole 500 Mg Tablet 500 Mg PO TID TAKE FOR 7 DAYS Linezolid 600 Mg Tablet 600 Mg PO BID 14 Days TAKE FOR 14 DAYS Culturelle Capsule (L. Rhamnosus GG/Inulin) 10 Billion Cell-200 Mg Cap.sprink 1 Each PO BID 14 Days TAKE FOR 14 DAYS Hydrocodone-Acetamin 5-325 mg (Hydrocodone/Acetaminophen) 5 Mg-325 Mg Tablet 1 Tab PO Q8H PRN Instructions to patient/family Please see electronic discharge instructions given to patient. Diagnosis/Problems Diagnosis/Problems (1) Cerebral palsy NKECHI SIDDIQI DO Apr 27, 2022 06:12
--- NOTE | 2022-04-27 14:12 | Therapy Team Discharge Summary ---
Therapy Discharge Summary Discharge Recommendations Date of Discharge Physical Therapy Roll Left to Right (QC): 3 Sit to Lying (QC): 3 Lying to Sitting/Side of Bed(Q: 5 Sit to Stand (QC): 5 Chair/Ian-rp-Palny Xfer(QC): 5 Toilet Transfer (QC): 3 Car Transfer (QC): 3 Does the Patient Walk: Yes Mode of Locomotion: Walk Anticipated Mode of Locomotion: Walk Walk 10 feet (QC): 5 Walk 50 ft with 2 Turns(QC): 5 Walk 150 ft (QC): 5 Walking 10ft on uneven surface: 3 Distance: 75', 60' Gait Assistive Device: FWW Does the Pt Use a Wheelchair: No Wheel 50 ft with 2 turns (QC): 9 Wheel 150 ft (QC): 9 #of Steps: 1 1 Step (curb) (QC): 4 4 Steps (QC): 88 12 Steps (QC): 88 Balance Sitting Static: Normal Balance Sitting Dynamic: Normal Balance-Standing Static: Fair Picking up an Object (QC): 3 Occupational Therapy Pt admitted to ARU with SBO s/p Exp Lap & ileostomy. At OF, pt was independent with ADLs and functional mobility with AFOs, no AD. Upon initial evaluation, pt required set up with eating, CGA oral carem ,mod A showering, max A LE dressing, total assist footwear and min A toileting. OT tx focused on increasing BUE strength and activity tolerance, and increasing independence with ADLs and functional mobility. Pt made some functional progress towards goals, but progress complicated by shorter stay, and pt transferred to ICU for higher level of care due to sepsis and pneumonia. Pt discharged from ARU due to increased medical complexity, d/c from OT. Decreased Activ Tolerance, Impaired Bed Mobility, Impaired Self-Care Skills Eating (QC): 5 Oral Hygiene (QC): 5 Shower/Bathe Self (QC): 3 (min A) Upper Body Dressing (QC): 5 Lower Body Dressing (QC): 3 (mod A) On/Off Footwear (QC): 2 Toileting Hygiene (QC): 3 (mod A for urination) PT Rehab Technician Goals Senior Living Goals PT Rehab Technician Goals Time Frame: May 10, 2022 Scoring Section J - Health Conditions 1. Rarely or not at all 2. Occasionally 3. Frequently 4. Almost constantly 8. Unable to answer Roll Left to Right (QC): 6 Sit to Lying (QC): 6 Lying-Sitting on Side/Bed(QC): 6 Sit to Stand (QC): 5 Chair/Raw-io-Fbodj Xfer(QC): 5 Car Transfer (QC): 5 Does the Patient Walk: Yes Walk 10 feet (QC): 5 Walk 10ft-Uneven Surface(QC): 5 Walk 50ft with 2 Turns (QC): 5 Walk 150 ft (QC): 5 Wheel 50 feet with 2 turns (QC: 9 1 Step (curb) (QC): 3 4 Steps (QC): 88 12 Steps (QC): 88 Picking up an Object (QC): 5 OT Senior Living Goals Senior Living Goals Time Frame: May 11, 2022 Acute change in mental status: 0 Inattention: 0 Disorganized thinkin Altered level of consciousness: 0 Eating (QC): 5 (met) Oral Hygiene (QC): 5 (met) Toileting Hygiene (QC): 6 (not met) Shower/Bathe Self (QC): 5 (not met) Upper Body Dressing (QC): 6 (not met) Lower Body Dressing (QC): 6 (not met) On/Off Footwear (QC): 6 (not met) Additional Goals: 1-Demonstrate ADL Tasks, 2-Verbalize Understanding, 3- ImproveStrength/Tim 1=Demonstrate adherence to instructed precautions during ADL tasks. 2=Patient will verbalize/demonstrate understanding of assistive devices/modifications for ADL. 3=Patient will improve strength/tolerance for activity to enable patient to perform ADL's. KARL PIERRE OT Apr 27, 2022 14:12
== END 2022-04-25 08:07 | disposition short-term general hospital (02) | DRG 949 ==
PROVIDERS: ADMIT Internal Medicine; ATTEND Internal Medicine
DX: Z48.815 Encounter for surgical aftercare following surgery on the digestive system (principal); A41.9 Sepsis, unspecified organism; R65.20 Severe sepsis without septic shock; K50.90 Crohn's disease, unspecified, without complications; G80.9 Cerebral palsy, unspecified; S29.011A Strain of muscle and tendon of front wall of thorax, initial encounter; M62.838 Other muscle spasm; K44.9 Diaphragmatic hernia without obstruction or gangrene; F41.9 Anxiety disorder, unspecified; M79.89 Other specified soft tissue disorders; F32.A Depression, unspecified; E53.8 Deficiency of other specified B group vitamins; D50.9 Iron deficiency anemia, unspecified; Z93.2 Ileostomy status; Z88.1 Allergy status to other antibiotic agents; Z98.2 Presence of cerebrospinal fluid drainage device
CPT/HCPCS: 36415; 36569; 71045; 71100; 74018; 76937; 80053; 81000; 82607; 82728; 82746; 83540; 83550; 83605; 83735; 84145; 85025; 85379; 87040; 93005

== ENCOUNTER 2022-04-25 07:46 | Inpatient (IN) | payer MEDICAID ==
[~2022-04-25] VITALS: Ht 132.1 cm; Wt 29.5 kg
[~2022-04-25 07:46] MED LIST changes: -BISACODYL 10 MG SUPP (DULCOLAX) PR PRN; -CALCIUM CARBONATE 500 MG (TUMS) TAB.CHEW PO PRN; -DOCUSATE SODIUM 100 MG (COLACE) CAP PO PRN; -FLEET ENEMA ADULT 1 EA BTL PR PRN; -LACTULOSE SYRUP 10GM/15ML (ENULOSE) 30ML UDC PO PRN; -LOPERAMIDE 2 MG (IMODIUM) TABLET PO PRN; -ONDANSETRON 4 MG (ZOFRAN) ORAL DISSOLVE TAB PO PRN; -diphenhydrAMINE 25 MG TAB (BENADRYL) PO PRN; -guaiFENesin/CODEINE (ROBITUSSIN AC) 10ML UDC PO PRN
[2022-04-25] MEDS ORDERED: NS IV 1000 ML 1,000 ML ONE (08:11)
[2022-04-25] MEDS ORDERED: MELATONIN 3 MG TABLET PO PRN (08:15)
[2022-04-25] MEDS ORDERED: ONDANSETRON 4 MG (ZOFRAN) ORAL DISSOLVE TAB PO PRN (08:15)
[2022-04-25] MEDS ORDERED: BISACODYL 10 MG SUPP (DULCOLAX) PR PRN (08:15)
[2022-04-25] MEDS ORDERED: polyethylene glycoL POWDER 17 GM (MIRALAX) PACK PO PRN (08:15)
[2022-04-25] MEDS ORDERED: ZIPRASIDONE 20 MG INJ (GEODON) VIAL IM PRN (08:15)
[2022-04-25] MEDS ORDERED: NS IV 500 ML 500 ML IV PRN (08:15)
[2022-04-25] MEDS ORDERED: NS IV 1000 ML 1,000 ML IV SCH (08:15)
[2022-04-25] MEDS ORDERED: ANTACID SUSP 30 ML UDC (MYLANTA) PO PRN (08:15)
[2022-04-25] MEDS ORDERED: MILK OF MAGNESIA 400 MG/5 ML 30 ML UDC PO PRN (08:15)
[2022-04-25] MEDS ORDERED: ENOXAPARIN 40 MG/0.4 ML (LOVENOX) SYR SC SCH (08:15)
[2022-04-25] MEDS ORDERED: LORazepam INJ 2 MG/ML (ATIVAN) VIAL IVP PRN (08:15)
[2022-04-25] MEDS ORDERED: LACTULOSE SYRUP 10GM/15ML (ENULOSE) 30ML UDC PO PRN (08:15)
[2022-04-25] MEDS ORDERED: ACETAMINOPHEN 325 MG TABLET PO PRN (08:15)
[2022-04-25] MEDS ORDERED: WATER (STERILE) FOR INJ 10 ML BTL INJ SCH (08:15)
[2022-04-25] MEDS ORDERED: ONDANSETRON 4 MG/2 ML (SDV) Z0FRAN IV PRN (08:15)
[2022-04-25] MEDS ORDERED: CALCIUM CARBONATE 500 MG (TUMS) TAB.CHEW PO PRN (08:15)
[2022-04-25] MEDS ORDERED: diphenhydrAMINE 25 MG TAB (BENADRYL) PO PRN (08:15)
[2022-04-25] MEDS ORDERED: diphenhydrAMINE 50 MG/ML INJ (BENADRYL) IVP PRN (08:15)
[2022-04-25] MEDS ORDERED: PIPERACILLIN SODIUM/TAZOBACTAM 4.5 GM in NS (IVPB) 100 ML IV NR (08:30)
[2022-04-25 09:18] VITALS: BP 108/74
[2022-04-25] MEDS ORDERED: RT-ALBUTEROL SULF 2.5 MG/3 ML PRE-MIX VIAL INH PRN (09:45)
[2022-04-25] MEDS: NS IV 1000 ML 1,000 ML IV SCH ×3 (10:09→22:41)
[2022-04-25] MEDS: LINEZOLID IVPB 300 ML IV SCH ×2 (10:11→20:22)
[2022-04-25] MEDS: SENNOSIDES 8.6 MG (SENOKOT) TAB PO SCH ×2 (10:12→20:26)
[2022-04-25] MEDS: DOCUSATE SODIUM 100 MG (COLACE) CAP PO SCH ×2 (10:12→20:26)
--- NOTE | 2022-04-25 10:49 | History & Physical ---
MARYHIRAM 04/25/22 1049: History of Present Illness History of Present Illness Reason for visit/HPI CC: Severe Sepsis 21yo F with h/o s/p ex lap with small bowel resection and ileostomy, cerebral palsy, JEWEL HOLE ROUGH OPENER shunt, Crohn's disease, and hiatal hernia was admitted to the ICU for severe sepsis from inpatient rehab today. Pt was admitted to inpatient rehab on 04/19 following an ex lap with small bowel resection and ileostomy on 04/14. Since being admitted to inpatient rehab, pt has been tolerating diet and PT well, having ileostomy output, and had no complaints. On 04/24, pt started to c/o L sided rib pain that occurred following PT. Initially, pt stated that the pain was localized to the 7th rib and was dull and mild but got progressively worse throughout day. Imaging was ordered and XRAY of ribs found no fractures but CXR found possible developing pneumonia in the R lung base. Pt was started on Linezolid but became progressively less responsive to questions, moaning and c/o pain only. This morning, workup was remarkable for elevated WBC, thrombocytosis, elevated Lactic acid of 5.84, and elevated procalcitonin. Pt exhibited notable pallor w/mild guerrero hue and was thrashing in the bed moaning. Pt was transferred to the ICU where she became more agitated and was given 10mg of Geodon and 0.5mg of Ativan. Pt had a repeat lactic acid that was elevated to 6.87 and an elevated D-Dimer in the ICU. IV Zosyn and Lovenox were ordered and given. Pt is now sleeping in bed following sedation. Pt is afebrile, sating 100% on RA, pulse is 112, and BP is 109/76. Pt still has noticeable pallor. Per nurse, pt experienced an episode of VTACH but self-resolved. Pt had 400ml of urine output in the ICU. Family is present at bedside. PMH: Cerebral palsy, Crohn's, JEWEL HOLE ROUGH OPENER Shunt, hiatial hernia, and anxiety FHx: Diabetes, Gallbladder issues, breast cancer (maternal great grandmother), and lung cancer (maternal grandfather) Surg: JEWEL HOLE ROUGH OPENER shunt revisions, Selective dorsal rhizotomy Meds: Humira, Baclofen 10mg TID, Lasix 20mg PO QD, Zoloft (pt unsure of dosage) Allergies: Vancomycin and [employer] detergent Social history: Lives at home with her mother and grandmother. Denies alcohol use, tobacco use, or other recreational drug use. Date of Admission Apr 25, 2022 at 07:46 Date Seen by a Provider: Apr 25, 2022 Time Seen by a Provider: 10:54 I consulted on this patient on 04/25/22 10:44 Attending Physician Mya Aquino MD Admitting Physician Admitting Physician: Kimi Siddqii DO Attending Physician: Kimi Siddiqi DO Consult Allergies and Home Medications Allergies Coded Allergies: vancomycin (Verified Allergy, Intermediate, Rash, 04/19/22) Patient Home Medication List Home Medication List Reviewed: Yes Adalimumab (Humira(Cf) Pen) 80 Mg/0.8 Ml Pen.ij.kit, MG SQ UD, (Reported) Entered as Reported by: GUNNER GARCIA on 04/19/22 1220 Ascorbic Acid (Vitamin C) 1,000 Mg Tablet, 1,000 MG PO DAILY, (Reported) Entered as Reported by: GUNNER GARCIA on 04/19/22 1214 Baclofen (Baclofen) 10 Mg Tablet, 10-20 MG PO TID PRN for MUSCLE SPASTICITY, (Reported) Entered as Reported by: GUNNER GARCIA on 04/19/22 1214 Cholecalciferol (Vitamin D3) (Vitamin D3) 50 Mcg (2000 Unit) Capsule, 50 MCG PO DAILY, (Reported) Entered as Reported by: GUNNER GARCIA on 04/19/22 1214 Ciclopirox (Ciclopirox) 8 % Solution, 1 APPLIC TP DAILY, (Reported) Entered as Reported by: GUNNER GARCIA on 04/19/22 1214 Dicyclomine HCl (Dicyclomine HCl) 10 Mg Capsule, 10 MG PO TID PRN for GI PAIN, (Reported) Entered as Reported by: GUNNER GARCIA on 04/19/22 1214 Fluticasone Propionate (Flonase Allergy Relief) 50 Mcg/Actuation [place].susp, 2 SPRAY NS DAILY, (Reported) Entered as Reported by: GUNNER GARCIA on 04/19/22 1214 Furosemide (Furosemide) 20 Mg Tablet, 20 MG PO DAILY PRN for SWELLING, (Reported) Entered as Reported by: GUNNER GARCIA on 04/19/22 1214 Hydrocodone/Acetaminophen (Hydrocodone-Acetamin 5-325 mg) 5 Mg-325 Mg Tablet, 1 TAB PO Q8H PRN for PAIN-MODERATE (5-7), (Reported) Entered as Reported by: GUNNER GARCIA on 04/19/221213 L. Rhamnosus GG/Inulin (Culturelle Capsule) 10 Billion Cell-200 Mg Cap.sprink, 1 EACH PO BID, (Reported) Entered as Reported by: GUNNER GRACIA on 04/19/221213 Linezolid (Linezolid) 600 Mg Tablet, 600 MG PO BID, (Reported) Entered as Reported by: GUNNER AGRCIA on 04/19/221213 Loratadine (Loratadine) 10 Mg Tablet, 10 MG PO DAILY, (Reported) Entered as Reported by: GUNNER GARCIA on 04/19/221213 Metronidazole (Metronidazole) 500 Mg Tablet, 500 MG PO TID, (Reported) Entered as Reported by: GUNNER GARCIA on 04/19/221213 Multivitamin (Multivitamin) 1 Each Tablet, 1 EACH PO DAILY, (Reported) Entered as Reported by: GUNNER GARCIA on 04/19/221213 Pantoprazole Sodium (Pantoprazole Sodium) 40 Mg Tablet.dr, 40 MG PO BID, (Reported) Entered as Reported by: GUNNER GARCIA on 04/19/221213 [Vit B Comp. Sust Rel] , 1 EA PO DAILY, (Reported) Entered as Reported by: GUNNER GARCIA on 04/19/221213 Past Tcwfhya-Efzmvf-Fxgetb Hx Immunizations Up To Date Tetanus Booster (TDap): Unknown Current Status Primary Language: Frisian Past Medical History Surgeries: Abdominal (exp lap with small bowel resection and ileostomy ), Neurological (JEWEL HOLE ROUGH OPENER shunt) Cerebral Palsy Abdominal Hernia (hiatal), Crohns Disease Spasms Anxiety Family Medical History Cancer, Diabetes, GI Disease Review of Systems ROS-Unable to Obtain: d/t patient condition Physical Exam Vital Signs Vital Signs - First Documented 04/25/22 04/25/22 04/25/22 08:15 08:45 09:18 Pulse 149 Resp 43 B/P (MAP) 132/111 (118) Pulse Ox 100 O2 Delivery Room Air FiO2 21 Capillary Refill : Height, Weight, BMI Height: '" Weight: lbs. oz. kg; 20.91 BMI Method: General Appearance: Chronically ill, Moderate Distress, Thin Respiratory: Lungs Clear Cardiovascular: No Edema, No Gallop, No Murmur, Tachycardia Gastrointestinal: Other (ileostomy output noted) Neurologic/Psychiatric: Disoriented Skin: Cool, Pallor Lymphatic: No Adenopathy Comments PE limited due to patient condition Assessment/Plan Assessment and Plan 1. Severe Sepsis vs Septic shock -Started on 200mls IV Zosyn and IV Linezolid 300mg Q12H -Given 1L NS bolus and IV 125ml/hr NS -Continue to monitor blood pressure and urine output -Blood cultures ordered -Consider repeat procalcitonin levels tomorrow 2. Hospital acquired pneumonia -CXR 04/25 showed possible RLL pneumonia -IV Linezolid 300mg Q12H and 200mls IV Zosyn added to cover possible aspiration -monitor O2 sats, manage as needed 3. Encephalopathy -Mentation change from baseline, most recently more confused per EICU note -multiple attempts to acquire ABGs unsuccessful -CT head ordered 4. Metabolic acidosis - AG of 16 today -continue to monitor lactic acidosis, last lab was 6.87 5. Leukocytosis -WBC elevated to 11.8, continue to monitor 4. Thrombocytosis -Plt count elevated to 681, continue to monitor 6. Lactic acidosis -See above 7. Elevated D-dimer -D-dimer of 6.34 -B/L LE Venous Doppler unremarkable -Lovenox started 8. Protein malnutrition - Albumin = 2.5 -currently NPO, will consider nutrition supplementation when appropriate 9. S/p exp lap with bowel resection and ileostomy -continues to have good output, continue to monitor -EICU will order imaging of abd/pelvis d/t recent abd surgery and h/o Crohn's disease 10. Cerebral palsy -Muscle spasticity- takes 10mg TID of Baclofen- currently discontinued -H/o JEWEL HOLE ROUGH OPENER shunt with revision 11. Crohn's Disease -followed by Dr. Campbell in [place] -takes Humira at home - discontinued in hospital Admission Diagnosis Severe Sepsis Admission Status: Inpatient Order (span 2 midnights) Reason for Inpatient Admission: Sepsis KIMI SIDDIQI DO 04/25/22 2015: History of Present Illness History of Present Illness Reason for visit/HPI CC: Acute clinical decompensation HPI: This is a 21yoWF ARU patient who had been doing well until this morning and had an abrupt onset of clinical decompensation requiring septic w/u and subsequent transfer to ICU for severe sepsis and PNA treatment with Zosyn and Zyvox. IVF initiated with good resolution of lactic acidosis and sepsis signs. Grna at bedside and updated. Allergies and Home Medications Allergies Coded Allergies: vancomycin (Verified Allergy, Intermediate, Rash, 04/19/22) Patient Home Medication List Adalimumab (Humira(Cf) Pen) 80 Mg/0.8 Ml Pen.ij.kit, MG SQ UD, (Reported) Entered as Reported by: GUNNER GARCIA on 04/19/22 1220 Ascorbic Acid (Vitamin C) 1,000 Mg Tablet, 1,000 MG PO DAILY, (Reported) Entered as Reported by: GUNNER GARCIA on 04/19/22 121 Baclofen (Baclofen) 10 Mg Tablet, 10-20 MG PO TID PRN for MUSCLE SPASTICITY, (Reported) Entered as Reported by: GUNNER GARCIA on 04/19/22 121 Cholecalciferol (Vitamin D3) (Vitamin D3) 50 Mcg (2000 Unit) Capsule, 50 MCG PO DAILY, (Reported) Entered as Reported by: GUNNER GARCIA on 04/19/22 1214 Ciclopirox (Ciclopirox) 8 % Solution, 1 APPLIC TP DAILY, (Reported) Entered as Reported by: GUNNER GARCIA on 04/19/22 1214 Dicyclomine HCl (Dicyclomine HCl) 10 Mg Capsule, 10 MG PO TID PRN for GI PAIN, (Reported) Entered as Reported by: GUNNER GARCIA on 04/19/22 121 Fluticasone Propionate (Flonase Allergy Relief) 50 Mcg/Actuation [place].susp, 2 SPRAY NS DAILY, (Reported) Entered as Reported by: GUNNER GARCIA on 04/19/22 1214 Furosemide (Furosemide) 20 Mg Tablet, 20 MG PO DAILY PRN for SWELLING, (Reported) Entered as Reported by: GUNNER GARCIA on 04/19/22 1214 Hydrocodone/Acetaminophen (Hydrocodone-Acetamin 5-325 mg) 5 Mg-325 Mg Tablet, 1 TAB PO Q8H PRN for PAIN-MODERATE (5-7), (Reported) Entered as Reported by: GUNNER GARCIA on 04/19/22 121 L. Rhamnosus GG/Inulin (Culturelle Capsule) 10 Billion Cell-200 Mg Cap.sprink, 1 EACH PO BID, (Reported) Entered as Reported by: GUNNER GARCIA on 04/19/221213 Linezolid (Linezolid) 600 Mg Tablet, 600 MG PO BID, (Reported) Entered as Reported by: GUNNER GARCIA on 04/19/221213 Loratadine (Loratadine) 10 Mg Tablet, 10 MG PO DAILY, (Reported) Entered as Reported by: GUNNER GARCIA on 04/19/221213 Metronidazole (Metronidazole) 500 Mg Tablet, 500 MG PO TID, (Reported) Entered as Reported by: GUNNER GARCIA on 04/19/221213 Multivitamin (Multivitamin) 1 Each Tablet, 1 EACH PO DAILY, (Reported) Entered as Reported by: GUNNER GARCIA on 04/19/221213 Pantoprazole Sodium (Pantoprazole Sodium) 40 Mg Tablet.dr, 40 MG PO BID, (Reported) Entered as Reported by: GUNNER GARCIA on 04/19/221213 [Vit B Comp. Sust Rel] , 1 EA PO DAILY, (Reported) Entered as Reported by: GUNNER GARCIA on 04/19/221213 Past [place]-Cnbwbd-Gbetho Hx Patient Social History Marrital Status: single Employed/Student: unemployed Review of Systems Constitutional: see HPI Physical Exam General Appearance: Chronically ill, Mild Distress, Thin Respiratory: Lungs Clear, Normal Breath Sounds Cardiovascular: Tachycardia Neurologic/Psychiatric: Disoriented Assessment/Plan Admission Diagnosis Admission Status: Inpatient Order (span 2 midnights) Reason for Inpatient Admission: sepsis Supervisory-Addendum Brief Verification & Attestation Participated in pt care: history, MDM, physical Personally performed: exam, history, MDM, supervision of care Care discussed with: Medical Student Procedures: n/a Results interpretation: Verified all documentation Verification and Attestation of Medical Student E/M Service A medical student performed and documented this service in my presence. I reviewed and verified all information documented by the medical student and made modifications to such information, when appropriate. I personally performed the physical exam and medical decision making. Kimi Siddiqi Apr 25, 2022,20:14 HIRAM HERNANDEZ Apr 25, 2022 10:49 KIMI SIDDIQI DO Apr 25, 2022 20:15
--- NOTE | 2022-04-25 11:29 | Diagnostic Imaging Report ---
PROCEDURE: US Venous Lower Ext [place]. TECHNIQUE: Multiple real-time grayscale images were obtained over the lower extremities in various projections, bilaterally. Additional duplex Doppler and color Doppler images were also obtained. INDICATION: Lower extremity edema. Elevated d-dimer. FINDINGS: Color Doppler imaging shows normal compression and augmentation of flow throughout the lower extremity venous system bilaterally. IMPRESSION: No evidence of venous thrombosis. Dictated by: Dictated on workstation # [id number]
[2022-04-25] MEDS: ENOXAPARIN INJECTION 30 MG/0.3 ML SYR SC SCH (11:36)
[2022-04-25] MEDS ORDERED: IOHEXOL 350 MG/ML 100 ML (OMNIPAQUE 350) VIAL IV ONE (12:15)
[2022-04-25] MEDS ORDERED: NS 100 ML (IVPB) BAG IV ONE (12:15)
[2022-04-25] MEDS ORDERED: CATHETER FLUSH 10 ML SYR IV PRN (12:15)
[2022-04-25] MEDS ORDERED: HOLD METFORMIN - RECEIVED CONTRAST 20 ML VIAL IV SCH (12:15)
--- NOTE | 2022-04-25 12:25 | Tele-ICU Consult ---
History of Present Illness History of Present Illness Date Seen by Provider: Apr 25, 2022 Time Seen by Provider: 12:22 Date of Admission (Tele-ICU Physician , consultation) Available chart/ vitals / labs / Images reviewed H&P is from ER notes Patient's information available about PMH, Shx, Fhx allergy reviewed inEMR. ROS as per chart and RN report Now in ICU, hemodynamically stable Video assessment done using teleICU camera, rest of exam as per RN Discussed with RN. Consultants: Hospital course: (04/19) 21F Cerebral Palsy: admitted to rehab floor for decrease appetite. s/p SBO/perforation--EX LAP with ileostomy on 04/14. Crohn's diesease. BLE swelling. (04/23) PICC/midline placed. (04/24) Left rib pain/muscle strain, Lidocaine patch (04/25) TX to ICU for rapid HR, yelling/screaming/diaphoretic. Concern for developing PNA RLL. Room air. A/P Severe pain, confusion , elevated lactate -given recent abd sx and Cron's dz will scan abd/pelvis -cx PICC and peripheral -CXR is not very impressive for PNA -reported shunt in place - will scan CT head --abx initiated ( zosyn and linezolid Intestinal surgery following SBO and perforation - recent , in other facility - [employer] shunt Encephalopathy - as per records stated less responsive to questions, moaning 04/24, and upon transfer to ICU 04/25 agitated and was given 10mg of Geodon and 0.5mg of Ativan - protecting airways - abg attempts failed ( multiple - CT head 04/25 - ordered GREG edema -US LE bilat 04/25 - no dvt cerebral palsy - muscle spasticity - Baclofen 10mg TID -h/o [employer] shunt with revision Chron's disease - was on Humira as per records - off now Lines : PICC 04/23 , (Central Line Necessity Reviewed) Carrero: + OG: Nutrition: npo Analgesia: Anxiety/ delirium VTE Prophylaxis: lovenox Stress Ulcer Prophylaxis: Plans in collaboration with bedside consultants and IM MDs. Discussed with RN to reach out if any questions or concerns A total of45 minutes of critical care time was devoted to this patient today, required to treat and/or prevent further deterioration of critical care condition ( as above ) . Allergies and Home Medications Allergies Coded Allergies: vancomycin (Verified Allergy, Intermediate, Rash, 04/19/22) Home Medications Adalimumab 80 Mg/0.8 Ml Pen.ij.kit, MG SQ UD, (Reported) INJECT 160MG ON DAY 1 AND THEN 80MG ON DAY 15- THIS MED NEEDS A PA, [facility] PENDING SALE TO [facility] IN [place] ([phone] SPOKE WITH CHANDLER) IS WORKING ON THE PA Ascorbic Acid 1,000 Mg Tablet, 1,000 MG PO DAILY, (Reported) Baclofen 10 Mg Tablet, 10-20 MG PO TID PRN for MUSCLE SPASTICITY, (Reported) Cholecalciferol (Vitamin D3) 50 Mcg (2000 Unit) Capsule, 50 MCG PO DAILY, (Reported) Ciclopirox 8 % Solution, 1 APPLIC TP DAILY, (Reported) APPLICATION AREA NOT LISTED ON DISCHARGE ORDERS Dicyclomine HCl 10 Mg Capsule, 10 MG PO TID PRN for GI PAIN, (Reported) Fluticasone Propionate 50 Mcg/Actuation [place].susp, 2 SPRAY NS DAILY, (Reported) Furosemide 20 Mg Tablet, 20 MG PO DAILY PRN for SWELLING, (Reported) Hydrocodone/Acetaminophen 5 Mg-325 Mg Tablet, 1 TAB PO Q8H PRN for PAIN-MODERATE (5-7), (Reported) L. Rhamnosus GG/Inulin 10 Billion Cell-200 Mg Cap.sprink, 1 EACH PO BID, (Reported) TAKE FOR 14 DAYS Linezolid 600 Mg Tablet, 600 MG PO BID, (Reported) TAKE FOR 14 DAYS Loratadine 10 Mg Tablet, 10 MG PO DAILY, (Reported) Metronidazole 500 Mg Tablet, 500 MG PO TID, (Reported) TAKE FOR 7 DAYS Multivitamin 1 Each Tablet, 1 EACH PO DAILY, (Reported) Pantoprazole Sodium 40 Mg Tablet.dr, 40 MG PO BID, (Reported) [Vit B Comp. Sust Rel] , 1 EA PO DAILY, (Reported) Past Medical/Social/Family Hx Immunizations Up To Date Tetanus Booster (TDap): Unknown Current Status Primary Language: Guatemalan Review of Systems Constitutional: see HPI Focused Exam Sepsis Stage: Severe Sepsis Possible Source: Unknown Height, Weight, BMI Height: '" Weight: lbs. oz. kg; 20.91 BMI Method: Respiratory: Lungs Clear Cardiovascular: Regular Rate, Rhythm Peripheral Pulses: 2+ Dorsalis Pedis (R) Skin: diaphoresis Within 3hrs of presentation: Admin fluids, Admin ABX, Blood cultures prior to ABX's, Focus exam, Lactate level Exam Exam Patient acknowledged, consented, and participated in this virtual visit which was conducted using real time audio/video Vital Signs Date Time Temp Pulse Resp B/P (MAP) Pulse Ox O2 Delivery O2 Flow Rate FiO2 04/25/22 09:22 100 Room Air 04/25/22 09:18 116 100 21 04/25/22 09:15 135 10 108/74 (85) 100 Room Air 04/25/22 09:00 130 16 97/69 (78) 100 Room Air 04/25/22 08:45 135 31 91/76 (81) 100 Room Air 04/25/22 08:30 149 20 104/80 (88) Room Air 04/25/22 08:21 152 04/25/22 08:15 149 43 132/111 (118) Room Air Height & Weight Height: '" Weight: lbs. oz. kg; 20.91 BMI Method: General Appearance: Other Assessment/Plan Assessment/Plan 1 BRIAN HINSON MD Apr 25, 2022 12:25
--- NOTE | 2022-04-25 13:00 | Diagnostic Imaging Report ---
PROCEDURE: CT head without contrast. TECHNIQUE: Multiple contiguous axial images were obtained through the brain without the use of intravenous contrast. Auto Exposure Controls were utilized during the CT exam to meet ALARA standards for radiation dose reduction. INDICATION: Severe abdominal pain and sepsis. COMPARISON: There is no previous study for comparison. FINDINGS: The ventricles and sulci are diffusely prominent. There is absence of the corpus callosum. There is a right ventriculoperitoneal shunt tube coursing through a right frontal karen hole which appears to pass through the right lateral ventricle. No hemorrhage is identified. There is no evidence of unexpected axial or extra-axial fluid collection. 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 No acute intracranial abnormality is seen. Dictated by: Dictated on workstation # [id number]
--- NOTE | 2022-04-25 13:09 | Diagnostic Imaging Report ---
PROCEDURE: CT abdomen and pelvis with contrast. TECHNIQUE: Multiple contiguous axial images were obtained through the abdomen and pelvis after administration of intravenous contrast. Auto Exposure Controls were utilized during the CT exam to meet ALARA standards for radiation dose reduction. All CT scans use one or more of the following dose optimizing techniques: Automated exposure control, MA and/or KvP adjustment based on patient size and exam type or iterative reconstruction. INDICATION: Sepsis with severe abdominal pain. FINDINGS: CT imaging of the abdomen and pelvis was performed after intravenous administration of iodinated contrast. Note is made of airspace disease throughout the visualized right lower lobe with mild right pleural fluid. Below the diaphragm, note is made of low density in the liver indicating steatosis. The gallbladder is distended without evidence of wall thickening or pericholecystic inflammation. No definite pancreatic or splenic lesion is identified. No adrenal gland abnormality is identified. Kidneys are also unremarkable. There is operative residue with anterior abdominal incision and right lower quadrant ostomy site. Surgical suture is seen along the region of ascending colon. No significant free fluid is seen within the abdomen. The urinary bladder is partially decompressed around a Carrero catheter balloon. There is mild pelvic free fluid. No organized fluid collection is seen to indicate an abscess. IMPRESSION: Postoperative findings in the abdomen with right lower quadrant anterior abdominal wall ostomy. Mild pelvic free fluid may be related to recent surgery or physiologic in nature. No organized fluid collection is seen to indicate abscess. Right basilar infiltrate may be due to pneumonia. This could be on the basis of aspiration with possible parapneumonic pleural fluid. Dictated by: Dictated on workstation # [id number]
--- NOTE | 2022-04-25 13:55 | Consultation-Cardiology ---
HPI-Cardiology Cardiology Consultation Date of Consultation 04/25/22 Date of Admission Time Seen by Provider: 13:48 Indication: Tachycardia HPI 21-year-old lady admitted to ICU for sepsis and tachycardia. She is unable to provide any history, history was obtained by reviewing her record. She was admitted post ex lap with small bowel resection and ileostomy, has history of cerebral sulci and [employer] shunt, Crohn's disease, hiatal hernia. She was initially in rehab on 04 19 after exploratory laparotomy with small bowel resection and ileostomy on April 14, 2022. During rehab patient was showing slow improvement, she had questionable p neumonia and started on linezolid light. Patient become less responsive moaning in pain, this morning she was transferred to ICU with lactic acidosis and tachycardia. Home Medications & Allergies Allergies: Coded Allergies: vancomycin (Verified Allergy, Intermediate, Rash, 04/19/22) Home Medication List Reviewed: Yes PCY-Chnlrr-Bozbqi Hx Patient Social History Marital Status: single Employed/Student: unemployed Past Medical History Discussed below Family Medical History Significant Family History: Cancer, Diabetes, GI Disease Family Medical Hx Noncontributory Review of Systems-General Review of Systems Constitutional: see HPI EENTM: see HPI, no symptoms reported Respiratory: see HPI Cardiovascular: see HPI Gastrointestinal: see HPI Genitourinary: no symptoms reported, see HPI Musculoskeletal: see HPI Skin: no symptoms reported, see HPI Psychiatric/Neurological: No Symptoms Reported, See HPI Physical Exam Physical Exam Vital Signs Vital Signs - First Documented 04/25/22 04/25/22 04/25/22 08:15 08:45 09:18 Pulse 149 Resp 43 B/P (MAP) 132/111 (118) Pulse Ox 100 O2 Delivery Room Air FiO2 21 Capillary Refill : Height, Weight, BMI Height: '" Weight: lbs. oz. kg; 20.91 BMI Method: General Appearance: Chronically ill, Moderate Distress, Thin Respiratory: Lungs Clear Cardiovascular: No Edema, No Gallop, No Murmur, Tachycardia Gastrointestinal: Other (ileostomy output noted) Neurologic/Psychiatric: Disoriented Skin: Cool, Pallor Lymphatic: No Adenopathy A/P-Cardiology Admission Diagnosis Sepsis Lactic acidosis Wide-complex tachycardia Pneumonia Assessment/Plan Severe sepsis, hospital-acquired pneumonia Admitted to ICU and started on antibiotic. Receiving IV fluid, managed by medical team Encephalopathy, acute change in mental status. Patient is currently unrespon sive. Laying down in bed, sedated. Continue to monitor Wide-complex tachycardia, irregular, most probably paroxysmal atrial tachycardia with aberrant conduction. Total of 5 beats. No previous history of ventricular tachycardia. I will evaluate 2D echo and continue to monitor on telemetry Metabolic acidosis secondary to lactic acidosis. Being corrected. Status post exploratory laparoscopy with small bowel resection and ileostomy done on April 14, 2022 Continue to monitor History of Crohn's disease. History of cerebral palsy, muscle spasticity, history of [employer] shunt with revision Protein malnutrition, managed by medical team. DIEGO PARIKH MD Apr 25, 2022 13:55
[2022-04-25 15:31] LABS: POTASSIUM 2.8 MMOL/L (3.6-5.0)
[2022-04-25 15:38] LABS: MAGNESIUM 1.6 MG/DL (1.6-2.4)
[2022-04-25] MEDS ORDERED: POTASSIUM CL 10MEQ/50ML IVPB 250 ML IV ONE (16:28)
[2022-04-25] MEDS ORDERED: MAGNESIUM 1 GM/100 ML IVPB 200 ML IV ONE (16:28)
[2022-04-25] MEDS ORDERED: ACETAMINOPHEN 650 MG SUPP (TYLENOL) PR PRN (17:15)
[2022-04-25] MEDS: POTASSIUM CL 10MEQ/50ML IVPB 50 ML IV SCH ×3 (17:27→19:57)
[2022-04-25] MEDS: MAGNESIUM 1 GM/100 ML IVPB 100 ML IV SCH ×2 (17:27→19:46)
[2022-04-25] MEDS: HYDROmorphone 2 MG/ML VIAL (DILAUDID) IV PRN (20:22)
[2022-04-25] MEDS: PIPERACILLIN SODIUM/TAZOBACTAM 4.5 GM in NS (IVPB) 100 ML IV SCH (22:40)
[2022-04-26] MEDS: POTASSIUM CL 10MEQ/50ML IVPB 50 ML IV SCH ×4 (00:07→05:59)
[2022-04-26] MEDS: HYDROmorphone 2 MG/ML VIAL (DILAUDID) IV PRN ×5 (00:07→20:42)
[2022-04-26] MEDS: NS IV 1000 ML 1,000 ML IV SCH ×3 (04:55→15:20)
[2022-04-26 05:19] LABS: BASOPHILS # (AUTO) 0.1 10^3/uL (0.0-0.1); BASOPHILS % (AUTO) 0 % (0-10); EOSINOPHILS % (AUTO) 0 % (0-10); HEMATOCRIT 25 % (35-52); HEMOGLOBIN 7.6 g/dL (11.5-16.0); LYMPHOCYTES # (AUTO) 2.9 10^3/uL (1.0-4.0); LYMPHOCYTES % (AUTO) 15 % (12-44); MEAN CORPUSCULAR HEMOGLOBIN 30 pg (25-34); MEAN CORPUSCULAR HGB CONC 30 g/dL (32-36); MEAN CORPUSCULAR VOLUME 98 fL (80-99); MONOCYTES # (AUTO) 0.8 10^3/uL (0.0-1.0); MONOCYTES % (AUTO) 4 % (0-12); NEUTROPHILS # (AUTO) 14.8 10^3/uL (1.8-7.8); NEUTROPHILS % (AUTO) 79 % (42-75); PLATELET COUNT 527 10^3/uL (130-400); WHITE BLOOD COUNT 18.8 10^3/uL (4.3-11.0)
[2022-04-26 05:29] LABS: CHLORIDE 110 MMOL/L (98-107); POTASSIUM 3.4 MMOL/L (3.6-5.0); SODIUM 139 MMOL/L (135-145)
[2022-04-26 05:30] LABS: CALCIUM 7.1 MG/DL (8.5-10.1)
[2022-04-26 05:32] LABS: GLUCOSE 86 MG/DL (70-105); TOTAL PROTEIN 4.4 GM/DL (6.4-8.2)
[2022-04-26 05:33] LABS: CARBON DIOXIDE 22 MMOL/L (21-32)
[2022-04-26 05:34] LABS: BILIRUBIN,TOTAL 0.3 MG/DL (0.1-1.0)
[2022-04-26 05:35] LABS: ALKALINE PHOSPHATASE 153 U/L (40-136); CREATININE SERUM 0.38 MG/DL (0.60-1.30); GFR ESTIMATED 146; PHOSPHORUS 2.4 MG/DL (2.3-4.7)
[2022-04-26 05:36] LABS: BUN/CREATININE RATIO 5
[2022-04-26 05:38] LABS: ALANINE AMINOTRANSFERASE 19 U/L (0-55)
[2022-04-26] MEDS ORDERED: POTASSIUM CL 10MEQ/50ML IVPB 50 ML IV SCH (06:00)
[2022-04-26] MEDS ORDERED: MAGNESIUM 1 GM/100 ML IVPB 100 ML IV SCH (06:00)
[2022-04-26] MEDS ORDERED: KCL 20 MEQ TAB (K-DUR) PO SCH (06:00)
[2022-04-26 06:04] LABS: ANISOCYTOSIS SLIGHT; BAND NEUTROPHILS 2 %; BASOPHILS % (MANUAL) 0 %; EOSINOPHILS % (MANUAL) 0 %; HYPOCHROMASIA MODERATE; LYMPHOCYTES % (MANUAL) 7 %; MONOCYTES % (MANUAL) 6 %; NEUTROPHILS % (MANUAL) 83 %; POLYCHROMASIA SLIGHT; REACTIVE LYMPHOCYTES 2 %; TEAR DROP CELLS SLIGHT
--- NOTE | 2022-04-26 06:05 | Diagnostic Imaging Report ---
INDICATION: Dyspnea. Comparison is made with prior examination from 04/25/2022 FINDINGS: The heart size is normal. There is a patchy right basilar infiltrate. No pleural effusion or pneumothorax. Mediastinum is unremarkable. There is a right upper extremity PICC line as well as a right internal jugular central venous catheter both of which have the tip in the right atrium. IMPRESSION: Patchy right basilar infiltrate suspect for early pneumonia. Dictated by: Dictated on workstation # [id number]
--- NOTE | 2022-04-26 07:26 | Progress Note - Surgery ---
LORI OROZCO 04/26/22 0726: Subjective Date Seen by a Provider: Apr 26, 2022 Time Seen by a Provider: 07:00 Subjective/Events-last exam Pt is lying in bed comfortably. She is alert and responsive to all my questions. She reports some soreness on the sides of her thorax from "sleeping hard", rates it 1/10 and describes it as soreness. Pt does not remember much of anything that brought her from the rehab floor to the ICU. It appears from previous documentation that she developed severe sepsis. She has a right sided patchy basilar infiltrate suspicious for PNA. Her white count was 11 yesterday and is 18.8 this AM. Pt had elevated lactic acid at 6.87. She also complains of 3/10 pain in her abdomen, she reports this is soreness that has been present since surgery 04/14. She is draining dark green fluid from her ileostomy. Pt is draining clear yellow urine from catheter. Pt reports no N/V and has been keeping down food and liquids on the rehab floor, she does not recall eating yesterday. Pt requests to get up and walk today because her legs are sore. Review of Systems General: No Chills, No Night Sweats HEENT: No Head Aches Pulmonary: No Dyspnea, No Cough Cardiovascular: Chest Pain (1/10 ache over left mid ribs); No: Palpitations Gastrointestinal: Abdominal Pain (3/10 soreness after surgery 04/14); No: Nausea, Vomiting Genitourinary: No Dysuria, No Hematuria; Other (draining yellow urine from catheter) Musculoskeletal: other (pain over left ribs) Neurological: Other (pt was sedated yesterday, she seems to be slowly improving in cognition and energy level, does not remember her transfer to ICU); No: Change in speech Objective Exam Vital Signs Date Time Temp Pulse Resp B/P (MAP) Pulse Ox O2 Delivery O2 Flow Rate FiO2 04/26/22 06:00 142 14 114/80 (91) 100 Room Air 04/26/22 05:00 97 17 135/90 (105) 100 Room Air 04/26/22 04:30 37.0 105 18 127/91 (103) 97 Room Air 04/26/22 04:30 97 Room Air 04/26/22 04:00 111 17 128/84 (99) 100 Room Air 04/26/22 03:00 110 16 133/86 (102) 97 Room Air 04/26/22 02:00 135 21 122/97 (105) 99 Room Air 04/26/22 01:00 122 18 113/73 (86) 97 Room Air 04/26/22 00:01 105 04/26/22 00:00 123 19 116/66 (83) 98 Room Air 04/25/22 23:25 98 Room Air 04/25/22 23:25 37.4 140 24 131/86 (101) 98 Room Air 04/25/22 23:00 103 19 122/80 (94) 98 Room Air 04/25/22 22:00 37.6 04/25/22 22:00 112 17 132/89 (103) 98 Room Air 04/25/22 21:00 106 20 115/94 (101) 100 Room Air 04/25/22 20:00 116 16 112/70 (84) 100 Room Air 04/25/22 20:00 37.9 120 24 130/81 (97) 100 Room Air 04/25/22 20:00 100 Room Air 04/25/22 19:07 38.0 04/25/22 19:03 108 04/25/22 19:00 112 18 121/79 (93) 100 Room Air 04/25/22 18:00 125 18 107/66 (80) 99 Room Air 04/25/22 17:56 38.0 04/25/22 17:26 38.3 04/25/22 17:23 38.3 04/25/22 17:00 125 36 115/77 (90) 100 Room Air 04/25/22 16:00 101 25 113/68 (83) 100 Room Air 04/25/22 16:00 100 Room Air 04/25/22 15:15 121 25 103/67 (79) 100 Room Air 04/25/22 15:00 123 26 100 Room Air 04/25/22 14:00 112 26 113/69 (84) 100 Room Air 04/25/22 13:00 115 26 120/80 (93) 100 Room Air 04/25/22 13:00 37.1 04/25/22 12:22 114 04/25/22 12:00 36.5 04/25/22 12:00 126 10 102/71 (81) 100 Room Air 04/25/22 12:00 100 Room Air 04/25/22 11:00 85 21 115/77 (90) 100 Room Air 04/25/22 10:00 121 42 109/76 (87) 100 Room Air 04/25/22 09:22 100 Room Air 04/25/22 09:18 116 100 21 04/25/22 09:15 135 10 108/74 (85) 100 Room Air 04/25/22 09:00 130 16 97/69 (78) 100 Room Air 04/25/22 09:00 100 Room Air 04/25/22 08:45 135 31 91/76 (81) 100 Room Air 04/25/22 08:30 149 20 104/80 (88) Room Air 04/25/22 08:21 152 04/25/22 08:15 149 43 132/111 (118) Room Air I & O 04/26/22 07:00 Intake Total 5550 ml Output Total 3675 ml Balance 1875 ml Capillary Refill : Less Than 3 Seconds General Appearance: Chronically ill, Mild Distress, Thin HEENT: PERRL/EOMI; No Scleral Icterus (L), No Scleral Icterus (R) Neck: Non Tender, Supple Respiratory: Lungs Clear, No Accessory Muscle Use, Decreased Breath Sounds (at base of right lung, normal sounds everywhere else), Other (tenderness of left ribs.) Cardiovascular: No Murmur, Normal Peripheral Pulses, Tachycardia Peripheral Pulses: 2+ Radial Pulses (R), 2+ Radial Pulses (L) Gastrointestinal: soft, tenderness (tenderness around incision) Extremity: Non Tender, No Calf Tenderness, No Pedal Edema (pedal and tibial edema have improved) Neurologic/Psychiatric: Alert, Normal Mood/Affect, Other (Pt does not remember transfer to ICU) Skin: Cool, Pallor Lymphatic: No Adenopathy Results Lab Laboratory Tests 04/25/22 15:07: Hemoglobin 8.9L, Potassium Level 2.8L, Magnesium Level 1.6 04/25/22 23:25: Potassium Level 3.2L 04/26/22 04:43: Hemoglobin 7.6L, Potassium Level 3.4L, Magnesium Level 2.0, White Blood Count 18.8H, Red Blood Count 2.55L, Hematocrit 25L, Mean Corpuscular Volume 98, Mean Corpuscular Hemoglobin 30, Mean Corpuscular Hemoglobin Concent 30L, Red Cell Distribution Width 18.6H, Platelet Count 527H, Mean Platelet Volume 8.0L, Immature Granulocyte % (Auto) 1, Neutrophils (%) (Auto) 79H, Lymphocytes (%) (Auto) 15, Monocytes (%) (Auto) 4, Eosinophils (%) (Auto) 0, Basophils (%) (Auto) 0, Neutrophils # (Auto) 14.8H, Lymphocytes # (Auto) 2.9, Monocytes # (Auto) 0.8, Eosinophils # (Auto) 0.0, Basophils # (Auto) 0.1, Immature Granulocyte # (Auto) 0.2H, Neutrophils % (Manual) 83, Lymphocytes % (Manual) 7, Monocytes % (Manual) 6, Eosinophils % (Manual) 0, Basophils % (Manual) 0, Band Neutrophils 2, Reactive Lymphocytes 2, Polychromasia SLIGHT, Hypochromasia MODERATE, Anisocytosis SLIGHT, Tear Drop Cells SLIGHT, Sodium Level 139, Chloride Level 110H, Carbon Dioxide Level 22, Anion Gap 7, Blood Urea Nitrogen < 2L, Creatinine 0.38L, Estimat Glomerular Filtration Rate 146, BUN/Creatinine Ratio 5, Glucose Level 86, Calcium Level 7.1L, Corrected Calcium 8.7, Phosphorus Level 2.4, Total Bilirubin 0.3, Aspartate Amino Transf (AST/SGOT) 28, Alanine Aminotransferase (ALT/SGPT) 19, Alkaline Phosphatase 153H, Total Protein 4.4L, Albumin 2.0L, Procalcitonin 23.24H Radiology NAME: AUBREY SCHWARTZ [facility] REC#: [id number] PT STATUS: ADM IN : 2000 PHYSICIAN: NKECHI SIDDIQI DO ADMIT DATE: 04/25/22/ICU Draft Date of Exam:04/26/22 CHEST 1 VIEW, AP/PA ONLY INDICATION: Dyspnea. Comparison is made with prior examination from 04/25/2022 FINDINGS: The heart size is normal. There is a patchy right basilar infiltrate. No pleural effusion or pneumothorax. Mediastinum is unremarkable. There is a right upper extremity PICC line as well as a right internal jugular central venous catheter both of which have the tip in the right atrium. IMPRESSION: Patchy right basilar infiltrate suspect for early pneumonia. Dictated on workstation # [id number] Dict: 04/26/22601 Trans: 04/26/22 06 [id number] Interpreted by: PHILL SNYDER MD Electronically signed by: Pt also had negative Head CT, Abdomen and pelvis CT, and venous doppler study on 04/25 Assessment/Plan Assessment/Plan Assessment/Plan Severe sepsis WBC 18.8, 11.8 yesterday, elevated lactic acid. CXR revealed right lower lobe infiltrate. Hospital aquired PNA Thrombocytosis Lactic acidosis S/P small bowel resection with ileostomy on 04/14 Incisions are tender, but clean dry and intact Cerebral palsy Chron's Disease Anxiety Pt should be continued on IV fluids and abx, monitor vitals and white count. Her confusion and disorientation have improved today. Pt will likely not need surg ical intervention, continue to monitor ileostomy for signs of infection or changes in fluid drainage. Pt should ambulate today as tolerated. Tolerating normal diet. FAYE CHOU DO 04/26/22 1030: Subjective Time Seen by a Provider: 10:16 Subjective/Events-last exam Pt seen and examined, comfortable in NAD. Pt denies any new abdominal pain, tolerating diet and otherwise no complaints. Review of Systems General: No Chills, No Night Sweats; Fatigue Pulmonary: No Dyspnea, No Cough Cardiovascular: Chest Pain (1/10 ache over left mid ribs); No: Palpitations Gastrointestinal: Abdominal Pain (3/10 soreness after surgery 04/14); No: Nausea, Vomiting Genitourinary: No Dysuria, No Hematuria; Other (draining yellow urine from catheter) Musculoskeletal: other (pain over left ribs) Neurological: Other (pt was sedated yesterday, she seems to be slowly improving in cognition and energy level, does not remember her transfer to ICU) Objective Exam General Appearance: No Apparent Distress, Chronically ill, Thin HEENT: PERRL/EOMI; No Scleral Icterus (L), No Scleral Icterus (R); Other (left eye deviates laterally) Respiratory: Lungs Clear, No Accessory Muscle Use, Decreased Breath Sounds (at base of right lung, normal sounds everywhere else) Cardiovascular: No Murmur, Tachycardia Gastrointestinal: soft, tenderness (tenderness around incision), other (incision is c/d/i, ostomy pink and functioning) Extremity: No Calf Tenderness, No Pedal Edema (pedal and tibial edema have improved) Neurologic/Psychiatric: Alert, Normal Mood/Affect, Other (Pt does not remember transfer to ICU) Assessment/Plan Assessment/Plan Assessment/Plan Pt met Sepsis criteria - unknown source of infection WBC 18.8, 11.8 yesterday, elevated lactic acid. CXR revealed right lower lobe infiltrate. Thrombocytosis Lactic acidosis S/P small bowel resection with ileostomy on 04/14 Incisions are tender, but clean dry and intact Cerebral palsy Chron's Disease Anxiety I was called last night regarding pt and had my student go assess. I reviewed the CT last night and did not see an abdominal source for sepsis. She did have pneumonia seen on CT. Pt should be continued on IV fluids and abx, monitor vitals and white count. Her confusion and disorientation have improved today; she does have remote hx of seizures when she was appx 4yo, but nothing since. Pt will not need surgical intervention. Pt should ambulate today as tolerated. Tolerating normal diet. Will sign off and resee if needed. Supervisory-Addendum Brief Verification & Attestation Participated in pt care: history, MDM, physical Personally performed: exam, history, MDM, supervision of care Care discussed with: Medical Student Procedures: n/a Verification and Attestation of Medical Student E/M Service A medical student performed and documented this service. I then reviewed and verified all information documented by the medical student and made modifications to such information, when appropriate. I personally performed a physical exam, medical decision making and then discussed any differences between the notes and made revisions as necessary to create one note. Faye Chou , 04/26/22 , 10:31 LORI OROZCO Apr 26, 2022 07:26 FAYE CHOU DO Apr 26, 2022 10:30
[2022-04-26] MEDS: DOCUSATE SODIUM 100 MG (COLACE) CAP PO SCH ×2 (07:49→20:42)
[2022-04-26] MEDS: SENNOSIDES 8.6 MG (SENOKOT) TAB PO SCH ×2 (07:49→20:43)
[2022-04-26] MEDS: LINEZOLID IVPB 300 ML IV SCH (08:04)
--- NOTE | 2022-04-26 08:40 | Cardiology Progress Note ---
Subjective Date Seen by Provider: Apr 26, 2022 Time Seen by Provider: 08:35 Subjective/Events-last exam Patient was seen at bedside, laying down comfortably, tachycardic. Review of Systems General: No Chills, No Night Sweats, No Fatigue, No Malaise, No Appetite, No Other HEENT: No Head Aches, No Visual Changes, No Eye Pain, No Ear Pain, No Dysphasia, No Sinus Congestion, No Post Nasal Drip, No Sore Throat, No Other Pulmonary: No Dyspnea, No Cough, No Pleuritic Chest Pain, No Other Cardiovascular: Palpitations; No: Chest Pain, Orthopnea, Paroxysmal Noc. Dyspnea, Edema, Lt Headedness, Other Objective-Cardiology Exam Last Set of Vital Signs Vital Signs 04/25/22 04/26/22 04/26/22 04/26/22 09:18 06:00 07:00 07:44 Temp 37.0 Pulse 153 Resp 14 B/P (MAP) 114/80 (91) Pulse Ox 100 O2 Delivery Room Air FiO2 21 I&O Intake and Output 04/25/22 23:59 Intake Total 3150 ml Output Total 2275 ml Balance 875 ml Intake Oral 0 ml IV Total 3150 ml Output Urine Total 2275 ml Daily Weight Change Unsure General: Alert, Oriented X3, Cooperative HEENT: Atraumatic, PERRLA Neck: Supple, No JVD, No Thyromegaly Lungs: Clear to Auscultation, Normal Air Movement Heart: Normal S1, Normal S2, No Murmurs Abdomen: Normal Bowel Sounds, Soft, No Tenderness, No Hepatosplenomegaly, No Masses Extremities: No Clubbing, No Cyanosis, No Edema, Normal Pulses, No Tenderness/Swelling Skin: No Rashes, No Breakdown, No Significant Lesion Neuro: Normal Gait, Normal Speech, Strength at 5/5 X4 Ext, Normal Tone, Sensation Intact Psych/Mental Status: Mental Status NL, Mood NL Results Lab Laboratory Tests 04/25/22 15:07 04/25/22 23:25 04/26/22 04:43 A/P-Cardiology Admission Diagnosis Sepsis Lactic acidosis Wide-complex tachycardia Pneumonia Assessment/Plan Severe sepsis, hospital-acquired pneumonia Admitted to ICU and started on antibiotic. Receiving IV fluid, managed by medical team Encephalopathy, acute change in mental status. Improved, awake and talkative today Continue to monitor Wide-complex tachycardia, irregular, most probably paroxysmal atrial tachycardia with aberrant conduction. Total of 5 beats. No previous history of ventricular tachycardia. Currently in sinus tachycardia. I will start low-dose beta-blockers and evaluate tolerance and response Metabolic acidosis secondary to lactic acidosis. Being corrected. Status post exploratory laparoscopy with small bowel resection and ileostomy done on April 14, 2022 Continue to monitor History of Crohn's disease. 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 DIEGO PARIKH MD Apr 26, 2022 08:40
--- NOTE | 2022-04-26 09:03 | Tele-ICU Progress Note ---
Subjective Date Seen by a Provider: Apr 26, 2022 Time Seen by a Provider: 09:02 Subjective/Events-last exam . (Tele-ICU Physician , Progress Note ) Available chart/ vitals / labs / Images reviewed Video assessment done using teleICU camera, rest of exam as per RN Discussed with RN Events overnight : FEBRILE hemodynamically stable Respiratory - ra I/O = +++ Drips: ns 125 Pressors- no Consultants: Sx Hospital course: (04/19) 21F Cerebral Palsy: admitted to rehab floor for decrease appetite. s/p SBO/perforation--EX LAP with ileostomy on 04/14. Crohn's diesease. BLE swelling. (04/23) PICC/midline placed. (04/24) Left rib pain/muscle strain, Lidocaine patch (04/25) TX to ICU for rapid HR, yelling/screaming/diaphoretic. CTH - WNL CT abd/pelvis 04/25- no free air , no abscess. 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 pain related - records fronm rehab - HR around 100 04/19-04/24 - beta blockers started - WILL DECREASE FLUID < WILL STOP IF CAN TAKE PO Intestinal surgery following SBO and perforation - recent , in other facility- ileostomy in place , Sx follow Encephalopathy - RESOLVED - vth wnl GREG edema -US LE bilat 04/25 - no dvt cerebral palsy - muscle spasticity - Baclofen 10mg TID -h/o MACHINE VENEER REPAIRER shunt with revision Chron's disease - was on Humira as per records - off now Lines : PICC 04/23 , (Central Line Necessity Reviewed) Carrero: + OG: Nutrition: npo Analgesia: Anxiety/ delirium VTE Prophylaxis: lovenox Stress Ulcer Prophylaxis: na Plans in collaboration with bedside consultants and IM MDs. Discussed with RN to reach out if any questions or concerns A total of 31 minutes of critical care time was devoted to this patient today, required to treat and/or prevent further deterioration of critical care condition ( as above ) . Sepsis Event Evaluation Height, Weight, BMI Height: '" Weight: lbs. oz. kg; 18.62 BMI Method: Exam Exam Patient acknowledged, consented, and participated in this virtual visit which was conducted using real time audio/video Vital Signs Date Time Temp Pulse Resp B/P (MAP) Pulse Ox O2 Delivery O2 Flow Rate FiO2 04/26/22 07:44 37.0 04/26/22 07:00 153 04/26/22 06:00 142 14 114/80 (91) 100 Room Air 04/26/22 05:00 97 17 135/90 (105) 100 Room Air 04/26/22 04:30 37.0 105 18 127/91 (103) 97 Room Air 04/26/22 04:30 97 Room Air 04/26/22 04:00 111 17 128/84 (99) 100 Room Air 04/26/22 03:00 110 16 133/86 (102) 97 Room Air 04/26/22 02:00 135 21 122/97 (105) 99 Room Air 04/26/22 01:00 122 18 113/73 (86) 97 Room Air 04/26/22 00:01 105 04/26/22 00:00 123 19 116/66 (83) 98 Room Air 04/25/22 23:25 98 Room Air 04/25/22 23:25 37.4 140 24 131/86 (101) 98 Room Air 04/25/22 23:00 103 19 122/80 (94) 98 Room Air 04/25/22 22:00 37.6 04/25/22 22:00 112 17 132/89 (103) 98 Room Air 04/25/22 21:00 106 20 115/94 (101) 100 Room Air 04/25/22 20:00 116 16 112/70 (84) 100 Room Air 04/25/22 20:00 37.9 120 24 130/81 (97) 100 Room Air 04/25/22 20:00 100 Room Air 04/25/22 19:07 38.0 04/25/22 19:03 108 04/25/22 19:00 112 18 121/79 (93) 100 Room Air 04/25/22 18:00 125 18 107/66 (80) 99 Room Air 04/25/22 17:56 38.0 04/25/22 17:26 38.3 04/25/22 17:23 38.3 04/25/22 17:00 125 36 115/77 (90) 100 Room Air 04/25/22 16:00 101 25 113/68 (83) 100 Room Air 04/25/22 16:00 100 Room Air 04/25/22 15:15 121 25 103/67 (79) 100 Room Air 04/25/22 15:00 123 26 100 Room Air 04/25/22 14:00 112 26 113/69 (84) 100 Room Air 04/25/22 13:00 115 26 120/80 (93) 100 Room Air 04/25/22 13:00 37.1 04/25/22 12:22 114 04/25/22 12:00 36.5 04/25/22 12:00 126 10 102/71 (81) 100 Room Air 04/25/22 12:00 100 Room Air 04/25/22 11:00 85 21 115/77 (90) 100 Room Air 04/25/22 10:00 121 42 109/76 (87) 100 Room Air 04/25/22 09:22 100 Room Air 04/25/22 09:18 116 100 21 04/25/22 09:15 135 10 108/74 (85) 100 Room Air I & O 04/26/22 07:00 Intake Total 5550 ml Output Total 3675 ml Balance 1875 ml Height & Weight Height: '" Weight: lbs. oz. kg; 18.62 BMI Method: General Appearance: Chronically ill, Mild Distress, Thin HEENT: PERRL/EOMI; No Scleral Icterus (L), No Scleral Icterus (R) Neck: Non Tender, Supple Respiratory: Lungs Clear, No Accessory Muscle Use, Decreased Breath Sounds (at base of right lung, normal sounds everywhere else), Other (tenderness of left ribs.) Cardiovascular: No Murmur, Normal Peripheral Pulses, Tachycardia Capillary Refill: Less Than 3 Seconds Peripheral Pulses: 2+ Radial Pulses (R), 2+ Radial Pulses (L) Gastrointestinal: soft, tenderness (tenderness around incision) Extremity: Non Tender, No Calf Tenderness, No Pedal Edema (pedal and tibial edema have improved) Neurologic/Psychiatric: Alert, Normal Mood/Affect, Other (Pt does not remember transfer to ICU) Skin: Cool, Pallor Lymphatic: No Adenopathy Results Lab Laboratory Tests 04/25/22 15:07 04/25/22 23:25 04/26/22 04:43 Assessment/Plan Assessment/Plan ` BRIAN HINSON MD Apr 26, 2022 09:03
[2022-04-26] MEDS: meTOprolol TARTRATE 25 MG (LOPRESSOR) TABLET PO SCH ×3 (09:22→20:42)
[2022-04-26] MEDS: ACETAMINOPHEN 500 MG TAB (TYLENOL) PO PRN ×2 (09:24→18:52)
[2022-04-26] MEDS: PIPERACILLIN SODIUM/TAZOBACTAM 4.5 GM in NS (IVPB) 100 ML IV SCH (10:10)
--- NOTE | 2022-04-26 11:36 | Physical Therapy Evaluation ---
PT Evaluation-General Medical Diagnosis Admission Date Apr 25, 2022 at 07:46 Medical Diagnosis: pneumonia/sepsis Onset Date: Apr 25, 2022 Therapy Diagnosis Therapy Diagnosis: generalized weakness/debility Precautions Precautions/Isolations: Fall Prevention, Standard Precautions Referral Physician: Miguel Reason for Referral: Evaluation/Treatment Medical History Additional Medical History CP/s/p bowel resection Current History transfer from ARU to ICU due to sepsis/pneumonia Reviewed History: Yes Social History Current Living Status: Other Family Prior Prior Level of Function SCALE: Activities may be completed with or without assistive devices. 6-Ubsgrcvgnx-nvxjvbu completes the activity by him/herself with no assistance from a helper. 5-Set-up or Clean-up Assistance-helper sets up or cleans up; patient completes activity. Brantley assists only prior to or following the activity. 4-Supervision or Touching Assistance-helper provides verbal cues and/or touching/steadying and/or contact guard assistance as patient completes activity. Assistance may be provided throughout the activity or intermittently. 3-Partial/Moderate Assistance-helper does LESS THAN HALF the effort. Brantley lifts, holds or supports trunk or limbs, but provides less than half the effort. 2-Substantial/Maximal Assistance-helper does MORE THAN HALF the effort. Brantley lifts or holds trunk or limbs and provides more than half the effort. 2-Xabtbrzoo-jzeksi does ALL the effort. Patient does none of the effort to complete the activity. Or, the assistance of 2 or more helpers is required for the patient to complete the activity. If activity was not attempted, code reason: 7-Patient Refused. 9-Not Applicable-not attempted and the patient did not perform the activity before the current illness, exacerbation or injury. 10-Not Attempted due to Environmental Limitations-(lack of equipment, weather restraints, etc.). 88-Not Attempted due to Medical Conditions or Safety Concerns. Bed Mobility: 3 Transfers (B,C,W/C): 3 Gait: 3 Indoor Mobility (Ambulation): Needed Some Help Prior Devices Use: Walker from ARU PT Evaluation-Current Subjective Patient is very agreeable to participate with PT. Objective Patient Orientation: Normal For Age Attachments: Carrero Catheter, IV ROM/Strength ROM Lower Extremities CP mild contractures Strength Lower Extremities 3-/5 grossly bilateral LE Integumentary/Posture Bladder Incontinence: Carrero Cath Posture WFL Neuromuscular (Tone, Coordination, Reflexes) grossly intact with CP gait Sensory Vision: Functional Hearing: Functional Transfers Lying to Sitting/Side of Bed(Q: 4 Sit to Stand (QC): 4 Chair/Buh-jb-Rkrvh Xfer(QC): 4 Gait Mode of Locomotion: Walk Anticipated Mode of Locomotion: Walk Walk 10 feet (QC): 4 Walk 50 ft with 2 Turns(QC): 4 Distance: 100' Gait Assistive Device: FWW Comments/Gait Description CP gait sequence with noted fatigue due to weakness Balance Sitting Static: Normal Sitting Dynamic: Normal Standing Static: Fair Standing Dynamic: Fair Assessment/Needs Patient fatigues with minimal activity, however, ambulated 100' CGA with FWW. Patient will benefit from skilled PT to address functional strength and mobility to improve current LOF. Rehab Potential: Fair PT Bone Density Technician Goals Intermediate Goals PT Intermediate Goals Time Frame: May 05, 2022 Roll Left & Right (QC): 6 Sit to Lying (QC): 6 Lying-Sitting on Side/Bed(QC): 6 Sit to Stand (QC): 5 Chair/Iey-ni-Sojmn Xfer(QC): 5 Toilet Transfer (QC): 5 Walk 10 feet (QC): 5 Walk 50ft with 2 Turns (QC): 5 Walk 150 ft (QC): 5 PT Plan Problem List Problem List: Activity Tolerance, Functional Strength, Safety, Balance, Gait, Transfer, Bed Mobility, ROM Treatment/Plan Treatment Plan: Continue Plan of Care Treatment Plan: Bed Mobility, Education, Functional Activity Tim, Functional Strength, Gait, Safety, Therapeutic Exercise, Transfers Treatment Duration: May 05, 2022 Frequency: 6 times per week Estimated Hrs Per Day: .25 hour per day Time/GCodes Time In: 1055 Time Out: 1116 Total Billed Treatment Time: 15 Total Billed Treatment 1 visit EVModC 21 min ZINA HERNÁNDEZ PT Apr 26, 2022 11:36
--- NOTE | 2022-04-26 11:57 | Occupational Therapy Eval ---
OT Evaluation-General/PLF Medical Diagnosis Admission Date Apr 25, 2022 at 07:46 Medical Diagnosis: pneumonia/sepsis Onset Date: Apr 25, 2022 Therapy Diagnosis Therapy Diagnosis: decreased ADL status Precautions Precautions/Isolations: Fall Prevention, Standard Precautions Referral Physician: Miguel Medical History Additional Medical History CP with MEDICAL AND SCIENTIFIC ILLUSTRATOR shunt, Crohn's, SBO Current History transfer from ARU to ICU with sepsis and pneumonia Social History Current Living Status: Other Family ADL-Prior Level of Function SCALE: Activities may be completed with or without assistive devices. 5-Vefzgzqcrz-cpnwtwy completes the activity by him/herself with no assistance from a helper. 5-Set-up or Clean-up Assistance-helper sets up or cleans up; patient completes activity. [place] assists only prior to or following the activity. 4-Supervision or Touching Assistance-helper provides verbal cues and/or touching/steadying and/or contact guard assistance as patient completes activity. Assistance may be provided throughout the activity or intermittently. 3-Partial/Moderate Assistance-helper does LESS THAN HALF the effort. [place] lifts, holds or supports trunk or limbs, but provides less than half the effort. 2-Substantial/Maximal Assistance-helper does MORE THAN HALF the effort. [place] lifts or holds trunk or limbs and provides more than half the effort. 3-Bwxwyjlud-fphgkr does ALL the effort. Patient does none of the effort to complete the activity. Or, the assistance of 2 or more helpers is required for the patient to complete the activity. If activity was not attempted, code reason: 7-Patient Refused. 9-Not Applicable-not attempted and the patient did not perform the activity before the current illness, exacerbation or injury. 10-Not Attempted due to Environmental Limitations-(lack of equipment, weather restraints, etc.). 88-Not Attempted due to Medical Conditions or Safety Concerns. ADL PLOF Comments Pt reports IND with ADLs and functional mobility at PLOF, bilateral AFOs. At this time, pt and mother are staying at grandmothers house until rental is ready. Pt unsure about the layout of the rental property, as she has only been there one time. She also doesn't know a time frame on when the rental will be ready for her and her mother to move into. Pt's grandmothers house has a tub/shower with SC. Self Care: Independent Functional Cognition: Independent OT Current Status Subjective Pt in recliner, mother present. Pt agreeable to OT Tx. Pt states plan is to return to ARU tomorrow. Mental Status/Objective Patient Orientation: Person, Place, Time, Situation Attachments: Colostomy/Ileostomy, Carrero Catheter, IV, Telemetry Current Upper Extremity ROM WFL Upper Extremity Strength grossly 3/5 ADL-Treatment Oral Hygiene (QC): 5 (set up at recliner) Toileting Hygiene (QC): 88 (Catheter and ostomy) Other Treatments Pt in recliner, agreeable to OT Tx. Pt completed oral care and grooming tasks at recliner with set up, increased time required with tasks. Pt declined other tasks at this time. Post tx, pt in recliner, call light in reach and all needs met. Cell phone and lunch menu in her hands in order to order lunch. OT Back Hoe Operator Goals Halfway Goals Time Frame: May 04, 2022 Eating (QC): 5 Toileting Hygiene (QC): 88 Shower/Bathe Self (QC): 4 Upper Body Dressing (QC): 5 Lower Body Dressing (QC): 4 On/Off Footwear (QC): 4 Additional Goals: 1-Demonstrate ADL Tasks, 2-Verbalize Understanding, 3- ImproveStrength/Tim 1=Demonstrate adherence to instructed precautions during ADL tasks. 2=Patient will verbalize/demonstrate understanding of assistive devices/modifications for ADL. 3=Patient will improve strength/tolerance for activity to enable patient to perform ADL's. OT Education/Plan Problem List/Assessment Assessment: Decreased Activ Tolerance, Decreased UE Strength, Impaired Funct Balance, Impaired I ADL's, Impaired Self-Care Skills Discharge Recommendations Plan/Recommendations: Continue POC Treatment Plan/Plan of Care Patient would benefit from OT for education, treatment and training to promote independence in ADL's, mobility, safety and/or upper extremity function for ADL's. Plan of Care: ADL Retraining, Functional Mobility, UE Funct Exercise/Act Treatment Duration: May 04, 2022 Frequency: 3 times per week (3-5 times per week) Estimated Hrs Per Day: .25 hour per day Agreement: Yes Rehab Potential: Fair Time/GCodes Start Time: 11:35 Stop Time: 11:50 Total Time Billed (hr/min): 15 Billed Treatment Time 1, KARL CARR OT Apr 26, 2022 11:57
[2022-04-26] MEDS: ENOXAPARIN INJECTION 30 MG/0.3 ML SYR SC SCH (12:21)
--- NOTE | 2022-04-26 13:12 | Progress Note ---
MARYHIRAM 04/26/22 1312: Subjective Date Seen by a Provider: Apr 26, 2022 Time Seen by a Provider: 13:15 Subjective/Events-last exam Pt is resting comfortably in bed. Pt's mentation is significantly improved from yesterday and is A0X4. Pt states that she is feeling a lot better today but does note some soreness over the right lower ribs. Pt has been able to tolerate eating without issues. Pt has ileostomy output today that was dark and primarily liquid. Pt continues to void and urine output was 3.21 ml/hr/kg over 8hrs. Pt states improvement of weakness and would like to start ambulating or doing exercises soon d/t stiffness in her legs. Denies CP, nausea, vomiting, new onset abd pain, or SOA. Review of Systems General: No Chills, No Night Sweats HEENT: No Head Aches, No Visual Changes Pulmonary: No Dyspnea, No Cough Cardiovascular: No: Chest Pain, Palpitations Gastrointestinal: No: Nausea, Vomiting, Abdominal Pain Genitourinary: No Dysuria, No Frequency Musculoskeletal: No: neck pain, shoulder pain Neurological: No: Weakness, Numbness Objective Exam Last Set of Vital Signs Vital Signs Date Time Temp Pulse Resp B/P (MAP) Pulse Ox O2 Delivery O2 Flow Rate FiO2 04/26/22 12:00 100 Room Air 04/26/22 11:54 37.4 04/26/22 10:00 118 29 131/79 (96) 04/25/22 09:18 21 Capillary Refill : Less Than 3 Seconds I&O Intake and Output 04/26/22 00:00 Intake Total 3150 ml Output Total 2275 ml Balance 875 ml Intake Oral 0 ml IV Total 3150 ml Output Urine Total 2275 ml Daily Weight Change Unsure General: Alert, Oriented X3, No Acute Distress HEENT: PERRLA, Mucous Memb Moist/[place] Neck: Supple, No LAD Lungs: Clear to Auscultation, Normal Air Movement Heart: No Murmurs, Rubs, Other (tachycardia) Abdomen: Soft, No Masses, Other (ileostomy bag on right side, continues to have post surgical soreness diffusely over abd) Extremities: No Cyanosis, No Edema Skin: No Rashes, No Significant Lesion Neuro: Normal Speech, Strength at 5/5 X4 Ext Psych/Mental Status: Mental Status NL, Mood NL Results Lab Laboratory Tests 04/25/22 15:07: Hemoglobin 8.9L, Potassium Level 2.8L, Magnesium Level 1.6 04/25/22 23:25: Potassium Level 3.2L 04/26/22 04:43: Hemoglobin 7.6L, Potassium Level 3.4L, Magnesium Level 2.0, White Blood Count 18.8H, Red Blood Count 2.55L, Hematocrit 25L, Mean Corpuscular Volume 98, Mean Corpuscular Hemoglobin 30, Mean Corpuscular Hemoglobin Concent 30L, Red Cell Distribution Width 18.6H, Platelet Count 527H, Mean Platelet Volume 8.0L, Immature Granulocyte % (Auto) 1, Neutrophils (%) (Auto) 79H, Lymphocytes (%) (Auto) 15, Monocytes (%) (Auto) 4, Eosinophils (%) (Auto) 0, Basophils (%) (Auto) 0, Neutrophils # (Auto) 14.8H, Lymphocytes # (Auto) 2.9, Monocytes # (Auto) 0.8, Eosinophils # (Auto) 0.0, Basophils # (Auto) 0.1, Immature Granulocyte # (Auto) 0.2H, Neutrophils % (Manual) 83, Lymphocytes % (Manual) 7, Monocytes % (Manual) 6, Eosinophils % (Manual) 0, Basophils % (Manual) 0, Band Neutrophils 2, Reactive Lymphocytes 2, Polychromasia SLIGHT, Hypochromasia MODERATE, Anisocytosis SLIGHT, Tear Drop Cells SLIGHT, Sodium Level 139, Chloride Level 110H, Carbon Dioxide Level 22, Anion Gap 7, Blood Urea Nitrogen < 2L, Creatinine 0.38L, Estimat Glomerular Filtration Rate 146, BUN/Creatinine Ratio 5, Glucose Level 86, Calcium Level 7.1L, Corrected Calcium 8.7, Phosphorus Level 2.4, Total Bilirubin 0.3, Aspartate Amino Transf (AST/SGOT) 28, Alanine Aminotransferase (ALT/SGPT) 19, Alkaline Phosphatase 153H, Total Protein 4.4L, Albumin 2.0L, Procalcitonin 23.24H Assessment/Plan Assessment/Plan Assess & Plan/Chief Complaint 1. Severe Sepsis vs Septic shock -Started on 200mls IV Zosyn and IV Linezolid 300mg Q12H (DC 04/26) -Given 1L NS bolus and IV 125ml/hr NS -Continue to monitor blood pressure and urine output -Blood cultures ordered -Repeat procalcitonin on 04/26 improved 2. Hospital acquired pneumonia -CXR 04/25 showed possible RLL pneumonia -IV Linezolid 300mg Q12H (DC 04/26) and 200mls IV Zosyn added to cover poss ible aspiration -monitor O2 sats, manage as needed 3. Encephalopathy -resolved -CT head unremarkable 4. Metabolic acidosis - AG back within normal range -lactic acid back to normal range 5. Leukocytosis -WBC continues to be elevated, continue to monitor 4. Thrombocytosis -improved 6. Lactic acidosis -See above 7. Elevated D-dimer -D-dimer of 6.34 on 04/25 -B/L LE Venous Doppler unremarkable -Lovenox started 8. Protein malnutrition - Albumin = 2.5 9. S/p exp lap with bowel resection and ileostomy -continues to have good output, continue to monitor -EICU ordered imaging of abd/pelvis d/t recent abd surgery and h/o Crohn's disease - all unremarkable 10. Cerebral palsy -Muscle spasticity- takes 10mg TID of Baclofen- currently discontinued -H/o SCALEMAN shunt with revision 11. Crohn's Disease -followed by Dr. Campbell in [place] -takes Humira at home - discontinued in hospital Plan: Transfer to 4th floor Advance diet DC Linezolid d/t suspicion of it worsening pt's lactic acidosis Telemetry Clinical Quality Measures Admission Status Admission Dx 1. Severe Sepsis vs Septic shock -Started on 200mls IV Zosyn and IV Linezolid 300mg Q12H -Given 1L NS bolus and IV 125ml/hr NS -Continue to monitor blood pressure and urine output -Blood cultures ordered -Consider repeat procalcitonin levels tomorrow 2. Hospital acquired pneumonia -CXR 04/25 showed possible RLL pneumonia -IV Linezolid 300mg Q12H and 200mls IV Zosyn added to cover possible aspiration -monitor O2 sats, manage as needed 3. Encephalopathy -Mentation change from baseline, most recently more confused per EICU note -multiple attempts to acquire ABGs unsuccessful -CT head ordered 4. Metabolic acidosis - AG of 16 today -continue to monitor lactic acidosis, last lab was 6.87 5. Leukocytosis -WBC elevated to 11.8, continue to monitor 4. Thrombocytosis -Plt count elevated to 681, continue to monitor 6. Lactic acidosis -See above 7. Elevated D-dimer -D-dimer of 6.34 -B/L LE Venous Doppler unremarkable -Lovenox started 8. Protein malnutrition - Albumin = 2.5 -currently NPO, will consider nutrition supplementation when appropriate 9. S/p exp lap with bowel resection and ileostomy -continues to have good output, continue to monitor -EICU will order imaging of abd/pelvis d/t recent abd surgery and h/o Crohn's disease 10. Cerebral palsy -Muscle spasticity- takes 10mg TID of Baclofen- currently discontinued -H/o SCALEMAN shunt with revision 11. Crohn's Disease -followed by Dr. Campbell in [place] -takes Humira at home - discontinued in hospital KIMI SIDDIQI DO 04/27/22 0546: Assessment/Plan Assessment/Plan Assess & Plan/Chief Complaint Transfer to 4th PT OT tomorrow Supervisory-Addendum Brief Verification & Attestation Participated in pt care: history, MDM, physical Personally performed: exam, history, MDM, supervision of care Care discussed with: Medical Student Procedures: n/a Results interpretation: Verified all documentation Verification and Attestation of Medical Student E/M Service A medical student performed and documented this service in my presence. I reviewed and verified all information documented by the medical student and made modifications to such information, when appropriate. I personally performed the physical exam and medical decision making. Kimi Siddiqi, Apr 27, 2022,05:45 HIRAM HERNANDEZ Apr 26, 2022 13:12 KIMI SIDDIQI DO Apr 27, 2022 05:46
[2022-04-26 15:30] VITALS: BP 96/57
[2022-04-26] MEDS: PIPERACILLIN SODIUM/TAZOBACTAM 3.375 GM in NS (IVPB) 100 ML IV SCH (17:11)
[2022-04-26 19:42] VITALS: BP 104/55
[2022-04-26 23:33] VITALS: BP 113/52
[2022-04-27] VITALS (7 sets, daily range): BP systolic 96–111; BP diastolic 54–63
[2022-04-27] MEDS: ACETAMINOPHEN 500 MG TAB (TYLENOL) PO PRN ×2 (04:54→19:54)
[2022-04-27 05:04] LABS: BASOPHILS # (AUTO) 0.1 10^3/uL (0.0-0.1); BASOPHILS % (AUTO) 0 % (0-10); EOSINOPHILS % (AUTO) 0 % (0-10); HEMATOCRIT 24 % (35-52); HEMOGLOBIN 7.4 g/dL (11.5-16.0); LYMPHOCYTES # (AUTO) 2.7 10^3/uL (1.0-4.0); LYMPHOCYTES % (AUTO) 14 % (12-44); MEAN CORPUSCULAR HEMOGLOBIN 31 pg (25-34); MEAN CORPUSCULAR HGB CONC 31 g/dL (32-36); MEAN CORPUSCULAR VOLUME 99 fL (80-99); MEAN PLATELET VOLUME 8.2 fL (9.0-12.2); MONOCYTES # (AUTO) 0.7 10^3/uL (0.0-1.0); MONOCYTES % (AUTO) 4 % (0-12); NEUTROPHILS # (AUTO) 15.2 10^3/uL (1.8-7.8); NEUTROPHILS % (AUTO) 81 % (42-75); PLATELET COUNT 447 10^3/uL (130-400); WHITE BLOOD COUNT 18.8 10^3/uL (4.3-11.0)
[2022-04-27 05:14] LABS: ALBUMIN 1.8 GM/DL (3.2-4.5)
[2022-04-27 05:15] LABS: CHLORIDE 108 MMOL/L (98-107); SODIUM 137 MMOL/L (135-145)
[2022-04-27 05:17] LABS: GLUCOSE 70 MG/DL (70-105); TOTAL PROTEIN 4.1 GM/DL (6.4-8.2)
[2022-04-27 05:18] LABS: CARBON DIOXIDE 19 MMOL/L (21-32)
[2022-04-27 05:19] LABS: BILIRUBIN,TOTAL 0.3 MG/DL (0.1-1.0)
[2022-04-27 05:20] LABS: ALKALINE PHOSPHATASE 161 U/L (40-136)
[2022-04-27 05:21] LABS: CREATININE SERUM 0.39 MG/DL (0.60-1.30); GFR ESTIMATED 145
[2022-04-27 05:22] LABS: BUN/CREATININE RATIO 5
[2022-04-27 05:23] LABS: MAGNESIUM 1.8 MG/DL (1.6-2.4)
[2022-04-27 05:24] LABS: ALANINE AMINOTRANSFERASE 19 U/L (0-55)
[2022-04-27] MEDS: PIPERACILLIN SODIUM/TAZOBACTAM 3.375 GM in NS (IVPB) 100 ML IV SCH ×3 (05:25→17:00)
[2022-04-27] MEDS: NS IV 1000 ML 1,000 ML IV SCH ×2 (05:28→12:11)
[2022-04-27] MEDS: POTASSIUM CL 10MEQ/50ML IVPB 50 ML IV SCH ×3 (06:19→07:43)
[2022-04-27] MEDS: SENNOSIDES 8.6 MG (SENOKOT) TAB PO SCH ×2 (07:32→19:52)
[2022-04-27] MEDS: DOCUSATE SODIUM 100 MG (COLACE) CAP PO SCH ×2 (07:32→19:52)
[2022-04-27] MEDS: meTOprolol TARTRATE 25 MG (LOPRESSOR) TABLET PO SCH ×3 (08:15→20:52)
--- NOTE | 2022-04-27 11:47 | Cardiology Progress Note ---
Subjective Date Seen by Provider: Apr 27, 2022 Time Seen by Provider: 11:46 Subjective/Events-last exam Patient was seen at bedside, laying down comfortably, feeling better Review of Systems General: No Chills, No Night Sweats, No Fatigue, No Malaise, No Appetite, No Other HEENT: No Head Aches, No Visual Changes, No Eye Pain, No Ear Pain, No Dysphasia, No Sinus Congestion, No Post Nasal Drip, No Sore Throat, No Other Pulmonary: No Dyspnea, No Cough, No Pleuritic Chest Pain, No Other Cardiovascular: No: Chest Pain, Palpitations, Orthopnea, Paroxysmal Noc. Dyspnea, Edema, Lt Headedness, Other Objective-Cardiology Exam Last Set of Vital Signs Vital Signs 04/25/22 04/27/22 09:18 11:28 Temp 36.9 Pulse 102 Resp 16 B/P (MAP) 97/59 (72) Pulse Ox 100 O2 Delivery Room Air FiO2 21 I&O Intake and Output 04/27/22 00:00 Intake Total 5200 ml Output Total 2875 ml Balance 2325 ml Intake Oral 2300 ml IV Total 2900 ml Output Urine Total 2675 ml Stool Total 200 ml General: Alert, Oriented X3, No Acute Distress HEENT: PERRLA, Mucous Memb Moist/[place] Neck: Supple, No LAD Lungs: Clear to Auscultation, Normal Air Movement Heart: Normal S1, Normal S2, No Murmurs, Other (tachycardia) Abdomen: Soft, No Masses, Other (ileostomy bag on right side, continues to have post surgical soreness diffusely over abd) Extremities: No Cyanosis, No Edema Skin: No Rashes, No Significant Lesion Neuro: Normal Speech, Strength at 5/5 X4 Ext Psych/Mental Status: Mental Status NL, Mood NL Results Lab Laboratory Tests 04/27/22 04:45 A/P-Cardiology Admission Diagnosis Sepsis Lactic acidosis Wide-complex tachycardia Pneumonia Assessment/Plan Severe sepsis, hospital-acquired pneumonia Improved, responded to antibiotic Currently doing better. Encephalopathy, acute change in mental status. Improved, awake and talkative today Back to baseline, managed by medical team. Wide-complex tachycardia, irregular, most probably paroxysmal atrial tachycardia with aberrant conduction. Total of 5 beats. No previous history of ventricular tachycardia. Currently in sinus tachycardia. Started on low-dose beta-blockers, tolerating medication well. Continue to monitor Metabolic acidosis secondary to lactic acidosis. Being corrected. Status post exploratory laparoscopy with small bowel resection and ileostomy done on April 14, 2022 Continue to monitor History of Crohn's disease. 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 DIEGO PARIKH MD Apr 27, 2022 11:47
[2022-04-27] MEDS: ENOXAPARIN INJECTION 30 MG/0.3 ML SYR SC SCH (12:11)
--- NOTE | 2022-04-27 12:29 | Progress Note ---
MARYHIRAM 04/27/22 1229: Subjective Date Seen by a Provider: Apr 27, 2022 Time Seen by a Provider: 12:13 Subjective/Events-last exam Pt is sitting in bed comfortably drawing. Pt states that she feels much better today and only c/o some soreness over her ileostomy following a bag change as well as some tightening CP with laying flat. Pt has been tolerating her diet well and has been able to ambulate without issue. Pt has been using her spirometer and was advised to use it ~10x an hour. Pt notes that she has been experiencing an intermittent cough producing sputum and scant clear mucus per pt. Pt continues to void and have output from her ileostomy. Pt denies nausea, vomiting, SOA, fever, and chills. 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 Pt was admitted to inpatient rehab on 04/19 following an ex lap with small bowel resection and ileostomy on 04/14. Since being admitted to inpatient rehab, pt had been tolerating diet and PT well, having ileostomy output, and had no complaints. On 04/24, pt started to c/o L sided rib pain that occurred following PT. Initially, pt stated that the pain was localized to the 7th rib and was dull and mild but got progressively worse throughout day. Imaging was ordered and XRAY of ribs found no fractures but CXR found possible developing pneumonia in the R lung base. Pt was started on Linezolid but became progressively less responsive to questions, moaning and c/o pain only. Workup was remarkable for elevated WBC, thrombocytosis, elevated lac tic acid of 5.84, and elevated procalcitonin. Pt exhibited notable pallor w/mild guerrero hue and was thrashing in the bed moaning. Pt was transferred to the ICU where she became more agitated and was given 10mg of Geodon and 0.5mg of Ativan. Pt had a repeat lactic acid that was elevated to 6.87 and an elevated D-Dimer in the ICU. IV Zosyn and Lovenox were ordered and given. Per nurse, pt experienced an episode of VTACH after transfer but self-resolved. Pt continued to improve over the next few hours and was transferred to fourth floor on 04/26. Today, pt states that she is feeling much better. Workup shows improvement of her thrombocytosis, WBC, and procalcitonin levels. Pt continues to void and have output from her ileostomy. Pt is tolerating her diet well and has been able to ambulate without issue. Due to pt's insurance, her inpatient rehab visit was closed so pt will need to be re-evaluated by inpatient rehab prior to transfer. Review of Systems General: No Chills, No Night Sweats HEENT: No Visual Changes, No Eye Pain Pulmonary: No Dyspnea Cardiovascular: Chest Pain (tightening with laying flat); No: Palpitations, Edema Gastrointestinal: Abdominal Pain (soreness from ileostomy bag change); No: Nausea, Vomiting Genitourinary: No Dysuria, No Frequency Musculoskeletal: No: neck pain, shoulder pain Neurological: No: Weakness, Numbness Objective Exam Last Set of Vital Signs Vital Signs Date Time Temp Pulse Resp B/P (MAP) Pulse Ox O2 Delivery O2 Flow Rate FiO2 04/27/22 11:28 36.9 102 16 97/59 (72) 100 Room Air 04/25/22 09:18 21 Capillary Refill : Less Than 3 Seconds I&O Intake and Output 04/27/22 00:00 Intake Total 5200 ml Output Total 2875 ml Balance 2325 ml Intake Oral 2300 ml IV Total 2900 ml Output Urine Total 2675 ml Stool Total 200 ml General: Alert, Oriented X3 HEENT: PERRLA, Mucous Memb Moist/[place] Neck: Supple, No Thyromegaly, No LAD Lungs: Clear to Auscultation, Normal Air Movement Heart: No Murmurs, Gallops, Rubs Abdomen: Soft, No Tenderness, No Masses, Other (ileostomy on R abd ) Extremities: No Clubbing, No Cyanosis, No Edema Skin: No Rashes, No Significant Lesion Neuro: Normal Speech, Sensation Intact Psych/Mental Status: Mental Status NL, Mood NL Results Lab Laboratory Tests 04/27/22 04:45: White Blood Count 18.8H, Red Blood Count 2.41L, Hemoglobin 7.4L, Hematocrit 24L, Mean Corpuscular Volume 99, Mean Corpuscular Hemoglobin 31, Mean Corpuscular Hemoglobin Concent 31L, Red Cell Distribution Width 18.6H, Platelet Count 447H, Mean Platelet Volume 8.2L, Immature Granulocyte % (Auto) 1, Neutrophils (%) (Auto) 81H, Lymphocytes (%) (Auto) 14, Monocytes (%) (Auto) 4, Eosinophils (%) (Auto) 0, Basophils (%) (Auto) 0, Neutrophils # (Auto) 15.2H, Lymphocytes # (Auto) 2.7, Monocytes # (Auto) 0.7, Eosinophils # (Auto) 0.0, Basophils # (Auto) 0.1, Immature Granulocyte # (Auto) 0.1, Sodium Level 137, Potassium Level 3.0L, Chloride Level 108H, Carbon Dioxide Level 19L, Anion Gap 10, Blood Urea Nitrogen < 2L, Creatinine 0.39L, Estimat Glomerular Filtration Rate 145, BUN/Creatinine Ratio 5, Glucose Level 70, Calcium Level 7.0L, Corrected Calcium 8.8, Magnesium Level 1.8, Total Bilirubin 0.3, Aspartate Amino Transf (AST/SGOT) 22, Alanine A minotransferase (ALT/SGPT) 19, Alkaline Phosphatase 161H, Total Protein 4.1L, Albumin 1.8L 04/27/22 04:50: Procalcitonin 36.70H Microbiology 04/25/22 Blood Culture - Preliminary, Resulted No growth Radiology NAME: AUBREY SCHWARTZ [facility] REC#: [id number] PT STATUS: ADM IN : 2000 PHYSICIAN: KIMI SIDDIQI DO ADMIT DATE: 04/19/22/[facility] Signed Date of Exam:04/24/22 RIBS, LEFT 2-3 VIEWS INDICATION: Rib pain. COMPARISON: None available. TECHNIQUE: Two radiographs of the left-sided ribs dated 04/24/2022. FINDINGS: Catheter tubing is noted overlying the right neck extending into the chest and abdomen, which extends inferior to the [id number]. An additional catheter is seen overlying the right chest, possibly related to a right-sided PICC line. If this is a PICC line, the distal tip likely overlies the right atrium. Surgical clips are seen overlying the upper abdomen as well as chain suture. No large-volume pleural effusion or pneumothorax. No displaced or healing left-sided rib fracture. IMPRESSION: No displaced or healing left-sided rib fracture. No large volume pleural effusion or pneumothorax. Possible right-sided PICC line. If this is a PICC line, this is slightly low lying overlying the right atrium, and retraction could be performed by approximately 2 cm. Dictated by: Dictated on workstation # [id number] Dict: 04/24/22 1347 Trans: 04/24/22 1627 [id number] Interpreted by: NANCY MORGAN MD Electronically signed by: NANCY MORGAN MD 04/24/22 1627 NAME: AUBREY SCHWARTZ [facility] REC#: [id number] PT STATUS: ADM IN : 2000 PHYSICIAN: KIMI SIDDIQI DO ADMIT DATE: 04/19/22/[facility] Signed Date of Exam:04/25/22 CHEST 1 VIEW, AP/PA ONLY INDICATION: Chest pain. FINDINGS: Portable chest show mild increased density along the lateral right lung base. The lungs are well-aerated. The heart is not enlarged. PICC line on the right tip extends into the right atrium. RADIOISOTOPE TECHNICIAN shunt appears intact. Heart is not enlarged. No pneumothorax or pleural effusion. IMPRESSION: Concern of developing pneumonia laterally right lung base. Dictated by: Dictated on workstation # [id number] Dict: 04/25/22 0705 Trans: 04/25/22 1134 [facility] [id number] Interpreted by: FAYE BONILLA MD Electronically signed by: AFYE BONILLA MD 04/25/22 1134 NAME: AUBREY SCHWARTZ [facility] REC#: [id number] PT STATUS: ADM IN : 2000 PHYSICIAN: KIMI SIDDIQI DO ADMIT DATE: 04/25/22/ICU Signed Date of Exam:04/25/22 US VENOUS LOWER EXT YARIEL PROCEDURE: US Venous Lower Ext Yariel. TECHNIQUE: Multiple real-time grayscale images were obtained over the lower extremities in various projections, bilaterally. Additional duplex Doppler and color Doppler images were also obtained. INDICATION: Lower extremity edema. Elevated d-dimer. FINDINGS: Color Doppler imaging shows normal compression and augmentation of flow throughout the lower extremity venous system bilaterally. IMPRESSION: No evidence of venous thrombosis. Dictated by: Dictated on workstation # [id number] Dict: 04/25/22 1119 Trans: 04/25/22 1134 [facility] [id number] Interpreted by: FYAE BONILLA MD Electronically signed by: FAYE BONILLA MD 04/25/22 1134 NAME: AUBREY SCHWARTZ [facility] REC#: [id number] PT STATUS: ADM IN : 2000 PHYSICIAN: BRIAN HINSON MD ADMIT DATE: 04/25/22/ICU Signed Date of Exam:04/25/22 CT ABDOMEN/PELVIS W PROCEDURE: CT abdomen and pelvis with contrast. TECHNIQUE: Multiple contiguous axial images were obtained through the abdomen and pelvis after administration of intravenous contrast. Auto Exposure Controls were utilized during the CT exam to meet ALARA standards for radiation dose reduction. All CT scans use one or more of the following dose optimizing techniques: Automated exposure control, MA and/or KvP adjustment based on patient size and exam type or iterative reconstruction. INDICATION: Sepsis with severe abdominal pain. FINDINGS: CT imaging of the abdomen and pelvis was performed after intravenous administration of iodinated contrast. Note is made of airspace disease throughout the visualized right lower lobe with mild right pleural fluid. Below the diaphragm, note is made of low density in the liver indicating steatosis. The gallbladder is distended without evidence of wall thickening or pericholecystic inflammation. No definite pancreatic or splenic lesion is identified. No adrenal gland abnormality is identified. Kidneys are also unremarkable. There is operative residue with anterior abdominal incision and right lower quadrant ostomy site. Surgical suture is seen along the region of ascending colon. No significant free fluid is seen within the abdomen. The urinary bladder is partially decompressed around a Carrero catheter balloon. There is mild pelvic free fluid. No organized fluid collection is seen to indicate an abscess. IMPRESSION: Postoperative findings in the abdomen with right lower quadrant anterior abdominal wall ostomy. Mild pelvic free fluid may be related to recent surgery or physiologic in nature. No organized fluid collection is seen to indicate abscess. Right basilar infiltrate may be due to pneumonia. This could be on the basis of aspiration with possible parapneumonic pleural fluid. Dictated by: Dictated on workstation # [id number] Dict: 04/25/22 1302 Trans: 04/25/22 1317 [id number] Interpreted by: LINDSEY GONZALEZ MD Electronically signed by: LINDSEY GONZALEZ MD 04/25/22 1317 NAME: AUBREY SCHWARTZ [facility] REC#: [id number] PT STATUS: ADM IN : 2000 PHYSICIAN: BRIAN HINSON MD ADMIT DATE: 04/25/22/ICU Signed Date of Exam:04/25/22 CT HEAD WO PROCEDURE: CT head without contrast. TECHNIQUE: Multiple contiguous axial images were obtained through the brain without the use of intravenous contrast. Auto Exposure Controls were utilized during the CT exam to meet ALARA standards for radiation dose reduction. INDICATION: Severe abdominal pain and sepsis. COMPARISON: There is no previous study for comparison. FINDINGS: The ventricles and sulci are diffusely prominent. There is absence of the corpus callosum. There is a right ventriculoperitoneal shunt tube coursing through a right frontal karen hole which appears to pass through the right lateral ventricle. No hemorrhage is identified. There is no evidence of unexpected axial or extra-axial fluid collection. 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 No acute intracranial abnormality is seen. Dictated by: Dictated on workstation # [id number] Dict: 04/25/22 1256 Trans: 04/25/22 1317 [id number] Interpreted by: LINDSEY GONZALEZ MD Electronically signed by: LINDSEY GONZALEZ MD 04/25/22 1317 NAME: AUBREY SCHWARTZ [facility] REC#: [id number] PT STATUS: ADM IN : 2000 PHYSICIAN: KIMI SIDDIQI DO ADMIT DATE: 04/25/22/ICU Signed Date of Exam:04/26/22 CHEST 1 VIEW, AP/PA ONLY INDICATION: Dyspnea. Comparison is made with prior examination from 04/25/2022 FINDINGS: The heart size is normal. There is a patchy right basilar infiltrate. No pleural effusion or pneumothorax. Mediastinum is unremarkable. There is a right upper extremity PICC line as well as a right internal jugular central venous catheter both of which have the tip in the right atrium. IMPRESSION: Patchy right basilar infiltrate suspect for early pneumonia. Dictated by: Dictated on workstation # [id number] Dict: 04/26/2202 Trans: 04/26/22 0840 [id number] Interpreted by: PHILL SNYDER MD Electronically signed by: PHILL SNYDER MD 04/26/2240 Assessment/Plan Assessment/Plan Assess & Plan/Chief Complaint 1. Severe Sepsis vs Septic shock -Started on 200mls IV Zosyn and IV Linezolid 300mg Q12H (DC 04/26) -Given 1L NS bolus and IV 125ml/hr NS -Blood cultures were unremarkable -Procalcitonin on intake was 30.47, improved to 23.24 on 04/26 04/27: -Procalcitonin is mildly elevated from yesterday at 36.70 2. Hospital acquired pneumonia -CXR 04/25 showed possible RLL pneumonia -IV Linezolid 300mg Q12H (DC 04/26) and 200mls IV Zosyn added to cover possible aspiration 3. Encephalopathy -resolved -CT head unremarkable 4. Metabolic acidosis - AG back within normal range -lactic acid back to normal range 5. Leukocytosis -WBC 11.8 on 04/25, elevated to 18.8 on 04/26 04/27: -WBC still elevated but unchanged from yesterday 4. Thrombocytosis -improved 6. Lactic acidosis -See above 7. Elevated D-dimer -D-dimer of 6.34 on 04/25 -B/L LE Venous Doppler unremarkable -Lovenox started 8. Protein malnutrition - Albumin = 2.5 9. S/p exp lap with bowel resection and ileostomy -continues to have good output, continue to monitor -EICU ordered imaging of abd/pelvis d/t recent abd surgery and h/o Crohn's d isease - all unremarkable 10. Cerebral palsy -Muscle spasticity- takes 10mg TID of Baclofen- currently discontinued -H/o RADIOISOTOPE TECHNICIAN shunt with revision 11. Crohn's Disease -followed by Dr. Campbell in [place] -takes Humira at home - discontinued in hospital 12. Hypokalemia -04/27: decreased to 3.0 from 3.4 Plan: 40 mEq KCl IV Move to rehab pending inpatient rehab evaluation Continue IV abx and IV NS fluids PT DC Telemetry Clinical Quality Measures Admission Status Admission Dx 1. Severe Sepsis vs Septic shock -Started on 200mls IV Zosyn and IV Linezolid 300mg Q12H -Given 1L NS bolus and IV 125ml/hr NS -Continue to monitor blood pressure and urine output -Blood cultures ordered -Consider repeat procalcitonin levels tomorrow 2. Hospital acquired pneumonia -CXR 04/25 showed possible RLL pneumonia -IV Linezolid 300mg Q12H and 200mls IV Zosyn added to cover possible aspiration -monitor O2 sats, manage as needed 3. Encephalopathy -Mentation change from baseline, most recently more confused per EICU note -multiple attempts to acquire ABGs unsuccessful -CT head ordered 4. Metabolic acidosis - AG of 16 today -continue to monitor lactic acidosis, last lab was 6.87 5. Leukocytosis -WBC elevated to 11.8, continue to monitor 4. Thrombocytosis -Plt count elevated to 681, continue to monitor 6. Lactic acidosis -See above 7. Elevated D-dimer -D-dimer of 6.34 -B/L LE Venous Doppler unremarkable -Lovenox started 8. Protein malnutrition - Albumin = 2.5 -currently NPO, will consider nutrition supplementation when appropriate 9. S/p exp lap with bowel resection and ileostomy -continues to have good output, continue to monitor -EICU will order imaging of abd/pelvis d/t recent abd surgery and h/o Crohn's disease 10. Cerebral palsy -Muscle spasticity- takes 10mg TID of Baclofen- currently discontinued -H/o RADIOISOTOPE TECHNICIAN shunt with revision 11. Crohn's Disease -followed by Dr. Campbell in [place] -takes Humira at home - discontinued in hospital KIMI SIDDIQI 04/27/224: Subjective Subjective/Events-last exam Doing much better No dyspnea No confusion No pain Ileostomy output good Review of Systems General: Fatigue, Malaise Objective Exam General: Alert, Oriented X3, Cooperative, No Acute Distress Lungs: Clear to Auscultation, Normal Air Movement Heart: Regular Rate, Normal S1, Normal S2, No Murmurs Psych/Mental Status: Mental Status NL, Mood NL Assessment/Plan Assessment/Plan Assess & Plan/Chief Complaint Replace potassium ARU when recovered Supervisory-Addendum Brief Verification & Attestation Participated in pt care: history, MDM, physical Personally performed: exam, history, MDM, supervision of care Care discussed with: Medical Student Procedures: n/a Results interpretation: Verified all documentation Verification and Attestation of Medical Student E/M Service A medical student performed and documented this service in my presence. I reviewed and verified all information documented by the medical student and made modifications to such information, when appropriate. I personally performed the physical exam and medical decision making. Kimi Siddiqi, Apr 27, 2022,21:04 HIRAM HERNANDEZ Apr 27, 2022 12:29 KIMI SIDDIQI DO Apr 27, 2022 21:04
--- NOTE | 2022-04-27 13:33 | Occupational Ther Daily Note ---
OT Current Status-Daily Note Subjective Pt alert, lying in bed. Pt agrees to therapy. No c/o pain. Mental Status/Objective Patient Orientation: Person, Place, Time, Situation Attachments: Carrero Catheter, IV ADL-Treatment Therapy Code Descriptions/Definitions Functional [place] Measure: 0=Not Assessed/NA 4=Minimal Assistance 1=Total Assistance 5=Supervision or Setup 2=Maximal Assistance 6=Modified [place] 3=Moderate Assistance 7=Complete IndependenceSCALE: Activities may be completed with or without assistive devices. 1-Kjzyrioyta-gptbdeu completes the activity by him/herself with no assistance from a helper. 5-Set-up or Clean-up Assistance-helper sets up or cleans up; patient completes activity. [place] assists only prior to or following the activity. 4-Supervision or Touching Assistance-helper provides verbal cues and/or touching/steadying and/or contact guard assistance as patient completes activity. Assistance may be provided throughout the activity or intermittently. 3-Partial/Moderate Assistance-helper does LESS THAN HALF the effort. [place] lifts, holds or supports trunk or limbs, but provides less than half the effort. 2-Substantial/Maximal Assistance-helper does MORE THAN HALF the effort. [place] lifts or holds trunk or limbs and provides more than half the effort. 5-Affonwygb-dsnyck does ALL the effort. Patient does none of the effort to complete the activity. Or, the assistance of 2 or more helpers is required for the patient to complete the activity. If activity was not attempted, code reason: 7-Patient Refused. 9-Not Applicable-not attempted and the patient did not perform the activity before the current illness, exacerbation or injury. 10-Not Attempted due to Environmental Limitations-(lack of equipment, weather restraints, etc.). 88-Not Attempted due to Medical Conditions or Safety Concerns. Other Treatment Pt moves slow and requires time to complete bed mobility or ADL task. E ncouragement needed to complete tasks on own. Min A for B LE for supine <--> EOB. Pt ambulated 10' using FWW with CGA. Pt stated that her arms were tired after the ambulation and bed mobility. Pt encouraged to arrange items on tray to pt's liking to work on strengthening and increasing stamina of B UE's. Pt educated on use of spirometer. After session, pt lying in bed with call light/phone in reach. All needs met in room. OT Snf Goals Snf Goals Time Frame: May 04, 2022 Eating (QC): 5 Toileting Hygiene (QC): 88 Shower/Bathe Self (QC): 4 Upper Body Dressing (QC): 5 Lower Body Dressing (QC): 4 On/Off Footwear (QC): 4 Additional Goals: 1-Demonstrate ADL Tasks, 2-Verbalize Understanding, 3- ImproveStrength/Tim 1=Demonstrate adherence to instructed precautions during ADL tasks. 2=Patient will verbalize/demonstrate understanding of assistive devices/modifications for ADL. 3=Patient will improve strength/tolerance for activity to enable patient to perform ADL's. OT Education/Plan Problem List/Assessment Assessment: Decreased Activ Tolerance, Decreased UE Strength, Impaired Bed Mobility, Impaired Self-Care Skills Discharge Recommendations Plan/Recommendations: Continue POC Treatment Plan/Plan of Care Patient would benefit from OT for education, treatment and training to promote independence in ADL's, mobility, safety and/or upper extremity function for ADL's. Plan of Care: ADL Retraining, Functional Mobility, UE Funct Exercise/Act Treatment Duration: May 04, 2022 Frequency: 3 times per week (3-5 times per week) Estimated Hrs Per Day: .25 hour per day Agreement: Yes Rehab Potential: Fair Time/GCodes Start Time: 13:00 Stop Time: 13:23 Total Time Billed (hr/min): 23 Billed Treatment Time 1 visit-FA 2 (23 min) VALENTINA CASTRO Apr 27, 2022 13:33
--- NOTE | 2022-04-27 14:01 | Therapy Team Discharge Summary ---
Therapy Discharge Summary Discharge Recommendations Date of Discharge Physical Therapy Patient came to rehab with SBO s/p Exp lap, ileostomy. Upon evaluation patient performs rolling with min assist, supine to sit min assist, sit to supine mod assist, sit <-> stand and transfers CGA, car transfer min assist, ambulate 75' with a rolling walker with CGA (including 50' with at least 2 turns of 90 degrees but needs min assist for 10' over an uneven surface), and picked up an object from the floor using a band cutter with CGA. Patient has been performing bed mobility and transfer training, balance and endurance training, functional strengthening, stair training, gait training, and education. Patient had made some progress but had to leave due to medical complications. Patient's last QC measurements were not able to be obtained. Patient will be discharged from PT at this time. 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 Rarely or not at all 2. Occasionally 3. Frequently 4. Almost constantly 8. Unable to answer Roll Left to Right (QC): 6 Sit to Lying (QC): 6 Lying-Sitting on Side/Bed(QC): 6 Sit to Stand (QC): 5 Chair/Xsq-rh-Fmlmg Xfer(QC): 5 Walk 10 feet (QC): 5 Walk 50ft with 2 Turns (QC): 5 Walk 150 ft (QC): 5 OT Prison Goals Prison Goals Time Frame: May 04, 2022 Eating (QC): 5 Toileting Hygiene (QC): 88 Shower/Bathe Self (QC): 4 Upper Body Dressing (QC): 5 Lower Body Dressing (QC): 4 On/Off Footwear (QC): 4 Additional Goals: 1-Demonstrate ADL Tasks, 2-Verbalize Understanding, 3- ImproveStrength/Tim 1=Demonstrate adherence to instructed precautions during ADL tasks. 2=Patient will verbalize/demonstrate understanding of assistive devices/modifications for ADL. 3=Patient will improve strength/tolerance for activity to enable patient to perform ADL's. PA ROGERS PT Apr 27, 2022 14:01
--- NOTE | 2022-04-27 14:46 | Physical Therapy Daily Note ---
PT Daily Note-Current Subjective Patient in bed pre tx, agrees to PT, has 2/10 pain in abdomen Pain Section J - Health Conditions 1. Rarely or not at all 2. Occasionally 3. Frequently 4. Almost constantly 8. Unable to answer Pain Effect on Sleep: 2 Pain Interference with Therapy: 2 Pain Interference w/Day-to-Day: 2 Appearance Patient in recliner post tx with nurse call, phone, tray, all needs met. Mental Status Patient Orientation: Person, Place, Situation Attachments: Carrero Catheter, IV Transfers SCALE: Activities may be completed with or without assistive devices. 6-Ztukmnkqtf-pygtbmj completes the activity by him/herself with no assistance from a helper. 5-Set-up or Clean-up Assistance-helper sets up or cleans up; patient completes activity. [place] assists only prior to or following the activity. 4-Supervision or Touching Assistance-helper provides verbal cues and/or touching/steadying and/or contact guard assistance as patient completes activity. Assistance may be provided throughout the activity or intermittently. 3-Partial/Moderate Assistance-helper does LESS THAN HALF the effort. [place] lifts, holds or supports trunk or limbs, but provides less than half the effort. 2-Substantial/Maximal Assistance-helper does MORE THAN HALF the effort. [place] lifts or holds trunk or limbs and provides more than half the effort. 9-Tpmupzprd-cakvzs does ALL the effort. Patient does none of the effort to co mplete the activity. Or, the assistance of 2 or more helpers is required for the patient to complete the activity. If activity was not attempted, code reason: 7-Patient Refused. 9-Not Applicable-not attempted and the patient did not perform the activity before the current illness, exacerbation or injury. 10-Not Attempted due to Environmental Limitations-(lack of equipment, weather restraints, etc.). 88-Not Attempted due to Medical Conditions or Safety Concerns. Roll Left & Right (QC): 4 Lying to Sitting/Side of Bed(Q: 3 Sit to Stand (QC): 4 Chair/Rri-lo-Ntwbu Xfer(QC): 4 min assist for supine to sit, CGA for sit to stand Gait Training Distance: 20' Walk 10 feet (QC): 4 Gait Persons Needed: 1 Gait Assistive Device: FWW CGA, slow ambulation, needs assist guiding walker Exercises Seated Therapy Exercises: Long arc quads Seated Reps: 20 Treatments bed mobility and transfers, ambulation Assessment Current Status: Fair Progress patient lora well PT Manager Business Banking Goals Jail Goals PT Jail Goals Time Frame: May 05, 2022 Roll Left & Right (QC): 6 Sit to Lying (QC): 6 Lying-Sitting on Side/Bed(QC): 6 Sit to Stand (QC): 5 Chair/Dcs-mp-Fkgat Xfer(QC): 5 Toilet Transfer (QC): 5 Walk 10 feet (QC): 5 Walk 50ft with 2 Turns (QC): 5 Walk 150 ft (QC): 5 PT Plan Problem List Problem List: Activity Tolerance, Functional Strength, Safety, Balance, Gait, Transfer, Bed Mobility, ROM Treatment/Plan Treatment Plan: Continue Plan of Care Treatment Plan: Bed Mobility, Education, Functional Activity Tim, Functional Strength, Gait, Safety, Therapeutic Exercise, Transfers Treatment Duration: May 05, 2022 Frequency: 6 times per week Estimated Hrs Per Day: .25 hour per day Safety Risks/Education Patient Education: Gait Training, Transfer Techniques, Correct Positioning, Safety Issues Teaching Recipient: Patient Teaching Methods: Demonstration, Discussion Response to Teaching: Reinforcement Needed Time/GCodes Time In: 1420 Time Out: 1437 Total Billed Treatment Time: 17 Total Billed Treatment 1 visit FA PA MASTERSON PT Apr 27, 2022 14:46
[2022-04-28] VITALS (9 sets, daily range): BP systolic 92–108; BP diastolic 52–70
[2022-04-28] MEDS: PIPERACILLIN SODIUM/TAZOBACTAM 3.375 GM in NS (IVPB) 100 ML IV SCH ×3 (02:20→17:58)
--- NOTE | 2022-04-28 05:32 | Progress Note ---
Subjective Date Seen by a Provider: Apr 28, 2022 Time Seen by a Provider: 08:00 Subjective/Events-last exam Patient doing well Improvement overall DC IVF wbc is stable and normal No falls No pain Ostomy functioning Review of Systems General: Fatigue, Malaise Objective Exam Last Set of Vital Signs Vital Signs Date Time Temp Pulse Resp B/P (MAP) Pulse Ox O2 Delivery O2 Flow Rate FiO2 04/28/22 03:42 37.1 97 16 100/59 (73) 100 Room Air 04/25/22 09:18 21 Capillary Refill : Less Than 3 Seconds I&O Intake and Output 04/28/22 00:00 Intake Total 2860 ml Output Total 2850 ml Balance 10 ml Intake Oral 1660 ml IV Total 1200 ml Output Urine Total 1300 ml Stool Total 1550 ml General: Alert, Oriented X3, Cooperative, No Acute Distress Lungs: Clear to Auscultation, Normal Air Movement Heart: Regular Rate, Normal S1, Normal S2, No Murmurs Psych/Mental Status: Mental Status NL, Mood NL Results Lab Microbiology 04/25/22 Blood Culture - Preliminary, Resulted No growth Assessment/Plan Assessment/Plan Assess & Plan/Chief Complaint 1. Severe Sepsis vs Septic shock 2. Hospital acquired pneumonia 3. Encephalopathy 4. Metabolic acidosis 5. Leukocytosis 4. Thrombocytosis 6. Lactic acidosis -See above 7. Elevated D-dimer 8. Protein malnutrition - Albumin = 2.5 9. S/p exp lap with bowel resection and ileostomy 10. Cerebral palsy 11. Crohn's Disease Plan: Continue Zosyn Monitor labs HLIVF Clinical Quality Measures Admission Status Admission Dx NEERUNKECHI SAMPSON Apr 28, 2022 05:32
[2022-04-28 05:52] LABS: BASOPHILS % (AUTO) 0 % (0-10); EOSINOPHILS # (AUTO) 0.1 10^3/uL (0.0-0.3); EOSINOPHILS % (AUTO) 1 % (0-10); HEMATOCRIT 23 % (35-52); LYMPHOCYTES # (AUTO) 2.7 10^3/uL (1.0-4.0); LYMPHOCYTES % (AUTO) 28 % (12-44); MEAN CORPUSCULAR HEMOGLOBIN 30 pg (25-34); MEAN CORPUSCULAR HGB CONC 31 g/dL (32-36); MEAN CORPUSCULAR VOLUME 98 fL (80-99); MEAN PLATELET VOLUME 8.2 fL (9.0-12.2); MONOCYTES # (AUTO) 0.5 10^3/uL (0.0-1.0); MONOCYTES % (AUTO) 5 % (0-12); NEUTROPHILS # (AUTO) 6.3 10^3/uL (1.8-7.8); NEUTROPHILS % (AUTO) 65 % (42-75); PLATELET COUNT 363 10^3/uL (130-400); WHITE BLOOD COUNT 9.7 10^3/uL (4.3-11.0)
[2022-04-28 05:56] LABS: HEMOGLOBIN 6.9 g/dL (11.5-16.0)
[2022-04-28 06:13] LABS: ALBUMIN 1.8 GM/DL (3.2-4.5); POTASSIUM 3.3 MMOL/L (3.6-5.0)
[2022-04-28 06:14] LABS: CALCIUM 7.1 MG/DL (8.5-10.1)
[2022-04-28 06:15] LABS: TOTAL PROTEIN 4.2 GM/DL (6.4-8.2)
[2022-04-28 06:17] LABS: BILIRUBIN,TOTAL 0.3 MG/DL (0.1-1.0)
[2022-04-28 06:19] LABS: CREATININE SERUM 0.42 MG/DL (0.60-1.30)
[2022-04-28 06:22] LABS: MAGNESIUM 1.8 MG/DL (1.6-2.4)
[2022-04-28] MEDS: SENNOSIDES 8.6 MG (SENOKOT) TAB PO SCH ×2 (08:23→20:00)
[2022-04-28] MEDS: DOCUSATE SODIUM 100 MG (COLACE) CAP PO SCH ×2 (08:23→20:00)
[2022-04-28] MEDS: meTOprolol TARTRATE 25 MG (LOPRESSOR) TABLET PO SCH ×3 (08:23→19:56)
[2022-04-28] MEDS ORDERED: NS IV 500 ML 500 ML IV SCH (09:00)
[2022-04-28] MEDS: POTASSIUM CL 10MEQ/50ML IVPB 50 ML IV SCH ×8 (09:38→22:13)
[2022-04-28] MEDS: ENOXAPARIN INJECTION 30 MG/0.3 ML SYR SC SCH (10:46)
--- NOTE | 2022-04-28 10:56 | Physical Therapy Daily Note ---
PT Daily Note-Current Subjective Pt. in bed and readily agrees to therapy. She has no c/o pain. Pain Section J - Health Conditions 1. Rarely or not at all 2. Occasionally 3. Frequently 4. Almost constantly 8. Unable to answer Pain Effect on Sleep: 2 Pain Interference with Therapy: 2 Pain Interference w/Day-to-Day: 2 Mental Status Patient Orientation: Person, Place, Time, Situation Attachments: Carrero Catheter Transfers SCALE: Activities may be completed with or without assistive devices. 8-Quslimxebw-ndzwaqy completes the activity by him/herself with no assistance from a helper. 5-Set-up or Clean-up Assistance-helper sets up or cleans up; patient completes activity. [place] assists only prior to or following the activity. 4-Supervision or Touching Assistance-helper provides verbal cues and/or touc piero/steadying and/or contact guard assistance as patient completes activity. Assistance may be provided throughout the activity or intermittently. 3-Partial/Moderate Assistance-helper does LESS THAN HALF the effort. [place] lifts, holds or supports trunk or limbs, but provides less than half the effort. 2-Substantial/Maximal Assistance-helper does MORE THAN HALF the effort. [place] lifts or holds trunk or limbs and provides more than half the effort. 0-Uzbhlqjdg-gxsjkx does ALL the effort. Patient does none of the effort to complete the activity. Or, the assistance of 2 or more helpers is required for the patient to complete the activity. If activity was not attempted, code reason: 7-Patient Refused. 9-Not Applicable-not attempted and the patient did not perform the activity before the current illness, exacerbation or injury. 10-Not Attempted due to Environmental Limitations-(lack of equipment, weather restraints, etc.). 88-Not Attempted due to Medical Conditions or Safety Concerns. Lying to Sitting/Side of Bed(Q: 4 Sit to Stand (QC): 4 Gait Training Does the Patient Walk?: Yes Distance: 15 ft Walk 10 feet (QC): 4 Gait Persons Needed: 1 Gait Assistive Device: FWW therapist assist to maneuver walker for turns Assessment Current Status: Good Progress Pt. was steady when on her feet and ambulating. She did need min a with LE's to supine to sit. Pt. up in bedside chair post session with breakfast set up and all needs met. PT House Coordinator Goals House Coordinator Goals PT [facility] Goals Time Frame: May 05, 2022 Roll Left & Right (QC): 6 Sit to Lying (QC): 6 Lying-Sitting on Side/Bed(QC): 6 Sit to Stand (QC): 5 Chair/Lyc-dn-Kqlmm Xfer(QC): 5 Toilet Transfer (QC): 5 Walk 10 feet (QC): 5 Walk 50ft with 2 Turns (QC): 5 Walk 150 ft (QC): 5 PT Plan Treatment/Plan Treatment Plan: Continue Plan of Care Treatment Plan: Bed Mobility, Education, Functional Activity Tim, Functional Strength, Gait, Safety, Therapeutic Exercise, Transfers Treatment Duration: May 05, 2022 Frequency: 6 times per week Estimated Hrs Per Day: .25 hour per day Time/GCodes Time In: 0820 Time Out: 0840 Total Billed Treatment Time: 20 Total Billed Treatment 1, GT 15', (FA 5') KATHLEEN CARDOSO PT Apr 28, 2022 10:56
--- NOTE | 2022-04-28 12:11 | Cardiology Progress Note ---
Subjective Date Seen by Provider: Apr 28, 2022 Time Seen by Provider: 12:09 Subjective/Events-last exam Patient was seen at bedside, has been doing well. Denied any chest pain Review of Systems General: No Chills, No Night Sweats; Fatigue; No Malaise, No Appetite, No Other HEENT: No Head Aches, No Visual Changes, No Eye Pain, No Ear Pain, No Dysphasia, No Sinus Congestion, No Post Nasal Drip, No Sore Throat, No Other Pulmonary: No Dyspnea, No Cough, No Pleuritic Chest Pain, No Other Cardiovascular: No: Chest Pain, Palpitations, Orthopnea, Paroxysmal Noc. Dyspnea, Edema, Lt Headedness, Other Objective-Cardiology Exam Last Set of Vital Signs Vital Signs 04/25/22 04/28/22 09:18 11:22 Temp 36.4 Pulse 105 Resp 18 B/P (MAP) 95/59 (71) Pulse Ox 100 O2 Delivery Room Air FiO2 21 I&O Intake and Output 04/28/22 00:00 Intake Total 2860 ml Output Total 2850 ml Balance 10 ml Intake Oral 1660 ml IV Total 1200 ml Output Urine Total 1300 ml Stool Total 1550 ml General: Alert, Oriented X3, Cooperative, No Acute Distress HEENT: PERRLA, Mucous Memb Moist/[place] Neck: Supple, No Thyromegaly, No LAD Lungs: Clear to Auscultation, Normal Air Movement Heart: Regular Rate, Normal S1, Normal S2, No Murmurs, Other (Tachycardia) Abdomen: Soft, No Tenderness, No Masses, Other (ileostomy on R abd ) Extremities: No Clubbing, No Cyanosis, No Edema Skin: No Rashes, No Significant Lesion Neuro: Normal Speech, Sensation Intact Psych/Mental Status: Mental Status NL, Mood NL Results Lab Laboratory Tests 04/28/22 05:38 A/P-Cardiology Admission Diagnosis Sepsis Lactic acidosis Wide-complex tachycardia Pneumonia Assessment/Plan Status post severe sepsis, hospital-acquired pneumonia Improved, responded to antibiotic Currently doing better. Anemia, drop in H&H. Awaiting blood transfusion Continue to monitor Sinus tachycardia, probably secondary to above. Started on low-dose beta-blockers Continue to monitor heart rate Status post encephalopathy, acute change in mental status. Improved, awake and talkative today Back to baseline, managed by medical team. Wide-complex tachycardia, irregular, most probably paroxysmal atrial tachycardia with aberrant conduction. Total of 5 beats. No previous history of ventricular tachycardia. Currently in sinus tachycardia. Started on low-dose beta-blockers, tolerating medication well. Continue to monitor Metabolic acidosis secondary to lactic acidosis. Being corrected. Status post exploratory laparoscopy with small bowel resection and ileostomy done on April 14, 2022 Continue to monitor History of Crohn's disease. 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 DIEGO PARIKH MD Apr 28, 2022 12:11
[2022-04-28] MEDS ORDERED: POTASSIUM CL 10MEQ/50ML IVPB 50 ML IV ONE (21:59)
[2022-04-29] VITALS (7 sets, daily range): BP systolic 97–111; BP diastolic 64–78
[2022-04-29] MEDS: PIPERACILLIN SODIUM/TAZOBACTAM 3.375 GM in NS (IVPB) 100 ML IV SCH ×2 (02:05→09:49)
[2022-04-29 06:03] LABS: BASOPHILS % (AUTO) 1 % (0-10); EOSINOPHILS # (AUTO) 0.1 10^3/uL (0.0-0.3); EOSINOPHILS % (AUTO) 1 % (0-10); HEMATOCRIT 28 % (35-52); HEMOGLOBIN 9.5 g/dL (11.5-16.0); LYMPHOCYTES % (AUTO) 35 % (12-44); MEAN CORPUSCULAR HEMOGLOBIN 30 pg (25-34); MEAN CORPUSCULAR HGB CONC 34 g/dL (32-36); MEAN CORPUSCULAR VOLUME 90 fL (80-99); MEAN PLATELET VOLUME 8.3 fL (9.0-12.2); MONOCYTES # (AUTO) 0.7 10^3/uL (0.0-1.0); MONOCYTES % (AUTO) 9 % (0-12); NEUTROPHILS # (AUTO) 4.6 10^3/uL (1.8-7.8); NEUTROPHILS % (AUTO) 54 % (42-75); PLATELET COUNT 301 10^3/uL (130-400); WHITE BLOOD COUNT 8.5 10^3/uL (4.3-11.0)
[2022-04-29 06:19] LABS: POTASSIUM 3.9 MMOL/L (3.6-5.0)
[2022-04-29 06:20] LABS: CALCIUM 7.6 MG/DL (8.5-10.1)
[2022-04-29 06:21] LABS: TOTAL PROTEIN 4.6 GM/DL (6.4-8.2)
[2022-04-29 06:23] LABS: BILIRUBIN,TOTAL 0.5 MG/DL (0.1-1.0)
[2022-04-29 06:25] LABS: CREATININE SERUM 0.44 MG/DL (0.60-1.30)
[2022-04-29 06:27] LABS: MAGNESIUM 1.7 MG/DL (1.6-2.4)
--- NOTE | 2022-04-29 07:42 | Progress Note ---
Subjective Date Seen by a Provider: Apr 29, 2022 Time Seen by a Provider: 10:30 Subjective/Events-last exam Much improved status No cough No pain BM's good No falls Review of Systems General: Fatigue, Malaise Objective Exam Last Set of Vital Signs Vital Signs Date Time Temp Pulse Resp B/P (MAP) Pulse Ox O2 Delivery O2 Flow Rate FiO2 04/29/22 03:22 36.9 101 18 103/72 (82) 98 Room Air 04/25/22 09:18 21 Capillary Refill : Less Than 3 Seconds I&O Intake and Output 04/28/22 23:59 Intake Total 2660 ml Output Total 2275 ml Balance 385 ml Intake Oral 1360 ml IV Total 1300 ml Output Urine Total 450 ml Stool Total 1825 ml General: Alert, Oriented X3, Cooperative, No Acute Distress Lungs: Clear to Auscultation, Normal Air Movement Heart: Regular Rate, Normal S1, Normal S2, No Murmurs Psych/Mental Status: Mental Status NL, Mood NL Results Lab Laboratory Tests 04/29/22 05:54: White Blood Count 8.5, Red Blood Count 3.15L, Hemoglobin 9.5#L, Hematocrit 28L, Mean Corpuscular Volume 90, Mean Corpuscular Hemoglobin 30, Mean Corpuscular Hemoglobin Concent 34, Red Cell Distribution Width 19.2H, Platelet Count 301, Mean Platelet Volume 8.3L, Immature Granulocyte % (Auto) 1, Neutrophils (%) (Auto) 54, Lymphocytes (%) (Auto) 35, Monocytes (%) (Auto) 9, Eosinophils (%) (Auto) 1, Basophils (%) (Auto) 1, Neutrophils # (Auto) 4.6, Lymphocytes # (Auto) 3.0, Monocytes # (Auto) 0.7, Eosinophils # (Auto) 0.1, Basophils # (Auto) 0.0, Immature Granulocyte # (Auto) 0.1, Sodium Level 136, Potassium Level 3.9, Chloride Level 107, Carbon Dioxide Level 21, Anion Gap 8, Blood Urea Nitrogen 4L , Creatinine 0.44L, Estimat Glomerular Filtration Rate 141, BUN/Creatinine Ratio 9, Glucose Level 84, Calcium Level 7.6L, Corrected Calcium 9.2, Magnesium Level 1.7, Total Bilirubin 0.5, Aspartate Amino Transf (AST/SGOT) 18, Alanine Aminotransferase (ALT/SGPT) 16, Alkaline Phosphatase 157H, Total Protein 4.6L, Albumin 2.0L Microbiology 04/25/22 Blood Culture - Preliminary, Resulted No growth Assessment/Plan Assessment/Plan Assess & Plan/Chief Complaint 1. Severe Sepsis vs Septic shock 2. Hospital acquired pneumonia 3. Encephalopathy 4. Metabolic acidosis 5. Leukocytosis 4. Thrombocytosis 6. Lactic acidosis -See above 7. Elevated D-dimer 8. Protein malnutrition - Albumin = 2.5 9. S/p exp lap with bowel resection and ileostomy 10. Cerebral palsy 11. Crohn's Disease Plan: DC Zosyn and start Augmentin Monitor labs HLIVF Clinical Quality Measures Admission Status Admission Dx NKECHI SIDDIQI DO Apr 29, 2022 07:42
[2022-04-29] MEDS: DOCUSATE SODIUM 100 MG (COLACE) CAP PO SCH ×2 (09:44→20:31)
[2022-04-29] MEDS: SENNOSIDES 8.6 MG (SENOKOT) TAB PO SCH ×2 (09:44→20:31)
[2022-04-29] MEDS: meTOprolol TARTRATE 25 MG (LOPRESSOR) TABLET PO SCH ×3 (09:45→20:30)
[2022-04-29] MEDS ORDERED: DICYCLOMINE 10 MG (BENTYL) CAP PO PRN (11:30)
[2022-04-29] MEDS ORDERED: BACLOFEN 10 MG (LIORESAL) TAB PO PRN (11:30)
[2022-04-29] MEDS ORDERED: HYDROcodone/APAP 5 MG/325 MG (LORTAB) TAB PO PRN (11:30)
--- NOTE | 2022-04-29 11:51 | Cardiology Progress Note ---
Subjective Date Seen by Provider: Apr 29, 2022 Time Seen by Provider: 11:50 Subjective/Events-last exam Patient was seen at bedside, sitting comfortably, feeling well today. No new complaint. Review of Systems General: No Chills, No Night Sweats, No Fatigue, No Malaise, No Appetite, No Ot her HEENT: No Head Aches, No Visual Changes, No Eye Pain, No Ear Pain, No Dysp hasia, No Sinus Congestion, No Post Nasal Drip, No Sore Throat, No Other Pulmonary: No Dyspnea, No Cough, No Pleuritic Chest Pain, No Other Cardiovascular: No: Chest Pain, Palpitations, Orthopnea, Paroxysmal Noc. Dyspnea, Edema, Lt Headedness, Other Objective-Cardiology Exam Last Set of Vital Signs Vital Signs 04/25/22 04/29/22 09:18 11:19 Temp 37.2 Pulse 89 Resp 18 B/P (MAP) 100/65 (77) Pulse Ox 98 O2 Delivery Room Air FiO2 21 I&O Intake and Output 04/29/22 00:00 Intake Total 2660 ml Output Total 2275 ml Balance 385 ml Intake Oral 1360 ml IV Total 1300 ml Output Urine Total 450 ml Stool Total 1825 ml General: Alert, Oriented X3, Cooperative, No Acute Distress HEENT: PERRLA, Mucous Memb Moist/[place] Neck: Supple, No Thyromegaly, No LAD Lungs: Clear to Auscultation, Normal Air Movement Heart: Regular Rate, Normal S1, Normal S2, No Murmurs Abdomen: Soft, No Tenderness, No Masses, Other (ileostomy on R abd ) Extremities: No Clubbing, No Cyanosis, No Edema Skin: No Rashes, No Significant Lesion Neuro: Normal Speech, Sensation Intact Psych/Mental Status: Mental Status NL, Mood NL Results Lab Laboratory Tests 04/29/22 05:54 A/P-Cardiology Admission Diagnosis Sepsis Lactic acidosis Wide-complex tachycardia Pneumonia Assessment/Plan Status post severe sepsis, hospital-acquired pneumonia Improved, responded to antibiotic Currently doing better. Anemia, drop in H&H. Status post blood transfusion, H&H are better Managed by medical team. Sinus tachycardia, probably secondary to above. Heart rate is better, tolerating low-dose metoprolol. Continue to monitor Status post encephalopathy, acute change in mental status. Improved, awake and talkative today Back to baseline, managed by medical team. Wide-complex tachycardia, irregular, most probably paroxysmal atrial tachycardia with aberrant conduction. Total of 5 beats. No previous history of ventricular tachycardia. Currently in sinus tachycardia. Started on low-dose beta-blockers, tolerating medication well. Continue to monitor Metabolic acidosis secondary to lactic acidosis. Being corrected. Status post exploratory laparoscopy with small bowel resection and ileostomy done on April 14, 2022 Continue to monitor History of Crohn's disease. 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 DIEGO PARIKH MD Apr 29, 2022 11:51
[2022-04-29] MEDS: LACTOBACILLUS ACIDOPHILUS (PROBIOTIC) CAPSULE PO SCH ×2 (13:05→17:08)
[2022-04-29] MEDS: ENOXAPARIN INJECTION 30 MG/0.3 ML SYR SC SCH (13:11)
[2022-04-29] MEDS: AUGMENTIN 875 MG TAB (AMOXICILLIN/CLAVULANATE) PO SCH (17:08)
[2022-04-29] MEDS: PANTOPRAZOLE 40 MG (PROTONIX) TAB PO SCH (20:30)
[2022-04-30] VITALS (7 sets, daily range): BP systolic 100–109; BP diastolic 64–79
[2022-04-30 05:57] LABS: BASOPHILS % (AUTO) 0 % (0-10); EOSINOPHILS # (AUTO) 0.1 10^3/uL (0.0-0.3); EOSINOPHILS % (AUTO) 2 % (0-10); HEMATOCRIT 32 % (35-52); HEMOGLOBIN 10.2 g/dL (11.5-16.0); LYMPHOCYTES % (AUTO) 41 % (12-44); MEAN CORPUSCULAR HEMOGLOBIN 29 pg (25-34); MEAN CORPUSCULAR HGB CONC 32 g/dL (32-36); MEAN CORPUSCULAR VOLUME 91 fL (80-99); MEAN PLATELET VOLUME 8.2 fL (9.0-12.2); MONOCYTES # (AUTO) 0.7 10^3/uL (0.0-1.0); MONOCYTES % (AUTO) 9 % (0-12); NEUTROPHILS # (AUTO) 3.5 10^3/uL (1.8-7.8); NEUTROPHILS % (AUTO) 48 % (42-75); PLATELET COUNT 329 10^3/uL (130-400); WHITE BLOOD COUNT 7.4 10^3/uL (4.3-11.0)
[2022-04-30 06:20] LABS: ALBUMIN 2.1 GM/DL (3.2-4.5); BILIRUBIN,TOTAL 0.4 MG/DL (0.1-1.0); CALCIUM 8.3 MG/DL (8.5-10.1); CREATININE SERUM 0.42 MG/DL (0.60-1.30); MAGNESIUM 1.7 MG/DL (1.6-2.4); POTASSIUM 3.8 MMOL/L (3.6-5.0); TOTAL PROTEIN 4.9 GM/DL (6.4-8.2)
[2022-04-30] MEDS: ACETAMINOPHEN 500 MG TAB (TYLENOL) PO PRN (07:13)
[2022-04-30] MEDS: LACTOBACILLUS ACIDOPHILUS (PROBIOTIC) CAPSULE PO SCH ×3 (08:21→17:54)
[2022-04-30] MEDS: AUGMENTIN 875 MG TAB (AMOXICILLIN/CLAVULANATE) PO SCH ×2 (08:21→17:55)
[2022-04-30] MEDS: PANTOPRAZOLE 40 MG (PROTONIX) TAB PO SCH ×2 (08:21→20:56)
[2022-04-30] MEDS: DOCUSATE SODIUM 100 MG (COLACE) CAP PO SCH ×3 (08:21→12:06)
[2022-04-30] MEDS: FLUTICASONE NASAL SPRAY (FLONASE) 16 GM BTL NS SCH (08:22)
[2022-04-30] MEDS: LORATADINE (CLARITIN) 10 MG TAB PO SCH (08:22)
[2022-04-30] MEDS: meTOprolol TARTRATE 25 MG (LOPRESSOR) TABLET PO SCH ×3 (08:22→20:56)
[2022-04-30] MEDS: SENNOSIDES 8.6 MG (SENOKOT) TAB PO SCH ×2 (08:26→20:42)
--- NOTE | 2022-04-30 09:03 | Progress Note - Surgery ---
LORI OROZCO 04/30/22 0903: Subjective Date Seen by a Provider: Apr 30, 2022 Subjective/Events-last exam Pt is awake and sitting in chair comfortably. She reports she is feeling "amazing" today. She denies any abdominal pain. Her PNA seems improved, pt denies SOA and states cough has improved. We were consulted to examine her midline incision because the pt has been questioning when she can have carmenza removed. Her incision looks clean, dry and intact. She reports no pain at the site. She denies any drainage, and none is present on exam. Her incision is not warm or erythematous. Pt reports slight itching at the incision site, but she has done her best not to scratch. She reports no problems with urination and her ileostomy is draining properly with normal green brown liquid. She is tolerating a normal diet and has not had N/V. Mild pedal edema noted, pt states she has been sitting in her chair for a while and needs to raise her feet. Review of Systems General: No Chills, No Night Sweats HEENT: No Head Aches Pulmonary: No Dyspnea; Cough (occasional cough with clear phlegm, pt states it is much improved over the weekend) Cardiovascular: No: Chest Pain, Lt Headedness Gastrointestinal: Other (pt reports incision site itches slightly); No: Nausea, Vomiting Genitourinary: No Dysuria, No Hematuria Musculoskeletal: other (mild pedal edema bl) Neurological: No: Change in speech, Confusion Objective Exam Vital Signs Date Time Temp Pulse Resp B/P (MAP) Pulse Ox O2 Delivery O2 Flow Rate FiO2 04/30/22 07:45 37.3 104 18 100/65 (77) 98 Room Air 04/30/22 03:51 36.5 86 16 109/73 (85) 100 Room Air 04/30/22 00:05 36.5 90 16 106/64 (78) 97 Room Air 04/29/22 20:33 Room Air 04/29/22 20:00 37.2 99 18 111/78 (89) 98 Room Air 04/29/22 19:15 37.5 94 98 21 04/29/22 15:56 37.5 94 18 102/66 (78) 100 Room Air 04/29/22 11:19 37.2 89 18 100/65 (77) 98 Room Air I & O 04/30/22 07:00 Intake Total 1200 ml Output Total 3100 ml Balance -1900 ml Capillary Refill : Less Than 3 Seconds General Appearance: No Apparent Distress, Chronically ill, Thin HEENT: PERRL/EOMI; No Scleral Icterus (L), No Scleral Icterus (R); Other (left eye deviates laterally) Neck: Non Tender, Supple Respiratory: Lungs Clear, No Accessory Muscle Use Cardiovascular: No Murmur, Tachycardia Peripheral Pulses: 2+ Radial Pulses (R), 2+ Radial Pulses (L) Gastrointestinal: soft; No tenderness (pt reports no abdominal tenderness today on exam); other (incision is c/d/i, ostomy pink and functioning) Extremity: Non Tender, No Calf Tenderness, Pedal Edema Neurologic/Psychiatric: Alert, Normal Mood/Affect; No Facial Droop Skin: Normal Color, Cool, Pallor Lymphatic: No Adenopathy Results Lab Laboratory Tests 04/30/22 05:54: White Blood Count 7.4, Red Blood Count 3.47L, Hemoglobin 10.2L, Hematocrit 32L, Mean Corpuscular Volume 91, Mean Corpuscular Hemoglobin 29, Mean Corpuscular Hemoglobin Concent 32, Red Cell Distribution Width 18.6H, Platelet Count 329, Mean Platelet Volume 8.2L, Immature Granulocyte % (Auto) 1, Neutrophils (%) (Auto) 48, Lymphocytes (%) (Auto) 41, Monocytes (%) (Auto) 9, Eosinophils (%) (Auto) 2, Basophils (%) (Auto) 0, Neutrophils # (Auto) 3.5, Lymphocytes # (Auto) 3.0, Monocytes # (Auto) 0.7, Eosinophils # (Auto) 0.1, Basophils # (Auto) 0.0, Immature Granulocyte # (Auto) 0.1, Sodium Level 139, Potassium Level 3.8, Chloride Level 108H, Carbon Dioxide Level 21, Anion Gap 10, Blood Urea Nitrogen 3L, Creatinine 0.42L, Estimat Glomerular Filtration Rate 143, BUN/Creatinine Ratio 7, Glucose Level 84, Calcium Level 8.3L, Corrected Calcium 9.8, Magnesium Level 1.7, Total Bilirubin 0.4, Aspartate Amino Transf (AST/SGOT) 17, Alanine Aminotransferase (ALT/SGPT) 20, Alkaline Phosphatase 158H, Total Protein 4.9L, Albumin 2.1L Microbiology 04/25/22 Blood Culture - Preliminary, Resulted No growth Assessment/Plan Assessment/Plan Assessment/Plan Severe Sepsis PNA S/P bowel resection with ileostomy Chrons Cerebral Palsy Leukocytosis Lactic acidosis Plan: We were consulted to evaluate midline abdominal incision. It is clean, dry, and intact. Pt can likely have carmenza removed within the next few days. PNA and sepsis are much improved, pt doing well. Her WBC count has normalized to 7.4. Continue to monitor labs. Pt should continue ambulation and normal diet as tolerated. She reports using the incentive spirometer as instructed. LINDEN SCHMIDT DO 04/30/22 1414: Subjective Time Seen by a Provider: 13:59 Subjective/Events-last exam Pt seen and examined, no new complaints. Review of Systems Pulmonary: No Dyspnea; Cough (occasional cough with clear phlegm, pt states it is much improved over the weekend) Cardiovascular: No: Chest Pain Gastrointestinal: Other (pt reports incision site itches slightly); No: Nausea, Vomiting Genitourinary: No Dysuria, No Hematuria Musculoskeletal: other (mild pedal edema bl) Neurological: Confusion Objective Exam General Appearance: No Apparent Distress, Thin HEENT: No Scleral Icterus (L), No Scleral Icterus (R); Other (left eye deviates laterally) Respiratory: Lungs Clear, No Accessory Muscle Use Cardiovascular: No Murmur, Tachycardia Gastrointestinal: soft; No tenderness (pt reports no abdominal tenderness today on exam); other (incision is c/d/i, ostomy pink and functioning) Extremity: No Calf Tenderness, Pedal Edema Neurologic/Psychiatric: Alert Skin: Cool, Pallor Assessment/Plan Assessment/Plan Assessment/Plan PNA S/P bowel resection with ileostomy Chrons Cerebral Palsy Leukocytosis Lactic acidosis Plan: We were consulted to evaluate midline abdominal incision. It is clean, dry, and intact. Pt can have carmenza removed today. PNA and sepsis are much improved, pt doing well. Her WBC count has normalized to 7.4. Continue to monitor labs. Pt should continue ambulation and normal diet as tolerated. She reports using the incentive spirometer as instructed. Supervisory-Addendum Brief Verification & Attestation Participated in pt care: history, MDM, physical Personally performed: exam, history, MDM, supervision of care Care discussed with: Medical Student Procedures: n/a Verification and Attestation of Medical Student E/M Service A medical student performed and documented this service. I then reviewed and verified all information documented by the medical student and made modifications to such information, when appropriate. I personally performed a physical exam, medical decision making and then discussed any differences between the notes and made revisions as necessary to create one note. Linden Schmidt , 04/30/22 , 14:19 LORI OROZCO Apr 30, 2022 09:03 LINDEN SCHMIDT DO Apr 30, 2022 14:14
--- NOTE | 2022-04-30 09:14 | Cardiology Progress Note ---
Subjective Date Seen by Provider: Apr 30, 2022 Time Seen by Provider: 08:30 Subjective/Events-last exam Patient is sitting up in chair, no new complaints. Denies any chest pain or dizziness Objective-Cardiology Exam Last Set of Vital Signs Vital Signs 04/29/22 04/30/22 19:15 07:45 Temp 37.3 Pulse 104 Resp 18 B/P (MAP) 100/65 (77) Pulse Ox 98 O2 Delivery Room Air FiO2 21 I&O Intake and Output 04/30/22 00:00 Intake Total 1200 ml Output Total 3375 ml Balance -2175 ml Intake Oral 1200 ml Output Urine Total 1400 ml Stool Total 1975 ml General: Alert, Oriented X3, Cooperative, No Acute Distress HEENT: PERRLA, Mucous Memb Moist/[place] Neck: Supple, No Thyromegaly, No LAD Lungs: Clear to Auscultation, Normal Air Movement Heart: Regular Rate, Normal S1, Normal S2, No Murmurs Abdomen: Soft, No Tenderness, No Masses, Other (ileostomy on R abd ) Extremities: No Clubbing, No Cyanosis, No Edema Skin: No Rashes, No Significant Lesion Neuro: Normal Speech, Sensation Intact Psych/Mental Status: Mental Status NL, Mood NL Results Lab Laboratory Tests 04/30/22 05:54 A/P-Cardiology Admission Diagnosis Sepsis Lactic acidosis Wide-complex tachycardia Pneumonia Assessment/Plan Status post severe sepsis, hospital-acquired pneumonia Improved, responded to antibiotic Currently doing better. Anemia, drop in H&H. Status post blood transfusion, H&H are better Managed by medical team. Sinus tachycardia, probably secondary to above. Heart rate is better, tolerating low-dose metoprolol. Continue to monitor Status post encephalopathy, acute change in mental status. Improved, awake and talkative today Back to baseline, managed by medical team. Wide-complex tachycardia, irregular, most probably paroxysmal atrial tachycardia with aberrant conduction. Total of 5 beats. No previous history of ventricular tachycardia. Currently in sinus tachycardia. Started on low-dose beta-blockers, tolerating medication well. Continue to monitor Metabolic acidosis secondary to lactic acidosis. Being corrected. Status post exploratory laparoscopy with small bowel resection and ileostomy done on April 14, 2022 Continue to monitor History of Crohn's disease. History of cerebral palsy, muscle spasticity, history of [employer] shunt with revision Protein malnutrition, managed by medical team. Supervisory-Addendum Brief Supervisory Addendum Participated in pt care: history, MDM, physical Personally performed: exam, history, MDM Care discussed with: SHAJI Results interpretation: Verified all documentation Notes: Patient was seen and evaluated with Marilin, examination performed, management plan was discussed, agree with the current scribed note, I made few changes to the note using Italic font Patient was seen at bedside sitting comfortably No new complaint Continue to monitor MARILIN GRAVES Apr 30, 2022 09:14 DIEGO PARIKH MD Apr 30, 2022 11:56
--- NOTE | 2022-04-30 10:05 | Occupational Ther Daily Note ---
OT Current Status-Daily Note Subjective Pt alert, lying in bed. Pt states that she is feeling very good today, almost as good as before all this started. Pt agrees to therapy. Mental Status/Objective Patient Orientation: Person, Place, Time, Situation Attachments: Colostomy/Ileostomy ADL-Treatment Pt assisted with emptying ileostomy bag. Sitting at sink, pt able to complete oral care independently. Physician entered room as pt was finishing upper body bathing and discussed possibility of pt returning to ARU. Pt stopped therapy at this time to rest. Min A for EOB to supine. Completed bed mobility independently. After session, pt lying in bed with call light/phone in reach. All needs met in room. Therapy Code Descriptions/Definitions Functional [place] Measure: 0=Not Assessed/NA 4=Minimal Assistance 1=Total Assistance 5=Supervision or Setup 2=Maximal Assistance 6=Modified [place] 3=Moderate Assistance 7=Complete IndependenceSCALE: Activities may be completed with or without assistive devices. 9-Hfewokcxaq-gvymkac completes the activity by him/herself with no assistance from a helper. 5-Set-up or Clean-up Assistance-helper sets up or cleans up; patient completes activity. [place] assists only prior to or following the activity. 4-Supervision or Touching Assistance-helper provides verbal cues and/or touching/steadying and/or contact guard assistance as patient completes activity. Assistance may be provided throughout the activity or intermittently. 3-Partial/Moderate Assistance-helper does LESS THAN HALF the effort. [place] lifts, holds or supports trunk or limbs, but provides less than half the effort. 2-Substantial/Maximal Assistance-helper does MORE THAN HALF the effort. [place] lifts or holds trunk or limbs and provides more than half the effort. 2-Ikfpbrqfo-kwxabl does ALL the effort. Patient does none of the effort to complete the activity. Or, the assistance of 2 or more helpers is required for the patient to complete the activity. If activity was not attempted, code reason: 7-Patient Refused. 9-Not Applicable-not attempted and the patient did not perform the activity before the current illness, exacerbation or injury. 10-Not Attempted due to Environmental Limitations-(lack of equipment, weather restraints, etc.). 88-Not Attempted due to Medical Conditions or Safety Concerns. Oral Hygiene (QC): 6 OT Senior [facility] Goals Business Support Associate Goals Time Frame: May 04, 2022 Eating (QC): 5 Toileting Hygiene (QC): 88 Shower/Bathe Self (QC): 4 Upper Body Dressing (QC): 5 Lower Body Dressing (QC): 4 On/Off Footwear (QC): 4 Additional Goals: 1-Demonstrate ADL Tasks, 2-Verbalize Understanding, 3- ImproveStrength/Tim 1=Demonstrate adherence to instructed precautions during ADL tasks. 2=Patient will verbalize/demonstrate understanding of assistive devices/modifications for ADL. 3=Patient will improve strength/tolerance for activity to enable patient to perform ADL's. OT Education/Plan Problem List/Assessment Assessment: Impaired Self-Care Skills Discharge Recommendations Plan/Recommendations: Continue POC Treatment Plan/Plan of Care Patient would benefit from OT for education, treatment and training to promote independence in ADL's, mobility, safety and/or upper extremity function for ADL's. Plan of Care: ADL Retraining, Functional Mobility, UE Funct Exercise/Act Treatment Duration: May 04, 2022 Frequency: 3 times per week (3-5 times per week) Estimated Hrs Per Day: .25 hour per day Agreement: Yes Rehab Potential: Fair Time/GCodes Start Time: 09:30 Stop Time: 10:15 Total Time Billed (hr/min): 45 Billed Treatment Time 1 visit-ADL 3 (45 min) VALENTINA CASTRO Apr 30, 2022 10:05
--- NOTE | 2022-04-30 10:20 | Discharge Summary ---
Diagnosis/Chief Complaint Date of Admission Apr 25, 2022 at 07:46 Date of Discharge Discharge Date: Apr 30, 2022 Reason Hospital Visit CC: Acute clinical decompensation HPI: This is a 21yoWF ARU patient who had been doing well until this morning and had an abrupt onset of clinical decompensation requiring septic w/u and subsequent transfer to ICU for severe sepsis and PNA treatment with Zosyn and Zyvox. IVF initiated with good resolution of lactic acidosis and sepsis signs. Grna at bedside and updated. Discharge Summary Discharge Physical Examination Allergies: Coded Allergies: vancomycin (Verified Allergy, Intermediate, Rash, 04/19/22) Vitals & I&Os Vital Signs Date Time Temp Pulse Resp B/P (MAP) Pulse Ox O2 Delivery O2 Flow Rate FiO2 05/01/22 03:32 37.0 100 20 99/63 (75) 98 Room Air 04/29/22 19:15 21 Hospital Course Labs (last 24 hrs) Laboratory Tests 04/25/22 15:07: Hemoglobin 8.9L, Potassium Level 2.8L, Magnesium Level 1.6 04/25/22 23:25: Potassium Level 3.2L 04/26/22 04:43: Hemoglobin 7.6L, Potassium Level 3.4L, Magnesium Level 2.0, White Blood Count 18.8H, Red Blood Count 2.55L, Hematocrit 25L, Mean Corpuscular Volume 98, Mean Corpuscular Hemoglobin 30, Mean Corpuscular Hemoglobin Concent 30L, Red Cell Distribution Width 18.6H, Platelet Count 527H, Mean Platelet Volume 8.0L, Immature Granulocyte % (Auto) 1, Neutrophils (%) (Auto) 79H, Lymphocytes (%) (Auto) 15, Monocytes (%) (Auto) 4, Eosinophils (%) (Auto) 0, Basophils (%) (Au to) 0, Neutrophils # (Auto) 14.8H, Lymphocytes # (Auto) 2.9, Monocytes # (Auto) 0.8, Eosinophils # (Auto) 0.0, Basophils # (Auto) 0.1, Immature Granulocyte # (Auto) 0.2H, Neutrophils % (Manual) 83, Lymphocytes % (Manual) 7, Monocytes % (Manual) 6, Eosinophils % (Manual) 0, Basophils % (Manual) 0, Band Neutrophils 2, Reactive Lymphocytes 2, Polychromasia SLIGHT, Hypochromasia MODERATE, Anisocytosis SLIGHT, Tear Drop Cells SLIGHT, Sodium Level 139, Chloride Level 110H, Carbon Dioxide Level 22, Anion Gap 7, Blood Urea Nitrogen < 2L, Creatinine 0.38L, Estimat Glomerular Filtration Rate 146, BUN/Creatinine Ratio 5, Glucose Level 86, Calcium Level 7.1L, Corrected Calcium 8.7, Phosphorus Level 2.4, Total Bilirubin 0.3, Aspartate Amino Transf (AST/SGOT) 28, Alanine Aminotransferase (ALT/SGPT) 19, Alkaline Phosphatase 153H, Total Protein 4.4L, Albumin 2.0L, Procalcitonin 23.24H 04/27/22 04:45: Hemoglobin 7.4L, Potassium Level 3.0L, Magnesium Level 1.8, White Blood Count 18.8H, Red Blood Count 2.41L, Hematocrit 24L, Mean Corpuscular Volume 99, Mean Corpuscular Hemoglobin 31, Mean Corpuscular Hemoglobin Concent 31L, Red Cell Distribution Width 18.6H, Platelet Count 447H, Mean Platelet Volume 8.2L, Immature Granulocyte % (Auto) 1, Neutrophils (%) (Auto) 81H, Lymphocytes (%) (Auto) 14, Monocytes (%) (Auto) 4, Eosinophils (%) (Auto) 0, Basophils (%) (Auto) 0, Neutrophils # (Auto) 15.2H, Lymphocytes # (Auto) 2.7, Monocytes # (Auto) 0.7, Eosinophils # (Auto) 0.0, Basophils # (Auto) 0.1, Immature Granulocyte # (Auto) 0.1, Sodium Level 137, Chloride Level 108H, Carbon Dioxide Level 19L, Anion Gap 10, Blood Urea Nitrogen < 2L, Creatinine 0.39L, Estimat Glomerular Filtration Rate 145, BUN/Creatinine Ratio 5, Glucose Level 70, Calcium Level 7.0L, Corrected Calcium 8.8, Total Bilirubin 0.3, Aspartate Amino Transf (AST/SGOT) 22, Alanine Aminotransferase (ALT/SGPT) 19, Alkaline Phosphat ase 161H, Total Protein 4.1L, Albumin 1.8L 04/27/22 04:50: Procalcitonin 36.70H 04/28/22 05:38: White Blood Count 9.7, Red Blood Count 2.29L, Hemoglobin 6.9*L, Hematocrit 23L, Mean Corpuscular Volume 98, Mean Corpuscular Hemoglobin 30, Mean Corpuscular Hemoglobin Concent 31L, Red Cell Distribution Width 18.3H, Platelet Count 363, Mean Platelet Volume 8.2L, Immature Granulocyte % (Auto) 0, Neutrophils (%) (Auto) 65, Lymphocytes (%) (Auto) 28, Monocytes (%) (Auto) 5, Eosinophils (%) (Auto) 1, Basophils (%) (Auto) 0, Neutrophils # (Auto) 6.3, Lymphocytes # (Auto) 2.7, Monocytes # (Auto) 0.5, Eosinophils # (Auto) 0.1, Basophils # (Auto) 0.0, Immature Granulocyte # (Auto) 0.0, Sodium Level 137, Potassium Level 3.3L, Chloride Level 108H, Carbon Dioxide Level 20L, Anion Gap 9, Blood Urea Nitrogen 5L, Creatinine 0.42L, Estimat Glomerular Filtration Rate 143, BUN/Creatinine Ratio 12, Glucose Level 73, Calcium Level 7.1L, Corrected Calcium 8.9, Magnesium Level 1.8, Total Bilirubin 0.3, Aspartate Amino Transf (AST/SGOT) 13, Alanine Aminotransferase (ALT/SGPT) 16, Alkaline Phosphatase 146H, Total Protein 4.2L, Albumin 1.8L 04/29/22 05:54: White Blood Count 8.5, Red Blood Count 3.15L, Hemoglobin 9.5#L, Hematocrit 28L, Mean Corpuscular Volume 90, Mean Corpuscular Hemoglobin 30, Mean Corpuscular Hemoglobin Concent 34, Red Cell Distribution Width 19.2H, Platelet Count 301, Mean Platelet Volume 8.3L, Immature Granulocyte % (Auto) 1, Neutrophils (%) (Auto) 54, Lymphocytes (%) (Auto) 35, Monocytes (%) (Auto) 9, Eosinophils (%) (Auto) 1, Basophils (%) (Auto) 1, Neutrophils # (Auto) 4.6, Lymphocytes # (Auto) 3.0, Monocytes # (Auto) 0.7, Eosinophils # (Auto) 0.1, Basophils # (Auto) 0.0, Immature Granulocyte # (Auto) 0.1, Sodium Level 136, Potassium Level 3.9, Chloride Level 107, Carbon Dioxide Level 21, Anion Gap 8, Blood Urea Nitrogen 4L , Creatinine 0.44L, Estimat Glomerular Filtration Rate 141, BUN/Creatinine Ratio 9, Glucose Level 84, Calcium Level 7.6L, Corrected Calcium 9.2, Magnesium Level 1.7, Total Bilirubin 0.5, Aspartate Amino Transf (AST/SGOT) 18, Alanine Aminotransferase (ALT/SGPT) 16, Alkaline Phosphatase 157H, Total Protein 4.6L, Albumin 2.0L 04/30/22 05:54: White Blood Count 7.4, Red Blood Count 3.47L, Hemoglobin 10.2L, Hematocrit 32L, Mean Corpuscular Volume 91, Mean Corpuscular Hemoglobin 29, Mean Corpuscular Hemoglobin Concent 32, Red Cell Distribution Width 18.6H, Platelet Count 329, Mean Platelet Volume 8.2L, Immature Granulocyte % (Auto) 1, Neutrophils (%) (Auto) 48, Lymphocytes (%) (Auto) 41, Monocytes (%) (Auto) 9, Eosinophils (%) (Auto) 2, Basophils (%) (Auto) 0, Neutrophils # (Auto) 3.5, Lymphocytes # (Auto) 3.0, Monocytes # (Auto) 0.7, Eosinophils # (Auto) 0.1, Basophils # (Auto) 0.0, Immature Granulocyte # (Auto) 0.1, Sodium Level 139, Potassium Level 3.8, Chloride Level 108H, Carbon Dioxide Level 21, Anion Gap 10, Blood Urea Nitrogen 3L, Creatinine 0.42L, Estimat Glomerular Filtration Rate 143, BUN/Creatinine Ratio 7, Glucose Level 84, Calcium Level 8.3L, Corrected Calcium 9.8, Magnesium Level 1.7, Total Bilirubin 0.4, Aspartate Amino Transf (AST/SGOT) 17, Alanine Aminotransferase (ALT/SGPT) 20, Alkaline Phosphatase 158H, Total Protein 4.9L, Albumin 2.1L 05/01/22 04:00: White Blood Count 8.9, Red Blood Count 3.50L, Hemoglobin 10.3L, Hematocrit 32L, Mean Corpuscular Volume 92, Mean Corpuscular Hemoglobin 29, Mean Corpuscular Hemoglobin Concent 32, Red Cell Distribution Width 18.5H, Platelet Count 306, Mean Platelet Volume 8.4L, Immature Granulocyte % (Auto) 1, Neutrophils (%) (Auto) 50, Lymphocytes (%) (Auto) 39, Monocytes (%) (Auto) 9, Eosinophils (%) (Auto) 2, Basophils (%) (Auto) 0, Neutrophils # (Auto) 4.4, Lymphocytes # (Auto) 3.4, Monocytes # (Auto) 0.8, Eosinophils # (Auto) 0.1, Basophils # (Auto) 0.0, Immature Granulocyte # (Auto) 0.1, Sodium Level 138, Potassium Level 4.0, Chloride Level 109H, Carbon Dioxide Level 20L, Anion Gap 9, Blood Urea Nitrogen 5L, Creatinine 0.45L, Estimat Glomerular Filtration Rate 140, BUN/Creatinine Ratio 11, Glucose Level 84, Calcium Level 8.3L, Corrected Calcium 9.7, Magnesium Level 1.6, Total Bilirubin 0.3, Aspartate Amino Transf (AST/SGOT) 14, Alanine Aminotransferase (ALT/SGPT) 18, Alkaline Phosphatase 174H, Total Protein 5.0L, Albumin 2.2L Microbiology 04/25/22 Blood Culture - Final, Complete No growth Pending Labs Microbiology Date/Time Source Procedure Growth Status 04/25/22 09:05 Peripheral Lt Hand Blood Culture - Final No growth Complete Laboratory Tests 04/25/22 15:07: Hemoglobin 8.9, Potassium Level 2.8, Magnesium Level 1.6 04/25/22 23:25: Potassium Level 3.2 04/26/22 04:43: Hemoglobin 7.6, Potassium Level 3.4, Magnesium Level 2.0, White Blood Count 18.8, Red Blood Count 2.55, Hematocrit 25, Mean Corpuscular Volume 98, Mean Corpuscular Hemoglobin 30, Mean Corpuscular Hemoglobin Concent 30, Red Cell Distribution Width 18.6, Platelet Count 527, Mean Platelet Volume 8.0, Immature Granulocyte % (Auto) 1, Neutrophils (%) (Auto) 79, Lymphocytes (%) (Auto) 15, Monocytes (%) (Auto) 4, Eosinophils (%) (Auto) 0, Basophils (%) (Auto) 0, Neutrophils # (Auto) 14.8, Lymphocytes # (Auto) 2.9, Monocytes # (Auto) 0.8, Eosinophils # (Auto) 0.0, Basophils # (Auto) 0.1, Immature Granulocyte # (Auto) 0.2, Neutrophils % (Manual) 83, Lymphocytes % (Manual) 7, Monocytes % (Manual) 6, Eosinophils % (Manual) 0, Basophils % (Manual) 0, Band Neutrophils 2, Reactive Lymphocytes 2, Polychromasia SLIGHT, Hypochromasia MODERATE, Anisocytosis SLIGHT, Tear Drop Cells SLIGHT, Sodium Level 139, Chloride Level 110, Carbon Dioxide Level 22, Anion Gap 7, Blood Urea Nitrogen < 2, Creatinine 0.38, Estimat Glomerular Filtration Rate 146, BUN/Creatinine Ratio 5, Glucose Level 86, Calcium Level 7.1, Corrected Calcium 8.7, Phosphorus Level 2.4, Total Bilirubin 0.3, Aspartate Amino Transf (AST/SGOT) 28, Alanine Aminotransferase (ALT/SGPT) 19, Alkaline Phosphatase 153, Total Protein 4.4, Albumin 2.0, Procalcitonin 23.24 04/27/22 04:45: Hemoglobin 7.4, Potassium Level 3.0, Magnesium Level 1.8, White Blood Count 18.8, Red Blood Count 2.41, Hematocrit 24, Mean Corpuscular Volume 99, Mean Corpuscular Hemoglobin 31, Mean Corpuscular Hemoglobin Concent 31, Red Cell Distribution Width 18.6, Platelet Count 447, Mean Platelet Volume 8.2, Immature Granulocyte % (Auto) 1, Neutrophils (%) (Auto) 81, Lymphocytes (%) (Auto) 14, Monocytes (%) (Auto) 4, Eosinophils (%) (Auto) 0, Basophils (%) (Auto) 0, Neutrophils # (Auto) 15.2, Lymphocytes # (Auto) 2.7, Monocytes # (Auto) 0.7, Eosinophils # (Auto) 0.0, Basophils # (Auto) 0.1, Immature Granulocyte # (Auto) 0.1, Sodium Level 137, Chloride Level 108, Carbon Dioxide Level 19, Anion Gap 10, Blood Urea Nitrogen < 2, Creatinine 0.39, Estimat Glomerular Filtration Rate 145, BUN/Creatinine Ratio 5, Glucose Level 70, Calcium Level 7.0, Corrected Calcium 8.8, Total Bilirubin 0.3, Aspartate Amino Transf (AST/SGOT) 22, Alanine Aminotransferase (ALT/SGPT) 19, Alkaline Phosphatase 161, Total Protein 4.1, Albumin 1.8 04/27/22 04:50: Procalcitonin 36.70 04/28/22 05:38: White Blood Count 9.7, Red Blood Count 2.29, Hemoglobin 6.9, Hematocrit 23, Mean Corpuscular Volume 98, Mean Corpuscular Hemoglobin 30, Mean Corpuscular Hemoglobin Concent 31, Red Cell Distribution Width 18.3, Platelet Count 363, Mean Platelet Volume 8.2, Immature Granulocyte % (Auto) 0, Neutrophils (%) (Auto) 65, Lymphocytes (%) (Auto) 28, Monocytes (%) (Auto) 5, Eosinophils (%) (Auto) 1, Basophils (%) (Auto) 0, Neutrophils # (Auto) 6.3, Lymphocytes # (Auto) 2.7, Monocytes # (Auto) 0.5, Eosinophils # (Auto) 0.1, Basophils # (Auto) 0.0, Immature Granulocyte # (Auto) 0.0, Sodium Level 137, Potassium Level 3.3, Chloride Level 108, Carbon Dioxide Level 20, Anion Gap 9, Blood Urea Nitrogen 5, Creatinine 0.42, Estimat Glomerular Filtration Rate 143, BUN/Creatinine Ratio 12, Glucose Level 73, Calcium Level 7.1, Corrected Calcium 8.9, Magnesium Level 1.8, Total Bilirubin 0.3, Aspartate Amino Transf (AST/SGOT) 13, Alanine Aminotransferase (ALT/SGPT) 16, Alkaline Phosphatase 146, Total Protein 4.2, Albumin 1.8 04/29/22 05:54: White Blood Count 8.5, Red Blood Count 3.15, Hemoglobin 9.5, Hematocrit 28, Mean Corpuscular Volume 90, Mean Corpuscular Hemoglobin 30, Mean Corpuscular Hemoglobin Concent 34, Red Cell Distribution Width 19.2, Platelet Count 301, Mean Platelet Volume 8.3, Immature Granulocyte % (Auto) 1, Neutrophils (%) (Auto) 54, Lymphocytes (%) (Auto) 35, Monocytes (%) (Auto) 9, Eosinophils (%) (Auto) 1, Basophils (%) (Auto) 1, Neutrophils # (Auto) 4.6, Lymphocytes # (Auto) 3.0, Monocytes # (Auto) 0.7, Eosinophils # (Auto) 0.1, Basophils # (Auto) 0.0, Immature Granulocyte # (Auto) 0.1, Sodium Level 136, Potassium Level 3.9, Chloride Level 107, Carbon Dioxide Level 21, Anion Gap 8, Blood Urea Nitrogen 4, Creatinine 0.44, Estimat Glomerular Filtration Rate 141, BUN/Creatinine Ratio 9, Glucose Level 84, Calcium Level 7.6, Corrected Calcium 9.2, Magnesium Level 1.7, Total Bilirubin 0.5, Aspartate Amino Transf (AST/SGOT) 18, Alanine Aminotransferase (ALT/SGPT) 16, Alkaline Phosphatase 157, Total Protein 4.6, Albumin 2.0 04/30/22 05:54: White Blood Count 7.4, Red Blood Count 3.47, Hemoglobin 10.2, Hematocrit 32, Mean Corpuscular Volume 91, Mean Corpuscular Hemoglobin 29, Mean Corpuscular Hemoglobin Concent 32, Red Cell Distribution Width 18.6, Platelet Count 329, Mean Platelet Volume 8.2, Immature Granulocyte % (Auto) 1, Neutrophils (%) (Auto) 48, Lymphocytes (%) (Auto) 41, Monocytes (%) (Auto) 9, Eosinophils (%) (Auto) 2, Basophils (%) (Auto) 0, Neutrophils # (Auto) 3.5, Lymphocytes # (Auto) 3.0, Monocytes # (Auto) 0.7, Eosinophils # (Auto) 0.1, Basophils # (Auto) 0.0, Immature Granulocyte # (Auto) 0.1, Sodium Level 139, Potassium Level 3.8, Chloride Level 108, Carbon Dioxide Level 21, Anion Gap 10, Blood Urea Nitrogen 3, Creatinine 0.42, Estimat Glomerular Filtration Rate 143, BUN/Creatinine Ratio 7, Glucose Level 84, Calcium Level 8.3, Corrected Calcium 9.8, Magnesium Level 1.7, Total Bilirubin 0.4, Aspartate Amino Transf (AST/SGOT) 17, Alanine Aminotransferase (ALT/SGPT) 20, Alkaline Phosphatase 158, Total Protein 4.9, Albumin 2.1 05/01/22 04:00: White Blood Count 8.9, Red Blood Count 3.50, Hemoglobin 10.3, Hematocrit 32, Mean Corpuscular Volume 92, Mean Corpuscular Hemoglobin 29, Mean Corpuscular Hemoglobin Concent 32, Red Cell Distribution Width 18.5, Platelet Count 306, Mean Platelet Volume 8.4, Immature Granulocyte % (Auto) 1, Neutrophils (%) (Auto) 50, Lymphocytes (%) (Auto) 39, Monocytes (%) (Auto) 9, Eosinophils (%) (Auto) 2, Basophils (%) (Auto) 0, Neutrophils # (Auto) 4.4, Lymphocytes # (Auto) 3.4, Monocytes # (Auto) 0.8, Eosinophils # (Auto) 0.1, Basophils # (Auto) 0.0, Immature Granulocyte # (Auto) 0.1, Sodium Level 138, Potassium Level 4.0, Chloride Level 109, Carbon Dioxide Level 20, Anion Gap 9, Blood Urea Nitrogen 5, Creatinine 0.45, Estimat Glomerular Filtration Rate 140, BUN/Creatinine Ratio 11, Glucose Level 84, Calcium Level 8.3, Corrected Calcium 9.7, Magnesium Level 1.6, Total Bilirubin 0.3, Aspartate Amino Transf (AST/SGOT) 14, Alanine Aminotransferase (ALT/SGPT) 18, Alkaline Phosphatase 174, Total Protein 5.0, Alb umin 2.2 Discharge Home Medications: Active Scripts Active Reported Humira(Cf) Pen (Adalimumab) 80 Mg/0.8 Ml [email or web address] Mg SQ UD INJECT 160MG ON DAY 1 AND THEN 80MG ON DAY 15- THIS MED NEEDS A [facility] IN [place] ([phone] SPOKE WITH [employer]) IS WORKING ON THE PA Vitamin D3 (Cholecalciferol (Vitamin D3)) 50 Mcg (2000 Unit) Capsule 50 Mcg PO DAILY [Vit B Comp. Sust Rel] 1 Ea PO DAILY Pantoprazole Sodium 40 Mg Tablet.dr 40 Mg PO BID Multivitamin 1 Each Tablet 1 Each PO DAILY Loratadine 10 Mg Tablet 10 Mg PO DAILY Furosemide 20 Mg Tablet 20 Mg PO DAILY PRN Flonase Allergy Relief (Fluticasone Propionate) 50 Mcg/Actuation Palmer.susp 2 Palmer NS DAILY Dicyclomine HCl 10 Mg Capsule 10 Mg PO TID PRN Ciclopirox 8 % Solution 1 Applic TP DAILY APPLICATION AREA NOT LISTED ON DISCHARGE ORDERS Vitamin C (Ascorbic Acid) 1,000 Mg Tablet 1,000 Mg PO DAILY Baclofen 10 Mg Tablet 10-20 Mg PO TID PRN Metronidazole 500 Mg Tablet 500 Mg PO TID TAKE FOR 7 DAYS Linezolid 600 Mg Tablet 600 Mg PO BID 14 Days TAKE FOR 14 DAYS Culturelle Capsule (L. Rhamnosus GG/Inulin) 10 Billion Cell-200 Mg Cap.sprink 1 Each PO BID 14 Days TAKE FOR 14 DAYS Hydrocodone-Acetamin 5-325 mg (Hydrocodone/Acetaminophen) 5 Mg-325 Mg Tablet 1 Tab PO Q8H PRN Instructions to patient/family Please see electronic discharge instructions given to patient. NKECHI SIDDIQI DO Apr 30, 2022 10:20
--- NOTE | 2022-04-30 10:25 | Progress Note ---
MARYHIRAM 04/30/22 1025: Subjective Date Seen by a Provider: Apr 30, 2022 Time Seen by a Provider: 10:20 Subjective/Events-last exam Pt is resting comfortably in chair. Pt states that she is feeling much better and her pain has completely resolved. Pt notes that she has been coughing int ermittently producing some white thick sputum but otherwise has no complaints. Pt has been using spirometry a couple times an hour. Pt states that she has been able to ambulate better today and has not felt winded or sore with walking. Pt continues to have ileostomy output and void. Pt has been eating without issue. Pt denies nausea, vomiting, CP, SOA, and abd pain. Hospital Course: 21yo F with h/o s/p ex lap with small bowel resection and ileostomy, cerebral palsy, COLLECTIONS DIRECTOR shunt, Crohn's disease, and hiatal hernia was admitted to the ICU for severe sepsis from inpatient rehab on 04/25. Pt was admitted to inpatient rehab on 04/19 following an ex lap with small bowel resection and ileostomy on 04/14. Since being admitted to inpatient rehab, pt had been tolerating diet and PT well, having ileostomy output, and had no complaints. On 04/24, pt started to c/o L sided rib pain that occurred following PT. Initially, pt stated that the pain was localized to the 7th rib and was dull and mild but got progressively worse throughout day. Imaging was ordered and XRAY of ribs found no fractures but CXR found possible developing pneumonia in the R lung base. Pt was started on Linezolid but became progressively less responsive to questions, moaning and c/o pain only. Workup was remarkable for elevated WBC, thrombocytosis, elevated lactic acid of 5.84, and elevated procalcitonin. Pt exhibited notable pallor w/mild guerrero hue and was thrashing in the bed moaning. Pt was transferred to the ICU where she became more agitated and was given 10mg of Geodon and 0.5mg of Ativan. Pt had a repeat lactic acid that was elevated to 6.87 and an elevated D- Dimer in the ICU. IV Zosyn and Lovenox were ordered and given. Per nurse, pt experienced an episode of VTACH after transfer but self-resolved. Pt continued to improve over the next few hours and was transferred to fourth floor on 04/26. Following transfer to floor, workup showsed improvement of her thrombocytosis, WBC, and procalcitonin levels. On 04/28, pt was transfused with 1U PRBC due to a Hgb of 6.9. Today, pt states that she is feeling much better. Hgb has improved to 10.2. Pt continues to void and have output from her ileostomy. Pt is tolerating her diet well and has been able to ambulate without issue. Due to pt's insurance, her inpatient rehab visit was closed so pt will need to be re- evaluated by inpatient rehab prior to transfer. Review of Systems General: No Chills, No Night Sweats HEENT: No Head Aches, No Visual Changes Pulmonary: No Dyspnea; Cough (intermittent producing sputum ) Cardiovascular: No: Chest Pain, Palpitations Gastrointestinal: No: Nausea, Vomiting, Abdominal Pain Genitourinary: No Dysuria, No Frequency Musculoskeletal: No: neck pain, shoulder pain Neurological: No: Weakness, Numbness Objective Exam Last Set of Vital Signs Vital Signs Date Time Temp Pulse Resp B/P (MAP) Pulse Ox O2 Delivery O2 Flow Rate FiO2 04/30/22 07:45 37.3 104 18 100/65 (77) 98 Room Air 04/29/22 19:15 21 Capillary Refill : Less Than 3 Seconds I&O Intake and Output 04/30/22 00:00 Intake Total 1200 ml Output Total 3375 ml Balance -2175 ml Intake Oral 1200 ml Output Urine Total 1400 ml Stool Total 1975 ml General: Alert, Oriented X3, No Acute Distress HEENT: PERRLA, Mucous Memb Moist/[place] Neck: Supple, No Thyromegaly Lungs: Clear to Auscultation, Normal Air Movement Heart: Regular Rate, No Murmurs Abdomen: Soft, No Tenderness, No Hepatosplenomegaly, Other (ileostomy present right abd ) Extremities: No Cyanosis, No Edema Skin: No Rashes, No Significant Lesion Neuro: Normal Speech, Normal Tone Psych/Mental Status: Mental Status NL, Mood NL Results Lab Laboratory Tests 04/30/22 05:54: White Blood Count 7.4, Red Blood Count 3.47L, Hemoglobin 10.2L, Hematocrit 32L, Mean Corpuscular Volume 91, Mean Corpuscular Hemoglobin 29, Mean Corpuscular Hemoglobin Concent 32, Red Cell Distribution Width 18.6H, Platelet Count 329, Mean Platelet Volume 8.2L, Immature Granulocyte % (Auto) 1, Neutrophils (%) (Auto) 48, Lymphocytes (%) (Auto) 41, Monocytes (%) (Auto) 9, Eosinophils (%) (Auto) 2, Basophils (%) (Auto) 0, Neutrophils # (Auto) 3.5, Lymphocytes # (Auto) 3.0, Monocytes # (Auto) 0.7, Eosinophils # (Auto) 0.1, Basophils # (Auto) 0.0, Immature Granulocyte # (Auto) 0.1, Sodium Level 139, Potassium Level 3.8, Chloride Level 108H, Carbon Dioxide Level 21, Anion Gap 10, Blood Urea Nitrogen 3L, Creatinine 0.42L, Estimat Glomerular Filtration Rate 143, BUN/Creatinine Ratio 7, Glucose Level 84, Calcium Level 8.3L, Corrected Calcium 9.8, Magnesium Level 1.7, Total Bilirubin 0.4, Aspartate Amino Transf (AST/SGOT) 17, Alanine Aminotransferase (ALT/SGPT) 20, Alkaline Phosphatase 158H, Total Protein 4.9L, Albumin 2.1L Microbiology 04/25/22 Blood Culture - Preliminary, Resulted No growth Assessment/Plan Assessment/Plan Assess & Plan/Chief Complaint 1. Severe Sepsis vs Septic shock 2. Hospital acquired pneumonia 3. Encephalopathy 4. Metabolic acidosis 5. Leukocytosis 4. Thrombocytosis 6. Lactic acidosis 7. Elevated D-dimer 8. Protein malnutrition - Albumin = 2.5 9. S/p exp lap with bowel resection and ileostomy 10. Cerebral palsy -Muscle spasticity- takes 10mg TID of Baclofen- currently discontinued -H/o COLLECTIONS DIRECTOR shunt with revision 11. Crohn's Disease -followed by Dr. Campblel in [place] -takes Humira at home - discontinued in hospital 12. Hypokalemia Plan: Continue with PO abx PT Awaiting transfer to inpatient rehab Clinical Quality Measures Admission Status Admission Dx 1. Severe Sepsis vs Septic shock -Started on 200mls IV Zosyn and IV Linezolid 300mg Q12H -Given 1L NS bolus and IV 125ml/hr NS -Continue to monitor blood pressure and urine output -Blood cultures ordered -Consider repeat procalcitonin levels tomorrow 2. Hospital acquired pneumonia -CXR 04/25 showed possible RLL pneumonia -IV Linezolid 300mg Q12H and 200mls IV Zosyn added to cover possible aspiration -monitor O2 sats, manage as needed 3. Encephalopathy -Mentation change from baseline, most recently more confused per EICU note -multiple attempts to acquire ABGs unsuccessful -CT head ordered 4. Metabolic acidosis - AG of 16 today -continue to monitor lactic acidosis, last lab was 6.87 5. Leukocytosis -WBC elevated to 11.8, continue to monitor 4. Thrombocytosis -Plt count elevated to 681, continue to monitor 6. Lactic acidosis -See above 7. Elevated D-dimer -D-dimer of 6.34 -B/L LE Venous Doppler unremarkable -Lovenox started 8. Protein malnutrition - Albumin = 2.5 -currently NPO, will consider nutrition supplementation when appropriate 9. S/p exp lap with bowel resection and ileostomy -continues to have good output, continue to monitor -EICU will order imaging of abd/pelvis d/t recent abd surgery and h/o Crohn's disease 10. Cerebral palsy -Muscle spasticity- takes 10mg TID of Baclofen- currently discontinued -H/o COLLECTIONS DIRECTOR shunt with revision 11. Crohn's Disease -followed by Dr. Campbell in [place] -takes Humira at home - discontinued in hospital KIMI SIDDIQI DO 05/01/22 0456: Objective Exam General: Alert, Oriented X3, Cooperative, No Acute Distress Lungs: Clear to Auscultation, Normal Air Movement Heart: Regular Rate, Normal S1, Normal S2, No Murmurs Psych/Mental Status: Mental Status NL, Mood NL Assessment/Plan Assessment/Plan Assess & Plan/Chief Complaint Awaiting insurance approval for rehab Supervisory-Addendum Brief Verification & Attestation Participated in pt care: history, MDM, physical Personally performed: exam, history, MDM, supervision of care Care discussed with: Medical Student Procedures: n/a Results interpretation: Verified all documentation Verification and Attestation of Medical Student E/M Service A medical student performed and documented this service in my presence. I reviewed and verified all information documented by the medical student and made modifications to such information, when appropriate. I personally performed the physical exam and medical decision making. Kimi Siddiqi, May 01, 2022,04:55 HIRAM HERNANDEZ Apr 30, 2022 10:25 KIMI SIDDIQI DO May 01, 2022 04:56
[2022-04-30] MEDS: ENOXAPARIN INJECTION 30 MG/0.3 ML SYR SC SCH (12:11)
--- NOTE | 2022-04-30 13:22 | Physical Therapy Daily Note ---
PT Daily Note-Current Subjective Patient in recliner pre tx, agrees to PT, has no complaints of pain at rest. Pain Section J - Health Conditions 1. Rarely or not at all 2. Occasionally 3. Frequently 4. Almost constantly 8. Unable to answer Pain Effect on Sleep: 2 Pain Interference with Therapy: 2 Pain Interference w/Day-to-Day: 2 Appearance Patient in recliner post tx with nurse call, phone, tray, all needs met. Mental Status Patient Orientation: Person, Place, Situation Attachments: Colostomy/Ileostomy Transfers SCALE: Activities may be completed with or without assistive devices. 9-Usddfggbxo-ewsxrht completes the activity by him/herself with no assistance from a helper. 5-Set-up or Clean-up Assistance-helper sets up or cleans up; patient completes activity. [place] assists only prior to or following the activity. 4-Supervision or Touching Assistance-helper provides verbal cues and/or touching/steadying and/or contact guard assistance as patient completes activity. Assistance may be provided throughout the activity or intermittently. 3-Partial/Moderate Assistance-helper does LESS THAN HALF the effort. [place] lifts, holds or supports trunk or limbs, but provides less than half the effort. 2-Substantial/Maximal Assistance-helper does MORE THAN HALF the effort. [place] lifts or holds trunk or limbs and provides more than half the effort. 9-Vofpfqauz-pivdjf does ALL the effort. Patient does none of the effort to complete the activity. Or, the assistance of 2 or more helpers is required for the patient to complete the activity. If activity was not attempted, code reason: 7-Patient Refused. 9-Not Applicable-not attempted and the patient did not perform the activity before the current illness, exacerbation or injury. 10-Not Attempted due to Environmental Limitations-(lack of equipment, weather restraints, etc.). 88-Not Attempted due to Medical Conditions or Safety Concerns. Sit to Stand (QC): 4 Chair/Diw-ni-Jejhd Xfer(QC): 4 CGA Gait Training Distance: 20' Walk 10 feet (QC): 4 Gait Persons Needed: 1 Gait Assistive Device: FWW CGA, slow but steady ambulation, patient had some increased abdominal pain during ambulation and had to head back to the recliner Exercises Seated Therapy Exercises: Long arc quads, Hip flexion Seated Reps: 20 Treatments transfers, ambulation, LE ROM Assessment Current Status: Fair Progress pain limited ambulation distance PT Shelter Goals [employer]er Goals PT Shelter Goals Time Frame: May 05, 2022 Roll Left & Right (QC): 6 Sit to Lying (QC): 6 Lying-Sitting on Side/Bed(QC): 6 Sit to Stand (QC): 5 Chair/Trm-vg-Hfoab Xfer(QC): 5 Toilet Transfer (QC): 5 Walk 10 feet (QC): 5 Walk 50ft with 2 Turns (QC): 5 Walk 150 ft (QC): 5 PT Plan Problem List Problem List: Activity Tolerance, Functional Strength, Safety, Balance, Gait, Transfer, Bed Mobility, ROM Treatment/Plan Treatment Plan: Continue Plan of Care Treatment Plan: Bed Mobility, Education, Functional Activity Tim, Functional Strength, Gait, Safety, Therapeutic Exercise, Transfers Treatment Duration: May 05, 2022 Frequency: 6 times per week Estimated Hrs Per Day: .25 hour per day Safety Risks/Education Patient Education: Gait Training, Transfer Techniques, Correct Positioning, Safety Issues Teaching Recipient: Patient Teaching Methods: Demonstration, Discussion Response to Teaching: Reinforcement Needed Time/GCodes Time In: 1304 Time Out: 1316 Total Billed Treatment Time: 12 Total Billed Treatment 1 visit FA PA MASTERSON PT Apr 30, 2022 13:22
[2022-05-01 03:32] VITALS: BP 99/63
[2022-05-01] MEDS: ACETAMINOPHEN 500 MG TAB (TYLENOL) PO PRN ×2 (03:56→13:09)
[2022-05-01 04:09] LABS: BASOPHILS % (AUTO) 0 % (0-10); EOSINOPHILS # (AUTO) 0.1 10^3/uL (0.0-0.3); EOSINOPHILS % (AUTO) 2 % (0-10); HEMATOCRIT 32 % (35-52); HEMOGLOBIN 10.3 g/dL (11.5-16.0); LYMPHOCYTES # (AUTO) 3.4 10^3/uL (1.0-4.0); LYMPHOCYTES % (AUTO) 39 % (12-44); MEAN CORPUSCULAR HEMOGLOBIN 29 pg (25-34); MEAN CORPUSCULAR HGB CONC 32 g/dL (32-36); MEAN CORPUSCULAR VOLUME 92 fL (80-99); MEAN PLATELET VOLUME 8.4 fL (9.0-12.2); MONOCYTES # (AUTO) 0.8 10^3/uL (0.0-1.0); MONOCYTES % (AUTO) 9 % (0-12); NEUTROPHILS # (AUTO) 4.4 10^3/uL (1.8-7.8); NEUTROPHILS % (AUTO) 50 % (42-75); PLATELET COUNT 306 10^3/uL (130-400); WHITE BLOOD COUNT 8.9 10^3/uL (4.3-11.0)
[2022-05-01 04:25] LABS: ALBUMIN 2.2 GM/DL (3.2-4.5); BILIRUBIN,TOTAL 0.3 MG/DL (0.1-1.0); CALCIUM 8.3 MG/DL (8.5-10.1); CREATININE SERUM 0.45 MG/DL (0.60-1.30); MAGNESIUM 1.6 MG/DL (1.6-2.4)
[2022-05-01 08:35] VITALS: BP 106/74
--- NOTE | 2022-05-01 08:42 | Progress Note - Surgery ---
LORI OROZCO 05/01/22 0842: Subjective Date Seen by a Provider: May 01, 2022 Time Seen by a Provider: 08:38 Subjective/Events-last exam Pt is sitting comfortably in bed eating breakfast. She reports no complaints today. No pain or issues with midline incision. Summer removed yesterday, incision is clean, dry, and intact. Tolerating normal diet and able to ambulate. Ostomy is functioning, pt mentioned planned change of bag today to increased size to allow for fewer drainings. Review of Systems General: No Chills, No Night Sweats HEENT: No Head Aches Pulmonary: No Dyspnea, No Cough Cardiovascular: No: Chest Pain, Palpitations Gastrointestinal: No: Nausea, Vomiting Genitourinary: No Dysuria, No Hematuria Objective Exam Vital Signs Date Time Temp Pulse Resp B/P (MAP) Pulse Ox O2 Delivery O2 Flow Rate FiO2 05/01/22 03:32 37.0 100 20 99/63 (75) 98 Room Air 04/30/22 23:39 36.5 89 20 104/70 (81) 100 Room Air 04/30/22 20:00 37.5 103 20 106/75 (85) 100 Room Air 04/30/22 20:00 Room Air 04/30/22 16:27 98 Room Air 04/30/22 16:11 37.3 100 18 100/74 (83) 100 Room Air 04/30/22 11:50 37.2 97 18 109/79 (89) 100 Room Air I & O 05/01/22 07:00 Intake Total 1080 ml Output Total 2000 ml Balance -920 ml Capillary Refill : Less Than 3 Seconds General Appearance: No Apparent Distress, Thin HEENT: No Scleral Icterus (L), No Scleral Icterus (R); Other (left eye deviates laterally) Neck: Non Tender, Supple Respiratory: Lungs Clear, No Accessory Muscle Use Cardiovascular: No Murmur, Tachycardia Peripheral Pulses: 2+ Radial Pulses (R), 2+ Radial Pulses (L) Gastrointestinal: soft; No tenderness (pt reports no abdominal tenderness today on exam); other (incision is c/d/i, ostomy pink and functioning) Extremity: No Calf Tenderness, Pedal Edema Neurologic/Psychiatric: Alert Skin: Cool, Pallor Lymphatic: No Adenopathy Results Lab Laboratory Tests 05/01/22 04:00: White Blood Count 8.9, Red Blood Count 3.50L, Hemoglobin 10.3L, Hematocrit 32L, Mean Corpuscular Volume 92, Mean Corpuscular Hemoglobin 29, Mean Corpuscular Hemoglobin Concent 32, Red Cell Distribution Width 18.5H, Platelet Count 306, Mean Platelet Volume 8.4L, Immature Granulocyte % (Auto) 1, Neutrophils (%) (Auto) 50, Lymphocytes (%) (Auto) 39, Monocytes (%) (Auto) 9, Eosinophils (%) (Auto) 2, Basophils (%) (Auto) 0, Neutrophils # (Auto) 4.4, Lymphocytes # (Auto) 3.4, Monocytes # (Auto) 0.8, Eosinophils # (Auto) 0.1, Basophils # (Auto) 0.0, Immature Granulocyte # (Auto) 0.1, Sodium Level 138, Potassium Level 4.0, Chloride Level 109H, Carbon Dioxide Level 20L, Anion Gap 9, Blood Urea Nitrogen 5L, Creatinine 0.45L, Estimat Glomerular Filtration Rate 140, BUN/Creatinine Ratio 11, Glucose Level 84, Calcium Level 8.3L, Corrected Calcium 9.7, Magnesium Level 1.6, Total Bilirubin 0.3, Aspartate Amino Transf (AST/SGOT) 14, Alanine Aminotransferase (ALT/SGPT) 18, Alkaline Phosphatase 174H, Total Protein 5.0L, Albumin 2.2L Microbiology 04/25/22 Blood Culture - Final, Complete No growth Assessment/Plan Assessment/Plan Assessment/Plan Awaiting insurance approval for rehab Abdominal incision remains clean, dry, and intact after removal of summer. FAYE SCHMIDT DO 05/01/22 1111: Subjective Time Seen by a Provider: 11:08 Subjective/Events-last exam Pt without complaints Objective Exam Gastrointestinal: other (incision is c/d/i, ostomy pink and functioning) Assessment/Plan Assessment/Plan Assessment/Plan Home when ok with IM Supervisory-Addendum Brief Verification & Attestation Participated in pt care: history, MDM, physical Personally performed: exam, history, MDM, supervision of care Care discussed with: Medical Student Procedures: n/a Verification and Attestation of Medical Student E/M Service A medical student performed and documented this service. I then reviewed and verified all information documented by the medical student and made modifications to such information, when appropriate. I personally performed a physical exam, medical decision making and then discussed any differences between the notes and made revisions as necessary to create one note. Faye Schmidt , 05/01/22 , 11:11 LORI OROZCO May 01, 2022 08:42 FAYE SCHMIDT DO May 01, 2022 11:11
--- NOTE | 2022-05-01 08:53 | Cardiology Progress Note ---
Subjective Date Seen by Provider: May 01, 2022 Time Seen by Provider: 08:53 Subjective/Events-last exam Patient is sitting up in chair, no new complaints Objective-Cardiology Exam Last Set of Vital Signs Vital Signs 04/29/22 05/01/22 19:15 08:35 Temp 35.8 Pulse 104 Resp 18 B/P (MAP) 106/74 (85) Pulse Ox 98 O2 Delivery Room Air FiO2 21 I&O Intake and Output 05/01/22 00:00 Intake Total 980 ml Output Total 2150 ml Balance -1170 ml Intake Oral 980 ml Output Urine Total 850 ml Stool Total 1300 ml General: Alert, Oriented X3, Cooperative, No Acute Distress HEENT: PERRLA, Mucous Memb Moist/[place] Neck: Supple, No Thyromegaly Lungs: Clear to Auscultation, Normal Air Movement Heart: Regular Rate, Normal S1, Normal S2, No Murmurs Abdomen: Soft, No Tenderness, No Hepatosplenomegaly, Other (ileostomy present right abd ) Extremities: No Cyanosis, No Edema Skin: No Rashes, No Significant Lesion Neuro: Normal Speech, Normal Tone Psych/Mental Status: Mental Status NL, Mood NL Results Lab Laboratory Tests 05/01/22 04:00 A/P-Cardiology Admission Diagnosis Sepsis Lactic acidosis Wide-complex tachycardia Pneumonia Assessment/Plan Status post severe sepsis, hospital-acquired pneumonia Improved, responded to antibiotic Currently doing better. Anemia, drop in H&H. Status post blood transfusion, H&H are better Managed by medical team. Sinus tachycardia, probably secondary to above. Heart rate is better, tolerating low-dose metoprolol. Continue to monitor Status post encephalopathy, acute change in mental status. Improved, awake and talkative today Back to baseline, managed by medical team. Wide-complex tachycardia, irregular, most probably paroxysmal atrial tachycardia with aberrant conduction. Total of 5 beats. No previous history of ventricular tachycardia. Currently in sinus tachycardia. Started on low-dose beta-blockers, tolerating medication well. Continue to monitor Metabolic acidosis secondary to lactic acidosis. Being corrected. Status post exploratory laparoscopy with small bowel resection and ileostomy done on April 14, 2022 Continue to monitor History of Crohn's disease. 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 MARILIN GRAVES May 01, 2022 08:53
--- NOTE | 2022-05-01 09:01 | Physical Therapy Daily Note ---
PT Daily Note-Current Subjective Patient agrees to PT. Pain Section J - Health Conditions 1. Rarely or not at all 2. Occasionally 3. Frequently 4. Almost constantly 8. Unable to answer Pain Effect on Sleep: 1 Pain Interference with Therapy: 1 Pain Interference w/Day-to-Day: 1 Mental Status Attachments: Colostomy/Ileostomy Transfers SCALE: Activities may be completed with or without assistive devices. 0-Dtyyapfqtx-cqbpixq completes the activity by him/herself with no assistance from a helper. 5-Set-up or Clean-up Assistance-helper sets up or cleans up; patient completes activity. [place] assists only prior to or following the activity. 4-Supervision or Touching Assistance-helper provides verbal cues and/or touching/steadying and/or contact guard assistance as patient completes activity. Assistance may be provided throughout the activity or intermittently. 3-Partial/Moderate Assistance-helper does LESS THAN HALF the effort. [place] lifts, holds or supports trunk or limbs, but provides less than half the effort. 2-Substantial/Maximal Assistance-helper does MORE THAN HALF the effort. [place] lifts or holds trunk or limbs and provides more than half the effort. 1-Mecmddmzz-kfeavx does ALL the effort. Patient does none of the effort to complete the activity. Or, the assistance of 2 or more helpers is required for the patient to complete the activity. If activity was not attempted, code reason: 7-Patient Refused. 9-Not Applicable-not attempted and the patient did not perform the activity before the current illness, exacerbation or injury. 10-Not Attempted due to Environmental Limitations-(lack of equipment, weather restraints, etc.). 88-Not Attempted due to Medical Conditions or Safety Concerns. Sit to Stand (QC): 5 Gait Training Distance: 250' x 1/200' x 1 Walk 10 feet (QC): 5 Walk 50 ft with 2 Turns(QC): 5 Walk 150 ft (QC): 5 Gait Assistive Device: FWW strong, functional gait sequence with no deviation Exercises Seated Therapy Exercises: Ankle pumps, Long arc quads, Hip flexion Seated Reps: 15 (x 2 sets) Assessment Patient much improved with all gross motor skills. Patient highly motivated with progress. Patient performing all exercises independently per her report. PT Mcc Goals Mcc Goals PT Mcc Goals Time Frame: May 05, 2022 Roll Left & Right (QC): 6 Sit to Lying (QC): 6 Lying-Sitting on Side/Bed(QC): 6 Sit to Stand (QC): 5 Chair/Vyd-yz-Adtgu Xfer(QC): 5 Toilet Transfer (QC): 5 Walk 10 feet (QC): 5 Walk 50ft with 2 Turns (QC): 5 Walk 150 ft (QC): 5 PT Plan Treatment/Plan Treatment Plan: Continue Plan of Care Treatment Plan: Bed Mobility, Education, Functional Activity Tim, Functional Strength, Gait, Safety, Therapeutic Exercise, Transfers Treatment Duration: May 05, 2022 Frequency: 6 times per week Estimated Hrs Per Day: .25 hour per day Time/GCodes Time In: 832 Time Out: 855 Total Billed Treatment Time: 23 Total Billed Treatment 1 visit FA x 2 23 min ZINA HERNÁNDEZ PT May 01, 2022 09:01
--- NOTE | 2022-05-01 09:10 | Cardiology Progress Note ---
Subjective Date Seen by Provider: May 01, 2022 Time Seen by Provider: 09:10 Subjective/Events-last exam Patient was seen at bedside, sitting comfortably. No new complaint. Objective-Cardiology Exam Last Set of Vital Signs Vital Signs 04/29/22 05/01/22 19:15 08:35 Temp 35.8 Pulse 104 Resp 18 B/P (MAP) 106/74 (85) Pulse Ox 98 O2 Delivery Room Air FiO2 21 I&O Intake and Output 05/01/22 00:00 Intake Total 980 ml Output Total 2150 ml Balance -1170 ml Intake Oral 980 ml Output Urine Total 850 ml Stool Total 1300 ml General: Alert, Oriented X3, Cooperative, No Acute Distress HEENT: PERRLA, Mucous Memb Moist/[place] Neck: Supple, No Thyromegaly Lungs: Clear to Auscultation, Normal Air Movement Heart: Regular Rate, Normal S1, Normal S2, No Murmurs Abdomen: Soft, No Tenderness, No Hepatosplenomegaly, Other (ileostomy present right abd ) Extremities: No Cyanosis, No Edema Skin: No Rashes, No Significant Lesion Neuro: Normal Speech, Normal Tone Psych/Mental Status: Mental Status NL, Mood NL Results Lab Laboratory Tests 05/01/22 04:00 A/P-Cardiology Admission Diagnosis Sepsis Lactic acidosis Wide-complex tachycardia Pneumonia Assessment/Plan Status post severe sepsis, hospital-acquired pneumonia Improved, responded to antibiotic Currently doing better. Anemia, drop in H&H. Status post blood transfusion, H&H are better Managed by medical team. Sinus tachycardia, probably secondary to above. Heart rate is better, tolerating low-dose metoprolol. Continue to monitor Status post encephalopathy, acute change in mental status. Improved, awake and talkative today Back to baseline, managed by medical team. Wide-complex tachycardia, irregular, most probably paroxysmal atrial tachycardia with aberrant conduction. Total of 5 beats. No previous history of ventricular tachycardia. Currently in sinus tachycardia. Started on low-dose beta-blockers, tolerating medication well. Continue to monitor Metabolic acidosis secondary to lactic acidosis. Being corrected. Status post exploratory laparoscopy with small bowel resection and ileostomy done on April 14, 2022 Continue to monitor History of Crohn's disease. 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 DIEGO PARIKH MD May 01, 2022 09:10
[2022-05-01] MEDS: LACTOBACILLUS ACIDOPHILUS (PROBIOTIC) CAPSULE PO SCH ×3 (09:28→17:53)
[2022-05-01] MEDS: PANTOPRAZOLE 40 MG (PROTONIX) TAB PO SCH ×2 (09:28→20:14)
[2022-05-01] MEDS: DOCUSATE SODIUM 100 MG (COLACE) CAP PO SCH ×2 (09:28→20:06)
[2022-05-01] MEDS: AUGMENTIN 875 MG TAB (AMOXICILLIN/CLAVULANATE) PO SCH ×2 (09:28→17:53)
[2022-05-01] MEDS: SENNOSIDES 8.6 MG (SENOKOT) TAB PO SCH ×2 (09:28→20:06)
[2022-05-01] MEDS: meTOprolol TARTRATE 25 MG (LOPRESSOR) TABLET PO SCH ×3 (09:28→20:06)
[2022-05-01] MEDS: LORATADINE (CLARITIN) 10 MG TAB PO SCH (09:29)
[2022-05-01] MEDS: FLUTICASONE NASAL SPRAY (FLONASE) 16 GM BTL NS SCH (09:29)
--- NOTE | 2022-05-01 10:22 | Occupational Ther Daily Note ---
OT Current Status-Daily Note Subjective Pt sitting in recliner upon arrival. Pt agrees to therapy. Pt c/o no pain. Mental Status/Objective Patient Orientation: Person, Place, Time Attachments: Colostomy/Ileostomy ADL-Treatment Pt required assistance to empty ileostomy bag, when asked if pt wanted to complete, pt declined. After session, pt was sitting in recliner with call light and phone in reach. All needs met. Therapy Code Descriptions/Definitions Functional [place] Measure: 0=Not Assessed/NA 4=Minimal Assistance 1=Total Assistance 5=Supervision or Setup 2=Maximal Assistance 6=Modified [place] 3=Moderate Assistance 7=Complete IndependenceSCALE: Activities may be completed with or without assistive devices. 2-Jmnfuwhbmg-wtdkanh completes the activity by him/herself with no assistance from a helper. 5-Set-up or Clean-up Assistance-helper sets up or cleans up; patient completes activity. [place] assists only prior to or following the activity. 4-Supervision or Touching Assistance-helper provides verbal cues and/or touching/steadying and/or contact guard assistance as patient completes activity. Assistance may be provided throughout the activity or intermittently. 3-Partial/Moderate Assistance-helper does LESS THAN HALF the effort. [place] lifts, holds or supports trunk or limbs, but provides less than half the effort. 2-Substantial/Maximal Assistance-helper does MORE THAN HALF the effort. [place] lifts or holds trunk or limbs and provides more than half the effort. 6-Vmomxwejd-ekqmiu does ALL the effort. Patient does none of the effort to complete the activity. Or, the assistance of 2 or more helpers is required for the patient to complete the activity. If activity was not attempted, code reason: 7-Patient Refused. 9-Not Applicable-not attempted and the patient did not perform the activity before the current illness, exacerbation or injury. 10-Not Attempted due to Environmental Limitations-(lack of equipment, weather restraints, etc.). 88-Not Attempted due to Medical Conditions or Safety Concerns. Other Treatment Pt participated in 10 reps each x5 of BUE exercises. Pt performed exercises independently after visual demonstration. Pt required breaks to rest due to fatigue between each rep of 10. Pt completed all exercises without difficulty. Pt displays decrease ROM in R and L elbow extension. Education OT Patient Education: Exercise program Teaching Recipient: Patient Teaching Methods: Demonstration Response to Teaching: Verbalize Understanding, Return Demonstration OT Jail Goals Jail Goals Time Frame: May 04, 2022 Eating (QC): 5 Toileting Hygiene (QC): 88 Shower/Bathe Self (QC): 4 Upper Body Dressing (QC): 5 Lower Body Dressing (QC): 4 On/Off Footwear (QC): 4 Additional Goals: 1-Demonstrate ADL Tasks, 2-Verbalize Understanding, 3- ImproveStrength/Tim 1=Demonstrate adherence to instructed precautions during ADL tasks. 2=Patient will verbalize/demonstrate understanding of assistive devices/modifications for ADL. 3=Patient will improve strength/tolerance for activity to enable patient to perform ADL's. OT Education/Plan Problem List/Assessment Assessment: Decreased UE Strength Discharge Recommendations Plan/Recommendations: Continue POC Treatment Plan/Plan of Care Patient would benefit from OT for education, treatment and training to promote independence in ADL's, mobility, safety and/or upper extremity function for ADL's. Plan of Care: ADL Retraining, Functional Mobility, UE Funct Exercise/Act Treatment Duration: May 04, 2022 Frequency: 3 times per week (3-5 times per week) Estimated Hrs Per Day: .25 hour per day Agreement: Yes Rehab Potential: Fair Time/GCodes Start Time: 09:53 Stop Time: 10:13 Total Time Billed (hr/min): 20 Billed Treatment Time 1 visit - EX 1 (20 min) VALENTINA CASTRO May 01, 2022 10:22
[2022-05-01 11:26] VITALS: BP 107/74
[2022-05-01] MEDS: ENOXAPARIN INJECTION 30 MG/0.3 ML SYR SC SCH (11:33)
--- NOTE | 2022-05-01 14:02 | Progress Note ---
MARYHIRAM 05/01/22 1402: Subjective Date Seen by a Provider: May 01, 2022 Time Seen by a Provider: 13:59 Subjective/Events-last exam Pt is sitting comfortably in chair. Pt currently has no complaints. States that she continues to feel well. Has been ambulating and eating without issue. C ontinues to have output from ileostomy and has been voiding. Pt denies CP, SOA, abd pain, nausea, and vomiting. Hospital Course: 21yo F with h/o s/p ex lap with small bowel resection and ileostomy, cerebral palsy, ACTION INSTALLER shunt, Crohn's disease, and hiatal hernia was admitted to the ICU for severe sepsis from inpatient rehab on 04/25. Pt was admitted to inpatient rehab on 04/19 following an ex lap with small bowel resection and ileostomy on 04/14. Since being admitted to inpatient rehab, pt had been tolerating diet and PT well, having ileostomy output, and had no complaints. On 04/24, pt started to c/o L sided rib pain that occurred following PT. Initially, pt stated that the pain was localized to the 7th rib and was dull and mild but got progressively worse throughout day. Imaging was ordered and XRAY of ribs found no fractures but CXR found possible developing pneumonia in the R lung base. Pt was started on Linezolid but became progressively less responsive to questions, moaning and c/o pain only. Workup was remarkable for elevated WBC, thrombocytosis, elevated lactic acid of 5.84, and elevated procalcitonin. Pt exhibited notable pallor w/mild guerrero hue and was thrashing in the bed moaning. Pt was transferred to the ICU where she became more agitated and was given 10mg of Geodon and 0.5mg of Ativan. Pt had a repeat lactic acid that was elevated to 6.87 and an elevated D- Dimer in the ICU. IV Zosyn and Lovenox were ordered and given. Per nurse, pt experienced an episode of VTACH after transfer but self-resolved. Pt continued to improve over the next few hours and was transferred to fourth floor on 04/26. Following transfer to floor, workup showsed improvement of her thrombocytosis, WBC, and procalcitonin levels. On 04/28, pt was transfused with 1U PRBC due to a Hgb of 6.9. Today, pt states that she is feeling much better. Hgb has improved to 10.3. Pt continues to void and have output from her ileostomy. Pt is tolerating her diet well and has been able to ambulate without issue. Due to pt's insurance, her inpatient rehab visit was closed so pt will need to be re- evaluated by inpatient rehab prior to transfer. Review of Systems General: No Chills, No Night Sweats HEENT: No Head Aches, No Visual Changes Pulmonary: No Dyspnea, No Cough Cardiovascular: No: Chest Pain, Palpitations Gastrointestinal: No: Nausea, Vomiting, Abdominal Pain Genitourinary: No Dysuria, No Frequency Musculoskeletal: No: neck pain, shoulder pain Neurological: No: Weakness, Numbness Objective Exam Last Set of Vital Signs Vital Signs Date Time Temp Pulse Resp B/P (MAP) Pulse Ox O2 Delivery O2 Flow Rate FiO2 05/01/22 11:26 37.0 90 18 107/74 (85) 100 Room Air 04/29/22 19:15 21 Capillary Refill : Less Than 3 Seconds I&O Intake and Output 05/01/22 00:00 Intake Total 980 ml Output Total 2150 ml Balance -1170 ml Intake Oral 980 ml Output Urine Total 850 ml Stool Total 1300 ml General: Alert, Oriented X3 HEENT: PERRLA, Mucous Memb Moist/[place] Neck: Supple, No Thyromegaly Lungs: Clear to Auscultation, Normal Air Movement Heart: Regular Rate, No Murmurs Abdomen: Soft, No Tenderness, Other (ileosomy R abd) Extremities: No Cyanosis, No Edema Skin: No Rashes, No Significant Lesion Neuro: Normal Speech, Normal Tone Psych/Mental Status: Mental Status NL, Mood NL Results Lab Laboratory Tests 05/01/22 04:00: White Blood Count 8.9, Red Blood Count 3.50L, Hemoglobin 10.3L, Hematocrit 32L, Mean Corpuscular Volume 92, Mean Corpuscular Hemoglobin 29, Mean Corpuscular Hemoglobin Concent 32, Red Cell Distribution Width 18.5H, Platelet Count 306, Mean Platelet Volume 8.4L, Immature Granulocyte % (Auto) 1, Neutrophils (%) (Auto) 50, Lymphocytes (%) (Auto) 39, Monocytes (%) (Auto) 9, Eosinophils (%) (Auto) 2, Basophils (%) (Auto) 0, Neutrophils # (Auto) 4.4, Lymphocytes # (Auto) 3.4, Monocytes # (Auto) 0.8, Eosinophils # (Auto) 0.1, Basophils # (Auto) 0.0, Immature Granulocyte # (Auto) 0.1, Sodium Level 138, Potassium Level 4.0, Chloride Level 109H, Carbon Dioxide Level 20L, Anion Gap 9, Blood Urea Nitrogen 5L, Creatinine 0.45L, Estimat Glomerular Filtration Rate 140, BUN/Creatinine Ratio 11, Glucose Level 84, Calcium Level 8.3L, Corrected Calcium 9.7, Magnesium Level 1.6, Total Bilirubin 0.3, Aspartate Amino Transf (AST/SGOT) 14, Alanine Aminotransferase (ALT/SGPT) 18, Alkaline Phosphatase 174H, Total Protein 5.0L, Albumin 2.2L Microbiology 04/25/22 Blood Culture - Final, Complete No growth Assessment/Plan Assessment/Plan Assess & Plan/Chief Complaint Assess & Plan/Chief Complaint 1. Severe Sepsis vs Septic shock -Started on 200mls IV Zosyn and IV Linezolid 300mg Q12H (DC 04/26) -Given 1L NS bolus and IV 125ml/hr NS -Blood cultures were unremarkable -Procalcitonin on intake was 30.47, improved to 23.24 on 04/26 04/27: -Procalcitonin is mildly elevated from yesterday at 36.70 2. Hospital acquired pneumonia -CXR 04/25 showed possible RLL pneumonia -IV Linezolid 300mg Q12H (DC 04/26) and 200mls IV Zosyn added to cover possible aspiration 3. Encephalopathy -resolved -CT head unremarkable 4. Metabolic acidosis - AG back within normal range -lactic acid back to normal range 5. Leukocytosis -WBC 11.8 on 04/25, elevated to 18.8 on 04/26 04/27: -WBC still elevated but unchanged from yesterday 4. Thrombocytosis -improved 6. Lactic acidosis -See above 7. Elevated D-dimer -D-dimer of 6.34 on 04/25 -B/L LE Venous Doppler unremarkable -Lovenox started 8. Protein malnutrition - Albumin = 2.5 9. S/p exp lap with bowel resection and ileostomy -continues to have good output, continue to monitor -EICU ordered imaging of abd/pelvis d/t recent abd surgery and h/o Crohn's disease - all unremarkable 10. Cerebral palsy -Muscle spasticity- takes 10mg TID of Baclofen- currently discontinued -H/o ACTION INSTALLER shunt with revision 11. Crohn's Disease -followed by Dr. Campbell in [place] -takes Humira at home - discontinued in hospital 12. Hypokalemia -04/27: decreased to 3.0 from 3.4 Plan: Continue with PO abx PT Awaiting transfer to inpatient rehab Clinical Quality Measures Admission Status Admission Dx 1. Severe Sepsis vs Septic shock -Started on 200mls IV Zosyn and IV Linezolid 300mg Q12H -Given 1L NS bolus and IV 125ml/hr NS -Continue to monitor blood pressure and urine output -Blood cultures ordered -Consider repeat procalcitonin levels tomorrow 2. Hospital acquired pneumonia -CXR 04/25 showed possible RLL pneumonia -IV Linezolid 300mg Q12H and 200mls IV Zosyn added to cover possible aspiration -monitor O2 sats, manage as needed 3. Encephalopathy -Mentation change from baseline, most recently more confused per EICU note -multiple attempts to acquire ABGs unsuccessful -CT head ordered 4. Metabolic acidosis - AG of 16 today -continue to monitor lactic acidosis, last lab was 6.87 5. Leukocytosis -WBC elevated to 11.8, continue to monitor 4. Thrombocytosis -Plt count elevated to 681, continue to monitor 6. Lactic acidosis -See above 7. Elevated D-dimer -D-dimer of 6.34 -B/L LE Venous Doppler unremarkable -Lovenox started 8. Protein malnutrition - Albumin = 2.5 -currently NPO, will consider nutrition supplementation when appropriate 9. S/p exp lap with bowel resection and ileostomy -continues to have good output, continue to monitor -EICU will order imaging of abd/pelvis d/t recent abd surgery and h/o Crohn's disease 10. Cerebral palsy -Muscle spasticity- takes 10mg TID of Baclofen- currently discontinued -H/o ACTION INSTALLER shunt with revision 11. Crohn's Disease -followed by Dr. Campbell in [place] -takes Humira at home - discontinued in hospital KIMI SIDDIQI DO 05/02/22 0613: Supervisory-Addendum Brief Verification & Attestation Participated in pt care: history, MDM, physical Personally performed: exam, history, MDM, supervision of care Care discussed with: Medical Student Procedures: n/a Results interpretation: Verified all documentation Verification and Attestation of Medical Student E/M Service A medical student performed and documented this service in my presence. I reviewed and verified all information documented by the medical student and made modifications to such information, when appropriate. I personally performed the physical exam and medical decision making. Kimi Siddiqi May 02, 2022,06:12 HIRAM HERNANDEZ May 01, 2022 14:02 KIMI SIDDIQI DO May 02, 2022 06:13
[2022-05-01 15:51] VITALS: BP 95/70
[2022-05-01 20:02] VITALS: BP 96/77
[2022-05-01 23:07] VITALS: BP 106/77
[2022-05-02] MEDS: ACETAMINOPHEN 500 MG TAB (TYLENOL) PO PRN (03:04)
[2022-05-02 03:22] VITALS: BP 102/64
[2022-05-02 05:14] LABS: BASOPHILS % (AUTO) 1 % (0-10); EOSINOPHILS # (AUTO) 0.2 10^3/uL (0.0-0.3); EOSINOPHILS % (AUTO) 2 % (0-10); HEMATOCRIT 34 % (35-52); HEMOGLOBIN 10.7 g/dL (11.5-16.0); LYMPHOCYTES # (AUTO) 2.5 10^3/uL (1.0-4.0); LYMPHOCYTES % (AUTO) 31 % (12-44); MEAN CORPUSCULAR HEMOGLOBIN 30 pg (25-34); MEAN CORPUSCULAR HGB CONC 32 g/dL (32-36); MEAN CORPUSCULAR VOLUME 93 fL (80-99); MONOCYTES # (AUTO) 0.6 10^3/uL (0.0-1.0); MONOCYTES % (AUTO) 7 % (0-12); NEUTROPHILS # (AUTO) 4.8 10^3/uL (1.8-7.8); NEUTROPHILS % (AUTO) 59 % (42-75); PLATELET COUNT 303 10^3/uL (130-400); WHITE BLOOD COUNT 8.2 10^3/uL (4.3-11.0)
[2022-05-02 05:34] LABS: ALBUMIN 2.2 GM/DL (3.2-4.5); BILIRUBIN,TOTAL 0.3 MG/DL (0.1-1.0); CALCIUM 8.1 MG/DL (8.5-10.1); CREATININE SERUM 0.5 MG/DL (0.60-1.30); MAGNESIUM 1.5 MG/DL (1.6-2.4); POTASSIUM 3.2 MMOL/L (3.6-5.0); TOTAL PROTEIN 5.2 GM/DL (6.4-8.2)
[2022-05-02] MEDS ORDERED: FLUT9.9S NS (06:56)
[2022-05-02] MEDS ORDERED: PANT40TA52 PO (06:56)
[2022-05-02] MEDS ORDERED: FURO20TA4 PO (06:56)
[2022-05-02] MEDS ORDERED: LACT1CAP40 PO (06:56)
[2022-05-02] MEDS ORDERED: METO-333 PO (06:56)
[2022-05-02] MEDS ORDERED: BACL10TA PO (06:56)
[2022-05-02] MEDS ORDERED: LORA10TA7 PO (06:56)
[2022-05-02] MEDS ORDERED: ACHD5005 PO (06:56)
[2022-05-02] MEDS ORDERED: DICY10CA12 PO (06:56)
--- NOTE | 2022-05-02 06:57 | Discharge Summary ---
Diagnosis/Chief Complaint Date of Admission Apr 25, 2022 at 07:46 Date of Discharge Discharge Date: May 02, 2022 Reason Hospital Visit CC: Acute clinical decompensation HPI: This is a 21yoWF ARU patient who had been doing well until this morning and had an abrupt onset of clinical decompensation requiring septic w/u and subsequent transfer to ICU for severe sepsis and PNA treatment with Zosyn and Zyvox. IVF initiated with good resolution of lactic acidosis and sepsis signs. Grna at bedside and updated. Discharge Summary Discharge Physical Examination Allergies: Coded Allergies: vancomycin (Verified Allergy, Intermediate, Rash, 04/19/22) Vitals & I&Os Vital Signs Date Time Temp Pulse Resp B/P (MAP) Pulse Ox O2 Delivery O2 Flow Rate FiO2 05/02/22 07:55 36.4 101 18 96/66 (76) 100 Room Air 04/29/22 19:15 21 Hospital Course Labs (last 24 hrs) Laboratory Tests 04/25/22 15:07: Hemoglobin 8.9L, Potassium Level 2.8L, Magnesium Level 1.6 04/25/22 23:25: Potassium Level 3.2L 04/26/22 04:43: Hemoglobin 7.6L, Potassium Level 3.4L, Magnesium Level 2.0, White Blood Count 18.8H, Red Blood Count 2.55L, Hematocrit 25L, Mean Corpuscular Volume 98, Mean Corpuscular Hemoglobin 30, Mean Corpuscular Hemoglobin Concent 30L, Red Cell Distribution Width 18.6H, Platelet Count 527H, Mean Platelet Volume 8.0L, Immature Granulocyte % (Auto) 1, Neutrophils (%) (Auto) 79H, Lymphocytes (%) (Auto) 15, Monocytes (%) (Auto) 4, Eosinophils (%) (Auto) 0, Basophils (%) (A uto) 0, Neutrophils # (Auto) 14.8H, Lymphocytes # (Auto) 2.9, Monocytes # (Auto) 0.8, Eosinophils # (Auto) 0.0, Basophils # (Auto) 0.1, Immature Granulocyte # (Auto) 0.2H, Neutrophils % (Manual) 83, Lymphocytes % (Manual) 7, Monocytes % (Manual) 6, Eosinophils % (Manual) 0, Basophils % (Manual) 0, Band Neutrophils 2, Reactive Lymphocytes 2, Polychromasia SLIGHT, Hypochromasia MODERATE, Anisocytosis SLIGHT, Tear Drop Cells SLIGHT, Sodium Level 139, Chloride Level 110H, Carbon Dioxide Level 22, Anion Gap 7, Blood Urea Nitrogen < 2L, Creatinine 0.38L, Estimat Glomerular Filtration Rate 146, BUN/Creatinine Ratio 5, Glucose Level 86, Calcium Level 7.1L, Corrected Calcium 8.7, Phosphorus Level 2.4, Total Bilirubin 0.3, Aspartate Amino Transf (AST/SGOT) 28, Alanine Aminotransferase (ALT/SGPT) 19, Alkaline Phosphatase 153H, Total Protein 4.4L, Albumin 2.0L, Procalcitonin 23.24H 04/27/22 04:45: Hemoglobin 7.4L, Potassium Level 3.0L, Magnesium Level 1.8, White Blood Count 18.8H, Red Blood Count 2.41L, Hematocrit 24L, Mean Corpuscular Volume 99, Mean Corpuscular Hemoglobin 31, Mean Corpuscular Hemoglobin Concent 31L, Red Cell Distribution Width 18.6H, Platelet Count 447H, Mean Platelet Volume 8.2L, Immature Granulocyte % (Auto) 1, Neutrophils (%) (Auto) 81H, Lymphocytes (%) (Auto) 14, Monocytes (%) (Auto) 4, Eosinophils (%) (Auto) 0, Basophils (%) (Auto) 0, Neutrophils # (Auto) 15.2H, Lymphocytes # (Auto) 2.7, Monocytes # (Auto) 0.7, Eosinophils # (Auto) 0.0, Basophils # (Auto) 0.1, Immature Granulocyte # (Auto) 0.1, Sodium Level 137, Chloride Level 108H, Carbon Dioxide Level 19L, Anion Gap 10, Blood Urea Nitrogen < 2L, Creatinine 0.39L, Estimat Glomerular Filtration Rate 145, BUN/Creatinine Ratio 5, Glucose Level 70, Calcium Level 7.0L, Corrected Calcium 8.8, Total Bilirubin 0.3, Aspartate Amino Transf (AST/SGOT) 22, Alanine Aminotransferase (ALT/SGPT) 19, Alkaline Phospha tase 161H, Total Protein 4.1L, Albumin 1.8L 04/27/22 04:50: Procalcitonin 36.70H 04/28/22 05:38: White Blood Count 9.7, Red Blood Count 2.29L, Hemoglobin 6.9*L, Hematocrit 23L, Mean Corpuscular Volume 98, Mean Corpuscular Hemoglobin 30, Mean Corpuscular Hem oglobin Concent 31L, Red Cell Distribution Width 18.3H, Platelet Count 363, Mean Platelet Volume 8.2L, Immature Granulocyte % (Auto) 0, Neutrophils (%) (Auto) 65, Lymphocytes (%) (Auto) 28, Monocytes (%) (Auto) 5, Eosinophils (%) (Auto) 1, Basophils (%) (Auto) 0, Neutrophils # (Auto) 6.3, Lymphocytes # (Auto) 2.7, Monocytes # (Auto) 0.5, Eosinophils # (Auto) 0.1, Basophils # (Auto) 0.0, Immature Granulocyte # (Auto) 0.0, Sodium Level 137, Potassium Level 3.3L, Chloride Level 108H, Carbon Dioxide Level 20L, Anion Gap 9, Blood Urea Nitrogen 5L, Creatinine 0.42L, Estimat Glomerular Filtration Rate 143, BUN/Creatinine Ratio 12, Glucose Level 73, Calcium Level 7.1L, Corrected Calcium 8.9, Magnesium Level 1.8, Total Bilirubin 0.3, Aspartate Amino Transf (AST/SGOT) 13, Alanine Aminotransferase (ALT/SGPT) 16, Alkaline Phosphatase 146H, Total Protein 4.2L, Albumin 1.8L 04/29/22 05:54: White Blood Count 8.5, Red Blood Count 3.15L, Hemoglobin 9.5#L, Hematocrit 28L, Mean Corpuscular Volume 90, Mean Corpuscular Hemoglobin 30, Mean Corpuscular Hemoglobin Concent 34, Red Cell Distribution Width 19.2H, Platelet Count 301, Mean Platelet Volume 8.3L, Immature Granulocyte % (Auto) 1, Neutrophils (%) (Auto) 54, Lymphocytes (%) (Auto) 35, Monocytes (%) (Auto) 9, Eosinophils (%) (Auto) 1, Basophils (%) (Auto) 1, Neutrophils # (Auto) 4.6, Lymphocytes # (Auto) 3.0, Monocytes # (Auto) 0.7, Eosinophils # (Auto) 0.1, Basophils # (Auto) 0.0, Immature Granulocyte # (Auto) 0.1, Sodium Level 136, Potassium Level 3.9, Chloride Level 107, Carbon Dioxide Level 21, Anion Gap 8, Blood Urea Nitrogen 4L , Creatinine 0.44L, Estimat Glomerular Filtration Rate 141, BUN/Creatinine Ratio 9, Glucose Level 84, Calcium Level 7.6L, Corrected Calcium 9.2, Magnesium Level 1.7, Total Bilirubin 0.5, Aspartate Amino Transf (AST/SGOT) 18, Alanine Aminotransferase (ALT/SGPT) 16, Alkaline Phosphatase 157H, Total Protein 4.6L, Albumin 2.0L 04/30/22 05:54: White Blood Count 7.4, Red Blood Count 3.47L, Hemoglobin 10.2L, Hematocrit 32L, Mean Corpuscular Volume 91, Mean Corpuscular Hemoglobin 29, Mean Corpuscular Hemoglobin Concent 32, Red Cell Distribution Width 18.6H, Platelet Count 329, Mean Platelet Volume 8.2L, Immature Granulocyte % (Auto) 1, Neutrophils (%) (Auto) 48, Lymphocytes (%) (Auto) 41, Monocytes (%) (Auto) 9, Eosinophils (%) (Auto) 2, Basophils (%) (Auto) 0, Neutrophils # (Auto) 3.5, Lymphocytes # (Auto) 3.0, Monocytes # (Auto) 0.7, Eosinophils # (Auto) 0.1, Basophils # (Auto) 0.0, Immature Granulocyte # (Auto) 0.1, Sodium Level 139, Potassium Level 3.8, Chloride Level 108H, Carbon Dioxide Level 21, Anion Gap 10, Blood Urea Nitrogen 3L, Creatinine 0.42L, Estimat Glomerular Filtration Rate 143, BUN/Creatinine Ratio 7, Glucose Level 84, Calcium Level 8.3L, Corrected Calcium 9.8, Magnesium Level 1.7, Total Bilirubin 0.4, Aspartate Amino Transf (AST/SGOT) 17, Alanine Aminotransferase (ALT/SGPT) 20, Alkaline Phosphatase 158H, Total Protein 4.9L, Albumin 2.1L 05/01/22 04:00: White Blood Count 8.9, Red Blood Count 3.50L, Hemoglobin 10.3L, Hematocrit 32L, Mean Corpuscular Volume 92, Mean Corpuscular Hemoglobin 29, Mean Corpuscular Hemoglobin Concent 32, Red Cell Distribution Width 18.5H, Platelet Count 306, Mean Platelet Volume 8.4L, Immature Granulocyte % (Auto) 1, Neutrophils (%) (Auto) 50, Lymphocytes (%) (Auto) 39, Monocytes (%) (Auto) 9, Eosinophils (%) (Auto) 2, Basophils (%) (Auto) 0, Neutrophils # (Auto) 4.4, Lymphocytes # (Auto) 3.4, Monocytes # (Auto) 0.8, Eosinophils # (Auto) 0.1, Basophils # (Auto) 0.0, Immature Granulocyte # (Auto) 0.1, Sodium Level 138, Potassium Level 4.0, Chloride Level 109H, Carbon Dioxide Level 20L, Anion Gap 9, Blood Urea Nitrogen 5L, Creatinine 0.45L, Estimat Glomerular Filtration Rate 140, BUN/Creatinine Ratio 11, Glucose Level 84, Calcium Level 8.3L, Corrected Calcium 9.7, Magnesium Level 1.6, Total Bilirubin 0.3, Aspartate Amino Transf (AST/SGOT) 14, Alanine Aminotransferase (ALT/SGPT) 18, Alkaline Phosphatase 174H, Total Protein 5.0L, Albumin 2.2L 05/02/22 05:00: White Blood Count 8.2, Red Blood Count 3.60L, Hemoglobin 10.7L, Hematocrit 34L, Mean Corpuscular Volume 93, Mean Corpuscular Hemoglobin 30, Mean Corpuscular H emoglobin Concent 32, Red Cell Distribution Width 18.1H, Platelet Count 303, Mean Platelet Volume 9.0, Immature Granulocyte % (Auto) 1, Neutrophils (%) (Auto) 59, Lymphocytes (%) (Auto) 31, Monocytes (%) (Auto) 7, Eosinophils (%) (Auto) 2, Basophils (%) (Auto) 1, Neutrophils # (Auto) 4.8, Lymphocytes # (Auto) 2.5, Monocytes # (Auto) 0.6, Eosinophils # (Auto) 0.2, Basophils # (Auto) 0.0, Immature Granulocyte # (Auto) 0.1, Sodium Level 137, Potassium Level 3.2L, Chlor junior Level 107, Carbon Dioxide Level 19L, Anion Gap 11, Blood Urea Nitrogen 5L, Creatinine 0.50L, Estimat Glomerular Filtration Rate 137, BUN/Creatinine Ratio 10, Glucose Level 122H, Calcium Level 8.1L, Corrected Calcium 9.5, Magnesium Level 1.5L, Total Bilirubin 0.3, Aspartate Amino Transf (AST/SGOT) 12, Alanine Aminotransferase (ALT/SGPT) 18, Alkaline Phosphatase 157H, Total Protein 5.2L, Albumin 2.2L Microbiology 04/25/22 Blood Culture - Final, Complete No growth Pending Labs Microbiology Date/Time Source Procedure Growth Status 04/25/22 09:05 Peripheral Lt Hand Blood Culture - Final No growth Complete Laboratory Tests 04/25/22 15:07: Hemoglobin 8.9, Potassium Level 2.8, Magnesium Level 1.6 04/25/22 23:25: Potassium Level 3.2 04/26/22 04:43: Hemoglobin 7.6, Potassium Level 3.4, Magnesium Level 2.0, White Blood Count 18.8, Red Blood Count 2.55, Hematocrit 25, Mean Corpuscular Volume 98, Mean Corpuscular Hemoglobin 30, Mean Corpuscular Hemoglobin Concent 30, Red Cell Distribution Width 18.6, Platelet Count 527, Mean Platelet Volume 8.0, Immature Granulocyte % (Auto) 1, Neutrophils (%) (Auto) 79, Lymphocytes (%) (Auto) 15, Monocytes (%) (Auto) 4, Eosinophils (%) (Auto) 0, Basophils (%) (Auto) 0, Neutrophils # (Auto) 14.8, Lymphocytes # (Auto) 2.9, Monocytes # (Auto) 0.8, Eosinophils # (Auto) 0.0, Basophils # (Auto) 0.1, Immature Granulocyte # (Auto) 0.2, Neutrophils % (Manual) 83, Lymphocytes % (Manual) 7, Monocytes % (Manual) 6, Eosinophils % (Manual) 0, Basophils % (Manual) 0, Band Neutrophils 2, Reactive Lymphocytes 2, Polychromasia SLIGHT, Hypochromasia MODERATE, Anisocytosis SLIGHT, Tear Drop Cells SLIGHT, Sodium Level 139, Chloride Level 110, Carbon Dioxide Level 22, Anion Gap 7, Blood Urea Nitrogen < 2, Creatinine 0.38, Estimat Glomerular Filtration Rate 146, BUN/Creatinine Ratio 5, Glucose Level 86, Calcium Level 7.1, Corrected Calcium 8.7, Phosphorus Level 2.4, Total Bilirubin 0.3, Aspartate Amino Transf (AST/SGOT) 28, Alanine Aminotransferase (ALT/SGPT) 19, Alkaline Phosphatase 153, Total Protein 4.4, Albumin 2.0, Procalcitonin 23.24 04/27/22 04:45: Hemoglobin 7.4, Potassium Level 3.0, Magnesium Level 1.8, White Blood Count 18.8, Red Blood Count 2.41, Hematocrit 24, Mean Corpuscular Volume 99, Mean Corpuscular Hemoglobin 31, Mean Corpuscular Hemoglobin Concent 31, Red Cell Dist ribution Width 18.6, Platelet Count 447, Mean Platelet Volume 8.2, Immature Granulocyte % (Auto) 1, Neutrophils (%) (Auto) 81, Lymphocytes (%) (Auto) 14, Monocytes (%) (Auto) 4, Eosinophils (%) (Auto) 0, Basophils (%) (Auto) 0, Neutrophils # (Auto) 15.2, Lymphocytes # (Auto) 2.7, Monocytes # (Auto) 0.7, Eosinophils # (Auto) 0.0, Basophils # (Auto) 0.1, Immature Granulocyte # (Auto) 0.1, Sodium Level 137, Chloride Level 108, Carbon Dioxide Level 19, Anion Gap 10, Blood Urea Nitrogen < 2, Creatinine 0.39, Estimat Glomerular Filtration Rate 145, BUN/Creatinine Ratio 5, Glucose Level 70, Calcium Level 7.0, Corrected Calcium 8.8, Total Bilirubin 0.3, Aspartate Amino Transf (AST/SGOT) 22, Alanine Aminotransferase (ALT/SGPT) 19, Alkaline Phosphatase 161, Total Protein 4.1, Albumin 1.8 04/27/22 04:50: Procalcitonin 36.70 04/28/22 05:38: White Blood Count 9.7, Red Blood Count 2.29, Hemoglobin 6.9, Hematocrit 23, Mean Corpuscular Volume 98, Mean Corpuscular Hemoglobin 30, Mean Corpuscular Hemoglobin Concent 31, Red Cell Distribution Width 18.3, Platelet Count 363, Mean Platelet Volume 8.2, Immature Granulocyte % (Auto) 0, Neutrophils (%) (Auto) 65, Lymphocytes (%) (Auto) 28, Monocytes (%) (Auto) 5, Eosinophils (%) (Auto) 1, Basophils (%) (Auto) 0, Neutrophils # (Auto) 6.3, Lymphocytes # (Auto) 2.7, Monocytes # (Auto) 0.5, Eosinophils # (Auto) 0.1, Basophils # (Auto) 0.0, Immature Granulocyte # (Auto) 0.0, Sodium Level 137, Potassium Level 3.3, Chloride Level 108, Carbon Dioxide Level 20, Anion Gap 9, Blood Urea Nitrogen 5, Creatinine 0.42, Estimat Glomerular Filtration Rate 143, BUN/Creatinine Ratio 12, Glucose Level 73, Calcium Level 7.1, Corrected Calcium 8.9, Magnesium Level 1.8, Total Bilirubin 0.3, Aspartate Amino Transf (AST/SGOT) 13, Alanine Aminotransferase (ALT/SGPT) 16, Alkaline Phosphatase 146, Total Protein 4.2, Albumin 1.8 04/29/22 05:54: White Blood Count 8.5, Red Blood Count 3.15, Hemoglobin 9.5, Hematocrit 28, Mean Corpuscular Volume 90, Mean Corpuscular Hemoglobin 30, Mean Corpuscular Hemoglobin Concent 34, Red Cell Distribution Width 19.2, Platelet Count 301, Mean Platelet Volume 8.3, Immature Granulocyte % (Auto) 1, Neutrophils (%) (Auto) 54, Lymphocytes (%) (Auto) 35, Monocytes (%) (Auto) 9, Eosinophils (%) (Auto) 1, Basophils (%) (Auto) 1, Neutrophils # (Auto) 4.6, Lymphocytes # (Auto) 3.0, Monocytes # (Auto) 0.7, Eosinophils # (Auto) 0.1, Basophils # (Auto) 0.0, Immature Granulocyte # (Auto) 0.1, Sodium Level 136, Potassium Level 3.9, Chlo ride Level 107, Carbon Dioxide Level 21, Anion Gap 8, Blood Urea Nitrogen 4, Creatinine 0.44, Estimat Glomerular Filtration Rate 141, BUN/Creatinine Ratio 9, Glucose Level 84, Calcium Level 7.6, Corrected Calcium 9.2, Magnesium Level 1.7, Total Bilirubin 0.5, Aspartate Amino Transf (AST/SGOT) 18, Alanine Aminotransferase (ALT/SGPT) 16, Alkaline Phosphatase 157, Total Protein 4.6, A lbumin 2.0 04/30/22 05:54: White Blood Count 7.4, Red Blood Count 3.47, Hemoglobin 10.2, Hematocrit 32, Me an Corpuscular Volume 91, Mean Corpuscular Hemoglobin 29, Mean Corpuscular Hemoglobin Concent 32, Red Cell Distribution Width 18.6, Platelet Count 329, Mean Platelet Volume 8.2, Immature Granulocyte % (Auto) 1, Neutrophils (%) (Auto) 48, Lymphocytes (%) (Auto) 41, Monocytes (%) (Auto) 9, Eosinophils (%) (Auto) 2, Basophils (%) (Auto) 0, Neutrophils # (Auto) 3.5, Lymphocytes # (Auto) 3.0, Monocytes # (Auto) 0.7, Eosinophils # (Auto) 0.1, Basophils # (Auto) 0.0, Immature Granulocyte # (Auto) 0.1, Sodium Level 139, Potassium Level 3.8, Chloride Level 108, Carbon Dioxide Level 21, Anion Gap 10, Blood Urea Nitrogen 3, Creatinine 0.42, Estimat Glomerular Filtration Rate 143, BUN/Creatinine Ratio 7, Glucose Level 84, Calcium Level 8.3, Corrected Calcium 9.8, Magnesium Level 1.7, Total Bilirubin 0.4, Aspartate Amino Transf (AST/SGOT) 17, Alanine Aminotransferase (ALT/SGPT) 20, Alkaline Phosphatase 158, Total Protein 4.9, Albumin 2.1 05/01/22 04:00: White Blood Count 8.9, Red Blood Count 3.50, Hemoglobin 10.3, Hematocrit 32, Mean Corpuscular Volume 92, Mean Corpuscular Hemoglobin 29, Mean Corpuscular Hemoglobin Concent 32, Red Cell Distribution Width 18.5, Platelet Count 306, Mean Platelet Volume 8.4, Immature Granulocyte % (Auto) 1, Neutrophils (%) (Auto) 50, Lymphocytes (%) (Auto) 39, Monocytes (%) (Auto) 9, Eosinophils (%) (Auto) 2, Basophils (%) (Auto) 0, Neutrophils # (Auto) 4.4, Lymphocytes # (Auto) 3.4, Monocytes # (Auto) 0.8, Eosinophils # (Auto) 0.1, Basophils # (Auto) 0.0, Immature Granulocyte # (Auto) 0.1, Sodium Level 138, Potassium Level 4.0, Chloride Level 109, Carbon Dioxide Level 20, Anion Gap 9, Blood Urea Nitrogen 5, Creatinine 0.45, Estimat Glomerular Filtration Rate 140, BUN/Creatinine Ratio 11, Glucose Level 84, Calcium Level 8.3, Corrected Calcium 9.7, Magnesium Level 1.6, Total Bilirubin 0.3, Aspartate Amino Transf (AST/SGOT) 14, Alanine Aminotransferase (ALT/SGPT) 18, Alkaline Phosphatase 174, Total Protein 5.0, Albumin 2.2 05/02/22 05:00: White Blood Count 8.2, Red Blood Count 3.60, Hemoglobin 10.7, Hematocrit 34, Mean Corpuscular Volume 93, Mean Corpuscular Hemoglobin 30, Mean Corpuscular Hemoglobin Concent 32, Red Cell Distribution Width 18.1, Platelet Count 303, Mean Platelet Volume 9.0, Immature Granulocyte % (Auto) 1, Neutrophils (%) (Auto) 59, Lymphocytes (%) (Auto) 31, Monocytes (%) (Auto) 7, Eosinophils (%) (Auto) 2, Basophils (%) (Auto) 1, Neutrophils # (Auto) 4.8, Lymphocytes # (Auto) 2.5, Monocytes # (Auto) 0.6, Eosinophils # (Auto) 0.2, Basophils # (Auto) 0.0, Immature Granulocyte # (Auto) 0.1, Sodium Level 137, Potassium Level 3.2, Chloride Level 107, Carbon Dioxide Level 19, Anion Gap 11, Blood Urea Nitrogen 5, Creatinine 0.50, Estimat Glomerular Filtration Rate 137, BUN/Creatinine Ratio 10, Glucose Level 122, Calcium Level 8.1, Corrected Calcium 9.5, Magnesium Level 1.5, Total Bilirubin 0.3, Aspartate Amino Transf (AST/SGOT) 12, Alanine Aminotransferase (ALT/SGPT) 18, Alkaline Phosphatase 157, Total Protein 5.2, Albumin 2.2 Discharge Home Medications: Active Scripts Active Potassium Chloride 10 Meq Capsule.er 10 Meq PO BID Metoprolol Tartrate 25 Mg Tablet 12.5 Mg PO TID Pantoprazole Sodium 40 Mg Tablet.dr 40 Mg PO BID Loratadine 10 Mg Tablet 10 Mg PO DAILY Furosemide 20 Mg Tablet 20 Mg PO DAILY PRN Flonase Allergy Relief (Fluticasone Propionate) 50 Mcg/Actuation [place].susp 2 [place] NS DAILY Dicyclomine HCl 10 Mg Capsule 10 Mg PO TID PRN Baclofen 10 Mg Tablet 10-20 Mg PO TID PRN Culturelle Capsule (L. Rhamnosus GG/Inulin) 10 Billion Cell-200 Mg Cap.sprink 1 Each PO BID Hydrocodone-Acetamin 5-325 mg (Hydrocodone/Acetaminophen) 5 Mg-325 Mg Tablet 1 Tab PO Q8H PRN Reported Humira(Cf) Pen (Adalimumab) 80 Mg/0.8 Ml Pen.ij.kit Mg SQ UD INJECT 160MG ON DAY 1 AND THEN 80MG ON DAY 15- THIS MED NEEDS A [facility] [place] ([phone] SPOKE WITH [employer]) IS WORKING ON THE PA Vitamin D3 (Cholecalciferol (Vitamin D3)) 50 Mcg (2000 Unit) Capsule 50 Mcg PO DAILY [Vit B Comp. Sust Rel] 1 Ea PO DAILY Multivitamin 1 Each Tablet 1 Each PO DAILY Ciclopirox 8 % Solution 1 Applic TP DAILY APPLICATION AREA NOT LISTED ON DISCHARGE ORDERS Vitamin C (Ascorbic Acid) 1,000 Mg Tablet 1,000 Mg PO DAILY Instructions to patient/family Please see electronic discharge instructions given to patient. NKECHI SIDDIQI DO May 02, 2022 06:57
--- NOTE | 2022-05-02 06:57 | D/C HH Face to Face Order ---
D/C Face to Face Orders Reconcile Patient Problems Problems Reviewed?: Yes Instructions for Patient Via [facility], Patient Instructions/FollowUp: PCP 1 week Physician to follow Patient: Miles Discharge Diet for Home: No Restrictions Patient Problems: Crohn's Patient Data-Allergies,Ht & Wt Patient Allergies: Coded Allergies: vancomycin (Verified Allergy, Intermediate, Rash, 04/19/22) Home Health Need/Face to Face Date of Face to Face: May 02, 2022 Clinical Findings: Generalized weakness and fatigue, Muscle weakness, Unsteady gait I have seen Pt qbag-or-masm: Yes Discharged To: Home Diagnosis/Conditions: Crohn's Patient is Homebound due to: Claribel fall risk due to instabilty, Muscle weakness Homebound Status Due to the above stated illness, injury or surgical procedure (medical condition or diagnosis) and associated clinical findings, the patient is homeb ound because of his/her inability to leave home except with aid of a supportive device and/or person AND leaving the home requires a considerable and taxing effort or is medically contraindicated. Pt req the following assistanc: [facility] Nursing Orders Home Health Services Order: Nursing Services, Diving Judge-Evaluate & Treat, Physical Therapy-Evaluate & Treat Certify Stmt I certify that this patient is under my care and that I, a nurse practitioner or a physician; a real estate executive assistant working with me, had a face to face encounter that - meets the physician face to face encounter requirements with this patient as dated. NKECHI SIDDIQI DO May 02, 2022 06:57
[2022-05-02 07:55] VITALS: BP 96/66
[2022-05-02] MEDS: LORATADINE (CLARITIN) 10 MG TAB PO SCH (09:17)
[2022-05-02] MEDS: PANTOPRAZOLE 40 MG (PROTONIX) TAB PO SCH (09:17)
[2022-05-02] MEDS: DOCUSATE SODIUM 100 MG (COLACE) CAP PO SCH (09:17)
[2022-05-02] MEDS: AUGMENTIN 875 MG TAB (AMOXICILLIN/CLAVULANATE) PO SCH (09:17)
[2022-05-02] MEDS: LACTOBACILLUS ACIDOPHILUS (PROBIOTIC) CAPSULE PO SCH (09:17)
[2022-05-02] MEDS: meTOprolol TARTRATE 25 MG (LOPRESSOR) TABLET PO SCH (09:18)
[2022-05-02] MEDS: FLUTICASONE NASAL SPRAY (FLONASE) 16 GM BTL NS SCH (09:19)
[2022-05-02] MEDS: SENNOSIDES 8.6 MG (SENOKOT) TAB PO SCH (09:21)
[2022-05-02] MEDS ORDERED: POTA10CA43 PO (09:26)
--- NOTE | 2022-05-02 09:27 | Discharge Summary ---
Diagnosis/Chief Complaint Date of Admission Apr 25, 2022 at 07:46 Date of Discharge Discharge Date: May 02, 2022 Discharge Diagnosis Assess & Plan/Chief Complaint 1. Severe Sepsis vs Septic shock -Started on 200mls IV Zosyn and IV Linezolid 300mg Q12H (DC 04/26) -Given 1L NS bolus and IV 125ml/hr NS -Blood cultures were unremarkable -Procalcitonin on intake was 30.47, improved to 23.24 on 04/26 04/27: -Procalcitonin is mildly elevated from yesterday at 36.70 2. Hospital acquired pneumonia -CXR 04/25 showed possible RLL pneumonia -IV Linezolid 300mg Q12H (DC 04/26) and 200mls IV Zosyn added to cover possible aspiration 3. Encephalopathy -resolved -CT head unremarkable 4. Metabolic acidosis - AG back within normal range -lactic acid back to normal range 5. Leukocytosis -WBC 11.8 on 04/25, elevated to 18.8 on 04/26 04/27: -WBC still elevated but unchanged from yesterday 4. Thrombocytosis -improved 6. Lactic acidosis -See above 7. Elevated D-dimer -D-dimer of 6.34 on 04/25 -B/L LE Venous Doppler unremarkable -Lovenox started 8. Protein malnutrition - Albumin = 2.5 9. S/p exp lap with bowel resection and ileostomy -continues to have good output, continue to monitor -EICU ordered imaging of abd/pelvis d/t recent abd surgery and h/o Crohn's disease - all unremarkable 10. Cerebral palsy -Muscle spasticity- takes 10mg TID of Baclofen- currently discontinued -H/o [employer] shunt with revision 11. Crohn's Disease -followed by Dr. Campbell in [place] -takes Humira at home - discontinued in hospital 12. Hypokalemia -04/27: decreased to 3.0 from 3.4 Plan: Continue with PO abx PT Awaiting transfer to inpatient rehab Reason Hospital Visit CC: Acute clinical decompensation HPI: This is a 21yoWF [facility]U patient who had been doing well until this morning and had an abrupt onset of clinical decompensation requiring septic w/u and subsequent transfer to ICU for severe sepsis and PNA treatment with Zosyn and Zyvox. IVF initiated with good resolution of lactic acidosis and sepsis signs. Grna at bedside and updated. Discharge Summary Discharge Physical Examination Allergies: Coded Allergies: vancomycin (Verified Allergy, Intermediate, Rash, 04/19/22) Vitals & I&Os Vital Signs Date Time Temp Pulse Resp B/P (MAP) Pulse Ox O2 Delivery O2 Flow Rate FiO2 05/02/22 13:09 36.4 100 18 99/68 100 Room Air 04/29/22 19:15 21 General Appearance: Alert, Oriented X3, Cooperative Respiratory: Clear to Auscultation Cardiovascular: Regular Rate Neuro: Normal Gait, Normal Speech, Strength at 5/5 X4 Ext Psych/Mental Status: Mental Status NL Hospital Course Was the Problem List Reviewed?: Yes 21yo F with h/o s/p ex lap with small bowel resection and ileostomy, cerebral palsy, [employer] shunt, Crohn's disease, and hiatal hernia was admitted to the ICU for severe sepsis from inpatient rehab on 04/25. Pt was admitted to inpatient rehab on 04/19 following an ex lap with small bowel resection and ileostomy on 04/14. Since being admitted to inpatient rehab, pt had been tolerating diet and PT well, having ileostomy output, and had no complaints. On 04/24, pt started to c/o L sided rib pain that occurred following PT. Initially, pt stated that the pain was localized to the 7th rib and was dull and mild but got progressively worse throughout day. Imaging was ordered and XRAY of ribs found no fractures but CXR found possible developing pneumonia in the R lung base. Pt was started on Linezolid but became progressively less responsive to questions, moaning and c/o pain only. Workup was remarkable for elevated WBC, thrombocytosis, elevated lactic acid of 5.84, and elevated procalcitonin. Pt exhibited notable pallor w/mild guerrero hue and was thrashing in the bed moaning. Pt was transferred to the ICU where she became more agitated and was given 10mg of Geodon and 0.5mg of Ativan. Pt had a repeat lactic acid that was elevated to 6.87 and an elevated D- Dimer in the ICU. IV Zosyn and Lovenox were ordered and given. Per nurse, pt experienced an episode of VTACH after transfer but self-resolved. Pt continued to improve over the next few hours and was transferred to fourth floor on 04/26. Following transfer to floor, workup showsed improvement of her thrombocytosis, WBC, and procalcitonin levels. On 04/28, pt was transfused with 1U PRBC due to a Hgb of 6.9. Today, pt states that she is feeling much better. Hgb has improved to 10.3. Pt continues to void and have output from her ileostomy. Pt is tolerating her diet well and has been able to ambulate without issue. Due to [facility]'s insurance, her inpatient rehab visit was closed so pt will need to be re- evaluated by inpatient rehab prior to transfer. Labs (last 24 hrs) Laboratory Tests 04/25/22 15:07: Hemoglobin 8.9L, Potassium Level 2.8L, Magnesium Level 1.6 04/25/22 23:25: Potassium Level 3.2L 04/26/22 04:43: Hemoglobin 7.6L, Potassium Level 3.4L, Magnesium Level 2.0, White Blood Count 18.8H, Red Blood Count 2.55L, Hematocrit 25L, Mean Corpuscular Volume 98, Mean Corpuscular Hemoglobin 30, Mean Corpuscular Hemoglobin Concent 30L, Red Cell Distribution Width 18.6H, Platelet Count 527H, Mean Platelet Volume 8.0L, Immature Granulocyte % (Auto) 1, Neutrophils (%) (Auto) 79H, Lymphocytes (%) (Auto) 15, Monocytes (%) (Auto) 4, Eosinophils (%) (Auto) 0, Basophils (%) (Auto) 0, Neutrophils # (Auto) 14.8H, Lymphocytes # (Auto) 2.9, Monocytes # (Auto) 0.8, Eosinophils # (Auto) 0.0, Basophils # (Auto) 0.1, Immature Granulocyte # (Auto) 0.2H, Neutrophils % (Manual) 83, Lymphocytes % (Manual) 7, Monocytes % (Manual) 6, Eosinophils % (Manual) 0, Basophils % (Manual) 0, Band Neutrophils 2, Reactive Lymphocytes 2, Polychromasia SLIGHT, Hypochromasia MODERATE, Anisocytosis SLIGHT, Tear Drop Cells SLIGHT, Sodium Level 139, Chloride Level 110H, Carbon Dioxide Level 22, Anion Gap 7, Blood Urea Nitrogen < 2L, Creatinine 0.38L, Estimat Glomerular Filtration Rate 146, BUN/Creatinine Ratio 5, Glucose Level 86, Calcium Level 7.1L, Corrected Calcium 8.7, Phosphorus Level 2.4, Total Bilirubin 0.3, Aspartate Amino Transf (AST/SGOT) 28, Alanine Aminotransferase (ALT/SGPT) 19, Alkaline Phosphatase 153H, Total Protein 4.4L, Albumin 2.0L, Procalcitonin 23.24H 04/27/22 04:45: Hemoglobin 7.4L, Potassium Level 3.0L, Magnesium Level 1.8, White Blood Count 18.8H, Red Blood Count 2.41L, Hematocrit 24L, Mean Corpuscular Volume 99, Mean Corpuscular Hemoglobin 31, Mean Corpuscular Hemoglobin Concent 31L, Red Cell Distribution Width 18.6H, Platelet Count 447H, Mean Platelet Volume 8.2L, Immature Granulocyte % (Auto) 1, Neutrophils (%) (Auto) 81H, Lymphocytes (%) (Auto) 14, Monocytes (%) (Auto) 4, Eosinophils (%) (Auto) 0, Basophils (%) (Auto) 0, Neutrophils # (Auto) 15.2H, Lymphocytes # (Auto) 2.7, Monocytes # (Auto) 0.7, Eosinophils # (Auto) 0.0, Basophils # (Auto) 0.1, Immature Granulocyte # (Auto) 0.1, Sodium Level 137, Chloride Level 108H, Carbon Dioxide Level 19L, Anion Gap 10, Blood Urea Nitrogen < 2L, Creatinine 0.39L, Estimat Glomerular Filtration Rate 145, BUN/Creatinine Ratio 5, Glucose Level 70, Calcium Level 7.0L, Corrected Calcium 8.8, Total Bilirubin 0.3, Aspartate Amino Transf (AST/SGOT) 22, Alanine Aminotransferase (ALT/SGPT) 19, Alkaline Phosphatase 161H, Total Protein 4.1L, Albumin 1.8L 04/27/22 04:50: Procalcitonin 36.70H 04/28/22 05:38: White Blood Count 9.7, Red Blood Count 2.29L, Hemoglobin 6.9*L, Hematocrit 23L, Mean Corpuscular Volume 98, Mean Corpuscular Hemoglobin 30, Mean Corpuscular Hemoglobin Concent 31L, Red Cell Distribution Width 18.3H, Platelet Count 363, Mean Platelet Volume 8.2L, Immature Granulocyte % (Auto) 0, Neutrophils (%) (Auto) 65, Lymphocytes (%) (Auto) 28, Monocytes (%) (Auto) 5, Eosinophils (%) (Auto) 1, Basophils (%) (Auto) 0, Neutrophils # (Auto) 6.3, Lymphocytes # (Auto) 2.7, Monocytes # (Auto) 0.5, Eosinophils # (Auto) 0.1, Basophils # (Auto) 0.0, Immature Granulocyte # (Auto) 0.0, Sodium Level 137, Potassium Level 3.3L, Chloride Level 108H, Carbon Dioxide Level 20L, Anion Gap 9, Blood Urea Nitrogen 5L, Creatinine 0.42L, Estimat Glomerular Filtration Rate 143, BUN/Creatinine Ratio 12, Glucose Level 73, Calcium Level 7.1L, Corrected Calcium 8.9, Magnesium Level 1.8, Total Bilirubin 0.3, Aspartate Amino Transf (AST/SGOT) 13, Alanine Aminotransferase (ALT/SGPT) 16, Alkaline Phosphatase 146H, Total Protein 4.2L, Albumin 1.8L 04/29/22 05:54: White Blood Count 8.5, Red Blood Count 3.15L, Hemoglobin 9.5#L, Hematocrit 28L, Mean Corpuscular Volume 90, Mean Corpuscular Hemoglobin 30, Mean Corpuscular Hemoglobin Concent 34, Red Cell Distribution Width 19.2H, Platelet Count 301, Mean Platelet Volume 8.3L, Immature Granulocyte % (Auto) 1, Neutrophils (%) (Auto) 54, Lymphocytes (%) (Auto) 35, Monocytes (%) (Auto) 9, Eosinophils (%) (Auto) 1, Basophils (%) (Auto) 1, Neutrophils # (Auto) 4.6, Lymphocytes # (Auto) 3.0, Monocytes # (Auto) 0.7, Eosinophils # (Auto) 0.1, Basophils # (Auto) 0.0, Immature Granulocyte # (Auto) 0.1, Sodium Level 136, Potassium Level 3.9, Chloride Level 107, Carbon Dioxide Level 21, Anion Gap 8, Blood Urea Nitrogen 4L , Creatinine 0.44L, Estimat Glomerular Filtration Rate 141, BUN/Creatinine Ratio 9, Glucose Level 84, Calcium Level 7.6L, Corrected Calcium 9.2, Magnesium Level 1.7, Total Bilirubin 0.5, Aspartate Amino Transf (AST/SGOT) 18, Alanine Aminotransferase (ALT/SGPT) 16, Alkaline Phosphatase 157H, Total Protein 4.6L, Albumin 2.0L 04/30/22 05:54: White Blood Count 7.4, Red Blood Count 3.47L, Hemoglobin 10.2L, Hematocrit 32L, Mean Corpuscular Volume 91, Mean Corpuscular Hemoglobin 29, Mean Corpuscular Hemoglobin Concent 32, Red Cell Distribution Width 18.6H, Platelet Count 329, Mean Platelet Volume 8.2L, Immature Granulocyte % (Auto) 1, Neutrophils (%) (Auto) 48, Lymphocytes (%) (Auto) 41, Monocytes (%) (Auto) 9, Eosinophils (%) (Auto) 2, Basophils (%) (Auto) 0, Neutrophils # (Auto) 3.5, Lymphocytes # (Auto) 3.0, Monocytes # (Auto) 0.7, Eosinophils # (Auto) 0.1, Basophils # (Auto) 0.0, Immature Granulocyte # (Auto) 0.1, Sodium Level 139, Potassium Level 3.8, Chloride Level 108H, Carbon Dioxide Level 21, Anion Gap 10, Blood Urea Nitrogen 3L, Creatinine 0.42L, Estimat Glomerular Filtration Rate 143, BUN/Creatinine Ratio 7, Glucose Level 84, Calcium Level 8.3L, Corrected Calcium 9.8, Magnesium Level 1.7, Total Bilirubin 0.4, Aspartate Amino Transf (AST/SGOT) 17, Alanine Aminotransferase (ALT/SGPT) 20, Alkaline Phosphatase 158H, Total Protein 4.9L, Albumin 2.1L 05/01/22 04:00: White Blood Count 8.9, Red Blood Count 3.50L, Hemoglobin 10.3L, Hematocrit 32L, Mean Corpuscular Volume 92, Mean Corpuscular Hemoglobin 29, Mean Corpuscular Hemoglobin Concent 32, Red Cell Distribution Width 18.5H, Platelet Count 306, Mean Platelet Volume 8.4L, Immature Granulocyte % (Auto) 1, Neutrophils (%) (Auto) 50, Lymphocytes (%) (Auto) 39, Monocytes (%) (Auto) 9, Eosinophils (%) (Auto) 2, Basophils (%) (Auto) 0, Neutrophils # (Auto) 4.4, Lymphocytes # (Auto) 3.4, Monocytes # (Auto) 0.8, Eosinophils # (Auto) 0.1, Basophils # (Auto) 0.0, Immature Granulocyte # (Auto) 0.1, Sodium Level 138, Potassium Level 4.0, Chloride Level 109H, Carbon Dioxide Level 20L, Anion Gap 9, Blood Urea Nitrogen 5L, Creatinine 0.45L, Estimat Glomerular Filtration Rate 140, BUN/Creatinine Ratio 11, Glucose Level 84, Calcium Level 8.3L, Corrected Calcium 9.7, Magnesium Level 1.6, Total Bilirubin 0.3, Aspartate Amino Transf (AST/SGOT) 14, Alanine Aminotransferase (ALT/SGPT) 18, Alkaline Phosphatase 174H, Total Protein 5.0L, Albumin 2.2L 05/02/22 05:00: White Blood Count 8.2, Red Blood Count 3.60L, Hemoglobin 10.7L, Hematocrit 34L, Mean Corpuscular Volume 93, Mean Corpuscular Hemoglobin 30, Mean Corpuscular Hemoglobin Concent 32, Red Cell Distribution Width 18.1H, Platelet Count 303, Mean Platelet Volume 9.0, Immature Granulocyte % (Auto) 1, Neutrophils (%) (Auto) 59, Lymphocytes (%) (Auto) 31, Monocytes (%) (Auto) 7, Eosinophils (%) (Auto) 2, Basophils (%) (Auto) 1, Neutrophils # (Auto) 4.8, Lymphocytes # (Auto) 2.5, Monocytes # (Auto) 0.6, Eosinophils # (Auto) 0.2, Basophils # (Auto) 0.0, Immature Granulocyte # (Auto) 0.1, Sodium Level 137, Potassium Level 3.2L, Chloride Level 107, Carbon Dioxide Level 19L, Anion Gap 11, Blood Urea Nitrogen 5L, Creatinine 0.50L, Estimat Glomerular Filtration Rate 137, BUN/Creatinine Ratio 10, Glucose Level 122H, Calcium Level 8.1L, Corrected Calcium 9.5, Magnesium Level 1.5L, Total Bilirubin 0.3, Aspartate Amino Transf (AST/SGOT) 12, Alanine Aminotransferase (ALT/SGPT) 18, Alkaline Phosphatase 157H, Total Protein 5.2L, Albumin 2.2L Microbiology 04/25/22 Blood Culture - Final, Complete No growth Pending Labs Microbiology Date/Time Source Procedure Growth Status 04/25/22 09:05 Peripheral Lt Hand Blood Culture - Final No growth Complete Laboratory Tests 04/25/22 15:07: Hemoglobin 8.9, Potassium Level 2.8, Magnesium Level 1.6 04/25/22 23:25: Potassium Level 3.2 04/26/22 04:43: Hemoglobin 7.6, Potassium Level 3.4, Magnesium Level 2.0, White Blood Count 18 .8, Red Blood Count 2.55, Hematocrit 25, Mean Corpuscular Volume 98, Mean Corpuscular Hemoglobin 30, Mean Corpuscular Hemoglobin Concent 30, Red Cell Distribution Width 18.6, Platelet Count 527, Mean Platelet Volume 8.0, Immature Granulocyte % (Auto) 1, Neutrophils (%) (Auto) 79, Lymphocytes (%) (Auto) 15, Monocytes (%) (Auto) 4, Eosinophils (%) (Auto) 0, Basophils (%) (Auto) 0, Ne utrophils # (Auto) 14.8, Lymphocytes # (Auto) 2.9, Monocytes # (Auto) 0.8, Eosinophils # (Auto) 0.0, Basophils # (Auto) 0.1, Immature Granulocyte # (Auto) 0.2, Neutrophils % (Manual) 83, Lymphocytes % (Manual) 7, Monocytes % (Manual) 6, Eosinophils % (Manual) 0, Basophils % (Manual) 0, Band Neutrophils 2, Reactive Lymphocytes 2, Polychromasia SLIGHT, Hypochromasia MODERATE, Anisocy tosis SLIGHT, Tear Drop Cells SLIGHT, Sodium Level 139, Chloride Level 110, Carbon Dioxide Level 22, Anion Gap 7, Blood Urea Nitrogen < 2, Creatinine 0.38, Estimat Glomerular Filtration Rate 146, BUN/Creatinine Ratio 5, Glucose Level 86, Calcium Level 7.1, Corrected Calcium 8.7, Phosphorus Level 2.4, Total Bilirubin 0.3, Aspartate Amino Transf (AST/SGOT) 28, Alanine Aminotransferase (ALT/SGPT) 19, Alkaline Phosphatase 153, Total Protein 4.4, Albumin 2.0, Procalcitonin 23.24 04/27/22 04:45: Hemoglobin 7.4, Potassium Level 3.0, Magnesium Level 1.8, White Blood Count 18.8, Red Blood Count 2.41, Hematocrit 24, Mean Corpuscular Volume 99, Mean Corpuscular Hemoglobin 31, Mean Corpuscular Hemoglobin Concent 31, Red Cell Distribution Width 18.6, Platelet Count 447, Mean Platelet Volume 8.2, Immature Granulocyte % (Auto) 1, Neutrophils (%) (Auto) 81, Lymphocytes (%) (Auto) 14, Monocytes (%) (Auto) 4, Eosinophils (%) (Auto) 0, Basophils (%) (Auto) 0, Neutrophils # (Auto) 15.2, Lymphocytes # (Auto) 2.7, Monocytes # (Auto) 0.7, Eosinophils # (Auto) 0.0, Basophils # (Auto) 0.1, Immature Granulocyte # (Auto) 0.1, Sodium Level 137, Chloride Level 108, Carbon Dioxide Level 19, Anion Gap 10, Blood Urea Nitrogen < 2, Creatinine 0.39, Estimat Glomerular Filtration Rate 145, BUN/Creatinine Ratio 5, Glucose Level 70, Calcium Level 7.0, Corrected Calcium 8.8, Total Bilirubin 0.3, Aspartate Amino Transf (AST/SGOT) 22, Alanine Aminotransferase (ALT/SGPT) 19, Alkaline Phosphatase 161, Total Protein 4.1, Albumin 1.8 04/27/22 04:50: Procalcitonin 36.70 04/28/22 05:38: White Blood Count 9.7, Red Blood Count 2.29, Hemoglobin 6.9, Hematocrit 23, Mean Corpuscular Volume 98, Mean Corpuscular Hemoglobin 30, Mean Corpuscular Hemogl obin Concent 31, Red Cell Distribution Width 18.3, Platelet Count 363, Mean Platelet Volume 8.2, Immature Granulocyte % (Auto) 0, Neutrophils (%) (Auto) 65, Lymphocytes (%) (Auto) 28, Monocytes (%) (Auto) 5, Eosinophils (%) (Auto) 1, Basophils (%) (Auto) 0, Neutrophils # (Auto) 6.3, Lymphocytes # (Auto) 2.7, Monocytes # (Auto) 0.5, Eosinophils # (Auto) 0.1, Basophils # (Auto) 0.0, Immature Granulocyte # (Auto) 0.0, Sodium Level 137, Potassium Level 3.3, Chloride Level 108, Carbon Dioxide Level 20, Anion Gap 9, Blood Urea Nitrogen 5, Creatinine 0.42, Estimat Glomerular Filtration Rate 143, BUN/Creatinine Ratio 12, Glucose Level 73, Calcium Level 7.1, Corrected Calcium 8.9, Magnesium Level 1.8, Total Bilirubin 0.3, Aspartate Amino Transf (AST/SGOT) 13, Alanine Aminotransferase (ALT/SGPT) 16, Alkaline Phosphatase 146, Total Protein 4.2, Albumin 1.8 04/29/22 05:54: White Blood Count 8.5, Red Blood Count 3.15, Hemoglobin 9.5, Hematocrit 28, Mean Corpuscular Volume 90, Mean Corpuscular Hemoglobin 30, Mean Corpuscular Hemoglobin Concent 34, Red Cell Distribution Width 19.2, Platelet Count 301, Mean Platelet Volume 8.3, Immature Granulocyte % (Auto) 1, Neutrophils (%) (Auto) 54, Lymphocytes (%) (Auto) 35, Monocytes (%) (Auto) 9, Eosinophils (%) ( Auto) 1, Basophils (%) (Auto) 1, Neutrophils # (Auto) 4.6, Lymphocytes # (Auto) 3.0, Monocytes # (Auto) 0.7, Eosinophils # (Auto) 0.1, Basophils # (Auto) 0.0, Immature Granulocyte # (Auto) 0.1, Sodium Level 136, Potassium Level 3.9, Chloride Level 107, Carbon Dioxide Level 21, Anion Gap 8, Blood Urea Nitrogen 4, Creatinine 0.44, Estimat Glomerular Filtration Rate 141, BUN/Creatinine Ratio 9, Glucose Level 84, Calcium Level 7.6, Corrected Calcium 9.2, Magnesium Level 1.7, Total Bilirubin 0.5, Aspartate Amino Transf (AST/SGOT) 18, Alanine Aminotransferase (ALT/SGPT) 16, Alkaline Phosphatase 157, Total Protein 4.6, Albumin 2.0 04/30/22 05:54: White Blood Count 7.4, Red Blood Count 3.47, Hemoglobin 10.2, Hematocrit 32, Mean Corpuscular Volume 91, Mean Corpuscular Hemoglobin 29, Mean Corpuscular Hemoglobin Concent 32, Red Cell Distribution Width 18.6, Platelet Count 329, Mean Platelet Volume 8.2, Immature Granulocyte % (Auto) 1, Neutrophils (%) (Auto) 48, Lymphocytes (%) (Auto) 41, Monocytes (%) (Auto) 9, Eosinophils (%) (Auto) 2, Basophils (%) (Auto) 0, Neutrophils # (Auto) 3.5, Lymphocytes # (Auto) 3.0, Monocytes # (Auto) 0.7, Eosinophils # (Auto) 0.1, Basophils # (Auto) 0.0, Immature Granulocyte # (Auto) 0.1, Sodium Level 139, Potassium Level 3.8, Chloride Level 108, Carbon Dioxide Level 21, Anion Gap 10, Blood Urea Nitrogen 3, Creatinine 0.42, Estimat Glomerular Filtration Rate 143, BUN/Creatinine Ratio 7, Glucose Level 84, Calcium Level 8.3, Corrected Calcium 9.8, Magnesium Level 1.7, Total Bilirubin 0.4, Aspartate Amino Transf (AST/SGOT) 17, Alanine Aminotransferase (ALT/SGPT) 20, Alkaline Phosphatase 158, Total Protein 4.9, Albumin 2.1 05/01/22 04:00: White Blood Count 8.9, Red Blood Count 3.50, Hemoglobin 10.3, Hematocrit 32, Mean Corpuscular Volume 92, Mean Corpuscular Hemoglobin 29, Mean Corpuscular Hemoglobin Concent 32, Red Cell Distribution Width 18.5, Platelet Count 306, Mean Platelet Volume 8.4, Immature Granulocyte % (Auto) 1, Neutrophils (%) (Auto) 50, Lymphocytes (%) (Auto) 39, Monocytes (%) (Auto) 9, Eosinophils (%) (Auto) 2, Basophils (%) (Auto) 0, Neutrophils # (Auto) 4.4, Lymphocytes # (Auto) 3.4, Monocytes # (Auto) 0.8, Eosinophils # (Auto) 0.1, Basophils # (Auto) 0.0, Immature Granulocyte # (Auto) 0.1, Sodium Level 138, Potassium Level 4.0, Chloride Level 109, Carbon Dioxide Level 20, Anion Gap 9, Blood Urea Nitrogen 5, Creatinine 0.45, Estimat Glomerular Filtration Rate 140, BUN/Creatinine Ratio 11, Glucose Level 84, Calcium Level 8.3, Corrected Calcium 9.7, Magnesium Level 1.6, Total Bilirubin 0.3, Aspartate Amino Transf (AST/SGOT) 14, Alanine Aminotransferase (ALT/SGPT) 18, Alkaline Phosphatase 174, Total Protein 5.0, Albumin 2.2 05/02/22 05:00: White Blood Count 8.2, Red Blood Count 3.60, Hemoglobin 10.7, Hematocrit 34, Mean Corpuscular Volume 93, Mean Corpuscular Hemoglobin 30, Mean Corpuscular Hemoglobin Concent 32, Red Cell Distribution Width 18.1, Platelet Count 303, Mean Platelet Volume 9.0, Immature Granulocyte % (Auto) 1, Neutrophils (%) (Auto) 59, Lymphocytes (%) (Auto) 31, Monocytes (%) (Auto) 7, Eosinophils (%) (Auto) 2, Basophils (%) (Auto) 1, Neutrophils # (Auto) 4.8, Lymphocytes # (Auto) 2.5, Monocytes # (Auto) 0.6, Eosinophils # (Auto) 0.2, Basophils # (Auto) 0.0, Immature Granulocyte # (Auto) 0.1, Sodium Level 137, Potassium Level 3.2, Chloride Level 107, Carbon Dioxide Level 19, Anion Gap 11, Blood Urea Nitrogen 5, Creatinine 0.50, Estimat Glomerular Filtration Rate 137, BUN/Creatinine Ratio 10, Glucose Level 122, Calcium Level 8.1, Corrected Calcium 9.5, Magnesium Level 1.5, Total Bilirubin 0.3, Aspartate Amino Transf (AST/SGOT) 12, Alanine Aminotransferase (ALT/SGPT) 18, Alkaline Phosphatase 157, Total Protein 5.2, Albumin 2.2 Discharge Home Medications: Active Scripts Active Potassium Chloride 10 Meq Capsule.er 10 Meq PO BID Metoprolol Tartrate 25 Mg Tablet 12.5 Mg PO TID Pantoprazole Sodium 40 Mg Tablet.dr 40 Mg PO BID Loratadine 10 Mg Tablet 10 Mg PO DAILY Furosemide 20 Mg Tablet 20 Mg PO DAILY PRN Flonase Allergy Relief (Fluticasone Propionate) 50 Mcg/Actuation Winside.susp 2 Winside NS DAILY Dicyclomine HCl 10 Mg Capsule 10 Mg PO TID PRN Baclofen 10 Mg Tablet 10-20 Mg PO TID PRN Culturelle Capsule (L. Rhamnosus GG/Inulin) 10 Billion Cell-200 Mg Cap.sprink 1 Each PO BID Hydrocodone-Acetamin 5-325 mg (Hydrocodone/Acetaminophen) 5 Mg-325 Mg Tablet 1 Tab PO Q8H PRN Reported Humira(Cf) Pen (Adalimumab) 80 Mg/0.8 Ml Pen.ij.kit Mg SQ UD INJECT 160MG ON DAY 1 AND THEN 80MG ON DAY 15- THIS MED NEEDS A [facility] IN [place] ([phone] SPOKE WITH [employer]) IS WORKING ON THE PA Vitamin D3 (Cholecalciferol (Vitamin D3)) 50 Mcg (2000 Unit) Capsule 50 Mcg PO DAILY [Vit B Comp. Sust Rel] 1 Ea PO DAILY Multivitamin 1 Each Tablet 1 Each PO DAILY Vitamin C (Ascorbic Acid) 1,000 Mg Tablet 1,000 Mg PO DAILY Instructions to patient/family Please see electronic discharge instructions given to patient. NKECHI SIDDIQI DO May 02, 2022 09:27
[2022-05-02] MEDS ORDERED: KCL 20 MEQ TAB (K-DUR) PO NR (09:30)
--- NOTE | 2022-05-02 09:40 | Cardiology Progress Note ---
Subjective Date Seen by Provider: May 02, 2022 Time Seen by Provider: 08:40 Subjective/Events-last exam Patient sitting up in chair, no new complaints. Objective-Cardiology Exam Last Set of Vital Signs Vital Signs 04/29/22 05/02/22 05/02/22 19:15 07:55 08:00 Temp 36.4 Pulse 101 Resp 18 B/P (MAP) 96/66 (76) Pulse Ox 100 O2 Delivery Room Air FiO2 21 I&O Intake and Output 05/02/22 00:00 Intake Total 1440 ml Output Total 1325 ml Balance 115 ml Intake Oral 1440 ml Output Urine Total 600 ml Stool Total 725 ml General: Alert, Oriented X3 HEENT: PERRLA, Mucous Memb Moist/[place] Neck: Supple, No Thyromegaly Lungs: Clear to Auscultation, Normal Air Movement Heart: Regular Rate, No Murmurs Abdomen: Soft, No Tenderness, Other (ileosomy R abd) Extremities: No Cyanosis, No Edema Skin: No Rashes, No Significant Lesion Neuro: Normal Speech, Normal Tone Psych/Mental Status: Mental Status NL, Mood NL Results Lab Laboratory Tests 05/02/22 05:00 A/P-Cardiology Admission Diagnosis Sepsis Lactic acidosis Wide-complex tachycardia Pneumonia Assessment/Plan Status post severe sepsis, hospital-acquired pneumonia Improved, responded to antibiotic Currently doing better. Anemia, drop in H&H. Status post blood transfusion, H&H are better Managed by medical team. Sinus tachycardia, probably secondary to above. Heart rate is better, tolerating low-dose metoprolol. Continue to monitor Status post encephalopathy, acute change in mental status. Improved, awake and talkative today Back to baseline, managed by medical team. Wide-complex tachycardia, irregular, most probably paroxysmal atrial tachycardia with aberrant conduction. Total of 5 beats. No previous history of ventricular tachycardia. Currently in sinus tachycardia. Started on low-dose beta-blockers, tolerating medication well. Continue to monitor Metabolic acidosis secondary to lactic acidosis. Being corrected. Status post exploratory laparoscopy with small bowel resection and ileostomy done on April 14, 2022 Continue to monitor History of Crohn's disease. History of cerebral palsy, muscle spasticity, history of TONG[place]AN shunt with revision Protein malnutrition, managed by medical team. MARILIN GRAVES May 02, 2022 09:40
[2022-05-02] MEDS: ENOXAPARIN INJECTION 30 MG/0.3 ML SYR SC SCH ×2 (10:26→10:28)
[2022-05-02 11:32] VITALS: BP 99/68
[2022-05-02 13:09] VITALS: BP 99/68
[2022-05-03] MEDS ORDERED: KCL 10 MEQ TAB (MICRO K) PO SCH (07:00)
== END 2022-05-02 13:10 | disposition home health service (06) | DRG 871 ==
LOC: ICU 07:46 → 4TH 04-26 13:35
PROVIDERS: ADMIT Internal Medicine; ATTEND Internal Medicine
DX: A41.9 Sepsis, unspecified organism (principal); J18.9 Pneumonia, unspecified organism; E46 Unspecified protein-calorie malnutrition; Z68.1 Body mass index [BMI] 19.9 or less, adult; G93.40 Encephalopathy, unspecified; E87.20 Acidosis, unspecified; K50.90 Crohn's disease, unspecified, without complications; I47.20 Ventricular tachycardia, unspecified; R65.20 Severe sepsis without septic shock; G80.9 Cerebral palsy, unspecified; K74.60 Unspecified cirrhosis of liver; D72.829 Elevated white blood cell count, unspecified; D75.839 Thrombocytosis, unspecified; F41.9 Anxiety disorder, unspecified; S29.011A Strain of muscle and tendon of front wall of thorax, initial encounter; E87.6 Hypokalemia; D64.9 Anemia, unspecified; Z93.2 Ileostomy status; Z98.2 Presence of cerebrospinal fluid drainage device; Z88.1 Allergy status to other antibiotic agents; X50.0XXA Overexertion from strenuous movement or load, initial encounter
CPT/HCPCS: 36415; 70450; 71045; 74177; 80053; 83735; 84100; 84132; 84145; 85007; 85018; 85025; 85027; 86850; 86900; 86901; 86920; 87040; 93306; 93970; 94760